=== PATIENT | female | born 1960 | race Caucasian/White ===

== ENCOUNTER 2017-07-05 21:49 | Inpatient (IN) | payer MEDICARE, MEDICAID ==
[~2017-07-05] VITALS: Ht 154.9 cm; Wt 90.0 kg
[2017-07-06] VITALS (21 sets, daily range): BP systolic 102–161; BP diastolic 41–99
--- OUTSIDE RECORDS SUMMARY | 2017-07-06 00:50 | XMS REPORT ---
Author Author Love Guadarrama Organization [employer] Address [address] [place] [address] Care Team Providers Care Field Service Engineer Name Role Phone Love Guadarrama Unavailable PROBLEMS Type Condition ICD9-CM Code UMW84-[id number] Code Onset Dates Condition Status SNOMED Code Problem COPD (chronic obstructive pulmonary disease) J44.9 Active 15976999 Problem Hypothyroidism E03.9 Active 07607159 Problem Cellulitis of Finger, Unspecified 681.00 Active 853629155 Problem Type 2 Diabetes Mellitus With Hyperglycemia E11.65 Active 073709284425201 Problem Bipolar disorder F31.9 Active 21607071 Problem Cellulitis Of Left Finger L03.012 Active [id number] Problem Noncompliance Z91.19 Active 8351437 ALLERGIES Unknown Allergies SOCIAL HISTORY No smoking Hx information available PLAN OF CARE VITAL SIGNS MEDICATIONS Unknown Medications RESULTS No Results PROCEDURES No Known procedures IMMUNIZATIONS No Known Immunizations
--- OUTSIDE RECORDS SUMMARY | 2017-07-06 00:50 | XMS REPORT ---
Author Author Fabian Roger Organization [employer] Address Unknown Phone Unavailable Care Team Providers Care Hardwood Flooring Specialist Name Role Phone Fabian Roger CP Unavailable Allergies, Adverse Reactions, Alerts Substance Reaction Event Type Seafood/Fish Info Not Available Non Drug Allergy Sulfa Info Not Available Non Drug Allergy Poultry Info Not Available Non Drug Allergy Milk Info Not Available Non Drug Allergy Problems Problem Type Condition Code Onset Dates Condition Status Problem Unspecified diastolic (congestive) heart failure I50.30 Active Problem Chronic obstructive pulmonary disease, unspecified J44.9 Active Problem Type 2 diabetes mellitus without complications E11.9 Active Problem Fall from bed, initial encounter W06.XXXA Active Problem Chronic obstructive pulmonary disease with acute lower respiratory infection J44.0 Active Problem Other slipping, tripping and stumbling without falling, initial encounter W18.49XA Active Problem Other seizures G40.89 Active Problem Type 2 diabetes mellitus with diabetic polyneuropathy E11.42 Active Problem Sprain of other specified parts of left knee, initial encounter S83.8X2A Active Problem Syncope and collapse R55 Active Problem Acute on chronic systolic (congestive) heart failure I50.23 Active Assessment Morbid (severe) obesity due to excess calories E66.01 Active Assessment Patient's noncompliance with other medical treatment and regimen Z91.19 Active Assessment Essential (primary) hypertension I10 Active Assessment Chronic obstructive pulmonary disease, unspecified J44.9 Active Assessment Hypothyroidism, unspecified E03.9 Active Assessment Other specified hearing loss, bilateral H91.8X3 Active Assessment Type 2 diabetes mellitus with hyperglycemia E11.65 Active Assessment Cardiac murmur, unspecified R01.1 Active Assessment Metabolic syndrome E88.81 Active Problem Lymphocytopenia D72.810 Active Problem Other primary thrombocytopenia D69.49 Active Problem History of falling Z91.81 Active Problem Hypercalcemia E83.52 Active Problem Abnormal weight loss R63.4 Active Problem Other fall on same level, subsequent encounter W18.39XD Active Problem Left ventricular failure I50.1 Active Problem Ototoxic hearing loss, 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 Problem Cellulitis of right axilla L03.111 Active Problem Calcific tendinitis, right hand M65.241 Active Problem Hypothyroidism, unspecified E03.9 Active Problem Acute maxillary sinusitis, unspecified J01.00 Active Problem Myoclonus G25.3 Active Problem Morbid (severe) obesity due to excess calories E66.01 Active Problem Type 2 diabetes mellitus with hyperglycemia E11.65 Active Problem Other muscle spasm M62.838 Active Problem Insomnia, unspecified G47.00 Active Problem Unspecified otitis externa, unspecified ear H60.90 Active Problem Chills (without fever) R68.83 Active Problem Metabolic syndrome E88.81 Active Problem Otitis media, unspecified, unspecified ear H66.90 Active Problem Segmental and somatic dysfunction of sacral region M99.04 Active Problem Segmental and somatic dysfunction of lumbar region M99.03 Active Problem Segmental and somatic dysfunction of thoracic region M99.02 Active Problem Segmental and somatic dysfunction of cervical region M99.01 Active Problem Patient's noncompliance with other medical treatment and regimen Z91.19 Active Problem Segmental and somatic dysfunction of pelvic region M99.05 Active Problem Other specified diabetes mellitus with diabetic neuropathy, unspecified E13.40 Active Problem Cutaneous abscess of right upper limb L02.413 Active Problem Other specified hearing loss, unspecified ear H91.8X9 Active Problem Cellulitis of left axilla L03.112 Active Problem Thrombocytopenia, unspecified D69.6 Active Problem Cardiac murmur, unspecified R01.1 Active Problem Type 1 diabetes mellitus with diabetic polyneuropathy E10.42 Active Problem 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 Problem Obsessive-compulsive disorder F42 Active Problem Constipation, unspecified K59.00 Active Problem Full incontinence of feces R15.9 Active Problem Candidiasis of vulva and vagina B37.3 Active Problem Other specified hearing loss, bilateral H91.8X3 Active Problem Pneumonia, unspecified organism J18.9 Active Problem Rheumatic mitral stenosis with insufficiency I05.2 Active Problem Low back pain M54.5 Active Problem Major depressive disorder, single episode, unspecified F32.9 Active Problem Pain in unspecified joint M25.50 Active Problem Iron deficiency anemia, unspecified D50.9 Active Problem Other asthma J45.998 Active Problem Essential (primary) hypertension I10 Active Problem Unspecified convulsions R56.9 Active Medications Medication Code System Code Instructions Start Date End Date Status Dosage Albuterol Sulfate [facility] [id number] (2.5 MG/3ML) 0.083% Orally Three times a day 3 ml Ranitidine HCl [facility] [address]-68 300 MG Orally Once a day 1 tablet Invokana [facility] [address]-82 100 MG Orally Once a day 1 tablet Amitriptyline HCl [facility] 40740963797 25 MG Orally Once a day 1 tablet at bedtime Levemir FlexTouch [facility] [address]-99 100 UNIT/ML Subcutaneous daily at bedtime 7 units in the a.m. and 115 units Potassium Chloride ER [facility] [address]-30 10 MEQ Orally Twice a day 1 tablet with food Gabapentin [facility] [address]-94 300 MG Orally Three times a day 2 capsules Doxycycline Hyclate [facility] [address]-92 100 MG Orally every 12 hrs 1 capsule BD AutoShield Duo [facility] [id number] 30G X 5 MM USE DIRECTED Levothyroxine Sodium [facility] [address]-18 125 MCG Orally Once a day 1 tablet Sucralfate [facility] [address]-77 1 GM Orally Three times a day 1 tablet on an empty stomach Procedures Procedure Coding System Code Date BP SYS <130 AND LAMA <80 CPT-4 G8476 October 17, 2015 TOBACCO NON-USER CPT-4 G8457 October 17, 2015 DOC PAIN ASSESS NO DOC F/U PLAN RNS CPT-4 G8509 October 17, 2015 TX PLAN DEVELOP & DOCUMENT CPT-4 G8437 October 17, 2015 CLIN DEPRESSION SCREEN NOT D CPT-4 G8432 October 17, 2015 PRESCRIP NOT GEN AT ENCOUNTE CPT-4 G8445 October 17, 2015 PAIN ASSESSMENT DOCUMENT CPT-4 G8440 October 17, 2015 MOST RECENT SYSTOLIC BP <140 MM HG CPT-4 G8588 October 17, 2015 MOST RECENT DIASTOLIC BP <90 MM HG CPT-4 G8590 October 17, 2015 BMI>=30OR<22 RUDY NO FOLLOWUP CPT-4 G8419 October 17, 2015 [facility] MED/CURRENT MED MERGE CPT-4 1111F October 17, 2015 MOST RECENT SYSTOLIC BP < 140MM HG CPT-4 G8752 October 17, 2015 DOC MEDS VERIFIED W/PT OR RE CPT-4 G8427 October 17, 2015 MOST RECENT DIASTOLIC BP < 90MM HG CPT-4 G8754 October 17, 2015 MOST RECENT DIASTOLIC BP >=90MM HG CPT-4 G8755 October 17, 2015 Office Visit, Est Pt., Level 3 CPT-4 21317 October 17, 2015 Vital Signs Date/Time: October 17, 2015 BMI 34.95 Index Weight 185 lbs Height 61 in Respiratory Rate 18 /min Temperature 97.4 F Cardiac Monitoring Heart Rate 92 /min Oximetry 94 % Blood Pressure Diastolic 76 mm Hg Blood Pressure Systolic 118 mm Hg Results No Known Results Summary Purpose [employer] Submission
--- OUTSIDE RECORDS SUMMARY | 2017-07-06 00:51 | XMS REPORT ---
Author Author Alena Huertas [facility] Address [address] [place], [place] [id number] Care Team Providers Care Die Caster Name Role Phone Alena Huertas PCP Unavailable Benja, Narda Unavailable Unavailable tonia hussein Unavailable Unavailable Merary Unavailable Unavailable Hogge Unavailable Unavailable Roselyn Unavailable Unavailable Fabian Roger Unavailable Unavailable Mariana Cummins PreferredProvider Unavailable Allergies and Adverse Reactions Name Reaction Notes SULFA (SULFONAMIDE ANTIBIOTICS) Plan of Treatment Planned Activity Comments Planned Date Planned Time Plan/Goal CBC With Auto Differential 07/30/2016 12:00 AM CMP (comprehensive metabolic panel) 07/30/2016 12:00 AM .Lipid Panel 07/30/2016 12:[address] ABD AND PELVIS W/WO CONTRAST 07/30/2016 12:00 AM CBC W/ AUTO DIFF (RFLX MAN DIFF IF IND). 10/03/2016 12:00 AM BASIC METABOLIC PANEL 10/03/2016 12:00 AM URINALYSIS W/MICRO C&S IF IND 10/06/2016 12:00 AM insulin resistant diabetic 09/02/2016 1:00 PM chronic right leg pain, neuropathy versus radiculopathy 09/26/2016 3:45 PM Medications Active Name Start Date Estimated Completion Date SIG Comments sucralfate 1 gram oral tablet take 1 tablet by oral route 3 times a day levothyroxine 125 mcg oral tablet take 1 tablet (125 mcg) by oral route once daily duloxetine 60 mg oral capsule,delayed release(DR/EC) take 1 capsule (60 mg) by oral route once daily Invokana 100 mg oral tablet take 1 tablet (100 mg) by oral route once daily before the first meal of the day buspirone 15 mg oral tablet take 1 tablet by oral route 4 times a day amitriptyline 25 mg oral tablet take 1 tablet (25 mg) by oral route once daily at bedtime Prevacid 30 mg oral capsule,delayed release(DR/EC) 07/30/2016 01/26/2017 take 1 capsule by oral route once a day (at bedtime) for 30 days Spiriva Respimat 2.5 mcg/actuation inhalation mist 07/30/2016 11/27/2016 inhale 2 puffs (5 mcg) by inhalation route once daily at the same time each day for 30 days fluticasone 50 mcg/actuation nasal spray,suspension 08/19/2016 02/15/2017 spray 1 spray (50 mcg) in each nostril by intranasal route once daily for 30 days Zyrtec 10 mg oral tablet 08/19/2016 02/15/2017 take 1 tablet by oral route once a day (at bedtime) for 30 days Tessalon Perles 100 mg oral capsule 08/22/2016 take 1 capsule (100 mg) by oral route 3 times per day as needed for cough prednisone oral Patient states she is taking 80mg daily Lyrica 75 mg oral capsule 09/19/2016 12/18/2016 take 1 capsule by oral route in am and 2 at hs for 30 days simethicone 125 mg oral capsule 09/19/2016 12/18/2016 take 1 capsule by oral route 2 times a day as needed for 30 days Levemir FlexTouch 100 unit/mL (3 mL) subcutaneous insulin pen 10/03/20162016 85 units bid Novolog Flexpen 100 unit/mL subcutaneous insulin pen 10/03/2016 05/01/2017 35 units with meals azithromycin 250 mg oral tablet 10/03/2016 10/08/2016 take 2 tablets (500 mg) by oral route once daily for 1 day then 1 tablet (250 mg) by oral route once daily for 4 days Anusol-HC 25 mg rectal suppository 10/08/2016 10/13/2016 25 mg CO q hs for 5 nights Name Start Date Expiration Date SIG Comments fluconazole 200 mg oral tablet 01/03/2016 01/13/2016 take 1 tablet (200 mg) by oral route once daily for 10 weeks azithromycin 500 mg oral tablet 01/03/2016 01/08/2016 take 1 tablet by oral route daily for 5 days for 5 days potassium chloride 10 mEq oral capsule, extended release 07/30/2016 08/29/2016 take 1 capsule by oral route daily for 30 days aripiprazole 2 mg oral tablet 07/30/2016 08/29/2016 take 1 tablet by oral route daily for 30 days Tamiflu 75 mg oral capsule 08/22/2016 08/29/2016 take 1 capsule (75 mg) by oral route 2 times per day for 7 days Gaston 7.5-325 mg oral tablet 09/12/2016 09/27/2016 take 1 tablet by oral route every 8 hours as needed for 15 days Discontinued Name Start Date Discontinued Date SIG Comments gabapentin 300 mg oral capsule 08/19/2016 take 2 capsules (600 mg) by oral route 3 times per day ranitidine HCl 300 mg oral tablet 07/30/2016 take 1 tablet (300 mg) by oral route once daily at bedtime switch to prevacid Advair Diskus 250-50 mcg/dose inhalation blister with device 09/19/2016 inhale 1 puff by inhalation route 2 times per day in the morning and evening approximately 12 hours apart albuterol sulfate 2.5 mg /3 mL (0.083 %) inhalation solution for nebulization 09/19/2016 inhale 3 milliliters (2.5 mg) by nebulization route 4 times per day Combivent Respimat 20-100 mcg/actuation inhalation mist 09/19/2016 inhale 1 puff by inhalation route 4 times per day ; may take additional puffs as needed not to exceed 6 puffs in 24hrs tramadol 50 mg oral tablet 08/01/2016 08/19/2016 take 1 tablet by oral route 2 times a day as needed for 30 days tramadol 50 mg oral tablet 08/01/2016 08/19/2016 take 1 tablet by oral route 2 times a day as needed for 30 days switch to lyrica Problem List Description Status Onset Anemia Active COPD Active Depression and anxiety Active Diabetes Active DVT (deep venous thrombosis), right Active 2006 HTN (hypertension) Active Hypokalemia Active Hyponatremia Active Hypotension, Chronic Active Hypothyroidism Active Neuropathy in diabetes Active Insulin resistance Active Vital Signs Date Time BP-Sys(mm[Hg] BP-[place](mm[Hg]) HR(bpm) RR(rpm) Temp WT HT HC BMI BSA BMI Percentile O2 Sat(%) 10/08/2016 1:13:00 PM 138 mmHg 62 mmHg 110 bpm 20 rpm 98.8 F 177.25 lbs 60 in 34.62 kg/m2 1.84 m2 97 % 10/03/2016 9:46:00 AM 122 mmHg 78 mmHg 117 bpm 20 rpm 99.8 F 181.25 lbs 61 in 34.2465 kg/m 1.8811 m 97 % 09/22/2016 10:54:00 AM 128 mmHg 68 mmHg 96 bpm 20 rpm 97.7 F 173.125 lbs 61 in 32.71 kg/m2 1.84 m2 98 % 09/19/2016 9:42:00 AM 144 mmHg 72 mmHg 92 bpm 18 rpm 98.8 F 179.5 lbs 61 in 33.9159 kg/m 1.872 m 99 % 09/12/2016 5:39:00 PM 120 mmHg 76 mmHg 100 bpm 18 rpm 98.5 F 181.25 lbs 62 in 33.15 kg/m2 1.90 m2 98 % 08/28/2016 3:39:00 PM 116 mmHg 58 mmHg 121 bpm 23 rpm 97.5 F 180 lbs 62 in 32.9221 kg/m 1.8899 m 98 % 08/22/2016 11:18:00 AM 116 mmHg 76 mmHg 100 bpm 20 rpm 98.1 F 180.125 lbs 62 in 32.94 kg/m2 1.89 m2 96 % 08/19/2016 9:59:00 AM 136 mmHg 62 mmHg 105 bpm 16 rpm 98 F 180 lbs 97 % 08/15/2016 11:04:00 AM 130 mmHg 70 mmHg 94 bpm 16 rpm 97.6 F 185.25 lbs 61 in 35.00 kg/m2 1.90 m2 98 % 08/11/2016 11:18:00 AM 140 mmHg 68 mmHg 113 bpm 20 rpm 98.1 F 178.25 lbs 94 % 07/30/2016 10:23:00 AM 131 mmHg 70 mmHg 101 bpm 20 rpm 97.9 F 176.375 lbs 95 % 07/23/2016 6:38:00 PM 130 mmHg 98 mmHg 92 bpm 22 rpm 98.6 F 185 lbs 61 in 34.9551 kg/m 1.9004 m 96 % 01/05/2016 11:26:00 AM 106 mmHg 60 mmHg 73 bpm 16 rpm 97.3 F 185.6 lbs 61.5 in 34.50 kg/m2 1.91 m2 95 % Social History Name Description Comments Tobacco Former smoker quit smoking 2011 she uses to smoke 2ppd since she was 13 yrs ago Alcohol Light One or less per year Denies illicit substance abuse History of Procedures Date Ordered Description Order Status 07/23/2016 12:00 AM THER/PROPH/DIAG INJ SC/IM Reviewed 07/23/2016 12:00 AM Toradol 30 Mg Injection, RHC Medicare Reviewed 07/30/2016 12:00 AM GLYCOSYLATED HEMOGLOBIN TEST Returned 07/30/2016 12:00 AM URINALYSIS AUTO W/SCOPE Returned 07/30/2016 12:00 AM ASSAY THYROID STIM HORMONE Returned 07/30/2016 12:00 AM ASSAY OF FREE THYROXINE Returned 07/30/2016 12:00 AM URNLS DIP STICK/TABLET RGNT AUTO W/O MICROSCOPY Returned 07/30/2016 12:00 AM ALBUMIN URINE MICROALBUMIN QUANTIATIVE Returned 07/30/2016 12:00 AM COLLECTION VENOUS BLOOD VENIPUNCTURE Reviewed 07/30/2016 12:00 AM ASSAY OF MAGNESIUM Returned 08/11/2016 12:00 AM CARDIOVASCULAR STRESS TEST Reviewed 08/19/2016 12:00 AM X-RAY EXAM L-S SPINE 2/3 VWS Reviewed 08/19/2016 12:00 AM X-RAY EXAM SI JOINTS 3/> VWS Reviewed 08/19/2016 12:00 AM X-RAY EXAM SI JOINTS Reviewed 08/19/2016 12:00 AM XR lumbar spine and both sacroiliac joints Reviewed 08/28/2016 7:01 PM URINALYSIS AUTO W/O SCOPE Reviewed 08/28/2016 12:00 AM URNLS DIP STICK/TABLET REAGENT AUTO MICROSCOPY Reviewed 08/28/2016 12:00 AM COMPLETE CBC W/AUTO DIFF WBC Reviewed 08/28/2016 12:00 AM COMPREHEN METABOLIC PANEL Reviewed 08/28/2016 12:00 AM ASSAY OF NATRIURETIC PEPTIDE Reviewed 08/28/2016 12:00 AM ROUTINE VENIPUNCTURE Reviewed 08/28/2016 12:00 AM CHEST X-RAY 2VW FRONTAL&LATL Reviewed 09/22/2016 12:00 AM CLOSTRIDIUM AG EIA Reviewed 10/03/2016 12:00 AM URINALYSIS AUTO W/SCOPE Reviewed 10/06/2016 12:00 AM COLLECTION VENOUS BLOOD VENIPUNCTURE Reviewed 10/06/2016 12:00 AM COMPLETE CBC W/AUTO DIFF WBC Reviewed 10/06/2016 12:00 AM METABOLIC PANEL TOTAL CA Reviewed Results Summary Data and Description Results 07/30/2016 12:25 PM HGB A1C 7.30 %Est Avg Glucose 162.8 mg/dLGLUCOSE 180.0 mg/ dLSODIUM 137.0 mmol/LPOTASSIUM 3.90 mmol/LCHLORIDE 101.0 mmol/LCO2 24.0 mmol/ LBUN 24.0 mg/dLCREATININE 1.0 mg/dLSGOT/AST 26.0 IU/LSGPT/ALT 33.0 IU/LALK PHOS 77.0 IU/LTOTAL PROTEIN 7.50 g/dLALBUMIN 4.80 g/dLTOTAL BILI 1.50 mg/dLCALCIUM 9.40 mg/dLAGE 56 GFR NonAA 57 GFR AA 69 eGFR 57 eGFR AA* >60 TRIGLYCERIDES 176.0 mg/dLCHOLESTEROL 179.0 mg/dLHDL 45.0 mg/dLTOT CHOL/HDL 4.0 LDL (CALC) 99.0 mg/dLWBC 14.6 RBC 4.41 HGB 12.70 g/dLHCT 41.30 %MCV 94.0 fLMCH 28.80 pgMCHC 30.80 g/dLRDW SD 60 RDW CV 18.40 %MPV 10.30 fLPLT 205 NRBC# 0.00 NRBC% 0.0 %NEUT 78.10 %%LYMP 13.90 %%MONO 6.10 %%EOS 0.50 %%BASO 0.50 %#NEUT 11.44 # LYMP 2.03 #MONO 0.89 #EOS 0.07 #BASO 0.08 MANUAL DIFF NOT IND MAGNESIUM 2.40 mg/ dLCOLOR YELLOW APPEARANCE CLEAR SPEC GRAV 1.010 pH 6.0 PROTEIN NEGATIVE GLUCOSE >=1000 mg/dLKETONE NEGATIVE BILIRUBIN NEGATIVE BLOOD NEGATIVE NITRITE NEGATIVE LEUK SCREEN NEGATIVE MICRO INDICATED? SEE BELOW WBC/HPF 5-10 RBC/HPF RARE CASTS/ LPF NEGATIVE /LPFCRYSTALS NEGATIVE MUCOUS THRDS NEGATIVE BACTERIA NEGATIVE EPITH CELLS FEW SQUAMOUS /HPFTRICHOMONAS NEGATIVE YEAST NEGATIVE CULT SET UP? YES MICROALBUMIN UR 17.0 ug/mLFREE T4 1.10 TSH 4.320 uIU/mL 08/22/2016 11:30 AM Influenza A neg Influenza B neg 08/28/2016 5:33 PM COLOR YELLOW APPEARANCE CLEAR SPEC GRAV 1.010 pH 6.0 PROTEIN TRACE GLUCOSE >=1000 mg/dLKETONE NEGATIVE BILIRUBIN NEGATIVE BLOOD SMALL NITRITE NEGATIVE LEUK SCREEN NEGATIVE MICRO IND? SEE BELOW WBC/HPF 0-5 RBC/HPF RARE CASTS/LPF NEGATIVE /LPFCRYSTALS NEGATIVE MUCOUS THRDS NEGATIVE BACTERIA FEW EPITH CELLS FEW SQUAMOUS /HPFTRICHOMONAS NEGATIVE YEAST 1+ BNP 17.0 pg/ mLWBC 10.3 RBC 4.82 HGB 13.20 g/dLHCT 43.10 %MCV 89.0 fLMCH 27.40 pgMCHC 30.60 g /dLRDW SD 55 RDW CV 17.70 %PLT 2 NRBC# 0.03 NRBC% 0.3 %NEUT 77.10 %%LYMP 14.40 % %MONO 6.70 %%EOS 0.50 %%BASO 0.70 %#NEUT 7.92 #LYMP 1.48 #MONO 0.69 #EOS 0.05 # BASO 0.07 MANUAL DIFF SEE BELOW SEGS 57 BANDS 16 LYMPHS 20 MONOS 6 EOS 1.0 % GLUCOSE 309.0 mg/dLSODIUM 136.0 mmol/LPOTASSIUM 4.80 mmol/LCHLORIDE 99.0 mmol/ LCO2 25.0 mmol/LBUN 24.0 mg/dLCREATININE 1.20 mg/dLSGOT/AST 23.0 IU/LSGPT/ALT 17.0 IU/LALK PHOS 93.0 IU/LTOTAL PROTEIN 6.90 g/dLALBUMIN 4.40 g/dLTOTAL BILI 2.70 mg/dLCALCIUM 9.70 mg/dLAGE 56 GFR NonAA 46 GFR AA 56 eGFR 46 eGFR AA* 56 08/28/2016 7:01 PM Clarity Ur clear Color Ur yellow Glucose Ur-sCnc >=1000mg/dL Bilirub Ur Ql Strip small Ketones Ur Ql Strip neg Sp Gr Ur Qn <=1.005 Hgb Ur Ql Strip trace-intact pH Ur-LsCnc 6.0 Prot Ur Ql Strip 30mg/dL Urobilinogen Ur- mCnc 0.2 E.U./dL Nitrite Ur Ql Strip neg WBC Est Ur Ql Strip neg 09/29/2016 9:16 AM C DIFFICILE NAAT NEGATIVE 10/06/2016 9:15 AM WBC 9.9 RBC 4.39 HGB 10.40 g/dLHCT 37.60 %MCV 86.0 fLMCH 23.70 pgMCHC 27.70 g/dLRDW SD 55 RDW CV 17.70 %MPV 11.50 fLPLT 196 NRBC# 0.04 NRBC% 0.4 %NEUT 77.0 %%LYMP 16.60 %%MONO 5.10 %%EOS 0.20 %%BASO 0.30 %#NEUT 7.62 #LYMP 1.65 #MONO 0.51 #EOS 0.02 #BASO 0.03 MANUAL DIFF NOT IND GLUCOSE 227.0 mg/dLSODIUM 139.0 mmol/LPOTASSIUM 3.60 mmol/LCHLORIDE 99.0 mmol/LCO2 24.0 mmol/LBUN 12.0 mg/dLCREATININE 1.0 mg/dLCALCIUM 8.90 mg/dLAGE 56 GFR NonAA 57 GFR AA 69 eGFR 57 eGFR AA* >60 History Of Immunizations Not available. History of Past Illness Name Date of Onset Comments Diabetes Depression and anxiety Hypokalemia Hypothyroidism COPD Does not use a CPAP or oxygen but has it if needed Hyponatremia 07/30/2016 - reports drinks too much water Anemia HTN (hypertension) 07/30/2016 - cannot take bp meds as she passes out and get hypotensive Hypotension, Chronic DVT (deep venous thrombosis), right 200607/30/2016 - right legcould not take blood thinners as she almost bled to Neuropathy in diabetes right lower leg Insulin resistance Screening Mammogram 2014 normal SCREENING PAP SMEAR 2014 normal Screening for colon cancer 2014 negative but told to get next in 2019 due to family history Colon polyps Left ventricular failure Mitral stenosis with insufficiency, rheumatic CHF (congestive heart failure) Asthma Nosebleed Jan 05 2016 11:29AM Body aches Jul 23 2016 6:41PM Acute upper respiratory infection, unspecified Jul 23 2016 6:41PM Other viral agents as the cause of diseases classified elsewhere Jul 23 2016 6:41PM Acid Reflux Jul 30 2016 10:34AM Anemia Jul 30 2016 10:34AM Hypertension Jul 30 2016 10:34AM Hypothyroidism, Acquired Jul 30 2016 10:34AM Chronic Obstructive Pulmonary Disease Jul 30 2016 10:34AM DVT Jul 30 2016 10:34AM Peripheral Neuropathy Jul 30 2016 10:34AM Diabetes mellitus type II, uncontrolled Jul 30 2016 10:34AM Abdominal mass, LUQ (left upper quadrant) Jul 30 2016 10:34AM Short of breath on exertion Aug 11 2016 11:22AM Right acute serous otitis media, recurrence not specified Aug 11 2016 11:22AM Dizzy spells Aug 11 2016 11:22AM Chronic Right Lower Anterior Neuropathy Aug 19 2016 10:06AM Hypertension Aug 19 2016 10:06AM Diabetes Mellitus, Type II Aug 19 2016 10:06AM Lumbar radiculopathy, right Aug 19 2016 10:06AM Rhinitis, allergic Aug 19 2016 10:06AM Pain Aug 15 2016 11:06AM Influenza Aug 22 2016 11:21AM Weakness Aug 28 2016 3:41PM Shortness of breath Aug 28 2016 3:41PM Hemoptysis Aug 28 2016 3:41PM Chronic Right Lower Neuropathy Sep 19 2016 9:54AM Flatulence Sep 19 2016 9:54AM Leg pain, anterior, right Sep 12 2016 5:41PM Diabetes Mellitus, Type II, Uncontrolled Sep 22 2016 11:05AM Thrombocytopenia Sep 22 2016 11:05AM Diarrhea Sep 22 2016 11:05AM Acute bronchitis, unspecified organism Oct 03 2016 9:55AM Diabetes Mellitus, Type II, Uncontrolled Oct 03 2016 9:55AM Thrombocytopenia Oct 03 2016 9:55AM Acute bronchitis, unspecified organism Oct 06 2016 11:07AM Diabetes mellitus type 2, uncontrolled Oct 06 2016 11:07AM Thrombocythemia Oct 06 2016 11:07AM Type 2 diabetes mellitus with hyperglycemia Oct 08 2016 1:21PM manager intermediate (current) use of insulin Oct 08 2016 1:21PM Rectal bleeding Oct 08 2016 1:21PM Iron deficiency anemia due to chronic blood loss Oct 08 2016 1:21PM Payers Insurance Name Company Name Plan Name Plan Number Policy Number Policy Group Number Start Date Medicare Part B Medicare Of [place] [id number] Monday, 2008 [facility] [place] State [place] [facility] State Plan [id number] N/A Medicare Part A Medicare - Lab/Xray [id number] N/A [employer] [place] Plan [employer] [id number] Friday, June 29, 2012 Medicare RHC Medicare [facility] [id number] N/A History of Encounters Visit Date Visit Type Provider 10/08/2016 Office visit Alena Huertas MD 10/06/2016 Laboratory Suad Roger [employer] 10/03/2016 Office visit Alena Huertas MD 09/22/2016 Office visit Alena Huertas MD 09/19/2016 Office visit Mariana Cummins INS[employer] 09/12/2016 Office visit Suad Roger INS[employer]ING 08/28/2016 Office visit Bridger Sarkar INS[employer] 08/22/2016 Office visit Suad Roger APRN 08/19/2016 Office visit Mariana Cummins APRN 08/15/2016 Office visit Bridger Sarkar [employer] 08/11/2016 Office visit Mariana Cummins APRN 07/30/2016 Office visit Mariana Cummins APRN 07/23/2016 Office visit Suad Roger APRN 01/05/2016 Office visit Mariana Cummins APRN
--- OUTSIDE RECORDS SUMMARY | 2017-07-06 00:52 | XMS REPORT ---
Author Author Fabian Roger Organization [employer] Address Unknown Phone Unavailable Care Team Providers Care Tax Associate Attorney Name Role Phone Fabian Roger CP Unavailable Allergies, Adverse Reactions, Alerts Substance Reaction Event Type Seafood/Fish Info Not Available Non Drug Allergy Sulfa Info Not Available Non Drug Allergy Poultry Info Not Available Non Drug Allergy Milk Info Not Available Non Drug Allergy Problems Problem Type Condition Code Onset Dates Condition Status Assessment Patient's noncompliance with other medical treatment and regimen Z91.19 Active Problem Chronic obstructive pulmonary disease, unspecified J44.9 Active Problem Pain in unspecified joint M25.50 Active Problem Fall from bed, initial encounter W06.XXXA Active Problem Unspecified diastolic (congestive) heart failure I50.30 Active Problem Type 2 diabetes mellitus without complications E11.9 Active Problem Chronic obstructive pulmonary disease with acute lower respiratory infection J44.0 Active Problem Other slipping, tripping and stumbling without falling, initial encounter W18.49XA Active Problem Other seizures G40.89 Active Problem Type 2 diabetes mellitus with diabetic polyneuropathy E11.42 Active Problem Sprain of other specified parts of left knee, initial encounter S83.8X2A Active Problem Syncope and collapse R55 Active Assessment Morbid (severe) obesity due to excess calories E66.01 Active Assessment Hypothyroidism, unspecified E03.9 Active Assessment Thrombocytopenia, unspecified D69.6 Active Assessment Iron deficiency anemia, unspecified D50.9 Active Assessment Type 2 diabetes mellitus without complications E11.9 Active Assessment Type 1 diabetes mellitus with diabetic polyneuropathy E10.42 Active Assessment Metabolic syndrome E88.81 Active Assessment Chronic obstructive pulmonary disease, unspecified J44.9 Active Assessment Other specified hearing loss, bilateral H91.8X3 Active Assessment Essential (primary) hypertension I10 Active Problem Other primary thrombocytopenia D69.49 Active Problem History of falling Z91.81 Active Problem Acute on chronic systolic (congestive) heart failure I50.23 Active Problem Left ventricular failure I50.1 Active Problem Hypercalcemia E83.52 Active Problem Lymphocytopenia D72.810 Active Problem Other fall on same level, subsequent encounter W18.39XD Active Problem Hypothyroidism, unspecified E03.9 Active Problem Ototoxic hearing loss, 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 Problem Abnormal weight loss R63.4 Active Problem Calcific tendinitis, right hand M65.241 Active Problem Myoclonus G25.3 Active Problem Morbid (severe) obesity due to excess calories E66.01 Active Problem Type 2 diabetes mellitus with hyperglycemia E11.65 Active Assessment Cellulitis of right axilla L03.111 Active Problem Insomnia, unspecified G47.00 Active Problem Metabolic syndrome E88.81 Active Problem Chills (without fever) R68.83 Active Problem Acute maxillary sinusitis, unspecified J01.00 Active Problem Otitis media, unspecified, unspecified ear H66.90 Active Problem Unspecified otitis externa, unspecified ear H60.90 Active Problem Segmental and somatic dysfunction of pelvic region M99.05 Active Problem Segmental and somatic dysfunction of sacral region M99.04 Active Problem Segmental and somatic dysfunction of lumbar region M99.03 Active Problem Segmental and somatic dysfunction of thoracic region M99.02 Active Problem Cellulitis of right axilla L03.111 Active Problem Other muscle spasm M62.838 Active Problem Patient's noncompliance with other medical treatment and regimen Z91.19 Active Problem Other specified diabetes mellitus with diabetic neuropathy, unspecified E13.40 Active Problem Cellulitis of left axilla L03.112 Active Problem Cutaneous abscess of right upper limb L02.413 Active Problem Thrombocytopenia, unspecified D69.6 Active Problem Other specified hearing loss, bilateral H91.8X3 Active Problem Type 1 diabetes mellitus with diabetic polyneuropathy E10.42 Active Problem Constipation, unspecified K59.00 Active Problem Full incontinence of feces R15.9 Active Problem Candidiasis of vulva and vagina B37.3 Active Problem Other specified hearing loss, unspecified ear H91.8X9 Active Problem Pneumonia, unspecified organism J18.9 Active Problem Rheumatic mitral stenosis with insufficiency I05.2 Active Problem Low back pain M54.5 Active Problem Obsessive-compulsive disorder F42 Active Problem Segmental and somatic dysfunction of cervical region M99.01 Active Problem Other asthma J45.998 Active Problem Major depressive disorder, single episode, unspecified F32.9 Active Problem Unspecified convulsions R56.9 Active Problem Iron deficiency anemia, unspecified D50.9 Active Problem 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 Problem Essential (primary) hypertension I10 Active Medications Medication Code System Code Instructions Start Date End Date Status Dosage BD AutoShield Duo [facility] [id number] 30G X 5 MM USE DIRECTED Ranitidine HCl [facility] [address]-64 300 MG Orally Once a day 1 tablet Invokana [facility] [address]-70 100 MG Orally Once a day 1 tablet Amitriptyline HCl [facility] 54081318292 25 MG Orally Once a day 1 tablet at bedtime Gabapentin [facility] [address]-25 300 MG Orally Three times a day 2 capsules Potassium Chloride ER [facility] [address]-49 10 MEQ Orally Twice a day 1 tablet with food Levemir FlexTouch [facility] [address]-16 100 UNIT/ML Subcutaneous daily at bedtime 7 units in the a.m. and 115 units Albuterol Sulfate [facility] 41505091514 (2.5 MG/3ML) 0.083% Orally Three times a day 3 ml Sucralfate [facility] [address]-28 1 GM Orally Three times a day 1 tablet on an empty stomach Levothyroxine Sodium [facility] [address]-38 125 MCG Orally Once a day 1 tablet Doxycycline Hyclate [facility] [address]-27 100 MG Orally every 12 hrs 1 capsule Procedures Procedure Coding System Code Date BP SYS <130 AND LAMA <80 CPT-4 G8476 October 08, 2015 TOBACCO NON-USER CPT-4 G8457 October 08, 2015 AT LEAST 1 RX TRANSMIT ERX SYS CPT-4 G8553 October 08, 2015 TX PLAN DEVELOP & DOCUMENT CPT-4 G8437 October 08, 2015 CLIN DEPRESSION SCREEN NOT D CPT-4 G8432 October 08, 2015 PRESCRIPTION BY E-PRESCRIB S CPT-4 G8443 October 08, 2015 PAIN ASSESSMENT DOCUMENT CPT-4 G8440 October 08, 2015 MOST RECENT SYSTOLIC BP <140 MM HG CPT-4 G8588 October 08, 2015 MOST RECENT DIASTOLIC BP <90 MM HG CPT-4 G8590 October 08, 2015 BMI>=30OR<22 RUDY NO FOLLOWUP CPT-4 G8419 October 08, 2015 DSCHRG MED/CURRENT MED MERGE CPT-4 1111F October 08, 2015 MOST RECENT SYSTOLIC BP < 140MM HG CPT-4 G8752 October 08, 2015 DOC MEDS VERIFIED W/PT OR RE CPT-4 G8427 October 08, 2015 MOST RECENT DIASTOLIC BP < 90MM HG CPT-4 G8754 October 08, 2015 Office Visit, Est Pt., Level 4 CPT-4 64050 October 08, 2015 Vital Signs Date/Time: October 08, 2015 Pain Scale 5/10 1-10 BMI 34.88 Index Peak Flow room air I/min Weight 184.6 lbs Height 61 in Respiratory Rate 18 /min Temperature 97.8 F Cardiac Monitoring Heart Rate 83 /min Oximetry 95 % Blood Pressure Diastolic 79 mm Hg Blood Pressure Systolic 122 mm Hg Results No Known Results Summary Purpose [employer] Submission
--- OUTSIDE RECORDS SUMMARY | 2017-07-06 00:52 | XMS REPORT ---
Author Author Alena Huertas [facility] Address [address] [place], [place] [id number] Care Team Providers Care Case Aide Name Role Phone Alena Huertas PCP Unavailable [...] W/MICRO C&S IF IND 10/06/2016 12:00 AM URINALYSIS ONLY 10/20/2016 12:00 AM Fingerstick Glucose 10/20/2016 12:00 AM insulin resistant diabetic 09/02/2016 1:00 [...] by oral route 4 times a day Prevacid 30 mg oral capsule,delayed release(DR/EC) 07/30/2016 [...] pen 10/03/2016 05/01/2017 35 units with meals amitriptyline 25 mg oral tablet 10/21/2016 05/19/2017 take 1 tablet (25 mg) by oral route once daily at bedtime for 30 days Name Start Date Expiration Date SIG Comments [...] 2 times per day for 7 days Skillman 7.5-325 mg oral tablet 09/12/2016 09/27/2016 take 1 tablet by oral route every 8 hours as needed for 15 days azithromycin 250 mg oral tablet 10/03/2016 10/08/2016 take 2 tablets (500 mg) by oral route once daily for 1 day then 1 tablet (250 mg) by oral route once daily for 4 days Anusol-HC 25 mg rectal suppository 10/08/2016 10/13/2016 25 mg [place] q hs for 5 nights Discontinued Name Start Date Discontinued Date SIG [...] HC BMI BSA BMI Percentile O2 Sat(%) 10/31/2016 10:04:00 AM 128 mmHg 68 mmHg 133 bpm 20 rpm 98.1 F 165 lbs 61 in 31.18 kg/m2 1.79 m2 95 % 10/24/2016 1:30:00 PM 118 mmHg 68 mmHg 116 bpm 22 rpm 99.2 F 187.125 lbs 61 in 35.3566 kg/m 1.9113 m 96 % 10/20/2016 2:48:00 PM 142 mmHg 72 mmHg 129 bpm 22 rpm 99.5 F 170 lbs 61 in 32.12 kg/m2 1.82 m2 97 % 10/08/2016 1:13:00 PM 138 mmHg 62 mmHg 110 bpm 20 rpm 98.8 F 177.25 lbs 60 in 34.6164 kg/m 1.8449 m 97 % 10/03/2016 9:46:00 AM 122 mmHg 78 mmHg 117 bpm 20 rpm 99.8 F 181.25 lbs 61 in 34.25 kg/m2 1.88 m2 97 % 09/22/2016 10:54:00 AM 128 mmHg 68 mmHg 96 bpm 20 rpm 97.7 F 173.125 lbs 61 in 32.7113 kg/m 1.8384 m 98 % 09/19/2016 9:42:00 AM 144 mmHg 72 mmHg 92 bpm 18 rpm 98.8 F 179.5 lbs 61 in 33.92 kg/m2 1.87 m2 99 % 09/12/2016 5:39:00 PM 120 mmHg 76 mmHg 100 bpm 18 rpm 98.5 F 181.25 lbs 62 in 33.1507 kg/m 1.8964 m 98 % 08/28/2016 3:39:00 PM 116 mmHg 58 mmHg 121 bpm 23 rpm 97.5 F 180 lbs 62 in 32.92 kg/m2 1.89 m2 98 % 08/22/2016 11:18:00 AM 116 mmHg 76 mmHg 100 bpm 20 rpm 98.1 F 180.125 lbs 62 in 32.945 kg/m 1.8905 m 96 % 08/19/2016 9:59:00 AM 136 mmHg 62 mmHg 105 bpm 16 rpm 98 F 180 lbs 97 % 08/15/2016 11:04:00 AM 130 mmHg 70 mmHg 94 bpm 16 rpm 97.6 F 185.25 lbs 61 in 35.0023 kg/m 1.9017 m 98 % 08/11/2016 11:18:00 AM 140 mmHg 68 mmHg 113 bpm 20 rpm 98.1 F 178.25 lbs 94 % 07/30/2016 10:23:00 AM 131 mmHg 70 mmHg 101 bpm 20 rpm 97.9 F 176.375 lbs 95 % 07/23/2016 6:38:00 PM 130 mmHg 98 mmHg 92 bpm 22 rpm 98.6 F 185 lbs 61 in 34.96 kg/m2 1.90 m2 96 % 01/05/2016 11:26:00 AM 106 mmHg 60 mmHg 73 bpm 16 rpm 97.3 F 185.6 lbs 61.5 in 34.5006 kg/m 1.9113 m 95 % Social History Name Description Comments [...] 57 eGFR AA* >60 History Of Immunizations Name Date Admin Mfg Name Mfg Code Trade Name Lot# Route Inj Vis Given Vis Pub CVX Td 08/22/2013 Not Entered NE Not Entered Not Entered Not Entered 201606/29/2016 113 Pneumococcal 2006 Not Entered NE Not Entered Not Entered Not Entered 10/28/2016 06/29/2016 33 History of Past Illness Name Date of [...] right lower leg Insulin resistance Screening Mammogram 2015 normal SCREENING PAP SMEAR 2015 normal Screening for colon cancer 2014 negative [...] mellitus with hyperglycemia Oct 08 2016 1:21PM marine oil terminal superintendent (current) use of insulin Oct 08 2016 1:21PM Rectal bleeding Oct 08 2016 1:21PM Iron deficiency anemia due to chronic blood loss Oct 08 2016 1:21PM Fatigue, unspecified type Oct 20 2016 2:56PM Type 2 diabetes mellitus with hyperglycemia Oct 20 2016 2:56PM marine oil terminal superintendent (current) use of insulin Oct 20 2016 2:56PM Other ascites Oct 24 2016 1:35PM Diabetes Mellitus, Type II, Uncontrolled Oct 31 2016 10:10AM Cirrhosis of liver without ascites, unspecified hepatic cirrhosis type Oct 31 2016 10:10AM Panlobular emphysema Oct 31 2016 10:10AM Idiopathic thrombocythemia Oct 31 2016 10:10AM Payers Insurance Name Company Name Plan Name Plan Number Policy Number Policy Group Number Start Date Medicare Part B Medicare [place] [id number] Monday, 2008 [facility] [id number] Friday, 2012 Medicare [facility] Medicare RHC [id number] N/A [employer] - RHC [place] State Plan [employer] - [place] State Plan [id number] N/A Medicare Part A Medicare - Lab/Xray [id number] N/A History of Encounters Visit Date Visit Type Provider 10/31/2016 Office visit Alena Huertas MD 10/24/2016 Office visit Alena Huertas MD 10/20/2016 Office visit Alena Huertas MD 10/08/2016 Office visit Alena Huertas MD 10/06/2016 Laboratory Suad Roger [employer]INT PRODUCTION ASSOCIATE 10/03/2016 Office visit Alena Huertas MD 09/22/2016 Office visit Alena Huertas MD 09/19/2016 Office visit Mariana Cummins PRINT PRODUCTION ASSOCIATE 09/12/2016 Office visit Suad Roger PRINT PRODUCTION ASSOCIATE 08/28/2016 Office visit Bridger Sarkar PRINT PRODUCTION ASSOCIATE 08/22/2016 Office visit Suad Roger PRINT PRODUCTION ASSOCIATE 08/19/2016 Office visit Mariana Cummins APRN 08/15/2016 Office visit Bridger Sarkar PRINT PRODUCTION ASSOCIATE 08/11/2016 Office visit Mariana Cummins PRINT PRODUCTION ASSOCIATE 07/30/2016 Office visit Mariana Cummins PRINT PRODUCTION ASSOCIATE 07/23/2016 Office visit Suad Roger PRINT PRODUCTION ASSOCIATE 01/05/2016 Office visit Mariana Cummins PRINT PRODUCTION ASSOCIATE
--- OUTSIDE RECORDS SUMMARY | 2017-07-06 00:53 | XMS REPORT ---
Author Author Fabian Roger Organization [employer] Address Unknown Phone Unavailable Care Team Providers Care Laser Cutter Name Role Phone Fabian Roger CP Unavailable Allergies, Adverse Reactions, Alerts Substance Reaction Event Type Seafood/Fish Info Not Available Non Drug Allergy Sulfa Info Not Available Non Drug Allergy Poultry Info Not Available Non Drug Allergy Milk Info Not Available Non Drug Allergy Problems Problem Type Condition ICD-9 Code Onset Dates Condition Status Problem Unspecified iron deficiency anemia 280.9 Active Problem Other convulsions 780.39 Active Problem Depressive disorder, not elsewhere classified 311 Active Problem Asthma, unspecified, unspecified status 493.90 Active Problem Esophageal reflux 530.81 Active Problem Anxiety state, unspecified 300.00 Active Problem Diabetes mellitus without mention of complication, type II or unspecified type, not stated as uncontrolled 250.00 Active Problem Pain in joint, other specified sites 719.48 Active Problem Chronic airway obstruction, not elsewhere classified 496 Active Problem Congestive heart failure, unspecified 428.0 Active Problem Unspecified esophagitis 530.10 Active Problem Unspecified hypotension 458.9 Active Problem Polyneuropathy in diabetes 357.2 Active Problem Other specified forms of hearing loss 389.8 Active Problem Mitral stenosis with insufficiency 394.2 Active Problem Morbid obesity 278.01 Active Problem Closed fracture of metatarsal bone(s) 825.25 Active Problem Slow transit constipation 564.01 Active Problem Pneumonia, organism unspecified 486 Active Problem Insomnia, unspecified 780.52 Active Problem Candidiasis of vulva and vagina 112.1 Active Problem Cellulitis and abscess of unspecified site 682.9 Active Assessment Personal history of noncompliance with medical treatment, presenting hazards to health V15.81 Active Assessment Dysmetabolic Syndrome X 277.7 Active Assessment Chronic airway obstruction, not elsewhere classified 496 Active Assessment Polyneuropathy in diabetes 357.2 Active Assessment Other specified forms of hearing loss 389.8 Active Problem Spasm of muscle 728.85 Active Assessment Morbid obesity 278.01 Active Problem Nonallopathic lesion of pelvic region, not elsewhere classified 739.5 Active Problem Nonallopathic lesion of sacral region, not elsewhere classified 739.4 Active Problem Nonallopathic lesion of thoracic region, not elsewhere classified 739.2 Active Problem Nonallopathic lesion of lumbar region, not elsewhere classified 739.3 Active Problem Personal history of noncompliance with medical treatment, presenting hazards to health V15.81 Active Problem Diabetes mellitus without mention of complication, type II or unspecified type, uncontrolled 250.02 Active Problem Other chronic otitis externa 380.23 Active Problem Essential and other specified forms of tremor 333.1 Active Problem Lumbago 724.2 Active Assessment Congestive heart failure, unspecified 428.0 Active Problem Nonallopathic lesion of cervical region, not elsewhere classified 739.1 Active Assessment Other chronic otitis externa 380.23 Active Problem Dysmetabolic Syndrome X 277.7 Active Assessment Diabetes mellitus without mention of complication, type II or unspecified type, not stated as uncontrolled 250.00 Active Problem Unspecified otitis media 382.9 Active Assessment Unspecified essential hypertension 401.9 Active Problem 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 Problem Unspecified essential hypertension 401.9 Active Problem Unspecified hypothyroidism 244.9 Active Problem Unspecified constipation 564.00 Active Problem Special screening for malignant neoplasms, colon V76.51 Active Problem Screening for lipoid disorders V77.91 Active Medications Medication Code System Code Instructions Start Date End Date Status Dosage Zantac [facility] [address]-21 300 MG Orally Once a day at HS 1 tablet BusPIRone HCl [facility] [address]-02 15 MG Orally Four times a day 1 tablet Aspercreme [facility] [address]68-[address]458 10 % Externally not defined Cipro [facility] [address]-14 500 MG Orally Twice a day 1 tablet Spiriva HandiHaler [facility] [address]-06 18 MCG Inhalation Once a day 1 capsule Flonase [facility] [address]-24 50 MCG/ACT Nasally Once a day 1 spray in each nostril Xanax [facility] [address]-88 0.25 MG Orally once a day at HS 1 tablet as needed Levemir FlexTouch [facility] [address]-26 100 UNIT/ML INJECT 75 UNITS SUBQ AT BEDTIME Albuterol Sulfate HFA [facility] [address]-17 108 (90 Base) MCG/ACT Inhalation every 4 hrs 2 puffs as needed Gabapentin [facility] 63750508253 300 MG TAKE 1 CAPSULE BY MOUTH THREE TIMES A DAY AT 7AM, 2PM AND 10PM Cymbalta [facility] [address]-00 60 MG Orally Twice a day 1 capsule Magnesium Oxide [facility] [address]-15 400 MG Orally Twice a day 1 tablet Hydrocortisone-Acetic Acid [facility] [address]-22 1-2 % Otic Three times a day 5 drops into affected ear Mylanta [facility] 31375-76472 200-200-20 MG/5ML Orally Four times a day 10 ml as needed [place] [facility] [address]-21 5-325 MG Orally every 4 hrs 1 tablet as needed Albuterol Sulfate [facility] 48004986568 (2.5 MG/3ML) 0.083% 3ML THREE TIMES A DAY Levothyroxine Sodium [facility] 36808850462 112 MCG TAKE 1 TABLET BY MOUTH ONCE A DAY HydrOXYzine HCl [facility] [address]-52 25 MG Orally not defined Simethicone [facility] [address]-28 80 MG Orally not defined Tylenol Extra Strength [facility] [address]-70 500 MG Orally every 6 hrs 1 tablet as needed Synthroid [facility] [address]-62 112 MCG Orally Once a day 1 tablet Potassium Chloride ER [facility] 42542778903 10 MEQ TAKE 1 TABLET BY MOUTH TWO TIMES A DAY Amitriptyline HCl [facility] [address]-52 25 MG Orally Once a day 1 tablet at bedtime Robitussin DM [facility] [address]-70 100-10 MG/5ML Orally every 4 hrs 10 ml as needed Invokana [facility] [address]-04 100 MG Orally Once a day 1 tablet Ferrous Sulfate [facility] [address]-58 325 (65 Fe) MG Orally Three times a day 1 tablet Lotrisone [facility] [address]-48 1-0.05 % Externally Twice a day 1 application to affected area Ambien [facility] [address]-20 10 MG Orally Once a day 1 tablet at bedtime as needed Carafate [facility] [address]-66 1 GM Orally Three times a day 1 tablet on an empty stomach NovoLog Flexpen [facility] 41954278353 100 UNIT/ML PER SLIDING SCALE BEFORE MEALS AND AT BEDTIME Advair Diskus [facility] [address]-61 250-50 MCG/DOSE Inhalation Twice a day 1 puff Combivent Respimat [facility] 14728001250 20-100 MCG/ACT ONE PUFF EVERY FOUR HOURS Lasix [facility] [address]-85 20 MG Orally As directed 1 tablet once a day until loses 3 lbs. then once a day DuoNeb NDC 0 not defined Fanapt [facility] [address]-21 6 MG Orally Twice a day 1 tablet MiraLax [facility] [address]-83 Orally Once a day 1 packet mixed with 8 ounces of fluid Procedures Procedure Coding System Code Date TOBACCO NON-USER CPT-4 G8457 January 15, 2015 PRESCRIPTION BY E-PRESCRIB S CPT-4 G8443 January 15, 2015 BP SYS <130 AND LAMA <80 CPT-4 G8476 January 15, 2015 CLIN DEPRESSION SCREEN NOT D CPT-4 G8432 January 15, 2015 DOC MEDS VERIFIED W/PT OR RE CPT-4 G8427 January 15, 2015 PAIN ASSESSMENT DOCUMENT CPT-4 G8440 January 15, 2015 TX PLAN DEVELOP & DOCUMENT CPT-4 G8437 January 15, 2015 DOC PAIN ASSESS NO DOC F/U PLAN RNS CPT-4 G8509 January 15, 2015 AT LEAST 1 RX TRANSMIT ERX SYS CPT-4 G8553 January 15, 2015 BMI >=30 CALCUATE W/FOLLOWUP CPT-4 G8417 January 15, 2015 MOST RECENT SYSTOLIC BP <140 MM HG CPT-4 G8588 January 15, 2015 MOST RECENT DIASTOLIC BP <90 MM HG CPT-4 G8590 January 15, 2015 FLU VACCINE NOT SCREEN CPT-4 G8424 January 15, 2015 HEMOGLOBIN A1C LEVEL > 9.0% CPT-4 3046F January 15, 2015 [facility] MED/CURRENT MED MERGE CPT-4 1111F January 15, 2015 Office Visit, Est Pt., Level 4 CPT-4 38038 January 15, 2015 Vital Signs Date/Time: January 15, 2015 Pain Scale 0/10 1-10 BMI 34.99 Index Peak Flow room air I/min Weight 185.2 lbs Height 61 in Respiratory Rate 18 /min Temperature 97.9 F Cardiac Monitoring Heart Rate 91 /min Oximetry 86 % Blood Pressure Diastolic 76 mm Hg Blood Pressure Systolic 124 mm Hg Results No Known Results Summary Purpose [employer] Submission
--- OUTSIDE RECORDS SUMMARY | 2017-07-06 00:53 | XMS REPORT ---
Author Author Alena Huertas [facility] Address [address] [place], [place] [id number] Care Team Providers Care Director Of Outreach Name Role Phone Alena Huertas PCP Unavailable [...] 12:00 AM Fingerstick Glucose 10/20/2016 12:00 AM Polysomnography 11/11/2016 12:00 AM insulin resistant diabetic 09/02/2016 1:00 PM chronic right leg pain, neuropathy versus radiculopathy 09/26/2016 3:45 PM Medications Active Name Start Date Estimated Completion Date SIG Comments levothyroxine 125 mcg oral tablet take 1 tablet (125 mcg) by oral route once daily duloxetine 60 mg oral capsule,delayed release(DR/EC) take 1 capsule (60 mg) by oral route once daily buspirone 15 mg oral tablet take 1 tablet by oral route 4 times a day Prevacid 30 mg oral capsule,delayed release(DR/EC) 07/30/2016 01/26/2017 take 1 capsule by oral route once a day (at bedtime) for 30 days fluticasone 50 mcg/actuation nasal spray,suspension 08/19/2016 02/15/2017 spray 1 spray (50 mcg) in each nostril by intranasal route once daily for 30 days Novolog Flexpen 100 unit/mL subcutaneous insulin pen 10/03/2016 05/01/2017 35 units with meals amitriptyline 25 mg oral tablet 10/21/2016 05/19/2017 take 1 tablet (25 mg) by oral route once daily at bedtime for 30 days sucralfate 1 gram oral tablet 11/21/2016 01/20/2017 take 1 tablet by oral route 3 for 30 days furosemide 20 mg oral tablet 12/03/2016 02/01/2017 take 2 tablets (40 mg) by oral route once daily for 7d and then 1 qd Tresiba FlexTouch U-100 100 unit/mL (3 mL) subcutaneous insulin pen inject by subcutaneous route per prescriber's instructions. Insulin dosing requires individualization. Lyrica 100 mg oral capsule 12/09/2016 02/07/2017 take 1 capsule (100 mg) by oral route 2 times per day for 30 days doxycycline hyclate 100 mg oral capsule 12/16/2016 12/26/2016 take 1 capsule ( 100 mg) by oral route 2 times per day for 10 days mupirocin 2 % topical ointment 12/16/2016 01/05/2017 apply a small amount to the affected area by topical route 3 times per day for 10 days Name Start Date Expiration Date SIG [...] by oral route daily for 30 days Spiriva Respimat 2.5 mcg/actuation inhalation mist 07/30/2016 11/27/2016 inhale 2 puffs (5 mcg) by inhalation route once daily at the same time each day for 30 days aripiprazole 2 mg oral tablet 07/30/2016 08/29/2016 take 1 tablet by oral route daily for 30 days Zyrtec 10 mg oral tablet 08/19/2016 02/15/2017 take 1 tablet by oral route once a day (at bedtime) for 30 days Tamiflu 75 mg oral capsule 08/22/2016 08/29/2016 take 1 capsule (75 mg) by oral route 2 times per day for 7 days [place] 7.5-325 mg oral tablet 09/12/2016 09/27/2016 take 1 tablet by oral route every 8 hours as needed for 15 days azithromycin 250 mg oral tablet 10/03/2016 10/08/2016 take 2 tablets (500 mg) by oral route once daily for 1 day then 1 tablet (250 mg) by oral route once daily for 4 days Anusol-HC 25 mg rectal suppository 10/08/2016 10/13/2016 25 mg DE q hs for 5 nights amoxicillin 875 mg oral tablet 12/01/2016 12/11/2016 take 1 tablet (875 mg) by oral route every 12 hours for 10 days Discontinued Name Start Date Discontinued Date SIG Comments gabapentin 300 mg oral capsule 08/19/2016 take 2 capsules (600 mg) by oral route 3 times per day ranitidine HCl 300 mg oral tablet 07/30/2016 take 1 tablet (300 mg) by oral route once daily at bedtime switch to prevacid Invokana 100 mg oral tablet 12/16/2016 take 1 tablet (100 mg) by oral route once daily before the first meal of the day Advair Diskus 250-50 mcg/dose inhalation blister with [...] needed for 30 days switch to lyrica Tessalon Perles 100 mg oral capsule 08/22/2016 12/09/2016 take 1 capsule (100 mg) by oral route 3 times per day as needed for cough prednisone oral 12/09/2016 Patient states she is taking 80mg daily simethicone 125 mg oral capsule 09/19/2016 12/09/2016 take 1 capsule by oral route 2 times a day as needed for 30 days Levemir FlexTouch 100 unit/mL (3 mL) subcutaneous insulin pen 10/03/20162016 85 units bid Bactroban 2 % topical cream 12/16/2016 12/16/2016 apply a small amount to the affected area by topical route 3 times per day for 10 days Problem List Description Status Onset Anemia Active COPD Active Depression and anxiety Active Diabetes Active DVT (deep venous thrombosis), right Active 2006 HTN (hypertension) Active Hypokalemia Active Hyponatremia Active Hypotension, Chronic Active Hypothyroidism Active Neuropathy in diabetes Active Insulin resistance Active Cirrhosis of liver without ascites, unspecified hepatic cirrhosis type Active 11/11/2016 Idiopathic thrombocythemia Active 11/11/2016 Vital Signs Date Time BP-Sys(mm[Hg] BP-[place](mm[Hg]) HR(bpm) RR(rpm) Temp WT HT HC BMI BSA BMI Percentile O2 Sat(%) 12/16/2016 10:14:00 AM 112 mmHg 68 mmHg 101 bpm 20 rpm 99.3 F 173.375 lbs 61 in 32.76 kg/m2 1.84 m2 99 % 12/12/2016 1:59:00 PM 116 mmHg 62 mmHg 111 bpm 22 rpm 100.2 F 182 lbs 61 in 34.3882 kg/m 1.885 m 95 % 12/09/2016 9:42:00 AM 122 mmHg 68 mmHg 114 bpm 20 rpm 98.8 F 172.25 lbs 61 in 32.55 kg/m2 1.83 m2 98 % 12/03/2016 2:19:00 PM 118 mmHg 68 mmHg 107 bpm 18 rpm 99.6 F 180.125 lbs 61 in 34.034 kg/m 1.8752 m 94 % 12/02/2016 3:18:00 PM 116 mmHg 50 mmHg 106 bpm 20 rpm 97.6 F 181 lbs 61 in 34.20 kg/m2 1.88 m2 92 % 12/01/2016 2:33:00 PM 136 mmHg 82 mmHg 114 bpm 16 rpm 99.4 F 173.25 lbs 61 in 32.735 kg/m 1.8391 m 97 % 11/25/2016 10:25:00 AM 128 mmHg 66 mmHg 111 bpm 20 rpm 98.5 F 172.5 lbs 61 in 32.59 kg/m2 1.84 m2 95 % 11/21/2016 3:21:00 PM 128 mmHg 66 mmHg 115 bpm 30 rpm 100.5 F 182.125 lbs 61 in 34.4119 kg/m 1.8856 m 95 % 11/11/2016 10:09:00 AM 124 mmHg 68 mmHg 107 bpm 20 rpm 99 F 172.25 lbs 61 in 32.55 kg/m2 1.83 m2 99 % 10/31/2016 10:04:00 AM 128 mmHg 68 mmHg 133 bpm 20 rpm 98.1 F 165 lbs 61 in 31.1762 kg/m 1.7948 m 95 % 10/24/2016 1:30:00 PM 118 mmHg 68 mmHg 116 bpm 22 rpm 99.2 F 187.125 lbs 61 in 35.36 kg/m2 1.91 m2 96 % 10/20/2016 2:48:00 PM 142 mmHg 72 mmHg 129 bpm 22 rpm 99.5 F 170 lbs 61 in 32.1209 kg/m 1.8218 m 97 % 10/08/2016 1:13:00 PM 138 mmHg [...] 12:00 AM METABOLIC PANEL TOTAL CA Reviewed 11/12/2016 12:00 AM COLLECTION VENOUS BLOOD VENIPUNCTURE Reviewed 11/11/2016 12:00 AM COMPREHEN METABOLIC PANEL Reviewed 11/11/2016 12:00 AM ACUTE HEPATITIS PANEL Reviewed 11/11/2016 12:00 AM ASSAY OF AMMONIA Reviewed Results Summary Date and Description Results 07/30/2016 12:25 PM HGB [...] AA 69 eGFR 57 eGFR AA* >60 11/12/2016 11:00 AM GLUCOSE 156.0 mg/dLSODIUM 138.0 mmol/LPOTASSIUM 3.40 mmol/ LCHLORIDE 103.0 mmol/LCO2 22.0 mmol/LBUN 13.0 mg/dLCREATININE 0.90 mg/dLSGOT/ AST 20.0 IU/LSGPT/ALT 21.0 IU/LALK PHOS 65.0 IU/LTOTAL PROTEIN 5.80 g/dLALBUMIN 4.0 g/dLTOTAL BILI 1.0 mg/dLCALCIUM 9.0 mg/dLAGE 56 GFR NonAA 64 GFR AA 78 eGFR >60 mL/min/1.73meGFR AA* >60 Hep A Ab, IgM Negative HBsAg Screen Negative Hep B Core Ab, 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 12/12/2016 8:44 AM GLUCOSE POCT 122.0 mg/dL History Of Immunizations Name Date Admin Mfg [...] Screening Mammogram 2014 normal SCREENING PAP SMEAR 2015 normal Screening for colon cancer 2013 negative but told to get next in 2019 due to family history Colon polyps Left ventricular failure Mitral stenosis with insufficiency, rheumatic CHF (congestive heart failure) Asthma Cirrhosis of liver without ascites, unspecified hepatic cirrhosis type 2016 unfortunately previous labs including hepatitis panel , ammonia and lactic acid did not get performed. pt sent to lab to get these. may need liver biopsy or GI referral.continue spironlactone Idiopathic thrombocythemia 11/11/[address] lambert. weaning prednisone to 10 mg po qday and follow. Nosebleed Jan 05 2016 11:29AM Body aches [...] mellitus with hyperglycemia Oct 08 2016 1:21PM alf (current) use of insulin Oct 08 2016 1:21PM Rectal bleeding Oct 08 2016 1:21PM Iron deficiency anemia due to chronic blood loss Oct 08 2016 1:21PM Fatigue, unspecified type Oct 20 2016 2:56PM Type 2 diabetes mellitus with hyperglycemia Oct 20 2016 2:56PM alf (current) use of insulin Oct 20 2016 2:56PM Other ascites Oct 24 2016 1:35PM Diabetes Mellitus, Type II, Uncontrolled Oct 31 2016 10:10AM Cirrhosis of liver without ascites, unspecified hepatic cirrhosis type Oct 31 2016 10:10AM Panlobular emphysema Oct 31 2016 10:10AM Idiopathic thrombocythemia Oct 31 2016 10:10AM Diabetes Mellitus, Type II, Uncontrolled Nov 11 2016 10:11AM Fatigue, unspecified type Nov 11 2016 10:11AM Cirrhosis of liver without ascites, unspecified hepatic cirrhosis type Nov 11 2016 10:11AM Idiopathic thrombocythemia Nov 11 2016 10:11AM Type 2 diabetes mellitus with diabetic neuropathy, unspecified Nov 11 2016 10: 11AM Cirrhosis of liver without ascites, unspecified hepatic cirrhosis type Nov 11 2016 11:04AM Idiopathic thrombocythemia Nov 11 2016 11:04AM Diabetes Nov 11 2016 11:04AM Petechial eruption Nov 21 2016 3:27PM Short of breath on exertion Nov 21 2016 3:27PM Weakness generalized Nov 21 2016 3:27PM Diabetes Mellitus, Type II, Uncontrolled Nov 25 2016 10:33AM Cirrhosis of liver without ascites, unspecified hepatic cirrhosis type Nov 25 2016 10:33AM Idiopathic thrombocytopenia purpura Nov 25 2016 10:33AM Otalgia, left Dec 01 2016 2:35PM Left non-suppurative otitis media Dec 01 2016 2:35PM Weight gain Dec 03 2016 2:33PM Periorbital swelling Dec 03 2016 2:33PM Colon Cancer Screening Dec 02 2016 3:18PM Family History of Colon Cancer Dec 02 2016 3:18PM Personal history of colonic polyps Dec 02 2016 3:18PM Rectal bleeding Dec 02 2016 3:18PM Diabetes Mellitus, Type II, Uncontrolled Dec 09 2016 9:51AM Chronic obstructive pulmonary disease, unspecified COPD type Dec 09 2016 9: 51AM Cirrhosis Dec 09 2016 9:51AM Type 2 diabetes mellitus with diabetic polyneuropathy Dec 09 2016 9:51AM Preauricular cyst Dec 12 2016 2:01PM Follicular cyst of the skin and subcutaneous tissue, unspecified Dec 16 2016 10:23AM Local infection of the skin and subcutaneous tissue, unspecified Dec 16 2016 10:23AM Payers Insurance Name Company Name Plan Name Plan Number Policy Number Policy Group Number Start Date Medicare Part B Medicare Of [place] [id number] Monday, 2008 [employer] - [place] State Plan [employer] - [place] State Plan [id number] N/A Medicare Part A Medicare - Lab/Xray [id number] N/A [employer] [place] State Plan [employer] [place] State Plan [id number] Friday, June 29, 2012 Medicare RHC Medicare RHC [id number] N/A History of Encounters Visit Date Visit Type Provider 12/16/2016 Office visit Alena Huertas MD 12/12/2016 Surgery Cody Chao MD 12/12/2016 Office visit Alena Huertas MD 12/09/2016 Office visit Alena Huertas MD 12/03/2016 Office visit Mariana Cummins STRATEGIC PLANNING MANAGER 12/02/2016 Office visit Cody Chao MD 12/01/2016 Office visit Bridger Sarkar STRATEGIC PLANNING MANAGER 11/25/2016 Office visit Alena Huertas MD 11/21/2016 Office visit Mariana Cummins STRATEGIC PLANNING MANAGER 11/12/2016 Laboratory Mariana Cummins STRATEGIC PLANNING MANAGER 11/11/2016 Office visit Alena Huertas MD 10/31/2016 Office visit Alena Huertas MD 10/24/2016 Office visit Alena Huertas MD 10/20/2016 Office visit Alena Huertas MD 10/08/2016 Office visit Alena Huertas MD 10/06/2016 Laboratory Suad Roger STRATEGIC PLANNING MANAGER 10/03/2016 Office visit Alena Huertas MD 09/22/2016 Office visit Alena Huertas MD 09/19/2016 Office visit Mariana Cummins STRATEGIC PLANNING MANAGER 09/12/2016 Office visit Suad Roger STRATEGIC PLANNING MANAGER 08/28/2016 Office visit Bridger Sarkar STRATEGIC PLANNING MANAGER 08/22/2016 Office visit Suad Roger STRATEGIC PLANNING MANAGER 08/19/2016 Office visit Mariana Cummins STRATEGIC PLANNING MANAGER 08/15/2016 Office visit Bridger Sarkar STRATEGIC PLANNING MANAGER 08/11/2016 Office visit Mariana Cummins STRATEGIC PLANNING MANAGER 07/30/2016 Office visit Mariana Cummins STRATEGIC PLANNING MANAGER 07/23/2016 Office visit Suad Roger STRATEGIC PLANNING MANAGER 01/05/2016 Office visit Mariana Cummins APRN
--- OUTSIDE RECORDS SUMMARY | 2017-07-06 00:54 | XMS REPORT ---
Author Author Love Guadarrama Organization [employer] Address Unknown Phone Unavailable Care Team Providers Care Newcomer Hostess Name Role Phone Love Guadarrama CP Unavailable Allergies No Known Allergies Problems Problem Type Condition Code Onset Dates Condition Status Problem Type 2 Diabetes Mellitus With Hyperglycemia E11.65 Active Problem Bipolar disorder F31.9 Active Problem Noncompliance Z91.19 Active Problem COPD (chronic obstructive pulmonary disease) J44.9 Active Medications Medication Code System Code Instructions Start Date End [place] [address] 10MEQ PO Daily 1 tab Results No Known Results Summary Purpose [employer] Submission
--- OUTSIDE RECORDS SUMMARY | 2017-07-06 00:54 | XMS REPORT ---
Author Author Alena Huertas [facility] Address [address] [place], [place] [id number] Care Team Providers Care Gi Physician Name Role Phone Alena Huertas PCP Unavailable [...] 10/20/2016 12:00 AM Polysomnography 11/11/2016 12:00 AM MARTHA (Ankle Brachial Index). 12/22/2016 12:00 AM MRI LOWER EXT OTH THAN JOINT W/WO CONTRA 01/19/2017 12:00 AM insulin resistant diabetic 09/02/2016 1:00 [...] once daily at bedtime for 30 days Tresiba FlexTouch U-100 100 unit/mL (3 mL) subcutaneous insulin pen inject by subcutaneous route per prescriber's instructions. Insulin dosing requires individualization. sucralfate 1 gram oral tablet 01/12/2017 03/13/2017 take 1 tablet by oral route 3 for 30 days furosemide 20 mg oral tablet 01/12/2017 03/08/2018 take 2 tablets (40 mg) by oral route once daily for 7d and then 1 qd Lyrica 75 mg oral capsule 01/12/2017 02/11/2017 take one capsule in the morning and 2 capsules at night. Lidoderm 5 % topical adhesive patch,medicated 01/13/2017 01/20/2017 apply 1 patch by transdermal route once daily (May wear up to 12hours.) for 7 days cyclobenzaprine 10 mg oral tablet 01/15/2017 01/22/2017 take 1 tablet (10 mg) by oral route 3 times per day for 7 days Name Start Date Expiration Date SIG [...] 2 times per day for 7 days [place] 7.5-325 mg oral tablet 09/12/2016 09/27/2016 take 1 tablet by oral route every 8 hours as needed for 15 days azithromycin 250 mg oral tablet 10/03/2016 10/08/2016 take 2 tablets (500 mg) by oral route once daily for 1 day then 1 tablet (250 mg) by oral route once daily for 4 days Anusol-HC 25 mg rectal suppository 10/08/2016 10/13/2016 25 mg MO q hs for 5 nights amoxicillin 875 mg oral tablet 12/01/2016 12/11/2016 take 1 tablet (875 mg) by oral route every 12 hours for 10 days doxycycline hyclate 100 mg oral capsule 12/16/2016 12/26/2016 take 1 capsule ( 100 mg) by oral route 2 times per day for 10 days mupirocin 2 % topical ointment 12/16/2016 01/05/2017 apply a small amount to the affected area by topical route 3 times per day for 10 days Voltaren 1 % topical gel 12/24/2016 01/13/2017 apply to affected area(s) by topical route 3 times a day as needed for 10 days severe leg pain Discontinued Name Start Date Discontinued Date SIG [...] type Active 11/11/2016 Idiopathic thrombocythemia Active 11/11/2016 Diabetes Mellitus, Type II, Uncontrolled Active 12/24/2016 Vital Signs Date Time BP-Sys(mm[Hg] BP-[place](mm[Hg]) HR(bpm) RR(rpm) Temp WT HT HC BMI BSA BMI Percentile O2 Sat(%) 01/19/2017 9:26:00 AM 118 mmHg 62 mmHg 112 bpm 22 rpm 98.5 F 185.5 lbs 61 in 35.05 kg/m2 1.90 m2 97 % 01/13/2017 1:19:00 PM 116 mmHg 68 mmHg 110 bpm 20 rpm 98.9 F 189 lbs 61 in 35.7109 kg/m 1.9209 m 97 % 01/09/2017 2:20:00 PM 140 mmHg 70 mmHg 108 bpm 24 rpm 99.4 F 190.5 lbs 61 in 35.99 kg/m2 1.93 m2 94 % 01/02/2017 10:35:00 AM 116 mmHg 72 mmHg 103 bpm 24 rpm 97.5 F 182.25 lbs 61 in 34.4355 kg/m 1.8862 m 98 % 01/01/2017 2:23:00 PM 128 mmHg 74 mmHg 104 bpm 17 rpm 98.2 F 189.562 lbs 61 in 35.82 kg/m2 1.92 m2 98 % 12/24/2016 9:09:00 AM 128 mmHg 64 mmHg 109 bpm 20 rpm 98.3 F 181.5 lbs 61 in 34.2938 kg/m 1.8824 m 95 % 12/22/2016 3:17:00 PM 130 mmHg 62 mmHg 118 bpm 22 rpm 99.6 F 177 lbs 61 in 33.44 kg/m2 1.86 m2 94 % 12/19/2016 3:22:00 PM 118 mmHg 62 mmHg 115 bpm 20 rpm 99.5 F 182.25 lbs 61 in 34.4355 kg/m 1.8862 m 96 % 12/17/2016 10:27:00 AM 118 mmHg 62 mmHg 110 bpm 20 rpm 98.9 F 177.25 lbs 61 in 33.49 kg/m2 1.86 m2 98 % 12/16/2016 10:14:00 AM 112 mmHg 68 mmHg 101 bpm 20 rpm 99.3 F 173.375 lbs 61 in 32.7586 kg/m 1.8397 m 99 % 12/12/2016 1:59:00 PM 116 mmHg 62 mmHg 111 bpm 22 rpm 100.2 F 182 lbs 61 in 34.39 kg/m2 1.88 m2 95 % 12/09/2016 9:42:00 AM 122 mmHg 68 mmHg 114 bpm 20 rpm 98.8 F 172.25 lbs 61 in 32.546 kg/m 1.8338 m 98 % 12/03/2016 2:19:00 PM 118 mmHg 68 mmHg 107 bpm 18 rpm 99.6 F 180.125 lbs 61 in 34.03 kg/m2 1.88 m2 94 % 12/02/2016 3:18:00 PM 116 mmHg 50 mmHg 106 bpm 20 rpm 97.6 F 181 lbs 61 in 34.1993 kg/m 1.8798 m 92 % 12/01/2016 2:33:00 PM 136 mmHg 82 mmHg 114 bpm 16 rpm 99.4 F 173.25 lbs 61 in 32.73 kg/m2 1.84 m2 97 % 11/25/2016 10:25:00 AM 128 mmHg 66 mmHg 111 bpm 20 rpm 98.5 F 172.5 lbs 61 in 32.5933 kg/m 1.8351 m 95 % 11/21/2016 3:21:00 PM 128 mmHg 66 mmHg 115 bpm 30 rpm 100.5 F 182.125 lbs 61 in 34.41 kg/m2 1.89 m2 95 % 11/11/2016 10:09:00 AM 124 mmHg 68 mmHg 107 bpm 20 rpm 99 F 172.25 lbs 61 in 32.546 kg/m 1.8338 m 99 % 10/31/2016 10:04:00 AM 128 mmHg [...] 11/11/2016 12:00 AM ASSAY OF AMMONIA Reviewed 12/16/2016 12:00 AM DRAINAGE OF SKIN ABSCESS Reviewed 12/23/2016 12:00 AM VASCULAR STUDY Reviewed 12/23/2016 12:00 AM PENILE VASCULAR STUDY Reviewed 12/23/2016 12:00 AM LOWER EXTREMITY STUDY Reviewed 12/23/2016 12:00 AM UPPER EXTREMITY STUDY Reviewed 12/23/2016 12:00 AM VASCULAR STUDY Reviewed 01/13/2017 12:00 AM Dietary Consult Reviewed 01/13/2017 12:00 AM Physical Therapy Consult Reviewed Results Summary Date and Description Results [...] NE Not Entered Not Entered Not Entered 201606/29/2017 113 Pneumococcal 2006 Not Entered NE Not Entered Not Entered Not Entered 10/28/2016 06/29/2017 33 History of Past Illness Name Date [...] to 10 mg po qday and follow. Diabetes Mellitus, Type II, Uncontrolled 12/24/2016 Nosebleed Jan 05 2016 11:29AM Body aches [...] mellitus with hyperglycemia Oct 08 2016 1:21PM senior care (current) use of insulin Oct 08 2016 1:21PM Rectal bleeding Oct 08 2016 1:21PM Iron deficiency anemia due to chronic blood loss Oct 08 2016 1:21PM Fatigue, unspecified type Oct 20 2016 2:56PM Type 2 diabetes mellitus with hyperglycemia Oct 20 2016 2:56PM senior care (current) use of insulin Oct 20 2016 [...] subcutaneous tissue, unspecified Dec 16 2016 10:23AM Follicular cyst of the skin and subcutaneous tissue, unspecified Dec 17 2016 10:33AM Local infection of the skin and subcutaneous tissue, unspecified Dec 17 2016 10:33AM Follicular cyst of the skin and subcutaneous tissue, unspecified Dec 19 2016 3:27PM Local infection of the skin and subcutaneous tissue, unspecified Dec 19 2016 3:27PM Right leg pain Dec 22 2016 3:18PM Follicular cyst of the skin and subcutaneous tissue, unspecified Dec 22 2016 3:18PM Local infection of the skin and subcutaneous tissue, unspecified Dec 22 2016 3:18PM Diabetes Mellitus, Type II, Uncontrolled Dec 24 2016 9:12AM Pain of right lower extremity Dec 24 2016 9:12AM Pain of right lower extremity Jan 01 2017 2:26PM Leg pain, anterior, right Jan 02 2017 10:41AM Right leg pain Jan 09 2017 2:26PM Muscle spasm Jan 09 2017 2:26PM Diabetes Mellitus, Type II, Uncontrolled Jan 13 2017 1:25PM Pain of right lower extremity Jan 13 2017 1:25PM Right leg pain Jan 19 2017 9:32AM Payers Insurance Name Company Name Plan Name Plan Number Policy Number Policy Group Number Start Date Medicare Part B Medicare Of [place] [id number] Monday, [facility] [id number] Friday, 2012 Medicare RHC Medicare RHC [id number] N/A [facility] [place] [facility] [id number] N/A Medicare Part A Medicare - Lab/Xray [id number] N/A History of Encounters Visit Date Visit Type Provider 01/19/2017 Office visit Alena Huertas MD 01/13/2017 Office visit Alena Huertas MD 01/09/2017 Office visit Radha Lomas MD 01/02/2017 Office visit Alena Huertas MD 01/01/2017 Office visit Bridger Sarkar SUPERVISOR PATCHING 12/24/2016 Office visit Alena Huertas MD 12/22/2016 Office visit 12/22/2016 Office visit 12/22/2016 Office visit Alena Huertas MD 12/19/2016 Office visit Alena Huertas MD 12/17/2016 Office visit Alena Huertas MD 12/16/2016 Office visit Alena Huertas MD 12/12/2016 Surgery Cody Chao MD 12/12/2016 Office visit Alena Huertas MD 12/09/2016 Office visit Alena Huertas MD 12/03/2016 Office visit Mariana Cummins SUPERVISOR PATCHING 12/02/2016 Office visit Cody Chao MD 12/01/2016 Office visit Bridger Sakrar SUPERVISOR PATCHING 11/25/2016 Office visit Alena Huertas MD 11/21/2016 Office visit Mariana Cummins SUPERVISOR PATCHING 11/12/2016 Laboratory Mariana Cummins SUPERVISOR PATCHING 11/11/2016 Office visit Alean Huertas MD 10/31/2016 Office visit Alena Huertas MD 10/24/2016 Office visit Alena Huertas MD 10/20/2016 Office visit Alena Huertas MD 10/08/2016 Office visit Alena Huertas MD 10/06/2016 Laboratory Suad Roger SUPERVISOR PATCHING 10/03/2016 Office visit Alena Huertas MD 09/22/2016 Office visit Alena Huertas MD 09/19/2016 Office visit Mariana Cummins SUPERVISOR PATCHING 09/12/2016 Office visit Suad Roger SUPERVISOR PATCHING 08/28/2016 Office visit Bridger Sarkar SUPERVISOR PATCHING 08/22/2016 Office visit Suad Roger SUPERVISOR PATCHING 08/19/2016 Office visit Mariana Cummins SUPERVISOR PATCHING 08/15/2016 Office visit Bridger Sarkar SUPERVISOR PATCHING 08/11/2016 Office visit Mariana Cummins SUPERVISOR PATCHING 07/30/2016 Office visit Mariana Cummins APRN 07/23/2016 Office visit Suad Roger SUPERVISOR PATCHING 01/05/2016 Office visit Mariana Cummins APRN
--- OUTSIDE RECORDS SUMMARY | 2017-07-06 00:55 | XMS REPORT | Continuity of Care Document ---
Author Author [facility] Organization [facility] Address [address] [place] [address] Phone Unavailable Care Team Providers Care Technical Lead Name Role Phone TIMUR SWENSON PCP Insurance Providers Payer Name Policy Number Subscriber Name Relationship Medicare [id number] Chanell Sosa 18 Self / Same As Patient [employer] [id number] Chanell Sosa 18 Self / Same As Patient Advance Directives Directive Response Recorded Date/Time Living Will No 02/28/16 10:35am Advance Directives No 05/25/15 7:54am Advance Directive on File No 05/13/16 8:26pm Durable POA for HC No 05/13/16 8:26pm Power of Machine Operator Helper No 05/13/16 8:26pm Organ Donor No 05/13/16 8:26pm Living Will No 05/13/16 8:26pm What is your agent's or open claims representative's phone number? No 05/25/15 7:54am Chief Complaint and Reason for Visit Chief Complaint Respiratory Complaint Reason for Visit Uncontrolled type 2 diabetes mellitus with insulin therapy Acute exacerbation of chronic bronchitis Problems Active Problems Medical Problem Onset Date Status Acute exacerbation of chronic bronchitis Unknown Acute Chronic kidney disease, stage III (moderate) Unknown Acute Elevated liver enzymes Unknown Acute Gastroenteritis Unknown Acute Nausea and vomiting in adult Unknown Acute Sprain of wrist Unknown Acute Tremor of unknown origin Unknown Acute Uncontrolled type 2 diabetes mellitus with insulin therapy Unknown Acute Medications Current Home Medications Medication Dose Units Route Directions Days/Qty Instructions Start Date Ranitidine Hcl 150 Mg 300 Mg Oral Everyday At 9 Pm for Indigestion 05/25/15 Levothyroxine Sodium 112 Mcg 125 Mcg Oral Once A Day for Thyroid Dysfunction 05/25/15 Gabapentin 300 Mg 600 Mg Oral Three Times A Day for Neuropathy 05/25 Sucralfate 1 Gm 1 Gm Oral Three Times A Day for Gastro-Intestional Issues 05/25/15 Potassium Chloride 10 Meq 10 Meq Oral Twice A Day With Meals for Supplement 05/25/15 Buspirone Hcl 15 Mg 15 Mg Oral Four Times A Day for Anxiety 05/25/15 Canagliflozin 100 Mg 100 Mg Oral Once A Day for Hyperglycemia Tiotropium [place] 18 Mcg 1 Mcg Inhalation Everyday At 9 Pm for Copd 05/25/15 [Advair] Unknown Dose Hand Held Nebulizer Twice A Day for Copd Duloxetine Hcl 30 Mg 90 Mg Oral Once A Day for Depression 06/19/15 Insulin Detemir 100 Unit/1 Ml 163 Units Sub-Q Everyday At 9 Pm for Diabetes 04/12/16 Insulin Detemir 100 Unit/1 Ml 37 Units Sub-Q Qam for Diabetes Insulin Aspart 100 Unit/1 Ml 0 Sub-Q Before Meals for Diabetes Ipratropium/Albuterol Sulfate 4 Gm 1 Puff Inhalation Four Times A Day for Copd 05/13/16 Benzonatate 100 Mg 100 Mg Oral Every Eight Hours for Cough 20 05/13/16 Past Home Medications Medication Directions Ordered Status Duloxetine Hcl 40 Mg Capsule.dr, 80 Mg Oral Once A Day for Depression Discontinued Amitriptyline Hcl 25 Mg Tablet, 25 Mg Oral Everyday At 9 Pm for Sleep Discontinued Iloperidone 6 Mg Tablet, 6 Mg Oral Twice A Day for Bipolar Disease 05/25/15 Discontinued Ferrous Sulfate 325 Mg Tablet, 325 Mg Oral Three Times A Day for Anemia 05/25 Discontinued Phenytoin Sodium Extended 100 Mg Capsule, 100 Mg Oral Three Times A Day for Seizure 06/01/15 Discontinued Promethazine Hcl 50 Mg Tablet, 50 Mg Oral Every 6 To 8 Hours As Needed as needed for Nausea / Vomiting 06/19/15 Discontinued Social History Social History Problem Response Recorded Date/Time Alcohol Use none 05/13/2016 7:28pm Drug Use none 05/13/2016 7:28pm Smoking Status Former smoker 05/13/2016 7:21pm Smoked in the last 12 months? No 05/13/2016 7:21pm Do you dip or chew tobacco? No 05/13/2016 7:21pm Approx how many cigs per day? 0 05/13/2016 7:21pm Level of Dependence Low 05/13/2016 7:28pm Former smoker, last day smoked? 201105/13/2016 7:21pm Query Response Start Date Stop Date Smoking Status Former smoker Hospital Discharge Instructions No hospital discharge instructions. Plan of Care Discharge Date 05/13/16 9:00pm Disposition 01 D/C HOME Condition at Discharge Stable and Improved Instructions/Education Provided Diabetes Mellitus Type 2 in Adults (ED) COPD Exacerbation, Curriculum Designer (GEN) Forms Provided ER Discharge Phone Call Check Prescriptions See Medication Section Referrals TIMUR SWENSON - Additional Instructions/Education If you are going to go downstairs to walk the dog-walk slowly and take frequent breaks. Remember that you can use your breathing medication to help with your shortness of breath as soon as you get home. Continue with your current treatment plan and all medications Since you are still having trouble with cough-you may use the tessalon perles as directed to see if this provides you with relief Call to make an appointment with Riley Swenson to discuss proper diet and possible healthy snack alternatives as we were discussing Functional Status Query Response Date Recorded Activities of Daily Living Performs with Assistance May 13, 2016 7:21pm Cognitive Function Intact May 13, 2016 7:21pm Allergies, Adverse Reactions, Alerts Allergen Type Severity Reaction Status Last Updated Sulfa (Sulfonamide Antibiotics) ([id number]) Allergy Unknown VOMITTING DIARRHEA Active 01/25/16 Poultry Allergy Unknown NAUSEA AND VOMITING Active 01/25/16 Iloperidone Allergy Intermediate seizures Active 04/12/16 Immunizations No immunization records. Vital Signs Acute Vital Signs Vital Response Date/Time Temperature (Fahrenheit) 98.7 degrees F (97.6 - 99.5) 05/13/2016 7:15pm Temperature (Calculated Celsius) 37.76570 degrees C (36.4 - 37.5) 05/13/2016 7:15pm Temperature Source Temporal Artery Scan 05/13/2016 7:15pm Pulse Pulse Ox Pulse Rate (adult) 94 beats per minute (60 - 90) 05/13/2016 7:15pm Pulse Location Modifier Left 05/13/2016 7:15pm Oxygen Saturation Respiratory Rate 20 breaths per minute (12 - 24) 05/13/2016 7:15pm O2 Sat by Pulse Oximetry 96 % (90 - 100) 05/13/2016 7:15pm Blood Pressure 143/74 mm Hg 05/13/2016 7:15pm Blood Pressure Mean 97 mm Hg 05/13/2016 7:15pm Height 5 ft 1 in Weight 183 lb Body Mass Index 34.6 kg/m^2 Results Pending Laboratory Results Test Name Collection Date/Time Procedures Procedure Status Date Provider(s) ROUTINE VENIPUNCTURE Completed 01/25/16 COMPREHEN METABOLIC PANEL Completed 01/25/16 URINALYSIS NONAUTO W/SCOPE Completed 01/25/16 ASSAY OF TROPONIN QUAL Completed 01/25/16 COMPLETE CBC W/AUTO DIFF WBC Completed 01/25/16 ELECTROCARDIOGRAM TRACING Completed 01/25/16 EMERGENCY DEPT VISIT Completed 01/25/16 EMERGENCY DEPT VISIT Completed 01/25/16 ROUTINE VENIPUNCTURE Completed 04/12/16 CHEST X-RAY 2VW FRONTAL&LATL Completed 04/12/16 COMPREHEN METABOLIC PANEL Completed 04/12/16 COMPLETE CBC W/AUTO DIFF WBC Completed 04/12/16 MYCOPLASMA ANTIBODY Completed 04/12/16 AIRWAY INHALATION TREATMENT Completed 04/12/16 EVALUATE PT USE OF INHALER Completed 04/12/16 THER/PROPH/DIAG INJ IA Completed 04/12/16 EMERGENCY DEPT VISIT Completed 04/12/16 INJECTION, CEFTRIAXONE SODIUM, PER 250 MG Completed INJECTION, DEXAMETHASONE SODIUM PHOSPHATE, 1MG Completed INJECTION, INSULIN, PER 5 UNITS Completed INFUSION, NORMAL SALINE SOLUTION , 1000 CC Completed INFUSION, NORMAL SALINE SOLUTION , 250 CC Completed EMERGENCY DEPT VISIT Completed 04/12/16 THER/PROPH/DIAG IV INF INIT Completed 04/12/16 TX/PRO/DX INJ NEW DRUG ADDON Completed 04/12/16 HYDRATE IV INFUSION ADD-ON Completed 04/12/16 HYDRATE IV INFUSION ADD-ON Completed 04/12/16 Encounters Encounter Location Arrival/Admit Date Discharge/Depart Date Attending Provider Departed Emergency Room [facility] 05/13/16 6:42pm 05/13/16 9: 00pm SMITA MICHELE APRN Registered Clinic [facility] 04/21/16 2:37pm TIMUR SWENSON Departed Emergency Room [facility] 04/12/16 11:51am 04/12/16 2: 30pm TATUM ARCHIBALD APRN Discharged Recurring [facility] 02/28/16 10:37am 03/14/16 10: 57am BRITTNI BRAVO M.D. Departed Emergency Room [facility] 01/25/16 9:20am 01/25/16 11: 25am ADALBERTO GONZALES MD Recent Diagnosis
--- OUTSIDE RECORDS SUMMARY | 2017-07-06 00:56 | XMS REPORT ---
Author Author Mariana Cummins Organization [facility] Address [address] [place], [place] [id number] Care Team Providers Care Wood Buffer Name Role Phone Mariana Cummins PCP Unavailable Bone, Narda Unavailable Unavailable tonia hussein Unavailable Unavailable Reagan Unavailable Unavailable Hogge Unavailable Unavailable Dempsey Unavailable Unavailable Fabian Roger Unavailable Unavailable Mariana [...] intranasal route once daily for 30 days Tessalon Perles 100 mg oral capsule 08/22/2016 take 1 capsule (100 mg) by oral route 3 times per day as needed for cough prednisone oral Patient states she is taking 80mg daily simethicone 125 mg oral capsule 09/19/2016 12/18/2016 [...] once daily at bedtime for 30 days Lyrica 75 mg oral capsule 11/11/2016 02/09/2017 take 2 capsules by oral route 2 times a day for 30 days sucralfate 1 gram oral tablet 11/21/2016 01/20/2017 take 1 tablet by oral route 3 for 30 days Name Start Date Expiration [...] 2 times per day for 7 days [place] 7.5-325 mg oral tablet 09/12/2016 09/27/2016 take 1 tablet by oral route every 8 hours as needed for 15 days azithromycin 250 mg oral tablet 10/03/2016 10/08/2016 take 2 tablets (500 mg) by oral route once daily for 1 day then 1 tablet (250 mg) by oral route once daily for 4 days Anusol-HC 25 mg rectal suppository 10/08/2016 10/13/2016 25 mg VA q hs for 5 nights Discontinued Name [...] HC BMI BSA BMI Percentile O2 Sat(%) 11/21/2016 3:21:00 PM 128 mmHg 66 mmHg [...] 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 History Of Immunizations Name Date Admin Mfg [...] mellitus with hyperglycemia Oct 08 2016 1:21PM jail (current) use of insulin Oct 08 2016 1:21PM Rectal bleeding Oct 08 2016 1:21PM Iron deficiency anemia due to chronic blood loss Oct 08 2016 1:21PM Fatigue, unspecified type Oct 20 2016 2:56PM Type 2 diabetes mellitus with hyperglycemia Oct 20 2016 2:56PM jail (current) use of insulin Oct 20 2016 [...] 3:27PM Weakness generalized Nov 21 2016 3:27PM Payers Insurance Name Company Name Plan Name Plan Number Policy Number Policy Group Number Start Date Medicare RHC Medicare RHC [id number] N/A [facility] [place] [facility] [place] State Plan [id number] N/A Medicare Part A Medicare - Lab/Xray [id number] N/A Medicare Part B Medicare Of [place] [id number] Monday, October 27, 2008 [employer] [place] State Plan [facility] [id number] Friday, June 29, 2012 History of Encounters Visit Date Visit Type Provider 11/21/2016 Office visit Mariana Cummins COMPUTER TECHNICAL SUPPORT SPECIALIST 11/12/2016 Laboratory Mariana Cummins COMPUTER TECHNICAL SUPPORT SPECIALIST 11/11/2016 Office visit Alena Huertas MD 10/31/2016 Office visit Alena Huertas MD 10/24/2016 Office visit Alena Huertas MD 10/20/2016 Office visit Alena Huertas MD 10/08/2016 Office visit Alena Huertas MD 10/06/2016 Laboratory Suad Roger COMPUTER TECHNICAL SUPPORT SPECIALIST 10/03/2016 Office visit Alena Huertas MD 09/22/2016 Office visit Alena Huertas MD 09/19/2016 Office visit Mariana Cummins COMPUTER TECHNICAL SUPPORT SPECIALIST 09/12/2016 Office visit Suad Roger COMPUTER TECHNICAL SUPPORT SPECIALIST 08/28/2016 Office visit Bridger Sarkar COMPUTER TECHNICAL SUPPORT SPECIALIST 08/22/2016 Office visit Suad Roger COMPUTER TECHNICAL SUPPORT SPECIALIST 08/19/2016 Office visit Mariana Cummins APRN 08/15/2016 Office visit Bridger Sarkar COMPUTER TECHNICAL SUPPORT SPECIALIST 08/11/2016 Office visit Mariana Cummins APRN 07/30/2016 Office visit Mariana Cummins APRN 07/23/2016 Office visit Suad Roger APRN 01/05/2016 Office visit Mariana Cummins APRN
--- OUTSIDE RECORDS SUMMARY | 2017-07-06 00:56 | XMS REPORT ---
Author Author Love Guadarrama Organization [employer] Address Unknown Phone Unavailable Care Team Providers Care Art Appraiser Name Role Phone Love Guadarrama CP Unavailable Allergies No Known Allergies Problems No Known Problems Medications Medication Code System Code Instructions Start Date End Date Status Dosage Rexulti NDC 118302 0.5 mg orally once a day 1 tab(s) buspirone NDC 93104 15 mg orally QID 1 tab(s) NovoLog FlexPen NDC 37487 100 units/mL subcutaneously sliding scale Tessalon Perles NDC 2377 100 mg orally 3 times a day 1 cap(s) Levemir FlexPen NDC 04392 100 units/mL subcutaneously bid 37 units am and 163 units pm duloxetine NDC 25507 60 mg orally once a day 1 cap(s) Advair Diskus NDC 78830 250 mcg-50 mcg inhaled 2 times a day May 05, 2016 1 puff(s) Invokana NDC 436155 100 mg orally once a day 1 tab(s) amitriptyline NDC 87939 25 mg orally once a day (at bedtime) 1 tab (s) gabapentin NDC 24745 300 mg orally TID 2 caps albuterol NDC 60003 2.5 mg/3 mL (0.083%) inhaled every 6 hours 3 ml Spiriva NDC 77522 18 mcg inhaled once a day 0 sucralfate NDC 12144 1 g orally TID 1 tab(s) levothyroxine NDC 70263 125 mcg (0.125 mg) orally once a day 1 tab (s) Combivent Respimat NDC 239787 CFC free 100 mcg-20 mcg/inh inhaled 4 times a day 1 puff(s) potassium chloride NDC 77587 10MEQ PO Daily 1 tab Results No Known Results Summary Purpose [employer] Submission
--- OUTSIDE RECORDS SUMMARY | 2017-07-06 00:56 | XMS REPORT ---
Author Author Chiara Love Organization [employer] Address [address] [place] [address] Care Team Providers Care Marine Chronometer Assembler Name Role Phone Love Guadarrama Unavailable PROBLEMS Type Condition ICD9-CM Code PLJ83-RM Code Onset Dates Condition Status SNOMED Code Problem Cellulitis of Finger, Unspecified 681.00 Active 408991195 Problem Cellulitis Of Left Finger L03.012 Active 65423677422525892 Problem Bipolar disorder F31.9 Active 54931865 Problem COPD (chronic obstructive pulmonary disease) J44.9 Active 49395259 Problem Noncompliance Z91.19 Active 7640558 Problem Type 2 Diabetes Mellitus With Hyperglycemia E11.65 Active 252907239483884 ALLERGIES Unknown Allergies SOCIAL HISTORY No smoking Hx information available PLAN OF CARE VITAL SIGNS MEDICATIONS Medication Instructions Dosage Frequency Start Date End Date Duration Status Advair Diskus 250 mcg-50 mcg inhaled 2 times a day 1 puff(s) 12h Apr, Active duloxetine 60 mg orally once a day 1 cap(s) 24h Active NovoLog FlexPen 100 units/mL sliding scale Active Spiriva 18 mcg inhaled once a day 0 24h Active albuterol 2.5 mg/3 mL (0.083%) inhaled every 6 hours 3 ml 6h Active amitriptyline 25 mg orally once a day (at bedtime) 1 tab(s) Active sucralfate 1 g orally TID 1 tab(s) 8h 30 days Active Combivent Respimat CFC free 100 mcg-20 mcg/inh inhaled 4 times a day 1 puff(s ) 6h Active gabapentin 300 mg orally TID 2 caps 8h Active buspirone 15 mg orally QID 1 tab(s) 6h Active cephalexin 500 mg orally q 8 hrs 1 cap(s) May, 10 day(s) Active Abilify 2 mg orally once a day 1 tab(s) 24h Active Invokana 100 mg orally once a day 1 tab(s) 24h Active Levemir FlexPen 100 units/mL subcutaneously bid 37 units am and 163 units pm 12h Active levothyroxine 125 mcg (0.125 mg) orally once a day 1 tab(s) 24h Active potassium chloride 10MEQ PO Daily 1 tab 24h 30 days Active Tessalon Perles 100 mg orally 3 times a day 1 cap(s) 8h Active RESULTS No Results PROCEDURES No Known procedures IMMUNIZATIONS No Known Immunizations
--- OUTSIDE RECORDS SUMMARY | 2017-07-06 00:56 | XMS REPORT ---
Author Author Fabian Roger Organization [employer] Address Unknown Phone Unavailable Care Team Providers Care Telegraphic Typewriter Repairer Name Role Phone Fabian Roger CP Unavailable Allergies, Adverse Reactions, Alerts Substance Reaction Event Type Seafood/Fish Info Not Available Non Drug Allergy Sulfa Info Not Available Non Drug Allergy Poultry Info Not Available Non Drug Allergy Milk Info Not Available Non Drug Allergy Problems Problem Type Condition Code Onset Dates Condition Status Problem Unspecified hypothyroidism 244.9 Active Problem Screening for lipoid disorders V77.91 Active Problem 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 Problem Unspecified constipation 564.00 Active Problem Unspecified essential hypertension 401.9 Active Problem Other convulsions 780.39 Active Problem Unspecified iron deficiency anemia 280.9 Active Problem Asthma, unspecified, unspecified status 493.90 Active Problem Depressive disorder, not elsewhere classified 311 Active Problem Esophageal reflux 530.81 Active Problem Anxiety state, unspecified 300.00 Active Problem Chronic airway obstruction, not elsewhere classified 496 Active Problem Pain in joint, other specified sites 719.48 Active Problem Diabetes mellitus without mention of complication, type II or unspecified type, not stated as uncontrolled 250.00 Active Problem Other specified forms of hearing loss 389.8 Active Problem Polyneuropathy in diabetes 357.2 Active Problem Congestive heart failure, unspecified 428.0 Active Problem Unspecified esophagitis 530.10 Active Problem Slow transit constipation 564.01 Active Problem Mitral stenosis with insufficiency 394.2 Active Problem Unspecified hypotension 458.9 Active Problem Closed fracture of metatarsal bone(s) 825.25 Active Assessment Screening for lipoid disorders V77.91 Active Assessment Diabetes mellitus without mention of complication, type II or unspecified type, not stated as uncontrolled 250.00 Active Assessment Morbid obesity 278.01 Active Assessment Polyneuropathy in diabetes 357.2 Active Assessment Unspecified essential hypertension 401.9 Active Problem Morbid obesity 278.01 Active Assessment Unspecified hypothyroidism 244.9 Active Problem Candidiasis of vulva and vagina 112.1 Active Problem Cellulitis and abscess of unspecified site 682.9 Active Problem Insomnia, unspecified 780.52 Active Problem Pneumonia, organism unspecified 486 Active Problem Nonallopathic lesion of cervical region, not elsewhere classified 739.1 Active Problem Nonallopathic lesion of thoracic region, not elsewhere classified 739.2 Active Problem Lumbago 724.2 Active Assessment Nonallopathic lesion of sacral region, not elsewhere classified 739.4 Active Problem Nonallopathic lesion of pelvic region, not elsewhere classified 739.5 Active Assessment Nonallopathic lesion of pelvic region, not elsewhere classified 739.5 Active Problem Spasm of muscle 728.85 Active Assessment Spasm of muscle 728.85 Active Problem Nonallopathic lesion of lumbar region, not elsewhere classified 739.3 Active Assessment Asthma, unspecified, unspecified status 493.90 Active Problem Nonallopathic lesion of sacral region, not elsewhere classified 739.4 Active Assessment Congestive heart failure, unspecified 428.0 Active Problem Essential and other specified forms of tremor 333.1 Active Problem Special screening for malignant neoplasms, colon V76.51 Active Assessment Nonallopathic lesion of cervical region, not elsewhere classified 739.1 Active Assessment Lumbago 724.2 Active Assessment Nonallopathic lesion of lumbar region, not elsewhere classified 739.3 Active Assessment Nonallopathic lesion of thoracic region, not elsewhere classified 739.2 Active Medications Medication Code System Code Instructions Start Date End Date Status Dosage Erie [facility] [address]-37 5-325 MG Orally every 4 hrs 1 tablet as needed MiraLax [facility] [address]-82 Orally Once a day 1 packet mixed with 8 ounces of fluid Ferrous Sulfate [facility] [address]-01 325 (65 Fe) MG Orally Three times a day 1 tablet Fanapt [facility] [address]-76 6 MG Orally Twice a day 1 tablet HydrOXYzine HCl [facility] [address]-18 25 MG Orally not defined Invokana [facility] [address]-59 100 MG Orally Once a day 1 tablet Levemir Flexpen [facility] 0 100 UNIT/ML Subcutaneous daily at HS 45 units Potassium Chloride ER [facility] [address]-09 10 MEQ Orally Twice a day 1 tablet Flonase [facility] [address]-99 50 MCG/ACT Nasally Once a day 1 spray in each nostril Advair Diskus [facility] [address]-88 250-50 MCG/DOSE Inhalation Twice a day 1 puff Tylenol Extra Strength [facility] [address]-83 500 MG Orally every 6 hrs 1 tablet as needed Combivent Respimat [facility] 22329293996 20-100 MCG/ACT ONE PUFF EVERY FOUR HOURS Albuterol Sulfate [facility] 32729789288 (2.5 MG/3ML) 0.083% 3ML THREE TIMES A DAY Spiriva HandiHaler [facility] [address]-90 18 MCG Inhalation Once a day 1 capsule Albuterol Sulfate HFA [facility] [address]-61 108 (90 Base) MCG/ACT Inhalation every 4 hrs 2 puffs as needed Synthroid [facility] [address]-76 112 MCG Orally Once a day 1 tablet Mylanta [facility] 13700-[address]01 200-200-20 MG/5ML Orally Four times a day 10 ml as needed Cymbalta [facility] [address]-33 60 MG Orally Twice a day 1 capsule Simethicone [facility] [address]-38 80 MG Orally not defined DuoNeb [facility] 0 not defined Magnesium Oxide [facility] [address]-23 400 MG Orally Twice a day 1 tablet Aspercreme [facility] [address] 10 % Externally not defined Xanax [facility] [address]-41 0.25 MG Orally once a day at HS 1 tablet as needed BusPIRone HCl [facility] [address]-52 15 MG Orally Four times a day 1 tablet Gabapentin [facility] [address]-18 300 MG Orally Three times a day 1 capsule Carafate [facility] [address]-68 1 GM Orally Three times a day 1 tablet on an empty stomach Robitussin DM [facility] [address]-41 100-10 MG/5ML Orally every 4 hrs 10 ml as needed Zantac [facility] [address]-64 300 MG Orally Once a day at HS 1 tablet NovoLog Flexpen [facility] 75124703930 100 UNIT/ML PER SLIDING SCALE BEFORE MEALS AND AT BEDTIME Lotrisone [facility] [address]-71 1-0.05 % Externally Twice a day 1 application to affected area Procedures Procedure Coding System Code Date PRESCRIP NOT GEN AT ENCOUNTE CPT-4 G8445 November 09, 2014 PAIN ASSESSMENT DOCUMENT CPT-4 G8440 November 09, 2014 TOBACCO NON-USER CPT-4 G8457 November 09, 2014 DOC MEDS VERIFIED W/PT OR RE CPT-4 G8427 November 09, 2014 FLU VACCINE NOT SCREEN CPT-4 G8424 November 09, 2014 TX PLAN DEVELOP & DOCUMENT CPT-4 G8437 November 09, 2014 CLIN DEPRESSION SCREEN NOT D CPT-4 G8432 November 09, 2014 BP SYS <130 AND LAMA <80 CPT-4 G8476 November 09, 2014 DOC PAIN ASSESS NO DOC F/U PLAN RNS CPT-4 G8509 November 09, 2014 OMT 5-6 BODY REGIONS CPT-4 22609 November 09, 2014 MOST RECENT SYSTOLIC BP <140 MM HG CPT-4 G8588 November 09, 2014 MOST RECENT DIASTOLIC BP <90 MM HG CPT-4 G8590 November 09, 2014 BMI>=30OR<22 RUDY NO FOLLOWUP CPT-4 G8419 November 09, 2014 HEMOGLOBIN A1C LEVEL > 9.0% CPT-4 3046F November 09, 2014 HG A1C LEVEL 7.0-9.0% CPT-4 3045F November 09, 2014 Office Visit, Est Pt., Level 4 CPT-4 82306 November 09, 2014 DSCHRG MED/CURRENT MED MERGE CPT-4 1111F November 09, 2014 MOST RECENT SYSTOLIC BP < 140MM HG CPT-4 G8752 November 09, 2014 MOST RECENT DIASTOLIC BP < 90MM HG CPT-4 G8754 November 09, 2014 Vital Signs Date/Time: November 09, 2014 Pain Scale 9/10 1-10 BMI 34.80 Index Peak Flow room air I/min Weight 184.2 lbs Height 61 in Respiratory Rate 20 /min Temperature 97.4 F Cardiac Monitoring Heart Rate 99 /min Oximetry 91 % Blood Pressure Diastolic 72 mm Hg Blood Pressure Systolic 122 mm Hg Results No Known Results Summary Purpose [employer] Submission
--- OUTSIDE RECORDS SUMMARY | 2017-07-06 00:57 | XMS REPORT ---
Author Author Alena Huertas [facility] Address [address] [place], [place] [id number] Care Team Providers Care Rail Car Painter/Sandblaster Name Role Phone Alena Huertas PCP Unavailable [...] 10/20/2016 12:00 AM Polysomnography 11/11/2016 12:00 AM Doppler ultrasound of artery of lower extremity with exercise 12/22/2016 12 :00 AM MARTHA (Ankle Brachial Index). 12/22/2016 12:00 AM insulin resistant diabetic 09/02/2016 1:00 [...] 2 times per day for 7 days Barlow 7.5-325 mg oral tablet 09/12/2016 09/27/2016 take 1 tablet by oral route every 8 hours as needed for 15 days azithromycin 250 mg oral tablet 10/03/2016 10/08/2016 take 2 tablets (500 mg) by oral route once daily for 1 day then 1 tablet (250 mg) by oral route once daily for 4 days Anusol-HC 25 mg rectal suppository 10/08/2016 10/13/2016 25 mg [place] q hs for 5 nights amoxicillin 875 [...] needed for 30 days switch to lyrica Sav Perles 100 mg oral capsule 08/22/2016 12/09/2016 [...] HC BMI BSA BMI Percentile O2 Sat(%) 12/22/2016 3:17:00 PM 130 mmHg 62 mmHg [...] 12:00 AM DRAINAGE OF SKIN ABSCESS Reviewed Results Summary Date and Description Results [...] Hypotension, Chronic DVT (deep venous thrombosis), right 2007 07/30/2016 - right legcould not take blood thinners [...] mellitus with hyperglycemia Oct 08 2016 1:21PM exterminator (current) use of insulin Oct 08 2016 1:21PM Rectal bleeding Oct 08 2016 1:21PM Iron deficiency anemia due to chronic blood loss Oct 08 2016 1:21PM Fatigue, unspecified type Oct 20 2016 2:56PM Type 2 diabetes mellitus with hyperglycemia Oct 20 2016 2:56PM longterm (current) use of insulin Oct 20 2016 [...] subcutaneous tissue, unspecified Dec 22 2016 3:18PM Payers Insurance Name Company Name Plan Name Plan Number Policy Number Policy Group Number Start Date Medicare Part B Medicare Of [place] [id number] Monday, 2008 [facility] [id number] Friday, 2012 Medicare RHC Medicare RHC [id number] N/A [facility] [place] State Plan [facility] State Plan [id number] N/A Medicare Part A Medicare - Lab/Xray [id number] N/A History of Encounters Visit Date Visit Type Provider 12/22/2016 Office visit Alena Huertas MD 12/19/2016 Office visit Alena Huertas MD 12/17/2016 Office visit Alena Huertas MD 12/16/2016 Office visit Alena Huertas MD 12/12/2016 Surgery Cody Chao MD 12/12/2016 Office visit Alena Huertas MD 12/09/2016 Office visit Alena Huertas MD 12/03/2016 Office visit Mariana Cummins FIBRE OPTIC CABLE SPLICER 12/02/2016 Office visit Cody Chao MD 12/01/2016 Office visit Bridger Sarkar FIBRE OPTIC CABLE SPLICER 11/25/2016 Office visit Alena Huertas MD 11/21/2016 Office visit Mariana Cummins FIBRE OPTIC CABLE SPLICER 11/12/2016 Laboratory Mariana Cummins FIBRE OPTIC CABLE SPLICER 11/11/2016 Office visit Alena Huertas MD 10/31/2016 Office visit Alena Huertas MD 10/24/2016 Office visit Alena Huertas MD 10/20/2016 Office visit Alean Huertas MD 10/08/2016 Office visit Alena Huertas MD 10/06/2016 Laboratory Suad Roger FIBRE OPTIC CABLE SPLICER 10/03/2016 Office visit Alena Huertas MD 09/22/2016 Office visit Alena Huertas MD 09/19/2016 Office visit Mariana Cummins FIBRE OPTIC CABLE SPLICER 09/12/2016 Office visit Suad Roger FIBRE OPTIC CABLE SPLICER 08/28/2016 Office visit Bridger Sarkar FIBRE OPTIC CABLE SPLICER 08/22/2016 Office visit Suad Roger FIBRE OPTIC CABLE SPLICER 08/19/2016 Office visit Mariana Cummins FIBRE OPTIC CABLE SPLICER 08/15/2016 Office visit Bridger Sarkar FIBRE OPTIC CABLE SPLICER 08/11/2016 Office visit Mariana Cummins FIBRE OPTIC CABLE SPLICER 07/30/2016 Office visit Mariana Cummins FIBRE OPTIC CABLE SPLICER 07/23/2016 Office visit Suad Roger FIBRE OPTIC CABLE SPLICER 01/05/2016 Office visit Mariana Cummins FIBRE OPTIC CABLE SPLICER
--- OUTSIDE RECORDS SUMMARY | 2017-07-06 00:58 | XMS REPORT ---
Author Author Alena Huertas [facility] Address [address] [place], [place] [id number] Care Team Providers Care Fisher Pot Name Role Phone Alena Huertas PCP Unavailable [...] 2 times per day for 7 days Marne 7.5-325 mg oral tablet 09/12/2016 09/27/2016 take 1 tablet by oral route every 8 hours as needed for 15 days azithromycin 250 mg oral tablet 10/03/2016 10/08/2016 take 2 tablets (500 mg) by oral route once daily for 1 day then 1 tablet (250 mg) by oral route once daily for 4 days Anusol-HC 25 mg rectal suppository 10/08/2016 10/13/2016 25 mg [place] q hs for 5 nights amoxicillin 875 [...] HC BMI BSA BMI Percentile O2 Sat(%) 12/19/2016 3:22:00 PM 118 mmHg 62 mmHg 115 bpm 20 rpm 99.5 F 182.25 lbs 61 in 34.44 kg/m2 1.89 m2 96 % 12/17/2016 10:27:00 AM 118 mmHg 62 mmHg 110 bpm 20 rpm 98.9 F 177.25 lbs 61 in 33.4908 kg/m 1.8602 m 98 % 12/16/2016 10:14:00 AM 112 mmHg [...] mellitus with hyperglycemia Oct 08 2016 1:21PM equipment operator intermodal yard (current) use of insulin Oct 08 2016 1:21PM Rectal bleeding Oct 08 2016 1:21PM Iron deficiency anemia due to chronic blood loss Oct 08 2016 1:21PM Fatigue, unspecified type Oct 20 2016 2:56PM Type 2 diabetes mellitus with hyperglycemia Oct 20 2016 2:56PM equipment operator intermodal yard (current) use of insulin Oct 20 2016 [...] subcutaneous tissue, unspecified Dec 19 2016 3:27PM Payers Insurance Name Company Name Plan Name Plan Number Policy Number Policy Group Number Start Date Medicare Part B Medicare Of [place] [id number] Monday, 2008 [employer] - [place] [facility] [place] State Plan [id number] N/A Medicare Part A Medicare - Lab/Xray [id number] N/A [facility] [id number] Friday, June 29, 2012 Medicare RHC Medicare RHC [id number] N/A History of Encounters Visit Date Visit Type Provider 12/19/2016 Office visit Alena Huertas MD 12/17/2016 Office visit Alena Huertas MD 12/16/2016 Office visit Alena Huertas MD 12/12/2016 Surgery Cody Chao MD 12/12/2016 Office visit Alena Huertas MD 12/09/2016 Office visit Alena Huertas MD 12/03/2016 Office visit Mariana Cummins APRN 12/02/2016 Office visit Cody Chao MD 12/01/2016 Office visit Bridger Sarkar APRN 11/25/2016 Office visit Alena Huertas MD 11/21/2016 Office visit Mariana Cummins APRN 11/12/2016 Laboratory Mariana Cummins APRN 11/11/2016 Office visit Alena Huertas MD 10/31/2016 Office visit Alena Huertas MD 10/24/2016 Office visit Alean Huertas MD 10/20/2016 Office visit Alena Huertas MD 10/08/2016 Office visit Alena Huertas MD 10/06/2016 Laboratory Suad Roger APRN 10/03/2016 Office visit Alena Huertas MD 09/22/2016 Office visit Alena Huertas MD 09/19/2016 Office visit Mariana Cummins APRN 09/12/2016 Office visit Suad Roger CORPORATE LEARNING CONSULTANT 08/28/2016 Office visit Bridger Sarkar CORPORATE LEARNING CONSULTANT 08/22/2016 Office visit Suad Roger CORPORATE LEARNING CONSULTANT 08/19/2016 Office visit Mariana Cummins APRN 08/15/2016 Office visit Bridger Sarkar CORPORATE LEARNING CONSULTANT 08/11/2016 Office visit Mariana Cummins APRN 07/30/2016 Office visit Mariana Cummins APRN 07/23/2016 Office visit Suad Roger APRN 01/05/2016 Office visit Mariana Cummins APRN
--- OUTSIDE RECORDS SUMMARY | 2017-07-06 00:59 | XMS REPORT ---
Author Author Love Guadarrama Organization [employer] Address Unknown Phone Unavailable Care Team Providers Care Higher Level Teaching Assistant Name Role Phone Love Guadarrama CP Unavailable Allergies No Known Allergies Problems No Known Problems Medications No Known Medications Results No Known Results Summary Purpose [employer] Submission
--- OUTSIDE RECORDS SUMMARY | 2017-07-06 00:59 | XMS REPORT ---
Author Author Alena Huertas [facility] Address [address] [place], [place] [id number] Care Team Providers Care Purifying Plant Operator Name Role Phone Alena Huertas PCP Unavailable [...] 12:00 AM Fingerstick Glucose 10/20/2016 12:00 AM MARTHA (Ankle Brachial Index). 12/22/2016 [...] by oral route 4 times a day Novolog Flexpen 100 unit/mL subcutaneous insulin pen 10/03/2016 05/01/2017 35 units with meals Tresiba FlexTouch U-100 100 unit/mL (3 mL) subcutaneous insulin pen inject by subcutaneous route per prescriber's instructions. Insulin dosing requires individualization. furosemide 20 mg oral tablet 01/12/2017 03/08/2018 take 2 tablets (40 mg) by oral route once daily for 7d and then 1 qd Zyrtec 10 mg oral tablet 02/04/2017 06/04/2017 take 1 tablet (10 mg) by oral route once daily for 30 days omeprazole 20 mg oral capsule,delayed release(DR/EC) 02/04/2017 06/04/2017 take 1 capsule (20 mg) by oral route once daily before a meal for 30 days amitriptyline 50 mg oral tablet 02/23/2017 09/21/2017 take 1 tablet (50 mg) by oral route once daily at bedtime for 30 days sucralfate 1 gram oral tablet 03/06/2017 take 1 tablet by oral route 3 for 30 days Lyrica 75 mg oral capsule 03/06/2017 06/04/2017 take one capsule in the morning and 2 capsules at night. Victoza 2-Froylan 0.6 mg/0.1 mL (18 mg/3 mL) subcutaneous pen injector inject 0.2 milliliter (1.2 mg) by subcutaneous route once daily potassium chloride 10 mEq oral tablet extended release 04/01/2017 03/03/2018 TAKE 1 TABLET BY MOUTH ONCE A DAY azithromycin 250 mg oral tablet 04/01/2017 take 2 tablets (500 mg) by oral route once daily for 1 day then 1 tablet (250 mg) by oral route once daily for 4 days Proventil HFA 90 mcg/actuation inhalation HFA aerosol inhaler 04/07/2017 inhale 1 - 2 puffs (90 - 180 mcg) by inhalation route every 6 hours as needed for 1 day Name Start Date Expiration Date SIG Comments fluconazole 200 mg oral tablet 01/03/2016 01/13/2016 take 1 tablet (200 mg) by oral route once daily for 10 weeks azithromycin 500 mg oral tablet 01/03/2016 01/08/2016 take 1 tablet by oral route daily for 5 days for 5 days Prevacid 30 mg oral capsule,delayed release(DR/EC) 07/30/2016 01/26/2017 take 1 capsule by oral route once a day (at bedtime) for 30 days potassium chloride 10 mEq oral capsule, [...] by oral route daily for 30 days fluticasone 50 mcg/actuation nasal [...] 2 times per day for 7 days Una 7.5-325 mg oral tablet 09/12/2016 09/27/2016 take 1 tablet by oral route every 8 hours as needed for 15 days azithromycin 250 mg oral tablet 10/03/2016 10/08/2016 take 2 tablets (500 mg) by oral route once daily for 1 day then 1 tablet (250 mg) by oral route once daily for 4 days Anusol-HC 25 mg rectal suppository 10/08/2016 10/13/2016 25 mg [place] q hs for 5 nights amoxicillin 875 [...] needed for 10 days severe leg pain Lidoderm 5 % topical adhesive patch,medicated 01/13/2017 01/20/2017 apply 1 patch by transdermal route once daily (May wear up to 12hours.) for 7 days cyclobenzaprine 10 mg oral tablet 01/15/2017 01/22/2017 take 1 tablet (10 mg) by oral route 3 times per day for 7 days Discontinued Name Start Date Discontinued Date [...] 3 times per day for 10 days methocarbamol 750 mg oral tablet 01/23/2017 02/04/2017 take 1 tablet (750 mg) by oral route every 4 hours for 14 days tramadol 50 mg oral tablet 02/16/2017 02/23/2017 take 1 tablet by oral route 3 times a day for 10 days severe left pain Problem List Description Status Onset Anemia Active [...] HC BMI BSA BMI Percentile O2 Sat(%) 04/07/2017 2:57:00 PM 142 mmHg 80 mmHg 96 bpm 20 rpm 97.4 F 197.125 lbs 61 in 37.25 kg/m2 1.96 m2 93 % 04/01/2017 4:35:00 PM 136 mmHg 62 mmHg 97 bpm 20 rpm 99.1 F 193.375 lbs 61 in 36.5375 kg/m 1.943 m 93 % 03/25/2017 7:57:00 AM 124 mmHg 72 mmHg 105 bpm 20 rpm 99.1 F 195 lbs 61 in 36.84 kg/m2 1.95 m2 95 % 03/13/2017 12:58:00 PM 126 mmHg 68 mmHg 103 bpm 20 rpm 99.5 F 191.125 lbs 61 in 36.1124 kg/m 1.9316 m 93 % 02/23/2017 10:23:00 AM 112 mmHg 60 mmHg 96 bpm 20 rpm 98.1 F 186.125 lbs 61 in 35.17 kg/m2 1.91 m2 100 % 02/16/2017 11:01:00 AM 128 mmHg 68 mmHg 109 bpm 22 rpm 98.3 F 185 lbs 61 in 34.9551 kg/m 1.9004 m 93 % 02/04/2017 11:20:00 AM 136 mmHg 68 mmHg 106 bpm 22 rpm 97.6 F 187.25 lbs 60 in 36.57 kg/m2 1.90 m2 96 % 01/23/2017 1:49:00 PM 112 mmHg 67 mmHg 110 bpm 22 rpm 98.8 F 189.25 lbs 61 in 35.7581 kg/m 1.9221 m 91 % 01/19/2017 9:26:00 AM 118 mmHg 62 mmHg [...] 11/11/2016 12:00 AM ASSAY OF AMMONIA Reviewed 11/11/2016 12:00 AM POLYSOM 6/> YRS 4/> HILLARY Reviewed 12/16/2016 12:00 AM DRAINAGE OF SKIN ABSCESS Reviewed 12/23/2016 12:00 AM VASCULAR STUDY Reviewed 12/23/2016 12:00 AM PENILE VASCULAR STUDY Reviewed 12/23/2016 12:00 AM LOWER EXTREMITY STUDY Reviewed 12/23/2016 12:00 AM UPPER EXTREMITY STUDY Reviewed 12/23/2016 12:00 AM VASCULAR STUDY Reviewed 01/13/2017 12:00 AM Dietary Consult Reviewed 01/13/2017 12:00 AM Physical Therapy Consult Reviewed 01/19/2017 12:00 AM MRI LWR EXTREMITY W/O&W/DYE Reviewed Results Summary Date and Description Results 08/22/2016 11:30 AM Influenza A neg Influenza [...] 57 eGFR AA* >60 11/12/2016 11:00 AM Hep A Ab, IgM Negative HBsAg Screen Negative Hep B Core Ab , 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 [...] mellitus with hyperglycemia Oct 08 2016 1:21PM [facility] (current) use of insulin Oct 08 2016 1:21PM Rectal bleeding Oct 08 2016 1:21PM Iron deficiency anemia due to chronic blood loss Oct 08 2016 1:21PM Fatigue, unspecified type Oct 20 2016 2:56PM Type 2 diabetes mellitus with hyperglycemia Oct 20 2016 2:56PM [facility] (current) use of insulin Oct 20 2016 [...] Right leg pain Jan 19 2017 9:32AM Right leg pain Jan 23 2017 1:54PM Pain of right lower extremity Feb 04 2017 11:25AM Type 2 diabetes mellitus with hyperglycemia Feb 04 2017 11:25AM [facility] (current) use of insulin Feb 04 2017 11:25AM Cirrhosis of liver without ascites, unspecified hepatic cirrhosis type Feb 04 2017 11:25AM Pain of right lower extremity Feb 16 2017 11:06AM Type 2 diabetes mellitus with hyperglycemia Feb 16 2017 11:06AM joint terminal attack controller (current) use of insulin Feb 16 2017 11:06AM Pain of right lower extremity Feb 23 2017 10:28AM Cirrhosis of liver without ascites, unspecified hepatic cirrhosis type Feb 23 2017 10:28AM Diabetes Mellitus, Type II, Uncontrolled Feb 23 2017 10:28AM Viral enteritis Mar 13 2017 1:04PM Acute upper respiratory infection, unspecified Mar 25 2017 8:07AM Other viral agents as the cause of diseases classified elsewhere Mar 25 2017 8:07AM Diabetes Mellitus, Type II, Uncontrolled Mar 25 2017 8:07AM Full incontinence of feces Mar 25 2017 8:07AM Fecal urgency Mar 25 2017 8:07AM Hair loss Mar 25 2017 8:07AM Acute bronchitis due to other specified organisms Apr 01 2017 4:40PM Other specified bacterial agents as the cause of diseases classified elsewhere Apr 01 2017 4:40PM COPD exacerbation Apr 07 2017 3:02PM Payers Insurance Name Company Name Plan Name Plan Number Policy Number Policy Group Number Start Date Medicare Part B Medicare Of [place] [id number] Monday, 2008 [facility] [id number] Friday, 2012 Medicare RHC Medicare RHC [id number] N/A [employer] - [place] State [place] [employer] - [place] State Plan [id number] N/A Medicare Part A Medicare - Lab/Xray [id number] N/A History of Encounters Visit Date Visit Type Provider 04/07/2017 Office visit Alena Huertas MD 04/01/2017 Office visit Alena Huertas MD 03/25/2017 Office visit Alena Huertas MD 03/13/2017 Office visit Alena Huertas MD 02/23/2017 Office visit Alena Huertas MD 02/16/2017 Office visit Alena Huertas MD 02/04/2017 Office visit Alena Huertas MD 01/23/2017 Office visit Radha Lomas MD 01/19/2017 Office visit Alena Huertas MD 01/13/2017 Office visit Alena Huertas MD 01/09/2017 Office visit Radha Lomas MD 01/02/2017 Office visit Alena Huertas MD 01/01/2017 Office visit Bridger Sarkar APRN 12/24/2016 Office visit Alena Huertas MD 12/22/2016 Office visit 12/22/2016 Office visit 12/22/2016 Office visit Alena Huertas MD 12/19/2016 Office visit Alena Huertas MD 12/17/2016 Office visit Alena Huertas MD 12/16/2016 Office visit Alena Huertas MD 12/12/2016 Surgery Cody Chao MD 12/12/2016 Office visit Alena Huertas MD 12/09/2016 Office visit Alena Huertas MD 12/03/2016 Office visit Mariana Cummins LAMPS TESTER AND INSPECTOR 12/02/2016 Office visit Cody Chao MD 12/01/2016 Office visit Bridger Sarkar LAMPS TESTER AND INSPECTOR 11/25/2016 Office visit Alena Huertas MD 11/21/2016 Office visit Mariana Cummins LAMPS TESTER AND INSPECTOR 11/21/2016 Hospital Ahsan Cobb MD 11/14/2016 Hospital Ahsan Cobb MD 11/12/2016 Laboratory Mariana Cummins LAMPS TESTER AND INSPECTOR 11/11/2016 Office visit Alena Huertas MD 10/31/2016 Office visit Alena Huertas MD 10/24/2016 Office visit Alena Huertas MD 10/20/2016 Office visit Alena Huertas MD 10/08/2016 Office visit Alena Huertas MD 10/06/2016 Laboratory Suad Roger LAMPS TESTER AND INSPECTOR 10/03/2016 Office visit Alena Huertas MD 09/22/2016 Office visit Alena Huertas MD 09/19/2016 Office visit Mariana Cummins LAMPS TESTER AND INSPECTOR 09/12/2016 Office visit Suadmeghna Roger LAMPS TESTER AND INSPECTOR 08/28/2016 Office visit Bridger Antonina LAMPS TESTER AND INSPECTOR 08/22/2016 Office visit Suad Kana LAMPS TESTER AND INSPECTOR 08/19/2016 Office visit Mariana Cummins LAMPS TESTER AND INSPECTOR 08/15/2016 Office visit Bridger Letcher LAMPS TESTER AND INSPECTOR 08/11/2016 Office visit Mariana Cummins LAMPS TESTER AND INSPECTOR 07/30/2016 Office visit Marianayana Cummins LAMPS TESTER AND INSPECTOR 07/23/2016 Office visit Suad Kana LAMPS TESTER AND INSPECTOR 01/05/2016 Office visit Mariana Cummins LAMPS TESTER AND INSPECTOR
--- OUTSIDE RECORDS SUMMARY | 2017-07-06 00:59 | XMS REPORT ---
Author Author Love Guadarrama Organization [employer] Address [address] [place] [address] Care Team Providers Care Structural Mill Supervisor Name Role Phone Love Guadarrama Unavailable PROBLEMS Type Condition ICD9-CM Code BTH10-ZO Code Onset Dates Condition Status SNOMED Code Problem Cellulitis of Finger, Unspecified 681.00 Active 675931892 Problem GERD Without Esophagitis K21.9 Active 580697265 Problem Hypothyroidism E03.9 Active 41050688 Problem Pain In Right Lower Leg M79.661 Active 96453099 Problem Leg pain, right 729.5 Active 70182774 Problem Pharyngitis J02.9 Active 701993478 Problem Bronchitis J40 Active 17013448 Problem Leg Pain UNSPECIFIED M79.606 Active 27145404 Problem Cardiomegaly I51.7 Active 0766639 Problem Bipolar disorder F31.9 Active 63607889 Problem Type 2 Diabetes Mellitus With Hyperglycemia E11.65 Active 430543194272358 Problem Noncompliance Z91.19 Active 0002794 Problem COPD (chronic obstructive pulmonary disease) J44.9 Active 70151125 Problem Cellulitis Of Left Finger L03.012 Active 95102020445104261 ALLERGIES Unknown Allergies SOCIAL HISTORY No smoking Hx information available PLAN OF CARE VITAL SIGNS MEDICATIONS Unknown Medications RESULTS No Results PROCEDURES No Known procedures IMMUNIZATIONS No Known Immunizations
--- OUTSIDE RECORDS SUMMARY | 2017-07-06 01:00 | XMS REPORT ---
Author Fabian Paul Organization [employer] Address Unknown Phone Unavailable Care Team Providers Care Labeling Strategist Name Role Phone Fabian Roger CP Unavailable Allergies, Adverse Reactions, Alerts Substance Reaction Event Type Seafood/Fish Info Not Available Non Drug Allergy Sulfa Info Not Available Non Drug Allergy Poultry Info Not Available Non Drug Allergy Milk Info Not Available Non Drug Allergy Problems Problem Type Condition Code Onset Dates Condition Status Assessment Unspecified hypothyroidism 244.9 Active Assessment Morbid obesity 278.01 Active Assessment Unspecified iron deficiency anemia 280.9 Active Assessment Polyneuropathy in diabetes 357.2 Active Assessment Chronic airway obstruction, not elsewhere classified 496 Active Assessment Diabetes mellitus without mention of complication, type II or unspecified type, not stated as uncontrolled 250.00 Active Assessment Mitral stenosis with insufficiency 394.2 Active Problem Diabetes mellitus without mention of complication, type II or unspecified type, not stated as uncontrolled 250.00 Active Problem Essential and other specified forms of tremor 333.1 Active Problem Pain in joint, other specified sites 719.48 Active Problem Special screening for malignant neoplasms, colon V76.51 Active Problem Chronic airway obstruction, not elsewhere classified 496 Active Problem Unspecified esophagitis 530.10 Active Problem Congestive heart failure, unspecified 428.0 Active Problem Mitral stenosis with insufficiency 394.2 Active Problem Slow transit constipation 564.01 Active Problem Unspecified constipation 564.00 Active Problem Unspecified hypothyroidism 244.9 Active Problem Morbid obesity 278.01 Active Problem Screening for lipoid disorders V77.91 Active Problem Polyneuropathy in diabetes 357.2 Active Problem Other specified forms of hearing loss 389.8 Active Problem Closed fracture of metatarsal bone(s) 825.25 Active Problem Unspecified hypotension 458.9 Active Problem Other convulsions 780.39 Active Problem Unspecified iron deficiency anemia 280.9 Active Problem 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 [address]-59 300 MG Orally Three times a day 1 capsule HydrOXYzine HCl [facility] [address]-59 25 MG Orally not defined NovoLog Flexpen [facility] 68276137191 100 UNIT/ML PER SLIDING SCALE BEFORE MEALS AND AT BEDTIME Synthroid [facility] [address]-81 112 MCG Orally Once a day 1 tablet Levemir Flexpen [facility] [address]-46 100 UNIT/ML Subcutaneous daily at HS 30 units Fanapt [facility] [address]-55 6 MG Orally Twice a day [address]ymbalta [facility] [address]-68 60 MG Orally Twice a day [address] capsule [address] [facility] [address]-30 1-0.05 % Externally Twice a day 1 application to affected area Xanax [facility] [address]-88 0.25 MG Orally once a day at HS 1 tablet as needed Albuterol Sulfate [facility] 54016863444 (2.5 MG/3ML) 0.083% 3ML THREE TIMES A DAY Albuterol Sulfate HFA [facility] [address]-31 108 (90 Base) MCG/ACT Inhalation every 4 hrs 2 puffs as needed Aspercreme [facility] [address]16 10 % Externally not defined Flonase [facility] [address]-72 50 MCG/ACT Nasally Once a day 1 spray in each nostril DuoNeb [facility] 0 not defined MiraLax [facility] [address]-01 Orally Once a day 1 packet mixed with 8 ounces of fluid Robitussin DM [facility] [address]-03 100-10 MG/5ML Orally every 4 hrs 10 ml as needed Advair Diskus [facility] [address]-22 250-50 MCG/DOSE Inhalation Twice a day 1 puff Magnesium Oxide [facility] [address]-03 400 MG Orally Twice a day 1 tablet Invokana [facility] [address]-23 100 MG Orally Once a day 1 tablet Ferrous Sulfate [facility] [address]-86 325 (65 Fe) MG Orally Three times a day 1 tablet Zantac [facility] [address]-66 300 MG Orally Once a day at HS 1 tablet Potassium Chloride ER [facility] [address]-96 20 MEQ Orally Twice a day 1 tablet Lamictal [facility] [address]-99 100 MG Orally Twice a day 1 tablet [place] [facility] [address]-48 5-325 MG Orally every 4 hrs 1 tablet as needed Duloxetine HCl [facility] [address]-33 30 MG Orally Twice a day 1 capsule [address]ylanta [facility] [address]234 200-200-20 MG/5ML Orally Four times a day 10 ml as needed Citalopram Hydrobromide [facility] 34033219144 20 MG TAKE 1 TABLET BY MOUTH ONCE A DAY Lasix [facility] [address]-34 20 MG Orally every 8 hours 1 tablet BusPIRone HCl [facility] [address]-71 15 MG Orally Four times a day 1 tablet Tylenol Extra Strength [facility] [address]-55 500 MG Orally every 6 hrs 1 tablet as needed Combivent Respimat [facility] 11641551323 20-100 MCG/ACT ONE PUFF EVERY FOUR HOURS Carafate [facility] [address]-15 1 GM Orally Three times a day 1 tablet on an empty stomach Procedures Procedure Coding System Code Date PRESCRIP NOT GEN AT ENCOUNTE CPT-4 G8445 September 04, 2014 PAIN ASSESSMENT DOCUMENT CPT-4 G8440 September 04, 2014 TOBACCO NON-USER CPT-4 G8457 September 04, 2014 DOC MEDS VERIFIED W/PT OR RE CPT-4 G8427 September 04, 2014 BMI>=30OR<22 RUDY NO FOLLOWUP CPT-4 G8419 September 04, 2014 TX PLAN DEVELOP & DOCUMENT CPT-4 G8437 September 04, 2014 CLIN DEPRESSION SCREEN NOT D CPT-4 G8432 September 04, 2014 BP SYS <130 AND LAMA <80 CPT-4 G8476 September 04, 2014 DOC PAIN ASSESS NO DOC F/U PLAN RNS CPT-4 G8509 September 04, 2014 PT RECEIV INFLUENZA VACC CPT-4 G8108 September 04, 2014 MOST RECENT SYSTOLIC BP <140 MM HG CPT-4 G8588 September 04, 2014 MOST RECENT DIASTOLIC BP <90 MM HG CPT-4 G8590 September 04, 2014 CARE NOT PROVIDED FOR MAMOGR CPT-4 G8114 September 04, 2014 HEMOGLOBIN A1C LEVEL > 9.0% CPT-4 3046F September 04, 2014 FLU IMMUNIZE ORDER/ADMIN CPT-4 G8482 September 04, 2014 Office Visit, Est Pt., Level 3 CPT-4 43559 September 04, 2014 Vital Signs Date/Time: September 04, 2014 BMI 36.31 Index Weight 192.2 lbs Height 61 in Respiratory Rate 18 /min Temperature 97.3 F Cardiac Monitoring Heart Rate 55 /min Oximetry 91 % Blood Pressure Diastolic 62 mm Hg Blood Pressure Systolic 103 mm Hg Results No Known Results Summary Purpose [employer] Submission
--- OUTSIDE RECORDS SUMMARY | 2017-07-06 01:00 | XMS REPORT ---
Author Author Alena Huertas [facility] Address [address] [place], [place] [id number] Care Team Providers Care Lift Mechanic Name Role Phone Alena Huertas PCP Unavailable [...] pen 10/03/2016 05/01/2017 35 units with meals Name Start Date Expiration Date SIG Comments [...] 2 times per day for 7 days [place] 7.5-325 mg oral tablet 09/12/2016 09/27/2016 take [...] HC BMI BSA BMI Percentile O2 Sat(%) 10/20/2016 2:48:00 PM 142 mmHg 72 mmHg [...] SMEAR 2014 normal Screening for colon cancer 2013 negative [...] mellitus with hyperglycemia Oct 08 2016 1:21PM intermediate (current) use of insulin Oct 08 2016 1:21PM Rectal bleeding Oct 08 2016 1:21PM Iron deficiency anemia due to chronic blood loss Oct 08 2016 1:21PM Fatigue, unspecified type Oct 20 2016 2:56PM Type 2 diabetes mellitus with hyperglycemia Oct 20 2016 2:56PM terminal operator (current) use of insulin Oct 20 2016 2:56PM Payers Insurance Name Company Name Plan Name Plan Number Policy Number Policy Group Number Start Date Medicare Part B Medicare Of [place] [id number] Monday, 2008 [employer] [place] State Plan [facility] [id number] Friday, 2012 Medicare RHC Medicare RHC [id number] N/A [employer] - [facility] [place] State Plan [facility] [place] State Plan [id number] N/A Medicare Part A Medicare - Lab/Xray [id number] N/A History of Encounters Visit Date Visit Type Provider 10/20/2016 Office visit Alena Huertas MD 10/08/2016 Office visit Alena Huertas MD 10/06/2016 Laboratory Suad Roger APRN 10/03/2016 Office visit Alena Huertas MD 09/22/2016 Office visit Alena Huertas MD 09/19/2016 Office visit Mariana Cummins APRN 09/12/2016 Office visit Suad Roger APRN 08/28/2016 Office visit Bridger Sarkar REAL ESTATE SUBAGENT 08/22/2016 Office visit Suad Roger APRN 08/19/2016 Office visit Mariana Cummins APRN 08/15/2016 Office visit Bridger Sarkar APRN 08/11/2016 Office visit Mariana Cummins APRN 07/30/2016 Office visit Mariana Cummins APRN 07/23/2016 Office visit Suad Roger APRN 01/05/2016 Office visit Mariana Cummins APRN
--- OUTSIDE RECORDS SUMMARY | 2017-07-06 01:01 | XMS REPORT | Continuity of Care Document ---
Author Author [facility] Organization [facility] Address [address] [place] [address] Phone Unavailable Care Team Providers Care Tightener Name Role Phone BRITTNI BRAVO M.D. PCP Insurance Providers Payer Name Policy Number Subscriber Name Relationship Medicare [id number] Chaenll Sosa 18 Self / Same As Patient [employer] [id number] Chanell Sosa 18 Self / Same As Patient Advance Directives Directive Response Recorded Date/Time Living Will No 02/28/16 10:35am Power of Debarker Operator No 02/28/16 10:35am Advance Directives No 05/25/15 7:54am Advance Directive on File No 01/25/16 9:30am Durable POA for HC No 01/25/16 9:30am Power of Debarker Operator No 01/25/16 9:30am Organ Donor No 01/25/16 9:30am Living Will No 01/25/16 9:30am What is your agent's or group sales representative's phone number? No 05/25/15 7:54am Problems Active Problems Medical Problem Onset Date Status Elevated liver enzymes Unknown Acute Gastroenteritis Unknown Acute Nausea and vomiting in adult Unknown Acute Sprain of wrist Unknown Acute Tremor of unknown origin Unknown Acute Medications Current Home Medications Medication [...] A Day With Meals for Supplement 05/25/15 Amitriptyline Hcl 25 Mg 25 Mg Oral Everyday At 9 Pm for Sleep Buspirone Hcl 15 Mg 15 Mg Oral Four Times A Day for Anxiety 05/25/15 Canagliflozin 100 Mg 100 Mg Oral Once A Day for Hyperglycemia Tiotropium [place] 18 Mcg 1 Mcg Inhalation Everyday At 9 Pm for Copd 05/25/15 Fluticasone Propionate 9.9 Ml 9.9 Ml Nasal Once A Day for Allergic Rhinitis 05/25/15 [Advair] Unknown Dose Hand Held Nebulizer Twice A Day for Copd Duloxetine Hcl 30 Mg 90 Mg Oral Once A Day for Depression 06/19/15 Promethazine Hcl 50 Mg 50 Mg Oral Every 6 To 8 Hours As Needed as needed for Nausea / Vomiting 20 06/19/15 Past Home Medications Medication Directions Ordered Status Duloxetine Hcl 40 Mg Capsule.dr, 80 Mg Oral Once A Day for Depression Discontinued Iloperidone 6 Mg Tablet, 6 Mg Oral Twice A Day for Bipolar Disease 05/25/15 Discontinued Ferrous Sulfate 325 Mg Tablet, 325 Mg Oral Three Times A Day for Anemia 05/25 Discontinued Phenytoin Sodium Extended 100 Mg Capsule, 100 Mg Oral Three Times A Day for Seizure 06/01/15 Discontinued Social History Social History Problem Response Recorded Date/Time Smoking Status Former smoker 01/25/2016 9:31am Smoked in the last 12 months? No 01/25/2016 9:31am Do you dip or chew tobacco? No 01/25/2016 9:31am Approx how many cigs per day? 0 01/25/2016 9:31am Former smoker, last day smoked? 4 YEARS AGO 01/25/2016 9:31am Query Response Start Date Stop Date Smoking Status Former smoker Hospital Discharge Instructions No hospital discharge instructions. Plan of Care Prescriptions See Medication Section Functional Status Query Response Date Recorded Activities of Daily Living Performs w/o Assistance January 25, 2016 9:31am Allergies, Adverse Reactions, Alerts Allergen Type Severity Reaction Status Last Updated Sulfa (Sulfonamide Antibiotics) ([id number]) Allergy Unknown VOMITTING DIARRHEA Active 01/25/16 Poultry Allergy Unknown NAUSEA AND VOMITING Active 01/25/16 Immunizations No immunization records. Vital Signs Acute Vital Signs Vital Response Date/Time Temperature (Fahrenheit) 97.8 degrees F (97.6 - 99.5) 01/25/2016 11:20am Temperature (Calculated Celsius) 36.88128 degrees C (36.4 - 37.5) 01/25/2016 11:20am Temperature Source Temporal Artery Scan 01/25/2016 11:20am Pulse Pulse Ox Pulse Rate (adult) 88 beats per minute (60 - 90) 01/25/2016 11:20am Pulse Location Modifier Right 01/25/2016 11:20am Oxygen Saturation Respiratory Rate 20 breaths per minute (12 - 24) 01/25/2016 11:20am O2 Sat by Pulse Oximetry 93 % (90 - 100) 01/25/2016 11:20am Blood Pressure 117/61 mm Hg 01/25/2016 11:20am Blood Pressure Mean 79 mm Hg 01/25/2016 11:20am Results Pending Laboratory Results Test Name Collection Date/Time Procedures Procedure Status Date Provider(s) EMERGENCY DEPT VISIT Completed 05/25/15 EMERGENCY DEPT VISIT Completed 06/01/15 EMERGENCY DEPT VISIT Completed 06/19/15 ROUTINE VENIPUNCTURE Completed 01/25/16 COMPREHEN METABOLIC PANEL Completed 01/25/16 URINALYSIS NONAUTO W/SCOPE Completed 01/25/16 ASSAY OF TROPONIN QUAL Completed 01/25/16 COMPLETE CBC W/AUTO DIFF WBC Completed 01/25/16 ELECTROCARDIOGRAM TRACING Completed 01/25/16 EMERGENCY DEPT VISIT Completed 01/25/16 EMERGENCY DEPT VISIT Completed 01/25/16 Encounters Encounter Location Arrival/Admit Date Discharge/Depart Date Attending Provider Registered [facility] 02/28/16 10:37am BRITTNI BRAVO M.D. Departed Emergency Room [facility] 01/25/16 9:20am 01/25/16 11: 25am ADALBERTO GONZALES MD Registered [facility] 07/16/15 1:55pm BRITTNI BRAVO M.D. Departed Emergency Room [facility] 06/19/15 11:58am 06/19/15 2: 17pm SMITA MICHELE APRN Registered [facility] 06/07/15 1:57pm BRITTNI BRAVO M.D. Departed Emergency Room [facility] 06/01/15 3:15pm 06/01/15 6: 10pm ADALBERTO GONZALES MD Registered Clinic [facility] 05/30/15 10:26am BRITTNI BRAVO M.D. Registered Clinic [facility] 05/29/15 8:54am BRITTNI BRAVO M.D. Departed Emergency Room [facility] 05/25/15 7:55am 05/25/15 1: 30pm ADALBERTO GONZALES MD
--- OUTSIDE RECORDS SUMMARY | 2017-07-06 01:01 | XMS REPORT ---
Author Author Mariana Cummins Organization [facility] Address [address] [place], [place] [address] Care Team Providers Care Insurance Legal Assistant Name Role Phone Mariana Cummins PCP Unavailable [...] 10/20/2016 12:00 AM Polysomnography 11/11/2016 12:00 AM COMPREHENSIVE METABOLIC PANEL 11/11/2016 12:00 AM HEPATITIS PANEL. 11/11/2016 12:00 AM AMMONIA. 11/11/2016 12:00 AM insulin resistant diabetic 09/02/2016 [...] 2 times a day for 30 days Name Start Date Expiration [...] 2 times per day for 7 days [place] 7.5-325 mg oral tablet 09/12/2016 09/27/2016 take 1 tablet by oral route every 8 hours as needed for 15 days azithromycin 250 mg oral tablet 10/03/2016 10/08/2016 take 2 tablets (500 mg) by oral route once daily for 1 day then 1 tablet (250 mg) by oral route once daily for 4 days Anusol-HC 25 mg rectal suppository 10/08/2016 10/13/2016 25 mg MD q hs for 5 nights Discontinued Name [...] HC BMI BSA BMI Percentile O2 Sat(%) 11/11/2016 10:09:00 AM 124 mmHg 68 mmHg [...] F 185.25 lbs 61 in 35.0023 kg/m 1.90 m2 98 % 08/11/2016 11:18:00 AM 140 mmHg 68 mmHg 113 bpm 20 rpm 98.1 F 178.25 lbs 94 % 07/30/2016 10:23:00 AM 131 mmHg 70 mmHg 101 bpm 20 rpm 97.9 F 176.375 lbs 95 % 07/23/2016 6:38:00 PM 130 mmHg 98 mmHg 92 bpm 22 rpm 98.6 F 185 lbs 61 in 34.96 kg/m2 1.9004 m 96 % 01/05/2016 11:26:00 AM 106 mmHg 60 mmHg 73 bpm 16 rpm 97.3 F 185.6 lbs 61.5 in 34.5006 kg/m 1.91 m2 95 % Social History Name [...] 12:00 AM COLLECTION VENOUS BLOOD VENIPUNCTURE Reviewed Results Summary Date and Description Results [...] NE Not Entered Not Entered Not Entered 201606/29/2018 113 Pneumococcal 2006 Not Entered NE Not Entered Not Entered Not Entered 10/28/2016 06/29/2018 33 History of Past Illness Name Date [...] negative but told to get next in 2018 due to family history Colon polyps Left [...] mellitus with hyperglycemia Oct 08 2016 1:21PM long-term (current) use of insulin Oct 08 2016 1:21PM Rectal bleeding Oct 08 2016 1:21PM Iron deficiency anemia due to chronic blood loss Oct 08 2016 1:21PM Fatigue, unspecified type Oct 20 2016 2:56PM Type 2 diabetes mellitus with hyperglycemia Oct 20 2016 2:56PM long-term (current) use of insulin Oct 20 2016 [...] 2016 11:04AM Diabetes Nov 11 2016 11:04AM Payers Insurance Name Company Name Plan Name Plan Number Policy Number Policy Group Number Start Date Medicare Part B Medicare Of [place] [id number] Monday, 2008 [employer] [place] Plan [employer] [place] State Plan [id number] Friday, 2012 Medicare RHC Medicare RHC [id number] N/A [employer] - [place] - [place] State Plan [employer] - [place] State Plan [id number] N/A Medicare Part A Medicare - Lab/Xray [id number] N/A History of Encounters Visit Date Visit Type Provider 11/12/2016 Laboratory Mariana Cummins CONSTRUCTION RECRUITER 11/11/2016 Office visit Aelna Huertas MD 10/31/2016 Office visit Alena Huertas MD 10/24/2016 Office visit Alena Huertas MD 10/20/2016 Office visit Alena Huertas MD 10/08/2016 Office visit Alena Huertas MD 10/06/2016 Laboratory Suad Roger CONSTRUCTION RECRUITER 10/03/2016 Office visit Alena Huertas MD 09/22/2016 Office visit Alena Huertas MD 09/19/2016 Office visit Mariana Cummins CONSTRUCTION RECRUITER 09/12/2016 Office visit Suad Roger CONSTRUCTION RECRUITER 08/28/2016 Office visit Bridger Sarkar CONSTRUCTION RECRUITER 08/22/2016 Office visit Suad Roger CONSTRUCTION RECRUITER 08/19/2016 Office visit Mariana Cummins CONSTRUCTION RECRUITER 08/15/2016 Office visit Bridger Sarkar CONSTRUCTION RECRUITER 08/11/2016 Office visit Mariana Cummins CONSTRUCTION RECRUITER 07/30/2016 Office visit Mariana Cummins CONSTRUCTION RECRUITER 07/23/2016 Office visit Suad Roger CONSTRUCTION RECRUITER 01/05/2016 Office visit Mariana Cummins CONSTRUCTION RECRUITER
--- OUTSIDE RECORDS SUMMARY | 2017-07-06 01:02 | XMS REPORT ---
Author Author Alena Huertas [facility] Address [address] [place], [place] [address] Care Team Providers Care Rheostat Assembler Name Role Phone Alena Huertas PCP Unavailable [...] MARTHA (Ankle Brachial Index). 12/22/2016 12:00 AM Limited arterial ultrasound for measurement of blood flow 12/23/2016 12:00 AM Limited arterial ultrasound for measurement of blood flow 12/23/2016 12:00 AM Limited arterial ultrasound for measurement of blood flow 12/23/2016 12:00 AM Limited arterial ultrasound for measurement of blood flow 12/23/2016 12:00 AM Limited arterial ultrasound for measurement of blood flow 12/23/2016 12:00 AM insulin resistant diabetic 09/02/2016 1:00 [...] 2 times per day for 7 days [place] 7.5-325 mg oral tablet 09/12/2016 09/27/2016 take 1 tablet by oral route every 8 hours as needed for 15 days azithromycin 250 mg oral tablet 10/03/2016 10/08/2016 take 2 tablets (500 mg) by oral route once daily for 1 day then 1 tablet (250 mg) by oral route once daily for 4 days Anusol-HC 25 mg rectal suppository 10/08/2016 10/13/2016 25 mg MI q hs for 5 nights amoxicillin 875 [...] mellitus with hyperglycemia Oct 08 2016 1:21PM terminal block assembler (current) use of insulin Oct 08 2016 1:21PM Rectal bleeding Oct 08 2016 1:21PM Iron deficiency anemia due to chronic blood loss Oct 08 2016 1:21PM Fatigue, unspecified type Oct 20 2016 2:56PM Type 2 diabetes mellitus with hyperglycemia Oct 20 2016 2:56PM terminal block assembler (current) use of insulin Oct 20 2016 [...] Date Medicare Part B Medicare Of [place] [id number] Monday, 2008 [employer] [place] State Plan [facility] State [facility] [id number] Friday, 2012 Medicare RHC Medicare RHC [id number] N/A [facility] [place] State Plan [facility] [place] State Plan [id number] N/A Medicare Part A Medicare - Lab/Xray [id number] N/A History of Encounters Visit Date Visit Type Provider 12/22/2016 Office visit 12/22/2016 Office visit 12/22/2016 Office visit Alena Huertas MD 12/19/2016 Office visit Alena Huertas MD 12/17/2016 Office visit Alena Huertas MD 12/16/2016 Office visit Alena Huertas MD 12/12/2016 Surgery Cody Chao MD 12/12/2016 Office visit Alena Huertas MD 12/09/2016 Office visit Alena Huertas MD 12/03/2016 Office visit Mariana Cummins SIZER MACHINE 12/02/2016 Office visit Cody Chao MD 12/01/2016 Office visit Bridger Sarkar SIZER MACHINE 11/25/2016 Office visit Alena Huertas MD 11/21/2016 Office visit Mariana Cummins SIZER MACHINE 11/12/2016 Laboratory Mariana Cummins SIZER MACHINE 11/11/2016 Office visit Alena Huertas MD 10/31/2016 Office visit Alena Huertas MD 10/24/2016 Office visit Alena Huertas MD 10/20/2016 Office visit Alena Huertas MD 10/08/2016 Office visit Alena Huertas MD 10/06/2016 Laboratory Suad Roger SIZER MACHINE 10/03/2016 Office visit Alena Huertas MD 09/22/2016 Office visit Alena Huertas MD 09/19/2016 Office visit Mariana Cummins SIZER MACHINE 09/12/2016 Office visit Suad Roger SIZER MACHINE 08/28/2016 Office visit Bridger Sarkar SIZER MACHINE 08/22/2016 Office visit Suad Roger SIZER MACHINE 08/19/2016 Office visit Mariana Cummins SIZER MACHINE 08/15/2016 Office visit Bridgercurtis Robleslin SIZER MACHINE 08/11/2016 Office visit Mariana Cummins SIZER MACHINE 07/30/2016 Office visit Mariana Cummins SIZER MACHINE 07/23/2016 Office visit Suad Roger SIZER MACHINE 01/05/2016 Office visit Mariana Cummins SIZER MACHINE
--- OUTSIDE RECORDS SUMMARY | 2017-07-06 01:03 | XMS REPORT ---
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 Problem Unspecified iron deficiency anemia 280.9 Active Problem Other convulsions 780.39 Active Problem Asthma, unspecified, unspecified status 493.90 Active Problem Depressive disorder, not elsewhere classified 311 Active Assessment Morbid obesity 278.01 Active Problem Esophageal reflux 530.81 Active Problem Anxiety state, unspecified 300.00 Active Problem Diabetes mellitus without mention of complication, type II or unspecified type, not stated as uncontrolled 250.00 Active Problem Pneumonia, organism unspecified 486 Active Problem Pain in joint, other specified sites 719.48 Active Problem Insomnia, unspecified 780.52 Active Problem Chronic airway obstruction, not elsewhere classified 496 Active Problem Spasm of muscle 728.85 Active Problem Nonallopathic lesion of sacral region, not elsewhere classified 739.4 Active Problem Nonallopathic lesion of pelvic region, not elsewhere classified 739.5 Active Problem Dysmetabolic Syndrome X 277.7 Active Problem Unspecified otitis media 382.9 Active Problem Other specified forms of hearing loss 389.8 Active Problem Unspecified esophagitis 530.10 Active Assessment Chronic airway obstruction, not elsewhere classified 496 Active Problem Diabetes mellitus without mention of complication, type II or unspecified type, uncontrolled 250.02 Active Problem Congestive heart failure, unspecified 428.0 Active Assessment Congestive heart failure, unspecified 428.0 Active Problem Nonallopathic lesion of thoracic region, not elsewhere classified 739.2 Active Assessment Unspecified essential hypertension 401.9 Active Problem Nonallopathic lesion of lumbar region, not elsewhere classified 739.3 Active Assessment Dysmetabolic Syndrome X 277.7 Active Problem Lumbago 724.2 Active Assessment Diabetes mellitus without mention of complication, type II or unspecified type, uncontrolled 250.02 Active Problem Nonallopathic lesion of cervical region, not elsewhere classified 739.1 Active Problem Unspecified hypothyroidism 244.9 Active Problem Closed fracture of metatarsal bone(s) 825.25 Active Problem Unspecified constipation 564.00 Active Problem Slow transit constipation 564.01 Active Problem Special screening for malignant neoplasms, colon V76.51 Active Problem Polyneuropathy in diabetes 357.2 Active Problem Screening for lipoid disorders V77.91 Active Problem Unspecified hypotension 458.9 Active Assessment Unspecified otitis media 382.9 Active Problem Candidiasis of vulva and vagina 112.1 Active Problem Essential and other specified forms of tremor 333.1 Active Problem Cellulitis and abscess of unspecified site 682.9 Active Problem Mitral stenosis with insufficiency 394.2 Active Problem Morbid obesity 278.01 Active Medications Medication Code System Code Instructions Start Date End Date Status Dosage Advair Diskus [facility] [address]-65 250-50 MCG/DOSE Inhalation Twice a day 1 puff HydrOXYzine HCl [facility] [address]-46 25 MG Orally not defined Magnesium Oxide [facility] [address]-80 400 MG Orally Twice a day 1 tablet Mylanta [facility] 10[address]14 200-200-20 MG/5ML Orally Four times a day 10 ml as needed Simethicone [facility] [address]-75 80 MG Orally not defined Gabapentin [facility] 11182446907 300 MG TAKE 1 CAPSULE BY MOUTH THREE TIMES A DAY AT 7AM, 2PM AND 10PM Potassium Chloride ER [facility] 17371617606 10 MEQ TAKE 1 TABLET BY MOUTH TWO TIMES A DAY NovoLog Flexpen [facility] 32417402391 100 UNIT/ML PER SLIDING SCALE BEFORE MEALS AND AT BEDTIME Synthroid [facility] [address]-34 112 MCG Orally Once a day 1 tablet Lotrisone [facility] [address]-49 1-0.05 % Externally Twice a day 1 application to affected area Invokana [facility] [address]-62 100 MG Orally Once a day 1 tablet Albuterol Sulfate [facility] [id number] (2.5 MG/3ML) 0.083% 3ML THREE TIMES A DAY Levemir FlexTouch [facility] 83038297263 100 UNIT/ML INJECT 45 UNITS SUBQ AT BEDTIME Flonase [facility] [address]-90 50 MCG/ACT Nasally Once a day 1 spray in each nostril Zantac [facility] [address]-31 300 MG Orally Once a day at HS 1 tablet Xanax [facility] [address]-82 0.25 MG Orally once a day at HS 1 tablet as needed Fanapt [facility] [address]-22 6 MG Orally Twice a day 1 tablet Albuterol Sulfate HFA [facility] [address]-39 108 (90 Base) MCG/ACT Inhalation every 4 hrs 2 puffs as needed Spiriva HandiHaler [facility] [address]-88 18 MCG Inhalation Once a day 1 capsule Billings [facility] [address]-71 5-325 MG Orally every 4 hrs 1 tablet as needed MiraLax [facility] [address]-96 Orally Once a day 1 packet mixed with 8 ounces of fluid Carafate [facility] [address]-12 1 GM Orally Three times a day 1 tablet on an empty stomach Cymbalta [facility] [address]-65 60 MG Orally Twice a day 1 capsule Levemir Flexpen [facility] ____ 100 UNIT/ML Subcutaneous daily at HS 45 units BusPIRone HCl [facility] [address]-70 15 MG Orally Four times a day 1 tablet Ferrous Sulfate [facility] [address]-33 325 (65 Fe) MG Orally Three times a day 1 tablet Robitussin DM [facility] [address]-76 100-10 MG/5ML Orally every 4 hrs 10 ml as needed Aspercreme [facility] [address]60-03010 10 % Externally not defined DuoNeb ND ____ not defined Amitriptyline HCl [facility] [address]-88 25 MG Orally Once a day 1 tablet at bedtime Tylenol Extra Strength [facility] [address]-36 500 MG Orally every 6 hrs 1 tablet as needed Combivent Respimat [facility] 84878058137 20-100 MCG/ACT ONE PUFF EVERY FOUR HOURS Ambien [facility] [address]-80 10 MG Orally Once a day 1 tablet at bedtime as needed Procedures Procedure Coding System Code Date TX PLAN DEVELOP & DOCUMENT CPT-4 G8437 December 18, 2014 CLIN DEPRESSION SCREEN NOT D CPT-4 G8432 December 18, 2014 PAIN ASSESSMENT DOCUMENT CPT-4 G8440 December 18, 2014 BMI>=30OR<22 RUDY NO FOLLOWUP CPT-4 G8419 December 18, 2014 BMI >=30 CALCUATE W/FOLLOWUP CPT-4 G8417 December 18, 2014 DOC MEDS VERIFIED W/PT OR RE CPT-4 G8427 December 18, 2014 FLU VACCINE NOT SCREEN CPT-4 G8424 December 18, 2014 PRESCRIP NOT GEN AT ENCOUNTE CPT-4 G8445 December 18, 2014 TOBACCO NON-USER CPT-4 G8457 December 18, 2014 HEMOGLOBIN A1C LEVEL > 9.0% CPT-4 3046F December 18, 2014 BP SYS <130 AND LAMA <80 CPT-4 G8476 December 18, 2014 DOC PAIN ASSESS NO DOC F/U PLAN RNS CPT-4 G8509 December 18, 2014 DSCHRG MED/CURRENT MED MERGE CPT-4 1111F December 18, 2014 MOST RECENT SYSTOLIC BP <140 MM HG CPT-4 G8588 December 18, 2014 MOST RECENT DIASTOLIC BP <90 MM HG CPT-4 G8590 December 18, 2014 Office Visit, Est Pt., Level 3 CPT-4 50323 December 18, 2014 Vital Signs Date/Time: December 18, 2014 Pain Scale 0/10 1-10 BMI 33.86 Index Peak Flow room air I/min Weight 179.2 lbs Height 61 in Respiratory Rate 18 /min Temperature 97.1 F Cardiac Monitoring Heart Rate 97 /min Oximetry 92 % Blood Pressure Diastolic 67 mm Hg Blood Pressure Systolic 110 mm Hg Results No Known Results Summary Purpose [employer] Submission
--- OUTSIDE RECORDS SUMMARY | 2017-07-06 01:03 | XMS REPORT ---
Author Author Suad Roger [facility] Address [address] [place], [place] [address] Care Team Providers Care Education Analyst Name Role Phone Suad Roger PCP Unavailable Benja, Narda Unavailable Unavailable tonia [...] MAN DIFF IF IND). 10/03/2016 12:00 AM URINALYSIS W/MICRO C&S IF IND 10/03/2016 12:00 AM BASIC METABOLIC PANEL 10/03/2016 12:00 AM insulin resistant diabetic 09/02/2016 1:00 [...] oral route once daily for 4 days Name Start Date Expiration Date SIG [...] 2 times per day for 7 days [place] 7.5-325 mg oral tablet 09/12/2016 09/27/2016 take [...] HC BMI BSA BMI Percentile O2 Sat(%) 10/03/2016 9:46:00 AM 122 mmHg 78 mmHg [...] 09/22/2016 12:00 AM CLOSTRIDIUM AG EIA Reviewed 10/06/2016 12:00 AM COLLECTION VENOUS BLOOD VENIPUNCTURE Reviewed Results Summary Data and Description Results [...] 09/29/2016 9:16 AM C DIFFICILE NAAT NEGATIVE History Of Immunizations Not available. History of [...] 2016 11:07AM Thrombocythemia Oct 06 2016 11:07AM Payers Insurance Name Company Name Plan Name Plan Number Policy Number Policy Group Number Start Date Medicare Part B Medicare Of [place] [id number] Monday, 2008 [facility] [place] State Plan [facility] State Plan [id number] N/A Medicare Part A Medicare - Lab/Xray [id number] N/A [employer] [place] State Plan [facility] [id number] Friday, June 29, 2012 Medicare RHC Medicare RHC [id number] N/A History of Encounters Visit Date Visit Type Provider 10/06/2016 Laboratory Suad Roger APRN 10/03/2016 Office visit Alena Huertas MD 09/22/2016 Office visit Alena Huertas MD 09/19/2016 Office visit Mariana Cummins APRN 09/12/2016 Office visit Suad Roger APRN 08/28/2016 Office visit Bridger Sarkar APRN 08/22/2016 Office visit Suad Roger APRN 08/19/2016 Office visit Mariana Cummins APRN 08/15/2016 Office visit Bridger Sarkar APRN 08/11/2016 Office visit Mariana Cummins APRN 07/30/2016 Office visit Mariana Cummins APRN 07/23/2016 Office visit Suad oRger APRN 01/05/2016 Office visit Mariana Cummins APRN
--- OUTSIDE RECORDS SUMMARY | 2017-07-06 01:04 | XMS REPORT ---
Author Author Alena Huertas [facility] Address [address] [place], [place] [id number] Care Team Providers Care Edgerman Name Role Phone Alena Huertas PCP Unavailable [...] daily before a meal for 30 days Lyrica 75 mg oral capsule 02/06/2017 03/08/2017 take one capsule in the morning and 2 capsules at night. tramadol 50 mg oral tablet 02/16/2017 02/26/2017 take 1 tablet by oral route 3 times a day for 10 days severe left pain Name Start Date Expiration Date SIG Comments [...] 2 times per day for 7 days [place] 7.5-325 mg oral tablet 09/12/2016 09/27/2016 take 1 tablet by oral route every 8 hours as needed for 15 days azithromycin 250 mg oral tablet 10/03/2016 10/08/2016 take 2 tablets (500 mg) by oral route once daily for 1 day then 1 tablet (250 mg) by oral route once daily for 4 days Anusol-HC 25 mg rectal suppository 10/08/2016 10/13/2016 25 mg OK q hs for 5 nights amoxicillin 875 [...] as needed for 30 days switch to lyriclou [place] 100 mg oral capsule 08/22/2016 12/09/2016 [...] route every 4 hours for 14 days Problem List Description Status Onset Anemia [...] HC BMI BSA BMI Percentile O2 Sat(%) 02/16/2017 11:01:00 AM 128 mmHg 68 mmHg 109 bpm 22 rpm 98.3 F 185 lbs 61 in 34.96 kg/m2 1.90 m2 93 % 02/04/2017 11:20:00 AM 136 mmHg 68 mmHg 106 bpm 22 rpm 97.6 F 187.25 lbs 60 in 36.5694 kg/m 1.8962 m 96 % 01/23/2017 1:49:00 PM 112 mmHg 67 mmHg 110 bpm 22 rpm 98.8 F 189.25 lbs 61 in 35.76 kg/m2 1.92 m2 91 % 01/19/2017 9:26:00 AM 118 mmHg 62 mmHg 112 bpm 22 rpm 98.5 F 185.5 lbs 61 in 35.0496 kg/m 1.903 m 97 % 01/13/2017 1:19:00 PM 116 mmHg 68 mmHg 110 bpm 20 rpm 98.9 F 189 lbs 61 in 35.71 kg/m2 1.92 m2 97 % 01/09/2017 2:20:00 PM 140 mmHg 70 mmHg 108 bpm 24 rpm 99.4 F 190.5 lbs 61 in 35.9943 kg/m 1.9285 m 94 % 01/02/2017 10:35:00 AM 116 mmHg 72 mmHg 103 bpm 24 rpm 97.5 F 182.25 lbs 61 in 34.44 kg/m2 1.89 m2 98 % 01/01/2017 2:23:00 PM 128 mmHg 74 mmHg 104 bpm 17 rpm 98.2 F 189.562 lbs 61 in 35.8172 kg/m 1.9237 m 98 % 12/24/2016 9:09:00 AM 128 mmHg 64 mmHg 109 bpm 20 rpm 98.3 F 181.5 lbs 61 in 34.29 kg/m2 1.88 m2 95 % 12/22/2016 3:17:00 PM 130 mmHg 62 mmHg 118 bpm 22 rpm 99.6 F 177 lbs 61 in 33.4435 kg/m 1.8589 m 94 % 12/19/2016 3:22:00 PM 118 mmHg [...] mellitus with hyperglycemia Oct 08 2016 1:21PM FPC (current) use of insulin Oct 08 2016 1:21PM Rectal bleeding Oct 08 2016 1:21PM Iron deficiency anemia due to chronic blood loss Oct 08 2016 1:21PM Fatigue, unspecified type Oct 20 2016 2:56PM Type 2 diabetes mellitus with hyperglycemia Oct 20 2016 2:56PM long term care social worker (current) use of insulin Oct 20 2016 [...] mellitus with hyperglycemia Feb 04 2017 11:25AM long term care social worker (current) use of insulin Feb 04 2017 11:25AM Cirrhosis of liver without ascites, unspecified hepatic cirrhosis type Feb 04 2017 11:25AM Pain of right lower extremity Feb 16 2017 11:06AM Type 2 diabetes mellitus with hyperglycemia Feb 16 2017 11:06AM long term care social worker (current) use of insulin Feb 16 2017 11:06AM Payers Insurance Name Company Name Plan Name Plan Number Policy Number Policy Group Number Start Date Medicare Part B Medicare Of [place] [id number] Monday, 2008 [facility] State Plan [id number] Friday, 2012 Medicare RHC Medicare RHC [id number] N/A [employer] [place] State Plan [employer] - [facility] State Plan [id number] N/A Medicare Part A Medicare - Lab/Xray [id number] N/A History of Encounters Visit Date Visit Type Provider 02/16/2017 Office visit Alena Huertas MD 02/04/2017 [...] Huertas MD 12/03/2016 Office visit Mariana Cummins STRIPPER SHOVEL OPERATOR 12/02/2016 Office visit Cody Chao MD 12/01/2016 Office visit Bridger Sarkar STRIPPER SHOVEL OPERATOR 11/25/2016 Office visit Alena Huertas MD 11/21/2016 Office visit Mariana Cummins STRIPPER SHOVEL OPERATOR 11/12/2016 Laboratory Mariana Cummins STRIPPER SHOVEL OPERATOR 11/11/2016 Office visit Alena Huertas MD 10/31/2016 Office visit Alena Huertas MD 10/24/2016 Office visit Alena Huertas MD 10/20/2016 Office visit Alena Huertas MD 10/08/2016 Office visit Alena Huertas MD 10/06/2016 Laboratory Suad Roger STRIPPER SHOVEL OPERATOR 10/03/2016 Office visit Alena Huertas MD 09/22/2016 Office visit Alena Huertas MD 09/19/2016 Office visit Mariana Cummins STRIPPER SHOVEL OPERATOR 09/12/2016 Office visit Suad Roger STRIPPER SHOVEL OPERATOR 08/28/2016 Office visit Bridger Fallon STRIPPER SHOVEL OPERATOR 08/22/2016 Office visit Suad Kana STRIPPER SHOVEL OPERATOR 08/19/2016 Office visit Marianayana Cummins STRIPPER SHOVEL OPERATOR 08/15/2016 Office visit Bridger Fallon STRIPPER SHOVEL OPERATOR 08/11/2016 Office visit Marianayana Cummins STRIPPER SHOVEL OPERATOR 07/30/2016 Office visit Marianayana Cummins STRIPPER SHOVEL OPERATOR 07/23/2016 Office visit Suadmeghna Roger STRIPPER SHOVEL OPERATOR 01/05/2016 Office visit Marianayana Cummins STRIPPER SHOVEL OPERATOR
--- OUTSIDE RECORDS SUMMARY | 2017-07-06 01:05 | XMS REPORT ---
Author Author Fabian Roger Organization [employer] Address Unknown Phone Unavailable Care Team Providers Care Flare Breaker Name Role Phone Fabian Roger CP Unavailable Allergies, Adverse Reactions, Alerts Substance Reaction Event Type Milk Info Not Available Non Drug Allergy Sulfa Info Not Available Non Drug Allergy Poultry Info Not Available Non Drug Allergy Seafood/Fish Info Not Available Non Drug Allergy Problems [...] disorder, not elsewhere classified 311 Active Problem Morbid obesity 278.01 Active Problem Esophageal reflux 530.81 Active Problem Candidiasis of vulva and vagina 112.1 Active Problem Anxiety state, unspecified 300.00 Active Problem Cellulitis and abscess of unspecified site 682.9 Active Problem Insomnia, unspecified 780.52 Active Problem Pneumonia, organism unspecified 486 Active Problem Nonallopathic lesion of cervical region, not elsewhere classified 739.1 Active Problem Nonallopathic lesion of thoracic region, not elsewhere classified 739.2 Active Problem Chronic airway obstruction, not elsewhere classified 496 Active Problem Pain in joint, other specified sites 719.48 Active Assessment Other specified forms of hearing loss 389.8 Active Problem Lumbago 724.2 Active Problem Diabetes mellitus without mention of complication, type II or unspecified type, not stated as uncontrolled 250.00 Active Assessment Polyneuropathy in diabetes 357.2 Active Problem Nonallopathic lesion of pelvic region, not elsewhere classified 739.5 Active Assessment Morbid obesity 278.01 Active Problem Spasm of muscle 728.85 Active Problem Nonallopathic lesion of lumbar region, not elsewhere classified 739.3 Active Problem Nonallopathic lesion of sacral region, not elsewhere classified 739.4 Active Problem Essential and other specified forms of tremor 333.1 Active Problem Other specified forms of hearing loss 389.8 Active Problem Special screening for malignant neoplasms, colon V76.51 Active Problem Polyneuropathy in diabetes 357.2 Active Assessment Diabetes mellitus without mention of complication, type II or unspecified type, not stated as uncontrolled 250.00 Active Problem Congestive heart failure, unspecified 428.0 Active Assessment Insomnia, unspecified 780.52 Active Problem Unspecified esophagitis 530.10 Active Assessment Unspecified essential hypertension 401.9 Active Problem Slow transit constipation 564.01 Active Assessment Asthma, unspecified, unspecified status 493.90 Active Problem Mitral stenosis with insufficiency 394.2 Active Problem Unspecified hypotension 458.9 Active Problem Closed fracture of metatarsal bone(s) 825.25 Active Medications Medication Code System Code Instructions Start Date End Date Status Dosage Zantac [facility] [address]-99 300 MG Orally Once a day at HS 1 tablet Xanax [facility] [address]-90 0.25 MG Orally once a day at HS 1 tablet as needed Mylanta [facility] 0[address]458 200-200-20 MG/5ML Orally Four times a day 10 ml as needed Magnesium Oxide [facility] [address]-91 400 MG Orally Twice a day 1 tablet Tylenol Extra Strength [facility] [address]-94 500 MG Orally every 6 hrs 1 tablet as needed Simethicone [facility] [address]-88 80 MG Orally not defined Albuterol Sulfate [facility] 48830240676 (2.5 MG/3ML) 0.083% 3ML THREE TIMES A DAY Potassium Chloride ER [facility] [address]-49 10 MEQ Orally Twice a day 1 tablet Ferrous Sulfate [facility] [address]-39 325 (65 Fe) MG Orally Three times a day 1 tablet HydrOXYzine HCl [facility] [address]-55 25 MG Orally not defined Levemir Flexpen [facility] 0 100 UNIT/ML Subcutaneous daily at HS 45 units Combivent Respimat [facility] 07401168421 20-100 MCG/ACT ONE PUFF EVERY FOUR HOURS Invokana [facility] [address]-76 100 MG Orally Once a day 1 tablet Ambien [facility] [address]-02 10 MG Orally Once a day 1 tablet at bedtime as needed Cymbalta [facility] [address]-16 60 MG Orally Twice a day 1 capsule Synthroid [facility] [address]-50 112 MCG Orally Once a day 1 tablet [place]row [facility] [address]-43 5-325 MG Orally every 4 hrs 1 tablet as needed BusPIRone HCl [facility] [address]-79 15 MG Orally Four times a day 1 tablet Aspercreme [facility] 65705-09336 10 % Externally not defined Amitriptyline HCl [facility] [address]-03 25 MG Orally Once a day 1 tablet at bedtime Flonase [facility] [address]-88 50 MCG/ACT Nasally Once a day 1 spray in each nostril MiraLax [facility] [address]-43 Orally Once a day 1 packet mixed with 8 ounces of fluid Albuterol Sulfate HFA [facility] [address]-50 108 (90 Base) MCG/ACT Inhalation every 4 hrs 2 puffs as needed Fanapt [facility] [address]-38 6 MG Orally Twice a day 1 tablet Advair Diskus [facility] [address]-53 250-50 MCG/DOSE Inhalation Twice a day 1 puff DuoNeb ND 0 not defined Gabapentin [facility] [address]-38 300 MG Orally Three times a day 1 capsule Carafate [facility] [address]-77 1 GM Orally Three times a day 1 tablet on an empty stomach Robitussin DM [facility] [address]-58 100-10 MG/5ML Orally every 4 hrs 10 ml as needed NovoLog Flexpen [facility] 21617248679 100 UNIT/ML PER SLIDING SCALE BEFORE MEALS AND AT BEDTIME Lotrisone [facility] [address]-13 1-0.05 % Externally Twice a day 1 application to affected area Spiriva HandiHaler [facility] [address]-30 18 MCG Inhalation Once a day 1 capsule Procedures Procedure Coding System Code Date SOME PRESCRIB HANDWRITTEN OR CPT-4 G8446 November 22, 2014 PRESCRIPTION BY E-PRESCRIB S CPT-4 G8443 November 22, 2014 TOBACCO NON-USER CPT-4 G8457 November 22, 2014 CLIN DEPRESSION SCREEN NOT D CPT-4 G8432 November 22, 2014 DOC MEDS VERIFIED W/PT OR RE CPT-4 G8427 November 22, 2014 PAIN ASSESSMENT DOCUMENT CPT-4 G8440 November 22, 2014 TX PLAN DEVELOP & DOCUMENT CPT-4 G8437 November 22, 2014 BP SYS <130 AND LAMA <80 CPT-4 G8476 November 22, 2014 DOC PAIN ASSESS NO DOC F/U PLAN RNS CPT-4 G8509 November 22, 2014 BMI >=30 CALCUATE W/FOLLOWUP CPT-4 G8417 November 22, 2014 AT LEAST 1 RX TRANSMIT ERX SYS CPT-4 G8553 November 22, 2014 MOST RECENT SYSTOLIC BP <140 MM HG CPT-4 G8588 November 22, 2014 FLU VACCINE NOT SCREEN CPT-4 G8424 November 22, 2014 MOST RECENT DIASTOLIC BP <90 MM HG CPT-4 G8590 November 22, 2014 HG A1C LEVEL LT 7.0% CPT-4 3044F November 22, 2014 Office Visit, Est Pt., Level 3 CPT-4 66138 November 22, 2014 DSCHRG MED/CURRENT MED MERGE CPT-4 1111F November 22, 2014 TOBACCO NON-USER CPT-4 1036F November 22, 2014 MOST RECENT SYSTOLIC BP < 140MM HG CPT-4 G8752 November 22, 2014 MOST RECENT DIASTOLIC BP < 90MM HG CPT-4 G8754 November 22, 2014 Vital Signs Date/Time: November 22, 2014 Pain Scale 2/10 1-10 BMI 33.36 Index Peak Flow room air I/min Weight 176.6 lbs Height 61 in Respiratory Rate 18 /min Temperature 96.4 F Cardiac Monitoring Heart Rate 108 /min Oximetry 88 % Blood Pressure Diastolic 64 mm Hg Blood Pressure Systolic 108 mm Hg Results No Known Results Summary Purpose eClinicalWorks Submission
--- OUTSIDE RECORDS SUMMARY | 2017-07-06 01:05 | XMS REPORT ---
Author Author Alena Huertas [facility] Address [address] [place], [place] [address] Care Team Providers Care Machine Adjuster Leader Case Trim Name Role Phone Alena Huertas PCP Unavailable [...] AND PELVIS W/WO CONTRAST 07/30/2016 12:00 AM Clostridium difficile A and B toxin assay 09/22/2016 12:00 AM insulin resistant diabetic 09/02/2016 1:00 [...] by oral route once daily at bedtime Levemir FlexTouch 100 unit/mL (3 mL) subcutaneous insulin pen inject 163 units by subcutaneous route qhs and 37 units in am Novolog Flexpen 100 unit/mL subcutaneous insulin pen being referred to radar operator jul 30, 2016 as she is on a sliding scale Prevacid 30 mg oral capsule,delayed release(DR/EC) 07/30/2016 [...] times per day as needed for cough [place] 7.5-325 mg oral tablet 09/12/2016 09/27/2016 take 1 tablet by oral route every 8 hours as needed for 15 days prednisone oral Patient states she is taking 80mg daily Lyrica 75 mg oral capsule 09/19/2016 12/18/2016 take 1 capsule by oral route in am and 2 at hs for 30 days simethicone 125 mg oral capsule 09/19/2016 12/18/2016 take 1 capsule by oral route 2 times a day as needed for 30 days Name Start Date Expiration [...] 2 times per day for 7 days Discontinued [...] HC BMI BSA BMI Percentile O2 Sat(%) 09/22/2016 10:54:00 AM 128 mmHg 68 mmHg [...] 12:00 AM CHEST X-RAY 2VW FRONTAL&LATL Reviewed Results Summary Data and Description Results [...] neg WBC Est Ur Ql Strip neg History Of Immunizations Not available. History of [...] 2016 11:05AM Diarrhea Sep 22 2016 11:05AM Payers Insurance Name Company Name Plan Name Plan Number Policy Number Policy Group Number Start Date Medicare [facility] Medicare RHC [id number] N/A [employer] [place] State Plan [employer] [place] State Plan [id number] N/A Medicare Part A Medicare - Lab/Xray [id number] N/A Medicare Part B Medicare Of [place] [id number] Monday, October 27, 2008 [employer] [place] State Plan [facility] [id number] Friday, June 29, 2012 History of Encounters Visit Date Visit Type Provider 09/22/2016 Office visit Alena Huertas MD 09/19/2016 [...]
--- OUTSIDE RECORDS SUMMARY | 2017-07-06 01:06 | XMS REPORT ---
Author Author Bridger Sarkar Organization [facility] Address [address] [place], [place] [id number] Care Team Providers Care Human Performance Professor Name Role Phone Bridger Sarkar PCP Unavailable Benja, Narda Unavailable Unavailable tonia [...] AND PELVIS W/WO CONTRAST 07/30/2016 12:00 AM Urinalysis 08/28/2016 12:00 AM CBC W/ AUTO DIFF (RFLX MAN DIFF IF IND). 08/28/2016 12:00 AM CMP 08/28/2016 12:00 AM BNP 08/28/2016 12:00 AM insulin resistant diabetic 09/02/2016 1:00 [...] by oral route once daily at bedtime Advair Diskus 250-50 mcg/dose inhalation blister with device inhale 1 puff by inhalation route 2 times per day in the morning and evening approximately 12 hours apart albuterol sulfate 2.5 mg /3 mL (0.083 %) inhalation solution for nebulization inhale 3 milliliters (2.5 mg) by nebulization route 4 times per day Combivent Respimat 20-100 mcg/actuation inhalation mist inhale 1 puff by inhalation route 4 times per day ; may take additional puffs as needed not to exceed 6 puffs in 24hrs Levemir FlexTouch 100 unit/mL (3 mL) subcutaneous insulin pen inject 163 units by subcutaneous route qhs and 37 units in am Novolog Flexpen 100 unit/mL subcutaneous insulin pen being referred to fried cake maker jul 30, 2016 as she is on a sliding scale Prevacid 30 mg oral capsule,delayed release(DR/EC) 07/30/2016 01/26/2017 take 1 capsule by oral route once a day (at bedtime) for 30 days Spiriva Respimat 2.5 mcg/actuation inhalation mist 07/30/2016 11/27/2016 inhale 2 puffs (5 mcg) by inhalation route once daily at the same time each day for 30 days [place] 7.5-325 mg oral tablet 08/19/2016 09/03/2016 take 1 tablet by oral route every 8 hours as needed for 15 days Lyrica 75 mg oral capsule 08/19/2016 11/17/2016 take 1 capsule (75 mg) by oral route 2 times per day for 30 days fluticasone 50 mcg/actuation [...] times per day as needed for cough Name Start Date Expiration Date SIG Comments [...] once daily at bedtime switch to prevacid tramadol 50 mg oral tablet 08/01/2016 08/19/2016 [...] Active DVT (deep venous thrombosis), right Active 2007 HTN (hypertension) Active Hypokalemia Active Hyponatremia Active Hypotension, Chronic Active Hypothyroidism Active Neuropathy in diabetes Active Insulin resistance Active Vital Signs Date Time BP-Sys(mm[Hg] BP-[place](mm[Hg]) HR(bpm) RR(rpm) Temp WT HT HC BMI BSA BMI Percentile O2 Sat(%) 08/28/2016 3:39:00 PM 116 mmHg 58 mmHg [...] Returned 08/11/2016 12:00 AM CARDIOVASCULAR STRESS TEST Returned 08/19/2016 12:00 AM X-RAY EXAM L-S SPINE 2/3 VWS Returned 08/19/2016 12:00 AM X-RAY EXAM SI JOINTS 3/> VWS Returned 08/19/2016 12:00 AM X-RAY EXAM SI JOINTS Returned 08/19/2016 12:00 AM XR lumbar spine and both sacroiliac joints Returned 08/28/2016 7:01 PM URINALYSIS AUTO W/O SCOPE Reviewed 08/28/2016 12:00 AM CHEST X-RAY 2VW FRONTAL&LATL Returned Results Summary Data and Description Results 07/30/2016 [...] Influenza A neg Influenza B neg 08/28/2016 7:01 PM Clarity Ur clear Color [...] 2016 3:41PM Hemoptysis Aug 28 2016 3:41PM Payers Insurance Name Company Name Plan Name Plan Number Policy Number Policy Group Number Start Date Medicare RHC Medicare RHC [id number] N/A [employer] - [place] - [place] State Plan [employer] [place] State Plan [id number] N/A Medicare Part A Medicare - Lab/Xray [id number] N/A Medicare Part B Medicare Of [place] [id number] Monday, October 27, 2008 [employer] [place] State Plan [facility] [id number] Friday, June 29, 2012 History of Encounters Visit Date Visit Type Provider 08/28/2016 Office visit Bridger Sarkar APRN 08/22/2016 Office visit Suad Roger APRN 08/19/2016 Office visit Mariana Cummins APRN 08/15/2016 Office visit Bridger Sarkar APRN 08/11/2016 Office visit Mariana Cummins APRN 07/30/2016 Office visit Mariana Cummins APRN 07/23/2016 Office visit Suad Roger APRN 01/05/2016 Office visit Maraina Cummins APRN
--- OUTSIDE RECORDS SUMMARY | 2017-07-06 01:07 | XMS REPORT ---
Author Author Suad Roger [facility] Address [address] [place], [place] [address] Care Team Providers Care Slip Laster Name Role Phone Suad Roger PCP Unavailable [...] AND PELVIS W/WO CONTRAST 07/30/2016 12:00 AM XR lumbar spine and both sacroiliac joints 08/19/2016 12:00 AM XR lumbar spine and both sacroiliac joints 08/19/2016 12:00 AM XR lumbar spine and both sacroiliac joints 08/19/2016 12:00 AM insulin resistant diabetic 09/02/2016 1:00 [...] unit/mL subcutaneous insulin pen being referred to watch electrician jul 30, 2016 as she is on [...] by oral route daily for 30 days [place] 7.5-325 mg oral tablet 08/19/2016 09/03/2016 take [...] 2 times per day for 7 days Tessalon Perles 100 mg oral capsule [...] daily for 5 days for 5 days Discontinued Name Start Date Discontinued Date [...] HC BMI BSA BMI Percentile O2 Sat(%) 08/22/2016 11:18:00 AM 116 mmHg 76 mmHg [...] 08/11/2016 12:00 AM CARDIOVASCULAR STRESS TEST Returned Results Summary Data and Description Results [...] AM Influenza A neg Influenza B neg History Of Immunizations Not available. History [...] 2016 10:06AM Pain Aug 15 2016 11:06AM Payers Insurance Name Company Name Plan Name Plan Number Policy Number Policy Group Number Start Date Medicare RHC Medicare RHC [id number] N/A [employer] [place] State [place] [employer] [place] State [place] [id number] N/A Medicare Part A Medicare - Lab/Xray [id number] N/A Medicare Part B Medicare Of [place] [id number] Monday, October 27, 2008 [employer] [place] State Plan [employer] State Plan [id number] Friday, June 29, 2012 History of Encounters Visit Date Visit Type Provider 08/22/2016 Office visit Suad Roger FEEDER LOADER 08/19/2016 Office visit Mariana Cummins FEEDER LOADER 08/15/2016 Office visit Bridger Sarkar FEEDER LOADER 08/11/2016 Office visit Mariana Cummins FEEDER LOADER 07/30/2016 Office visit Mariana Cummins FEEDER LOADER 07/23/2016 Office visit Suad Roger FEEDER LOADER 01/05/2016 Office visit Mariana Cummins APRN
--- OUTSIDE RECORDS SUMMARY | 2017-07-06 01:07 | XMS REPORT ---
Author Author Love Guadarrama Organization [employer] Address Unknown Phone Unavailable Care Team Providers Care Stock Feeder Name Role Phone Love Guadarrama CP Unavailable Allergies No Known Allergies Problems No Known Problems Medications No Known Medications Results No Known Results Summary Purpose [employer] Submission
--- OUTSIDE RECORDS SUMMARY | 2017-07-06 01:07 | XMS REPORT ---
Author Author Radha Lomas Organization [facility] Address [address] [place], [place] [address] Care Team Providers Care Service Or Work Dispatcher Name Role Phone Radha Lomas PCP Unavailable Benja, Narda Unavailable Unavailable tonia [...] the morning and 2 capsules at night. methocarbamol 750 mg oral tablet 01/23/2017 02/06/2017 take 1 tablet (750 mg) by oral route every 4 hours for 14 days Name Start Date Expiration Date SIG [...] 2 times per day for 7 days [place] 7.5-325 mg oral tablet 09/12/2016 09/27/2016 take 1 tablet by oral route every 8 hours as needed for 15 days azithromycin 250 mg oral tablet 10/03/2016 10/08/2016 take 2 tablets (500 mg) by oral route once daily for 1 day then 1 tablet (250 mg) by oral route once daily for 4 days Anusol-HC 25 mg rectal suppository 10/08/2016 10/13/2016 25 mg [place] q hs for 5 nights amoxicillin 875 [...] HC BMI BSA BMI Percentile O2 Sat(%) 01/23/2017 1:49:00 PM 112 mmHg 67 mmHg [...] with hyperglycemia Oct 08 2016 1:21PM intermediate card tender (current) use of insulin Oct 08 2016 1:21PM Rectal bleeding Oct 08 2016 1:21PM Iron deficiency anemia due to chronic blood loss Oct 08 2016 1:21PM Fatigue, unspecified type Oct 20 2016 2:56PM Type 2 diabetes mellitus with hyperglycemia Oct 20 2016 2:56PM intermediate card tender (current) use of insulin Oct 20 2016 [...] Right leg pain Jan 23 2017 1:54PM Payers Insurance Name Company Name Plan Name Plan Number Policy Number Policy Group Number Start Date Medicare Part B Medicare Of [place] [id number] Monday, 2008 [employer] [place] State Plan [facility] [id number] Friday, 2012 Medicare RHC Medicare RHC [id number] N/A [facility] [place] [employer] [place] Plan [id number] N/A Medicare Part A Medicare - Lab/Xray [id number] N/A History of Encounters Visit Date Visit Type Provider 01/23/2017 Office visit Radha Lomas MD 01/19/2017 Office visit Alena Huertas MD 01/13/2017 Office visit Alena Huertas MD 01/09/2017 Office visit Radha Lomas MD 01/02/2017 Office visit Alena Huertas MD 01/01/2017 Office visit Bridger Sarkar DIE HOLDER 12/24/2016 Office visit Alena Huertas MD 12/22/2016 Office visit 12/22/2016 Office visit 12/22/2016 Office visit Alena Huertas MD 12/19/2016 Office visit Alena Huertas MD 12/17/2016 Office visit Alena Huertas MD 12/16/2016 Office visit Alena Huertas MD 12/12/2016 Surgery Cody Chao MD 12/12/2016 Office visit Alena Huertas MD 12/09/2016 Office visit Alena Huertas MD 12/03/2016 Office visit Mariana Cummins DIE HOLDER 12/02/2016 Office visit Cody Chao MD 12/01/2016 Office visit Bridger Sarkar DIE HOLDER 11/25/2016 Office visit Alena Huertas MD 11/21/2016 Office visit Mariana Cummins DIE HOLDER 11/12/2016 Laboratory Mariana Cummins DIE HOLDER 11/11/2016 Office visit Alena Huertas MD 10/31/2016 Office visit Alena Huertas MD 10/24/2016 Office visit Alena Huertas MD 10/20/2016 Office visit Alena Huertas MD 10/08/2016 Office visit Alena Huertas MD 10/06/2016 Laboratory Suad Roger DIE HOLDER 10/03/2016 Office visit Alena Huertas MD 09/22/2016 [...]
--- OUTSIDE RECORDS SUMMARY | 2017-07-06 01:07 | XMS REPORT ---
Author Author Fabian Roger Organization [employer] Address Unknown Phone Unavailable Care Team Providers Care Weight Loss Counselor Name Role Phone Fabian Roger CP Unavailable Allergies, Adverse Reactions, Alerts Substance Reaction Event Type Seafood/Fish Info Not Available Non Drug Allergy Sulfa Info Not Available Non Drug Allergy Poultry Info Not Available Non Drug Allergy Milk Info Not Available Non Drug Allergy Problems Problem Type Condition Code Onset Dates Condition Status Problem Segmental and somatic dysfunction of cervical region M99.01 Active Problem Segmental and somatic dysfunction of thoracic region M99.02 Active Problem Pneumonia, unspecified organism J18.9 Active Problem Low back pain M54.5 Active Problem Candidiasis of vulva and vagina B37.3 Active Problem Constipation, unspecified K59.00 Active Problem 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 Problem Essential (primary) hypertension I10 Active Problem Unspecified convulsions R56.9 Active Problem Iron deficiency anemia, unspecified D50.9 Active Problem Other asthma J45.998 Active Problem Chronic obstructive pulmonary disease, unspecified J44.9 Active Problem Pain in unspecified joint M25.50 Active Problem Major depressive disorder, single episode, unspecified F32.9 Active Problem Type 2 diabetes mellitus without complications E11.9 Active Problem Chronic obstructive pulmonary disease with acute lower respiratory infection J44.0 Active Problem Unspecified diastolic (congestive) heart failure I50.30 Active Problem Fall from bed, initial encounter W06.XXXA Active Problem Type 2 diabetes mellitus with diabetic polyneuropathy E11.42 Active Problem Sprain of other specified parts of left knee, initial encounter S83.8X2A Active Problem Other slipping, tripping and stumbling without falling, initial encounter W18.49XA Active Problem Other seizures G40.89 Active Assessment Hypothyroidism, unspecified E03.9 Active Assessment Type 2 diabetes mellitus with diabetic polyneuropathy E11.42 Active Assessment Hypercalcemia E83.52 Active Assessment Metabolic syndrome E88.81 Active Assessment Morbid (severe) obesity due to excess calories E66.01 Active Assessment Essential (primary) hypertension I10 Active Assessment Ototoxic hearing loss, 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 Assessment Chronic obstructive pulmonary disease, unspecified J44.9 Active Assessment Calcific tendinitis, right hand M65.241 Active Problem Type 2 diabetes mellitus with hyperglycemia E11.65 Active Problem Morbid (severe) obesity due to excess calories E66.01 Active Problem Syncope and collapse R55 Active Assessment Abnormal weight loss R63.4 Active Problem Acute on chronic systolic (congestive) heart failure I50.23 Active Problem History of falling Z91.81 Active Problem Lymphocytopenia D72.810 Active Problem Other primary thrombocytopenia D69.49 Active Problem Hypothyroidism, unspecified E03.9 Active Problem Calcific tendinitis, right hand M65.241 Active Problem Ototoxic hearing loss, 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 Problem Otitis media, unspecified, unspecified ear H66.90 Active Problem Left ventricular failure I50.1 Active Problem Unspecified otitis externa, unspecified ear H60.90 Active Problem Other fall on same level, subsequent encounter W18.39XD Active Problem Chills (without fever) R68.83 Active Problem Abnormal weight loss R63.4 Active Problem Acute maxillary sinusitis, unspecified J01.00 Active Problem Hypercalcemia E83.52 Active Problem Myoclonus G25.3 Active Problem Segmental and somatic dysfunction of sacral region M99.04 Active Problem Segmental and somatic dysfunction of lumbar region M99.03 Active Problem Other muscle spasm M62.838 Active Problem Segmental and somatic dysfunction of pelvic region M99.05 Active Problem Metabolic syndrome E88.81 Active Problem Insomnia, unspecified G47.00 Active Medications Medication Code System Code Instructions Start Date End Date Status Dosage Amitriptyline HCl [facility] 06757385599 25 MG Orally Once a day 1 tablet at bedtime Invokana [facility] [address]-73 100 MG Orally Once a day 1 tablet Ranitidine HCl [facility] [address]-06 300 MG Orally Twice a day 1 tablet Sucralfate [facility] [address]-42 1 GM Orally Three times a day 1 tablet on an empty stomach Albuterol Sulfate [facility] [id number] (2.5 MG/3ML) 0.083% Orally Three times a day 3 ml Procedures Procedure Coding System Code Date TOBACCO NON-USER CPT-4 G8457 Jun 14, 2015 PRESCRIP NOT GEN AT ENCOUNTE CPT-4 G8445 Jun 14, 2015 BP SYS <130 AND LAMA <80 CPT-4 G8476 Jun 14, 2015 CLIN DEPRESSION SCREEN NOT D CPT-4 G8432 Jun 14, 2015 DOC MEDS VERIFIED W/PT OR RE CPT-4 G8427 Jun 14, 2015 PAIN ASSESSMENT DOCUMENT CPT-4 G8440 Jun 14, 2015 TX PLAN DEVELOP & DOCUMENT CPT-4 G8437 Jun 14, 2015 DOC PAIN ASSESS NO DOC F/U PLAN RNS CPT-4 G8509 Jun 14, 2015 MOST RECENT SYSTOLIC BP <140 MM HG CPT-4 G8588 Jun 14, 2015 PT RECEIV INFLUENZA VACC CPT-4 G8108 Jun 14, 2015 MOST RECENT DIASTOLIC BP <90 MM HG CPT-4 G8590 Jun 14, 2015 DSCHRG MED/CURRENT MED MERGE CPT-4 1111F Jun 14, 2015 BMI >=30 CALCUATE W/FOLLOWUP CPT-4 G8417 Jun 14, 2015 FLU IMMUNIZE ORDER/ADMIN CPT-4 G8482 Jun 14, 2015 MOST RECENT SYSTOLIC BP < 140MM HG CPT-4 G8752 Jun 14, 2015 Office Visit, Est Pt., Level 3 CPT-4 23128 Jun 14, 2015 MOST RECENT DIASTOLIC BP < 90MM HG CPT-4 G8754 Jun 14, 2015 Vital Signs Date/Time: Jun 14, 2015 BMI 33.33 Index Peak Flow room air I/min Weight 176.4 lbs Height 61 in Respiratory Rate 20 /min Temperature 97.7 F Cardiac Monitoring Heart Rate 106 /min Oximetry 94 % Blood Pressure Diastolic 67 mm Hg Blood Pressure Systolic 108 mm Hg Results No Known Results Summary Purpose [employer] Submission
--- OUTSIDE RECORDS SUMMARY | 2017-07-06 01:08 | XMS REPORT ---
Author Author Love Guadarrama Organization [employer] Address Unknown Phone Unavailable Care Team Providers Care Pastry Cook Apprentice Name Role Phone Love Guadarrama CP Unavailable Allergies No Known Allergies Problems No Known Problems Medications No Known Medications Results No Known Results Summary Purpose [employer] Submission
--- OUTSIDE RECORDS SUMMARY | 2017-07-06 01:08 | XMS REPORT ---
Author Author Mariana Cummins Organization [facility] Address [address] [place], [place] [address] Care Team Providers Care Receiver Stocker Name Role Phone Mariana Cummins PCP Unavailable [...] 2 times per day for 7 days [place] 7.5-325 mg oral tablet 09/12/2016 09/27/2016 take 1 tablet by oral route every 8 hours as needed for 15 days azithromycin 250 mg oral tablet 10/03/2016 10/08/2016 take 2 tablets (500 mg) by oral route once daily for 1 day then 1 tablet (250 mg) by oral route once daily for 4 days Anusol-HC 25 mg rectal suppository 10/08/2016 10/13/2016 25 mg IN q hs for 5 nights Discontinued Name [...] mellitus with hyperglycemia Oct 08 2016 1:21PM supervisor intermediates (current) use of insulin Oct 08 2016 1:21PM Rectal bleeding Oct 08 2016 1:21PM Iron deficiency anemia due to chronic blood loss Oct 08 2016 1:21PM Fatigue, unspecified type Oct 20 2016 2:56PM Type 2 diabetes mellitus with hyperglycemia Oct 20 2016 2:56PM supervisor intermediates (current) use of insulin Oct 20 2016 [...] Date Medicare Part B Medicare Of [place] [id number] Monday, 2008 [facility] State [facility] State Plan [id number] Friday, 2012 Medicare RHC Medicare RHC [id number] N/A [employer] [place] State [place] [employer] [place] State Plan [id number] N/A Medicare Part A Medicare - Lab/Xray [id number] N/A History of Encounters Visit Date Visit Type Provider 11/12/2016 Laboratory Mariana Cummins RECEIVER STOCKER 11/11/2016 Office visit Alena Huertas MD 10/31/2016 Office visit Alena Huertas MD 10/24/2016 Office visit Alena Huertas MD 10/20/2016 Office visit Alena Huertas MD 10/08/2016 Office visit Alena Huertas MD 10/06/2016 Laboratory Suad Roger RECEIVER STOCKER 10/03/2016 Office visit Alena Huertas MD 09/22/2016 Office visit Alena Huertas MD 09/19/2016 Office visit Mariana Cummins RECEIVER STOCKER 09/12/2016 Office visit Suad Roger RECEIVER STOCKER 08/28/2016 Office visit Brdiger Sarkar RECEIVER STOCKER 08/22/2016 Office visit Suad Roger RECEIVER STOCKER 08/19/2016 Office visit Mariana Cummins RECEIVER STOCKER 08/15/2016 Office visit Bridger Sarkar RECEIVER STOCKER 08/11/2016 Office visit Mariana Cummins APRN 07/30/2016 Office visit Mariana Cummins RECEIVER STOCKER 07/23/2016 Office visit Suad Roger RECEIVER STOCKER 01/05/2016 Office visit Mariana Cummins APRN
--- OUTSIDE RECORDS SUMMARY | 2017-07-06 01:09 | XMS REPORT ---
Author Author Alena Huertas [facility] Address [address] [place], [place] [address] Care Team Providers Care Audio Director Name Role Phone Alena Huertas PCP Unavailable [...] by oral route 4 times a day fluticasone 50 mcg/actuation nasal spray,suspension 08/19/2016 02/15/2017 [...] the morning and 2 capsules at night. Name Start Date Expiration Date SIG Comments [...] 2 times per day for 7 days [place] 7.5-325 mg oral tablet 09/12/2016 09/27/2016 take [...] HC BMI BSA BMI Percentile O2 Sat(%) 02/04/2017 11:20:00 AM 136 mmHg 68 mmHg [...] mellitus with hyperglycemia Oct 08 2016 1:21PM long term acute care registered nurse (current) use of insulin Oct 08 2016 1:21PM Rectal bleeding Oct 08 2016 1:21PM Iron deficiency anemia due to chronic blood loss Oct 08 2016 1:21PM Fatigue, unspecified type Oct 20 2016 2:56PM Type 2 diabetes mellitus with hyperglycemia Oct 20 2016 2:56PM long term acute care registered nurse (current) use of insulin Oct 20 2016 [...] mellitus with hyperglycemia Feb 04 2017 11:25AM correction (current) use of insulin Feb 04 2017 11:25AM Cirrhosis of liver without ascites, unspecified hepatic cirrhosis type Feb 04 2017 11:25AM Payers Insurance Name Company Name Plan Name Plan Number Policy Number Policy Group Number Start Date Medicare Part B Medicare Of [place] [id number] Monday, 2008 [facility] State Plan [id number] Friday, 2012 Medicare RHC Medicare RHC [id number] N/A [facility] - [place] - [place] State Plan [employer] - RHC [place] State Plan [id number] N/A Medicare Part A Medicare - Lab/Xray [id number] N/A History of Encounters Visit Date Visit Type Provider 02/04/2017 Office visit Alena Huertas MD 01/23/2017 [...] Huertas MD 12/03/2016 Office visit Mariana Cummins CHANGE MANAGER 12/02/2016 Office visit Cody Chao MD 12/01/2016 Office visit Bridger Sarkar CHANGE MANAGER 11/25/2016 Office visit Alena Huertas MD 11/21/2016 Office visit Mariana Cummins CHANGE MANAGER 11/12/2016 Laboratory Mariana Cummins CHANGE MANAGER 11/11/2016 Office visit Alena Huertas MD 10/31/2016 Office visit Alena Huertas MD 10/24/2016 Office visit Alena Huertas MD 10/20/2016 Office visit Alena Huertas MD 10/08/2016 Office visit Alena Huertas MD 10/06/2016 Laboratory Suad Roger CHANGE MANAGER 10/03/2016 Office visit Alena Huertas MD 09/22/2016 Office visit Alena Huertas MD 09/19/2016 Office visit Mariana Cummins CHANGE MANAGER 09/12/2016 Office visit Suad Roger CHANGE MANAGER 08/28/2016 Office visit Bridger Sarkar CHANGE MANAGER 08/22/2016 Office visit Suad Rgoer CHANGE MANAGER 08/19/2016 Office visit Mariana Cummins CHANGE MANAGER 08/15/2016 Office visit Bridger Sarkar CHANGE MANAGER 08/11/2016 Office visit Mariana Cummins CHANGE MANAGER 07/30/2016 Office visit Mariana Cummins CHANGE MANAGER 07/23/2016 Office visit Suad Roger CHANGE MANAGER 01/05/2016 Office visit Mariana Cummins CHANGE MANAGER
--- OUTSIDE RECORDS SUMMARY | 2017-07-06 01:11 | XMS REPORT ---
Author Author Alena Huertas [facility] Address [address] [place], [place] [id number] Care Team Providers Care Conference Services Director Name Role Phone Alena Huertas PCP Unavailable Bone, Narda Unavailable Unavailable tonia [...] MARTHA (Ankle Brachial Index). 12/22/2016 12:00 AM PNEUMOVAX 23 04/22/2017 12:00 AM insulin resistant diabetic 09/02/2016 1:00 PM chronic right leg pain, neuropathy versus radiculopathy 09/26/2016 3:45 PM Medications Active Name Start Date Estimated Completion Date SIG Comments duloxetine 60 mg oral capsule,delayed release(DR/EC) take [...] oral route once daily for 4 days Ventolin HFA 90 mcg/actuation inhalation HFA aerosol inhaler 04/07/2017 inhale 1 - 2 puffs (90 - 180 mcg) by inhalation route every 6 hours as needed for 30 days levothyroxine 137 mcg oral tablet take 1 tablet (137 mcg) by oral route once daily amoxicillin 500 mg oral capsule 04/17/2017 take 1 capsule by oral route 3 times a day for 10 days Name Start Date [...] 2 times per day for 7 days [place] 7.5-325 mg oral tablet 09/12/2016 09/27/2016 take 1 tablet by oral route every 8 hours as needed for 15 days azithromycin 250 mg oral tablet 10/03/2016 10/08/2016 take 2 tablets (500 mg) by oral route once daily for 1 day then 1 tablet (250 mg) by oral route once daily for 4 days Anusol-HC 25 mg rectal suppository 10/08/2016 10/13/2016 25 mg RI q hs for 5 nights amoxicillin 875 [...] once daily at bedtime switch to prevacid levothyroxine 125 mcg oral tablet 04/17/2017 take 1 tablet (125 mcg) by oral route once daily Invokana 100 mg oral tablet 12/16/2016 take [...] day for 10 days severe left pain Proventil HFA 90 mcg/actuation inhalation HFA aerosol inhaler 04/07/201703/2017 inhale 1 - 2 puffs (90 - 180 mcg) by inhalation route every 6 hours as needed for 1 day Problem List Description Status Onset Anemia Active [...] HC BMI BSA BMI Percentile O2 Sat(%) 04/22/2017 10:40:00 AM 120 mmHg 66 mmHg 93 bpm 22 rpm 97.8 F 198.125 lbs 61 in 37.44 kg/m2 1.97 m2 95 % 04/17/2017 10:52:00 AM 128 mmHg 78 mmHg 85 bpm 20 rpm 98.7 F 196.5 lbs 61 in 37.128 kg/m 1.9586 m 96 % 04/07/2017 2:57:00 PM 142 mmHg 80 mmHg [...] 12:00 AM MRI LWR EXTREMITY W/O&W/DYE Reviewed 04/17/2017 12:00 AM X-RAY EXAM NECK SPINE 2-3 VW Reviewed 04/17/2017 12:00 AM INFLUENZA VAC 4 VALENT PRSRV FREE 3 YRS PLUS IM Reviewed Results Summary Date and Description Results [...] 4.39 HGB 10.40 g/dLHCT 37.60 %MCV 86.0 [facility] 23.70 pgHC 27.70 g/dLRDW SD 55 RDW CV 17.70 [...] Not Entered Not Entered 10/28/2016 06/29/2017 33 Influenza 04/17/2017 GlaxoSmithKline SKB Flulaval Quadrivalent [id number] Intramuscular Left Upper Deltoid 04/17/2017 02/02/2015 158 History of Past Illness Name Date of [...] with hyperglycemia Oct 08 2016 1:21PM senior living (current) use of insulin Oct 08 2016 1:21PM Rectal bleeding Oct 08 2016 1:21PM Iron deficiency anemia due to chronic blood loss Oct 08 2016 1:21PM Fatigue, unspecified type Oct 20 2016 2:56PM Type 2 diabetes mellitus with hyperglycemia Oct 20 2016 2: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 Oct 20 [...] mellitus with hyperglycemia Feb 04 2017 11:25AM senior living (current) use of insulin Feb 04 2017 11:25AM Cirrhosis of liver without ascites, unspecified hepatic cirrhosis type Feb 04 2017 11:25AM Pain of right lower extremity Feb 16 2017 11:06AM Type 2 diabetes mellitus with hyperglycemia Feb 16 2017 11:06AM petroleum terminal plant operator (current) use of insulin Feb 16 2017 [...] 4:40PM COPD exacerbation Apr 07 2017 3:02PM Cervical radiculopathy Apr 17 2017 10:58AM Flu vaccine need Apr 17 2017 10:58AM Left acute otitis media Apr 17 2017 10:58AM Diabetes Mellitus, Type II, Uncontrolled Apr 22 2017 10:43AM Obstructive sleep apnea Apr 22 2017 10:43AM Radiculopathy affecting upper extremity Apr 22 2017 10:43AM COPD Apr 22 2017 10:43AM Payers Insurance Name Company Name Plan Name Plan Number Policy Number Policy Group Number Start Date Medicare Part B Medicare Of [place] [id number] Monday, 2008 [employer] [place] State [facility] [id number] Friday, 2012 Medicare RHC Medicare RHC [id number] N/A [employer] - R[place] State Plan [employer] - R[place] State Plan [id number] N/A Medicare Part A Medicare - Lab/Xray [id number] N/A History of Encounters Visit Date Visit Type Provider 04/22/2017 Office visit Alena Huertas MD 04/17/2017 Office visit Alena Huertas MD 04/07/2017 Office visit Alena Huertas MD 04/01/2017 [...] Huertas MD 12/03/2016 Office visit Mariana Cummins CERTIFIED NURSE OPERATING ROOM 12/02/2016 Office visit Cody Chao MD 12/01/2016 Office visit Bridger Sarkar CERTIFIED NURSE OPERATING ROOM 11/25/2016 Office visit Alena Huertas MD 11/21/2016 Office visit Mariana Cummins CERTIFIED NURSE OPERATING ROOM 11/21/2016 Hospital Ahsan Cobb MD 11/14/2016 Hospital Ahsan Cobb MD 11/12/2016 Laboratory Mariana Cummins CERTIFIED NURSE OPERATING ROOM 11/11/2016 Office visit Alena Huertas MD 10/31/2016 Office visit Alena Huertas MD 10/24/2016 Office visit Alena Huertas MD 10/20/2016 Office visit Alena Huertas MD 10/08/2016 Office visit Alena Huertas MD 10/06/2016 Laboratory Suad Roger CERTIFIED NURSE OPERATING ROOM 10/03/2016 Office visit Alena Huertas MD 09/22/2016 Office visit Alena Huertas MD 09/19/2016 Office visit Mariana Cummins CERTIFIED NURSE OPERATING ROOM 09/12/2016 Office visit Suad Roger CERTIFIED NURSE OPERATING ROOM 08/28/2016 Office visit Bridger Sarkar CERTIFIED NURSE OPERATING ROOM 08/22/2016 Office visit Suad Roger CERTIFIED NURSE OPERATING ROOM 08/19/2016 Office visit Mariana Cummins CERTIFIED NURSE OPERATING ROOM 08/15/2016 Office visit Bridger Sarkar CERTIFIED NURSE OPERATING ROOM 08/11/2016 Office visit Mariana Cummins CERTIFIED NURSE OPERATING ROOM 07/30/2016 Office visit Mariana Cummins CERTIFIED NURSE OPERATING ROOM 07/23/2016 Office visit Suad Roger CERTIFIED NURSE OPERATING ROOM 01/05/2016 Office visit Mariana Cummins CERTIFIED NURSE OPERATING ROOM
--- OUTSIDE RECORDS SUMMARY | 2017-07-06 01:12 | XMS REPORT ---
Author Author Love Guadarrama Organization [employer] Address Unknown Phone Unavailable Care Team Providers Care Vice President Of Software Engineering Name Role Phone Love Guadarrama CP Unavailable Allergies No Known Allergies Problems No Known Problems Medications No Known Medications Results No Known Results Summary Purpose [employer] Submission
--- OUTSIDE RECORDS SUMMARY | 2017-07-06 01:12 | XMS REPORT ---
Author Author Alena Huertas [facility] Address [address] [place], [place] [address] Care Team Providers Care Interior Design Instructor Name Role Phone Alena Huertas PCP Unavailable Bone, Narda Unavailable Unavailable tonia hussein Unavailable Unavailable Reagan Unavailable Unavailable Hogge Unavailable Unavailable Roselyn Unavailable [...] MARTHA (Ankle Brachial Index). 12/22/2016 12:00 AM CMP 05/04/2017 12:00 AM HbA1c 05/04/2017 12:00 AM insulin resistant diabetic 09/02/2016 1:00 PM chronic right leg pain, neuropathy versus radiculopathy 09/26/2016 3:45 PM Medications Active Name Start Date Estimated Completion Date SIG Comments duloxetine 60 mg oral capsule,delayed release(DR/EC) take 1 capsule (60 mg) by oral route once daily buspirone 15 mg oral tablet take 1 tablet by oral route 4 times a day Tresiba FlexTouch U-100 100 unit/mL (3 mL) [...] 2 times per day for 7 days [place] 7.5-325 mg oral tablet 09/12/2016 09/27/2016 take 1 tablet by oral route every 8 hours as needed for 15 days Novolog Flexpen 100 unit/mL subcutaneous insulin pen 10/03/2016 05/01/2017 35 units with meals azithromycin 250 mg oral tablet 10/03/2016 10/08/2016 take 2 tablets (500 mg) by oral route once daily for 1 day then 1 tablet (250 mg) by oral route once daily for 4 days Anusol-HC 25 mg rectal suppository 10/08/2016 10/13/2016 25 mg [place] q hs for 5 nights amoxicillin 875 [...] HC BMI BSA BMI Percentile O2 Sat(%) 05/04/2017 9:28:00 AM 146 mmHg 76 mmHg 105 bpm 22 rpm 98.2 F 198.25 lbs 61 in 37.46 kg/m2 1.97 m2 93 % 04/22/2017 10:40:00 AM 120 mmHg 66 mmHg 93 bpm 22 rpm 97.8 F 198.125 lbs 61 in 37.435 kg/m 1.9667 m 95 % 04/17/2017 10:52:00 AM 128 mmHg 78 mmHg 85 bpm 20 rpm 98.7 F 196.5 lbs 61 in 37.13 kg/m2 1.96 m2 96 % 04/07/2017 2:57:00 PM 142 mmHg 80 mmHg 96 bpm 20 rpm 97.4 F 197.125 lbs 61 in 37.2461 kg/m 1.9617 m 93 % 04/01/2017 4:35:00 PM 136 mmHg 62 mmHg 97 bpm 20 rpm 99.1 F 193.375 lbs 61 in 36.54 kg/m2 1.94 m2 93 % 03/25/2017 7:57:00 AM 124 mmHg 72 mmHg 105 bpm 20 rpm 99.1 F 195 lbs 61 in 36.8445 kg/m 1.9511 m 95 % 03/13/2017 12:58:00 PM 126 mmHg 68 mmHg 103 bpm 20 rpm 99.5 F 191.125 lbs 61 in 36.11 kg/m2 1.93 m2 93 % 02/23/2017 10:23:00 AM 112 mmHg 60 mmHg 96 bpm 20 rpm 98.1 F 186.125 lbs 61 in 35.1676 kg/m 1.9062 m 100 % 02/16/2017 11:01:00 AM 128 mmHg [...] PRSRV FREE 3 YRS PLUS IM Reviewed 04/22/2017 12:00 AM PNEUMOCOCCAL VACC 23 MANOJ IM Reviewed 04/22/2017 12:00 AM Physical Therapy Consult Reviewed Results [...] Intramuscular Left Upper Deltoid 04/17/2017 02/02/2015 158 Pneumococcal 04/22/2017 [employer]ck & [employer]., [employer] 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 Oct 20 2016 [...] mellitus with hyperglycemia Feb 04 2017 11:25AM skilled nursing (current) use of insulin Feb 04 2017 11:25AM Cirrhosis of liver without ascites, unspecified hepatic cirrhosis type Feb 04 2017 11:25AM Pain of right lower extremity Feb 16 2017 11:06AM Type 2 diabetes mellitus with hyperglycemia Feb 16 2017 11:06AM skilled nursing (current) use of insulin Feb 16 2017 [...] 2017 10:43AM COPD Apr 22 2017 10:43AM Cirrhosis of liver without ascites, unspecified hepatic cirrhosis type May 04 2017 9:34AM Diabetes Mellitus, Type II, Uncontrolled May 04 2017 9:34AM Payers Insurance Name Company Name Plan Name Plan Number Policy Number Policy Group Number Start Date Medicare Part B Medicare Of [place] [id number] Monday, 2008 [facility] [id number] Friday, 2012 Medicare RHC Medicare RHC [id number] N/A [employer] [place] [employer] [place] State Plan [id number] N/A Medicare Part A Medicare - Lab/Xray [id number] N/A History of Encounters Visit Date Visit Type Provider 05/04/2017 Office visit Alena Huertas MD 04/22/2017 Office visit Alena Huertas MD 04/17/2017 [...] Huertas MD 01/01/2017 Office visit Bridger Sarkar GLASS BLOWER HELPER 12/24/2016 Office visit Alena Huertas MD 12/22/2016 Office visit 12/22/2016 Office visit 12/22/2016 Office visit Alena Huertas MD 12/19/2016 Office visit Alena Huertas MD 12/17/2016 Office visit Alena Huertas MD 12/16/2016 Office visit Alena Huertas MD 12/12/2016 Surgery Cody Chao MD 12/12/2016 Office visit Alena Huertas MD 12/09/2016 Office visit Alena Huertas MD 12/03/2016 Office visit Mariana Cummins GLASS BLOWER HELPER 12/02/2016 Office visit Cody Chao MD 12/01/2016 Office visit Bridger Sarkar GLASS BLOWER HELPER 11/25/2016 Office visit Alena Huertas MD 11/21/2016 Office visit Mariana Cummins GLASS BLOWER HELPER 11/21/2016 Hospital Ahsan Cobb MD 11/14/2016 Hospital Ahsan Cobb MD 11/12/2016 Laboratory Mariana Cummins GLASS BLOWER HELPER 11/11/2016 Office visit Alena Huertas MD 10/31/2016 Office visit Alena Huertas MD 10/24/2016 Office visit Alena Huertas MD 10/20/2016 Office visit Alena Huertas MD 10/08/2016 Office visit Alena Huertas MD 10/06/2016 Laboratory Suad Roger GLASS BLOWER HELPER 10/03/2016 Office visit Alena Huertas MD 09/22/2016 Office visit Alena Huertas MD 09/19/2016 Office visit Mariana Cummins GLASS BLOWER HELPER 09/12/2016 Office visit Suad Roger GLASS BLOWER HELPER 08/28/2016 Office visit Bridger Sarkar GLASS BLOWER HELPER 08/22/2016 Office visit Suad Roger GLASS BLOWER HELPER 08/19/2016 Office visit Mariana Cummins GLASS BLOWER HELPER 08/15/2016 Office visit rBidger Sarkar GLASS BLOWER HELPER 08/11/2016 Office visit Mariana Cummins GLASS BLOWER HELPER 07/30/2016 Office visit Mariana Cummins GLASS BLOWER HELPER 07/23/2016 Office visit Suad Roger GLASS BLOWER HELPER 01/05/2016 Office visit Mariana Cummins APRN
--- OUTSIDE RECORDS SUMMARY | 2017-07-06 01:13 | XMS REPORT ---
Author Author Love Guadarrama Organization [employer] Address Unknown Phone Unavailable Care Team Providers Care Service Order Expediter Name Role Phone Love Guadarrama CP Unavailable Allergies No Known Allergies Problems Problem Type Condition Code Onset Dates Condition Status Problem Type 2 Diabetes Mellitus With Hyperglycemia E11.65 Active Problem Bipolar disorder F31.9 Active Problem Noncompliance Z91.19 Active Problem COPD (chronic obstructive pulmonary disease) J44.9 Active Assessment COPD (chronic obstructive pulmonary disease) J44.9 Active Medications Medication Code System Code Instructions Start Date End Date Status Dosage albuterol [facility] [address]60 2.5 mg/3 mL (0.083%) inhaled every 6 hours 3 ml Results No Known Results Summary Purpose [employer] Submission
--- OUTSIDE RECORDS SUMMARY | 2017-07-06 01:13 | XMS REPORT ---
Author Author Bridger Sarkar Organization [facility] Address [address] [place], [place] [address] Care Team Providers Care Pararescue Craftsman Name Role Phone Bridger Sarkar PCP Unavailable Benja, Narda Unavailable Unavailable tonia hussein Unavailable Unavailable Merary Unavailable Unavailable Hogge Unavailable Unavailable Dempsey Unavailable [...] oral route 3 for 30 days Lyrica 150 mg oral capsule 11/25/2016 01/24/2017 take 1 capsule (150 mg) by oral route 2 times per day for 30 days amoxicillin 875 mg oral tablet 12/01/2016 12/11/2016 take 1 tablet (875 mg) by oral route every 12 hours for 10 days Name Start Date Expiration [...] 2 times per day for 7 days [place] 7.5-325 mg oral tablet 09/12/2016 09/27/2016 take 1 tablet by oral route every 8 hours as needed for 15 days azithromycin 250 mg oral tablet 10/03/2016 10/08/2016 take 2 tablets (500 mg) by oral route once daily for 1 day then 1 tablet (250 mg) by oral route once daily for 4 days Anusol-HC 25 mg rectal suppository 10/08/2016 10/13/2016 25 mg [place] q hs for 5 nights Discontinued Name [...] HC BMI BSA BMI Percentile O2 Sat(%) 12/01/2016 2:33:00 PM 136 mmHg 82 mmHg [...] mellitus with hyperglycemia Oct 08 2016 1:21PM rat exterminator (current) use of insulin Oct 08 2016 1:21PM Rectal bleeding Oct 08 2016 1:21PM Iron deficiency anemia due to chronic blood loss Oct 08 2016 1:21PM Fatigue, unspecified type Oct 20 2016 2:56PM Type 2 diabetes mellitus with hyperglycemia Oct 20 2016 2:56PM rat exterminator (current) use of insulin Oct 20 2016 [...] non-suppurative otitis media Dec 01 2016 2:35PM Payers Insurance Name Company Name Plan Name Plan Number Policy Number Policy Group Number Start Date Medicare RHC Medicare RHC [id number] N/A [facility] [place] State Plan [facility] [id number] N/A Medicare Part A Medicare - Lab/Xray [id number] N/A Medicare Part B Medicare Of [place] [id number] Monday, October 27, 2008 [facility] [employer] [place] State Plan [id number] Friday, June 29, 2012 History of Encounters Visit Date Visit Type Provider 12/01/2016 Office visit Bridger Sarkar DIRECTOR OF RECRUITMENT AND ADMISSIONS 11/25/2016 Office visit Alena Huertas MD 11/21/2016 Office visit Mariana Cummins DIRECTOR OF RECRUITMENT AND ADMISSIONS 11/12/2016 Laboratory Mariana Cummins DIRECTOR OF RECRUITMENT AND ADMISSIONS 11/11/2016 Office visit Alena Huertas MD 10/31/2016 Office visit Alena Huertas MD 10/24/2016 Office visit Alena Huertas MD 10/20/2016 Office visit Alena Huertas MD 10/08/2016 Office visit Alena Huertas MD 10/06/2016 Laboratory Suad Roger DIRECTOR OF RECRUITMENT AND ADMISSIONS 10/03/2016 Office visit Alena Huertas MD 09/22/2016 Office visit Alena Huertas MD 09/19/2016 Office visit Mariana Cummins DIRECTOR OF RECRUITMENT AND ADMISSIONS 09/12/2016 Office visit Suad Roger DIRECTOR OF RECRUITMENT AND ADMISSIONS 08/28/2016 Office visit Bridger Sarkar DIRECTOR OF RECRUITMENT AND ADMISSIONS 08/22/2016 Office visit Suad Roger DIRECTOR OF RECRUITMENT AND ADMISSIONS 08/19/2016 Office visit Mariana Cummins DIRECTOR OF RECRUITMENT AND ADMISSIONS 08/15/2016 Office visit Bridger Sarkar DIRECTOR OF RECRUITMENT AND ADMISSIONS 08/11/2016 Office visit Mariana Cummins DIRECTOR OF RECRUITMENT AND ADMISSIONS 07/30/2016 Office visit Mariana Cummins DIRECTOR OF RECRUITMENT AND ADMISSIONS 07/23/2016 Office visit Suad Roger DIRECTOR OF RECRUITMENT AND ADMISSIONS 01/05/2016 Office visit Mariana Cummins DIRECTOR OF RECRUITMENT AND ADMISSIONS
--- OUTSIDE RECORDS SUMMARY | 2017-07-06 01:13 | XMS REPORT ---
Author Author Love Guadarrama Organization [employer] Address Unknown Phone Unavailable Care Team Providers Care Paediatric Thoracic Physician Name Role Phone Love Guadarrama CP Unavailable Allergies No Known Allergies Problems No Known Problems Medications Medication Code System Code Instructions Start Date End Date Status Dosage amitriptyline NDC 69212 25 mg orally once a day (at bedtime) 1 tab (s) Invokana NDC 563558 100 mg orally once a day 1 tab(s) ranitidine NDC 80836 300 mg orally once a day (at bedtime) 1 cap(s ) sucralfate NDC 56819 1 g orally TID 1 tab(s) gabapentin NDC 43715 300 mg orally TID 2 CAPS Results No Known Results Summary Purpose [employer] Submission
--- OUTSIDE RECORDS SUMMARY | 2017-07-06 01:13 | XMS REPORT ---
Author Fabian Paul Organization [employer] Address Unknown Phone Unavailable Care Team Providers Care Occupational Therapy Assist Name Role Phone Fabian Roger CP Unavailable Allergies, Adverse Reactions, Alerts Substance Reaction Event Type Seafood/Fish Info Not Available Non Drug Allergy Sulfa Info Not Available Non Drug Allergy Poultry Info Not Available Non Drug Allergy Milk Info Not Available Non Drug Allergy Problems Problem Type Condition Code Onset Dates Condition Status Assessment Candidiasis of vulva and vagina 112.1 Active Assessment Cellulitis and abscess of unspecified site 682.9 Active Problem Essential and other specified forms of tremor 333.1 Active Problem Special screening for malignant neoplasms, colon V76.51 Active Problem Chronic airway obstruction, not elsewhere classified 496 Active Problem Screening for lipoid disorders V77.91 Active Problem Congestive heart failure, unspecified 428.0 Active Problem Unspecified hypothyroidism 244.9 Active Problem Unspecified esophagitis 530.10 Active Problem Polyneuropathy in diabetes 357.2 Active Problem Other specified forms of hearing loss 389.8 Active Problem Candidiasis of vulva and vagina 112.1 Active Problem Morbid obesity 278.01 Active Problem Unspecified essential hypertension 401.9 Active Problem 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 Problem Cellulitis and abscess of unspecified site 682.9 Active Problem Unspecified constipation 564.00 Active Problem Closed fracture of metatarsal bone(s) 825.25 Active Problem Unspecified hypotension 458.9 Active Problem Mitral stenosis with insufficiency 394.2 Active Problem Slow transit constipation 564.01 Active Problem Asthma, unspecified, unspecified status 493.90 Active Problem Depressive disorder, not elsewhere classified 311 Active Problem Other convulsions 780.39 Active Problem Unspecified iron deficiency anemia 280.9 Active Problem Diabetes mellitus without mention of complication, type II or unspecified type, not stated as uncontrolled 250.00 Active Problem Pain in joint, other specified sites 719.48 Active Problem Esophageal reflux 530.81 Active Problem Anxiety state, unspecified 300.00 Active Medications Medication Code System Code Instructions Start Date End Date Status Dosage Synthroid [facility] [address]-86 112 MCG Orally Once a day 1 tablet Xanax [facility] [address]-65 0.25 MG Orally once a day at HS 1 tablet as needed Lasix [facility] [address]-63 20 MG Orally every 8 hours 1 tablet Mylanta [facility] 78187-76677 200-200-20 MG/5ML Orally Four times a day 10 ml as needed Combivent Respimat [facility] 27161772659 20-100 MCG/ACT ONE PUFF EVERY FOUR HOURS Diflucan [facility] [address]-23 100 MG Orally Once a day September 05, 2014 1 tablet Levofloxacin [facility] [address]-43 500 MG Orally Once a day September 05, 2014 1 tablet Potassium Chloride ER [facility] [address]-34 20 MEQ Orally Twice a day 1 tablet Magnesium Oxide [facility] [address]-92 400 MG Orally Twice a day 1 tablet Advair Diskus [facility] [address]-34 250-50 MCG/DOSE Inhalation Twice a day 1 puff Tylenol Extra Strength [facility] [address]-97 500 MG Orally every 6 hrs 1 tablet as needed Citalopram Hydrobromide [facility] 27398270011 20 MG TAKE 1 TABLET BY MOUTH ONCE A DAY Levemir Flexpen [facility] [address]-22 100 UNIT/ML Subcutaneous daily at HS 30 units Levothyroxine Sodium [facility] 16273887831 112 MCG TAKE 1 TABLET BY MOUTH ONCE A DAY Fanapt [facility] [address]-59 6 MG Orally Twice a day 1 tablet Zantac [facility] [address]-17 300 MG Orally Once a day at HS 1 tablet NovoLog Flexpen [facility] 64415960767 100 UNIT/ML PER SLIDING SCALE BEFORE MEALS AND AT BEDTIME DuoNeb NDC 0 not defined Invokana [facility] [address]-37 100 MG Orally Once a day 1 tablet Carafate [facility] [address]-96 1 GM Orally Three times a day 1 tablet on an empty stomach Furosemide [facility] 69124821788 20 MG TAKE 1 TABLET BY MOUTH TWO TIMES A DAY MiraLax [facility] [address]-27 Orally Once a day 1 packet mixed with 8 ounces of fluid [place] [facility] [address]-89 5-325 MG Orally every 4 hrs 1 tablet as needed Cymbalta [facility] [address]-00 60 MG Orally Twice a day 1 capsule Ferrous Sulfate [facility] [address]-97 325 (65 Fe) MG Orally Three times a day 1 tablet Lotrisone [facility] [address]-87 1-0.05 % Externally Twice a day 1 application to affected area BusPIRone HCl [facility] [address]-12 15 MG Orally Four times a day 1 tablet Flonase [facility] [address]-05 50 MCG/ACT Nasally Once a day 1 spray in each nostril Gabapentin [facility] [address]-72 300 MG Orally Three times a day 1 capsule Albuterol Sulfate HFA [facility] [address]-11 108 (90 Base) MCG/ACT Inhalation every 4 hrs 2 puffs as needed Aspercreme [facility] 04654-34012 10 % Externally not defined Lamictal [facility] [address]-68 100 MG Orally Twice a day 1 tablet Albuterol Sulfate [facility] 93483027155 (2.5 MG/3ML) 0.083% 3ML THREE TIMES A DAY HydrOXYzine HCl [facility] [address]-25 25 MG Orally not defined Robitussin DM [facility] [address]-73 100-10 MG/5ML Orally every 4 hrs 10 ml as needed Duloxetine HCl [facility] [address]-20 30 MG Orally Twice a day 1 capsule Procedures Procedure Coding System Code Date PRESCRIPTION BY E-PRESCRIB S CPT-4 G8443 September 05, 2014 PAIN ASSESSMENT DOCUMENT CPT-4 G8440 September 05, 2014 TOBACCO NON-USER CPT-4 G8457 September 05, 2014 DOC MEDS VERIFIED W/PT OR RE CPT-4 G8427 September 05, 2014 BMI>=30OR<22 RUDY NO FOLLOWUP CPT-4 G8419 September 05, 2014 TX PLAN DEVELOP & DOCUMENT CPT-4 G8437 September 05, 2014 CLIN DEPRESSION SCREEN NOT D CPT-4 G8432 September 05, 2014 BP SYS <130 AND LAMA <80 CPT-4 G8476 September 05, 2014 DOC PAIN ASSESS NO DOC F/U PLAN RNS CPT-4 G8509 September 05, 2014 PT RECEIV INFLUENZA VACC CPT-4 G8108 September 05, 2014 AT LEAST 1 RX TRANSMIT ERX SYS CPT-4 G8553 September 05, 2014 MOST RECENT SYSTOLIC BP <140 MM HG CPT-4 G8588 September 05, 2014 PT RECEIV PNEUMO VACC CPT-4 G8115 September 05, 2014 MOST RECENT DIASTOLIC BP <90 MM HG CPT-4 G8590 September 05, 2014 FLU IMMUNIZE ORDER/ADMIN CPT-4 G8482 September 05, 2014 Office Visit, Est Pt., Level 3 CPT-4 49760 September 05, 2014 Vital Signs Date/Time: September 05, 2014 BMI 36.46 Index Pain Scale 9/10 1-10 Weight 193.0 lbs Height 61 in Respiratory Rate 20 /min Temperature 97.7 F Cardiac Monitoring Heart Rate 81 /min Oximetry 91 % Blood Pressure Diastolic 68 mm Hg Blood Pressure Systolic 106 mm Hg Results No Known Results Summary Purpose [employer] Submission
--- OUTSIDE RECORDS SUMMARY | 2017-07-06 01:13 | XMS REPORT ---
Author Author Love Guadarrama Organization [employer] Address Unknown Phone Unavailable Care Team Providers Care Care Professionals Name Role Phone Love Guadarrama CP Unavailable Allergies No Known Allergies Problems No Known Problems Medications No Known Medications Results No Known Results Summary Purpose [employer] Submission
--- OUTSIDE RECORDS SUMMARY | 2017-07-06 01:14 | XMS REPORT ---
Author Author Alena Huertas [facility] Address [address] [place], [place] [address] Care Team Providers Care Silverer Name Role Phone Alena Huertas PCP Unavailable [...] by oral route 3 for 30 days amoxicillin 875 mg oral tablet 12/01/2016 12/11/2016 take 1 tablet (875 mg) by oral route every 12 hours for 10 days furosemide 20 mg oral tablet 12/03/2016 [...] 2 times per day for 30 days Name Start Date [...] 2 times per day for 7 days [place] 7.5-325 mg oral tablet 09/12/2016 09/27/2016 take 1 tablet by oral route every 8 hours as needed for 15 days azithromycin 250 mg oral tablet 10/03/2016 10/08/2016 take 2 tablets (500 mg) by oral route once daily for 1 day then 1 tablet (250 mg) by oral route once daily for 4 days Anusol-HC 25 mg rectal suppository 10/08/2016 10/13/2016 25 mg IA q hs for 5 nights Discontinued Name [...] subcutaneous insulin pen 10/03/20162016 85 units bid Problem List Description Status Onset Anemia Active [...] HC BMI BSA BMI Percentile O2 Sat(%) 12/09/2016 9:42:00 AM 122 mmHg 68 mmHg [...] with diabetic polyneuropathy Dec 09 2016 9:51AM Payers Insurance Name Company Name Plan Name Plan Number Policy Number Policy Group Number Start Date Medicare RHC Medicare RHC [id number] N/A [facility] [place] State Plan [facility] [place] State Plan [id number] N/A Medicare Part A Medicare - Lab/Xray [id number] N/A Medicare Part B Medicare Of [place] [id number] Monday, October 27, 2008 [facility] [id number] Friday, June 29, 2012 History of Encounters Visit Date Visit Type Provider 12/09/2016 Office visit Alena Huertas MD 12/03/2016 [...] Cummins APRN 09/12/2016 Office visit Suad Roger GARAGE CONSTRUCTION EQUIPMENT MECHANIC 08/28/2016 Office visit Bridger Sarkar APRN 08/22/2016 Office visit Suad Roger GARAGE CONSTRUCTION EQUIPMENT MECHANIC 08/19/2016 Office visit Mariana Cummins APRN 08/15/2016 Office visit Bridger Sarkar APRN 08/11/2016 Office visit Mariana Cummins APRN 07/30/2016 Office visit Mariana Cummins APRN 07/23/2016 Office visit Suad Roger APRN 01/05/2016 Office visit Mariana Cummins APRN
--- OUTSIDE RECORDS SUMMARY | 2017-07-06 01:15 | XMS REPORT ---
Author Author Alena Huertas [facility] Address [address] [place], [place] [address] Care Team Providers Care Mixed Crop And Livestock Farm Worker Name Role Phone Alena Huertas PCP Unavailable [...] MARTHA (Ankle Brachial Index). 12/22/2016 12:00 AM Cervical Spine 2-3 Views - Main 04/17/2017 12:00 AM Flu vaccine 3 yrs & older, Quadrivalent, Preservative-free (single-dose syringe ) - [facility] Medicaid 04/17/2017 12:00 AM insulin resistant diabetic 09/02/2016 1:00 [...] 2 times per day for 7 days [place] 7.5-325 mg oral tablet 09/12/2016 09/27/2016 take 1 tablet by oral route every 8 hours as needed for 15 days azithromycin 250 mg oral tablet 10/03/2016 10/08/2016 take 2 tablets (500 mg) by oral route once daily for 1 day then 1 tablet (250 mg) by oral route once daily for 4 days Anusol-HC 25 mg rectal suppository 10/08/2016 10/13/2016 25 mg ID q hs for 5 nights amoxicillin 875 [...] HC BMI BSA BMI Percentile O2 Sat(%) 04/17/2017 10:52:00 AM 128 mmHg 78 mmHg [...] mellitus with hyperglycemia Oct 08 2016 1:21PM halfway (current) use of insulin Oct 08 2016 1:21PM Rectal bleeding Oct 08 2016 1:21PM Iron deficiency anemia due to chronic blood loss Oct 08 2016 1:21PM Fatigue, unspecified type Oct 20 2016 2:56PM Type 2 diabetes mellitus with hyperglycemia Oct 20 2016 2:56PM halfway (current) use of insulin Oct 20 2016 [...] mellitus with hyperglycemia Feb 04 2017 11:25AM halfway (current) use of insulin Feb 04 2017 11:25AM Cirrhosis of liver without ascites, unspecified hepatic cirrhosis type Feb 04 2017 11:25AM Pain of right lower extremity Feb 16 2017 11:06AM Type 2 diabetes mellitus with hyperglycemia Feb 16 2017 11:06AM halfway (current) use of insulin Feb 16 2017 [...] acute otitis media Apr 17 2017 10:58AM Payers Insurance Name Company Name Plan Name Plan Number Policy Number Policy Group Number Start Date Medicare Part B Medicare Of [place] [id number] Monday, 2008 [facility] State [facility] [id number] Friday, 2012 Medicare RHC Medicare RHC [id number] N/A [facility] [place] State Plan [facility] State Plan [id number] N/A Medicare Part A Medicare - Lab/Xray [id number] N/A History of Encounters Visit Date Visit Type Provider 04/17/2017 Office visit Alena Huertas MD 04/07/2017 [...] Huertas MD 12/03/2016 Office visit Mariana Cummins PAPER GRADER 12/02/2016 Office visit Cody Chao MD 12/01/2016 Office visit Bridger Sarkar APRN 11/25/2016 Office visit Alena Huertas MD 11/21/2016 Office visit Mariana Cummins APRN 11/21/2016 Hospital Ahsan Cobb MD 11/14/2016 Hospital Ahsan Cobb MD 11/12/2016 Laboratory Mariana Cummins APRN 11/11/2016 Office visit Alena Huertas MD 10/31/2016 Office visit Alena Huertas MD 10/24/2016 Office visit Alena Huertas MD 10/20/2016 Office visit Alena Huertas MD 10/08/2016 Office visit Alena Huertas MD 10/06/2016 Laboratory Suad Roger PAPER GRADER 10/03/2016 Office visit Alena Huertas MD 09/22/2016 Office visit Alena Huertas MD 09/19/2016 Office visit Mariana Cummins PAPER GRADER 09/12/2016 Office visit Suad Roger PAPER GRADER 08/28/2016 Office visit Bridger Sarkar PAPER GRADER 08/22/2016 Office visit Suad Roger PAPER GRADER 08/19/2016 Office visit Mariana Cummins PAPER GRADER 08/15/2016 Office visit Bridger Sarkar PAPER GRADER 08/11/2016 Office visit Mariana Cummins PAPER GRADER 07/30/2016 Office visit Mariana Cummins PAPER GRADER 07/23/2016 Office visit Suad Roger PAPER GRADER 01/05/2016 Office visit Mariana Cummins APRN
--- OUTSIDE RECORDS SUMMARY | 2017-07-06 01:17 | XMS REPORT ---
Author Author Alena Huertas [facility] Address [address] [place], [place] [address] Care Team Providers Care Reverberatory Furnace Supervisor Name Role Phone Alena Huertas PCP Unavailable [...] the morning and 2 capsules at night. amitriptyline 50 mg oral tablet 02/23/2017 09/21/2017 [...] times per day for 7 days [place] 7.5-325 mg oral tablet 09/12/2016 09/27/2016 take [...] HC BMI BSA BMI Percentile O2 Sat(%) 02/23/2017 10:23:00 AM 112 mmHg 60 mmHg [...] with hyperglycemia Oct 08 2016 1:21PM terminal gauger supervisor (current) use of insulin Oct 08 2016 1:21PM Rectal bleeding Oct 08 2016 1:21PM Iron deficiency anemia due to chronic blood loss Oct 08 2016 1:21PM Fatigue, unspecified type Oct 20 2016 2:56PM Type 2 diabetes mellitus with hyperglycemia Oct 20 2016 2:56PM terminal gauger supervisor (current) use of insulin Oct 20 2016 [...] mellitus with hyperglycemia Feb 04 2017 11:25AM terminal gauger supervisor (current) use of insulin Feb 04 2017 11:25AM Cirrhosis of liver without ascites, unspecified hepatic cirrhosis type Feb 04 2017 11:25AM Pain of right lower extremity Feb 16 2017 11:06AM Type 2 diabetes mellitus with hyperglycemia Feb 16 2017 11:06AM terminal gauger supervisor (current) use of insulin Feb 16 2017 11:06AM Pain of right lower extremity Feb 23 2017 10:28AM Cirrhosis of liver without ascites, unspecified hepatic cirrhosis type Feb 23 2017 10:28AM Diabetes Mellitus, Type II, Uncontrolled Feb 23 2017 10:28AM Payers Insurance Name Company Name Plan Name Plan Number Policy Number Policy Group Number Start Date Medicare Part B Medicare Of [place] [id number] Monday, 2008 [facility] State [facility] [id number] Friday, 2012 Medicare RHC Medicare RHC [id number] N/A [facility] [place] State Plan [facility] [place] State Plan [id number] N/A Medicare Part A Medicare - Lab/Xray [id number] N/A History of Encounters Visit Date Visit Type Provider 02/23/2017 Office visit Alena Huertas MD 02/16/2017 [...] Huertas MD 12/03/2016 Office visit Mariana Cummins DEPUTY SHERIFF CUSTODY 12/02/2016 Office visit Cody Chao MD 12/01/2016 Office visit Bridger Sarkar DEPUTY SHERIFF CUSTODY 11/25/2016 Office visit Alena Huertas MD 11/21/2016 Office visit Mariana Cummins DEPUTY SHERIFF CUSTODY 11/14/2016 [facility] Riley Cobb MD 11/12/2016 Laboratory Mariana Cummins DEPUTY SHERIFF CUSTODY 11/11/2016 Office visit Alena Huertas MD 10/31/2016 Office visit Alena Huertas MD 10/24/2016 Office visit Alena Huertas MD 10/20/2016 Office visit Alena Huertas MD 10/08/2016 Office visit Alena Huertas MD 10/06/2016 Laboratory Suad Roger DEPUTY SHERIFF CUSTODY 10/03/2016 Office visit Alena Huertas MD 09/22/2016 Office visit Alena Huertas MD 09/19/2016 Office visit Mariana Cummins DEPUTY SHERIFF CUSTODY 09/12/2016 Office visit Suad Roger DEPUTY SHERIFF CUSTODY 08/28/2016 Office visit Bridger Antonina DEPUTY SHERIFF CUSTODY 08/22/2016 Office visit Suad Kana DEPUTY SHERIFF CUSTODY 08/19/2016 Office visit Marianayana Cummins DEPUTY SHERIFF CUSTODY 08/15/2016 Office visit Bridger [place] DEPUTY SHERIFF CUSTODY 08/11/2016 Office visit Mariana Cummins DEPUTY SHERIFF CUSTODY 07/30/2016 Office visit Marianayana Cummins DEPUTY SHERIFF CUSTODY 07/23/2016 Office visit Suadmeghna Roger DEPUTY SHERIFF CUSTODY 01/05/2016 Office visit Mariana Cummins DEPUTY SHERIFF CUSTODY
--- OUTSIDE RECORDS SUMMARY | 2017-07-06 01:17 | XMS REPORT | Continuity of Care Document ---
Author Author [facility] Organization [facility] Address [address] [place] [address] Phone Unavailable Care Team Providers Care Wort Extractor Name Role Phone TIMUR SWENSON PCP Insurance Providers Payer Name Policy Number Subscriber Name Relationship Medicare [id number] Chanell Sosa 18 Self / Same As Patient [employer] [id number] Chanell Sosa 18 Self / Same As Patient Advance Directives Directive Response Recorded Date/Time Living Will No 02/28/16 10:35am Advance Directives No 05/25/15 7:54am Advance Directive on File No 07/18/16 7:54pm Durable POA for HC No 07/18/16 7:54pm Power of Continuous Conveyor Screen Drier No 07/18/16 7:54pm Organ Donor No 07/18/16 7:54pm Living Will No 07/18/16 7:54pm What is your agent's or access service representative's phone number? No 05/25/15 7:54am Chief Complaint and Reason for Visit Chief Complaint General Complaint Reason for Visit [id number] Painful diabetic neuropathy Problems Active Problems Medical Problem Onset Date Status Achilles tendinitis of right lower extremity Unknown Acute Acute exacerbation of chronic bronchitis Unknown Acute Chronic kidney disease, stage III (moderate) Unknown Acute Deep vein thrombosis (DVT) of right lower extremity Unknown Acute Elevated liver enzymes Unknown Acute Gastroenteritis Unknown Acute Hyponatremia syndrome Unknown Acute Nausea and vomiting in adult Unknown Acute Pain in right lower leg Unknown Acute Painful diabetic neuropathy Unknown Acute Sprain of wrist Unknown Acute [...] Oral Once A Day for Hyperglycemia Tiotropium [place] 18 Mcg 1 Mcg Inhalation Everyday At [...] Four Times A Day for Copd 05/13/16 Amitriptyline Hcl 50 Mg 25 Mg Oral Everyday At 9 Pm for Mental Illness 07/18/16 Aripiprazole (Abilify) 5 Mg 2 Mg Oral Once A Day for Depression Albuterol Sulfate 1.25 Mg/3 Ml 1.25 Mg Inhalation Four Times A Day for Copd 07/18/16 Aspirin 81 Mg 81 Mg Oral Once A Day for Heart Health 07/18/16 Tramadol Hcl 50 Mg 50 Mg Oral Every Eight Hours as needed for Pain 1 07/18/16 Past Home Medications Medication Directions Ordered Status [...] needed for Nausea / Vomiting 06/19/15 Discontinued Benzonatate 100 Mg Capsule, 100 Mg Oral Every Eight Hours for Cough 05/13/16 Discontinued Social History Social History Problem Response Recorded Date/Time Smoking Status Former smoker 07/18/2016 7:56pm Smoked in the last 12 months? No 07/18/2016 7:56pm Do you dip or chew tobacco? No 07/18/2016 7:56pm Approx how many cigs per day? 0 07/18/2016 7:56pm Level of Dependence Low 07/19/2016 3:03am Former smoker, last day smoked? 201107/18/2016 7:56pm Query Response Start Date Stop Date Smoking Status Former smoker Hospital Discharge Instructions No hospital discharge instructions. Plan of Care Discharge Date 07/18/16 9:56pm Disposition D/C HOME Condition at Discharge Improved Instructions/Education Provided Diabetic Peripheral Neuropathy (ED) Forms Provided ER Discharge Phone Call Check Prescriptions See Medication Section Referrals TIMUR SWENSON - Additional Instructions/Education Take medications as prescribed. Aim for blood sugar goal range of < 120 mg/dl. Higher levels tend to worsen neuropathic pain. Your sodium levels were low. Do not restrict salt in your diet. Repeat laboratory studies are recommended. Reference Links Glaucoma prevention Functional Status Query Response Date Recorded Activities of Daily Living Performs with Assistance July 18, 2016 7:56pm Cognitive Function Moderately Impaired July 18, 2016 7:56pm Allergies, Adverse Reactions, Alerts Allergen Type Severity Reaction Status Last Updated Sulfa (Sulfonamide Antibiotics) ([id number]) Allergy Unknown VOMITTING DIARRHEA Active 01/25/16 Poultry Allergy Unknown NAUSEA AND VOMITING Active 01/25/16 Milk Adverse Reaction Intermediate NAUSEA AND VOMITING Active 07/18/16 Iloperidone Allergy Intermediate seizures Active 04/12/16 SEA FOOD Adverse Reaction Intermediate NAUSEA AND VOMITING Active 07/18/16 Immunizations No immunization records. Vital Signs Acute Vital Signs Vital Response Date/Time Temperature (Fahrenheit) 97.8 degrees F (97.6 - 99.5) 07/18/2016 9:50pm Temperature (Calculated Celsius) 36.31471 degrees C (36.4 - 37.5) 07/18/2016 9:50pm Temperature Source Temporal Artery Scan 07/18/2016 9:50pm Pulse Pulse Ox Pulse Rate (adult) 84 beats per minute (60 - 90) 07/18/2016 9:50pm Pulse Location Modifier Left 07/18/2016 9:50pm Oxygen Saturation Respiratory Rate 16 breaths per minute (12 - 24) 07/18/2016 9:50pm O2 Sat by Pulse Oximetry 94 % (90 - 100) 07/18/2016 9:50pm Blood Pressure 102/59 mm Hg 07/18/2016 9:50pm Blood Pressure Mean 73 mm Hg 07/18/2016 9:50pm Height 5 ft 1 in Weight 183 [...] 04/12/16 HYDRATE IV INFUSION ADD-ON Completed 04/12/16 ROUTINE VENIPUNCTURE Completed 05/13/16 CHEST X-RAY 1 VIEW FRONTAL Completed 05/13/16 COMPREHEN METABOLIC PANEL Completed 05/13/16 URINALYSIS NONAUTO W/SCOPE Completed 05/13/16 COMPLETE CBC W/AUTO DIFF WBC Completed 05/13/16 EMERGENCY DEPT VISIT Completed 05/13/16 INJECTION, INSULIN, PER 5 UNITS Completed EMERGENCY DEPT VISIT Completed 05/13/16 THER/PROPH/DIAG INJ IV PUSH Completed 05/13/16 HYDRATE IV INFUSION ADD-ON Completed 05/13/16 ROUTINE VENIPUNCTURE Completed 06/28/16 FIBRIN DEGRADATION QUANT Completed 06/28/16 EMERGENCY DEPT VISIT Completed 06/28/16 EMERGENCY DEPT VISIT Completed 06/28/16 EMERGENCY DEPT VISIT Completed 07/02/16 EMERGENCY DEPT VISIT Completed 07/02/16 Encounters Encounter Location Arrival/Admit Date Discharge/Depart Date Attending Provider Departed Emergency Room [facility] 07/18/16 6:59pm 07/18/16 9: 56pm TATUM ARCHIBALD APRN Registered [facility] 07/04/16 1:42pm TIMUR SWENSON Departed Emergency Room [facility] 07/02/16 2:32am 07/02/16 4: 30am ELMIRA SANTACRUZ MD Departed Emergency Room [facility] 06/28/16 11:28pm 06/29/16 3: 05am KIRA CRUZ MD Registered [facility] 06/26/16 1:42pm TIMUR SWENSON Departed Emergency Room [facility] 05/13/16 6:42pm 05/13/16 9: 00pm SMITA MICHELE APRN Registered [facility] 04/21/16 2:37pm TIMUR SWENSON Departed Emergency Room [facility] 04/12/16 11:51am 04/12/16 2: 30pm TATUM ARCHIBALD APRN Discharged [facility] 02/28/16 10:37am 03/14/16 10: 57am BRITTNI BRAVO M.D. Departed Emergency Room [facility] 01/25/16 9:20am 01/25/16 11: 25am ADALBERTO GONZALES MD Recent Diagnosis
--- OUTSIDE RECORDS SUMMARY | 2017-07-06 01:18 | XMS REPORT ---
Author Author Alena Huertas [facility] Address [address] [place], [place] [id number] Care Team Providers Care Day Light Relief Operator Name Role Phone Alena Huertas PCP [...] 2 times per day for 7 days [place] 7.5-325 mg oral tablet 09/12/2016 09/27/2016 take 1 tablet by oral route every 8 hours as needed for 15 days azithromycin 250 mg oral tablet 10/03/2016 10/08/2016 take 2 tablets (500 mg) by oral route once daily for 1 day then 1 tablet (250 mg) by oral route once daily for 4 days Anusol-HC 25 mg rectal suppository 10/08/2016 10/13/2016 25 mg LA q hs for 5 nights amoxicillin 875 [...] mellitus with hyperglycemia Oct 08 2016 1:21PM shelter (current) use of insulin Oct 08 2016 1:21PM Rectal bleeding Oct 08 2016 1:21PM Iron deficiency anemia due to chronic blood loss Oct 08 2016 1:21PM Fatigue, unspecified type Oct 20 2016 2:56PM Type 2 diabetes mellitus with hyperglycemia Oct 20 2016 2:56PM shelter (current) use of insulin Oct 20 2016 [...] Date Medicare Part B Medicare Of [place] [id number] Monday, 2008 [employer] - [place] [employer] [place] [id number] N/A Medicare Part A Medicare - Lab/Xray [id number] N/A [employer] [place] State [place] [employer] [place] State Plan [id number] Friday, June 29, 2012 Medicare RHC Medicare RHC [id number] N/A History of Encounters Visit Date Visit Type Provider 12/16/2016 Office visit Alena Huertas MD 12/12/2016 Surgery Cody Chao MD 12/12/2016 Office visit Alena Huertas MD 12/09/2016 Office visit Alena Huertas MD 12/03/2016 Office visit Mariana Cummins FLOOR SANDING MACHINE OPERATOR 12/02/2016 Office visit Cody Chao MD 12/01/2016 Office visit Bridger Sarkar FLOOR SANDING MACHINE OPERATOR 11/25/2016 Office visit Alena Huertas MD 11/21/2016 Office visit Mariana Cummins FLOOR SANDING MACHINE OPERATOR 11/12/2016 Laboratory Mariana Cummins FLOOR SANDING MACHINE OPERATOR 11/11/2016 Office visit Alena Huertas MD 10/31/2016 Office visit Alena Huertas MD 10/24/2016 Office visit Alena Huertas MD 10/20/2016 Office visit Alena Huertas MD 10/08/2016 Office visit Alena Huertas MD 10/06/2016 Laboratory Suad Roger FLOOR SANDING MACHINE OPERATOR 10/03/2016 Office visit Alena Huertas MD 09/22/2016 Office visit Alena Huertas MD 09/19/2016 Office visit Mariana Cummins FLOOR SANDING MACHINE OPERATOR 09/12/2016 Office visit Suad Roger FLOOR SANDING MACHINE OPERATOR 08/28/2016 Office visit Bridger Sarkar FLOOR SANDING MACHINE OPERATOR 08/22/2016 Office visit Suad Roger FLOOR SANDING MACHINE OPERATOR 08/19/2016 Office visit Mariana Cummins FLOOR SANDING MACHINE OPERATOR 08/15/2016 Office visit Bridger Sarkar FLOOR SANDING MACHINE OPERATOR 08/11/2016 Office visit Mariana Cummins FLOOR SANDING MACHINE OPERATOR 07/30/2016 Office visit Mariana Cummins FLOOR SANDING MACHINE OPERATOR 07/23/2016 Office visit Suad Roger FLOOR SANDING MACHINE OPERATOR 01/05/2016 Office visit Mariana Cummins APRN
--- OUTSIDE RECORDS SUMMARY | 2017-07-06 01:19 | XMS REPORT ---
Author Author Alena Huertas [facility] Address [address] [place], [place] [address] Care Team Providers Care Wire Spinner Name Role Phone Alena Huertas PCP Unavailable [...] 12:00 AM Fingerstick Glucose 10/20/2016 12:00 AM COMPREHENSIVE METABOLIC PANEL 11/11/2016 12:00 AM HEPATITIS PANEL. 11/11/2016 12:00 AM AMMONIA. 11/11/2016 12:00 AM Polysomnography 11/11/2016 12:00 AM insulin [...] 2 times per day for 7 days [place] 7.5-325 mg oral tablet 09/12/2016 09/27/2016 take [...] mg CO q hs for 5 nights Discontinued Name [...] METABOLIC PANEL TOTAL CA Reviewed Results Summary Date and Description Results [...] with hyperglycemia Oct 20 2016 2:56PM intermediate (current) use of insulin Oct 20 2016 [...] Date Medicare Part B Medicare Of [place] [id number] Monday, 2008 [employer] State Plan [employer] [place] State Plan [id number] Friday, 2012 Medicare [facility] Medicare [facility] [id number] N/A [employer] [place] [employer] [place] [id number] N/A Medicare Part A Medicare - Lab/Xray [id number] N/A History of Encounters Visit Date Visit Type Provider 11/11/2016 Office visit Alena Huertas MD 10/31/2016 Office visit Alena Huertas MD 10/24/2016 Office visit Alena Huertas MD 10/20/2016 Office visit Alena Huertas MD 10/08/2016 Office visit Alena Huertas MD 10/06/2016 Laboratory Suad Roger ANIMAL HUSBANDRY TEACHER 10/03/2016 Office visit Alean Huertas MD 09/22/2016 Office visit Alena Huertas MD 09/19/2016 Office visit Mariana Cummins ANIMAL HUSBANDRY TEACHER 09/12/2016 Office visit Suad Roger ANIMAL HUSBANDRY TEACHER 08/28/2016 Office visit Bridger Sarkar ANIMAL HUSBANDRY TEACHER 08/22/2016 Office visit Suad Roger ANIMAL HUSBANDRY TEACHER 08/19/2016 Office visit Mariana Cummins ANIMAL HUSBANDRY TEACHER 08/15/2016 Office visit Bridger Sarkar ANIMAL HUSBANDRY TEACHER 08/11/2016 Office visit Mariana Cummins ANIMAL HUSBANDRY TEACHER 07/30/2016 Office visit Mariana Cummins ANIMAL HUSBANDRY TEACHER 07/23/2016 Office visit Suad Roger ANIMAL HUSBANDRY TEACHER 01/05/2016 Office visit Mariana Cummins ANIMAL HUSBANDRY TEACHER
--- OUTSIDE RECORDS SUMMARY | 2017-07-06 01:19 | XMS REPORT ---
Author Author Love Guadarrama Organization [facility] Address [address] [place] [address] Care Team Providers Care Paint Mixer Name Role Phone Love Guadarrama Unavailable PROBLEMS Type Condition ICD9-CM Code [id number] Code Onset Dates Condition Status SNOMED Code Problem Cellulitis Of Left Finger L03.012 Active 70407029395608526 Problem Hypothyroidism E03.9 Active 17402983 Problem Cellulitis of Finger, Unspecified 681.00 Active 625506954 Problem COPD (chronic obstructive pulmonary disease) J44.9 Active 68248703 Problem Bipolar disorder F31.9 Active 70854421 Problem Type 2 Diabetes Mellitus With Hyperglycemia E11.65 Active 538039456466993 Problem Noncompliance Z91.19 Active 5893002 Problem Leg pain, right 729.5 Active 75851154 Problem Leg Pain UNSPECIFIED M79.606 Active 43848921 Problem Bronchitis J40 Active 10466600 Problem GERD Without Esophagitis K21.9 Active 418809163 Problem Cardiomegaly I51.7 Active 6801936 Problem Pharyngitis J02.9 Active 205742999 ALLERGIES Unknown Allergies SOCIAL HISTORY No smoking Hx information available PLAN OF CARE VITAL SIGNS MEDICATIONS Unknown Medications RESULTS No Results PROCEDURES No Known procedures IMMUNIZATIONS No Known Immunizations
--- OUTSIDE RECORDS SUMMARY | 2017-07-06 01:20 | XMS REPORT ---
Author Author Alena Huertas [facility] Address [address] [place], [place] [address] Care Team Providers Care Monument Carver Name Role Phone Alena Huertas PCP Unavailable Benja, Narda Unavailable Unavailable tonia hussein Unavailable Unavailable Merary Unavailable Unavailable Hogge Unavailable Unavailable Roselyn Unavailable Unavailable Fabain Roger Unavailable Unavailable Mariana Cummins PreferredProvider Unavailable [...] per prescriber's instructions. Insulin dosing requires individualization. mupirocin 2 % topical ointment 12/16/2016 01/05/2017 apply a small amount to the affected area by topical route 3 times per day for 10 days Voltaren 1 % topical gel 12/24/2016 01/13/2017 apply to affected area(s) by topical route 3 times a day as needed for 10 days severe leg pain Lyrica 75 mg oral capsule 01/02/2017 02/01/2017 take one capsule in the morning and [...] times per day for 7 days [place] 7.5-325 mg oral tablet 09/12/2016 09/27/2016 take 1 tablet by oral route every 8 hours as needed for 15 days azithromycin 250 mg oral tablet 10/03/2016 10/08/2016 take 2 tablets (500 mg) by oral route once daily for 1 day then 1 tablet (250 mg) by oral route once daily for 4 days Anusol-HC 25 mg rectal suppository 10/08/2016 10/13/2016 25 mg [place] q hs for 5 nights amoxicillin 875 mg oral tablet 12/01/2016 12/11/2016 take 1 tablet (875 mg) by oral route every 12 hours for 10 days doxycycline hyclate 100 mg oral capsule 12/16/2016 12/26/2016 take 1 capsule ( 100 mg) by oral route 2 times per day for 10 days Discontinued Name Start Date [...] HC BMI BSA BMI Percentile O2 Sat(%) 01/02/2017 10:35:00 AM 116 mmHg 72 mmHg [...] mellitus with hyperglycemia Oct 08 2016 1:21PM residential (current) use of insulin Oct 08 2016 1:21PM Rectal bleeding Oct 08 2016 1:21PM Iron deficiency anemia due to chronic blood loss Oct 08 2016 1:21PM Fatigue, unspecified type Oct 20 2016 2:56PM Type 2 diabetes mellitus with hyperglycemia Oct 20 2016 2:56PM residential (current) use of insulin Oct 20 2016 [...] pain, anterior, right Jan 02 2017 10:41AM Payers Insurance Name Company Name Plan Name Plan Number Policy Number Policy Group Number Start Date Medicare Part B Medicare Of [place] [id number] Monday, 2008 [employer] [place] State Plan [facility] State Plan [id number] Friday, 2012 Medicare [facility] Medicare C [id number] N/A [employer] [place] [employer] [place] [id number] N/A Medicare Part A Medicare - Lab/Xray [id number] N/A History of Encounters Visit Date Visit Type Provider 01/02/2017 Office visit Alena Huertas MD 01/01/2017 [...] Huertas MD 09/19/2016 Office visit Mariana Cummins BRONZER 09/12/2016 Office visit Suad Roger BRONZER 08/28/2016 Office visit Bridger Sarkar BRONZER 08/22/2016 Office visit Suad Roger BRONZER 08/19/2016 Office visit Mariana Cummins BRONZER 08/15/2016 Office visit Bridger Sarkar BRONZER 08/11/2016 Office visit Mariana Cummins APRN 07/30/2016 Office visit Mariana Cummins APRN 07/23/2016 Office visit Suad Roger BRONZER 01/05/2016 Office visit Mariana Cummins APRN
--- OUTSIDE RECORDS SUMMARY | 2017-07-06 01:21 | XMS REPORT ---
Author Author Love Guadarrama Organization [employer] Address Unknown Phone Unavailable Care Team Providers Care Director Of Procurement Name Role Phone Love Guadarrama CP Unavailable Allergies No Known Allergies Problems No Known Problems Medications No Known Medications Results No Known Results Summary Purpose [employer] Submission
--- OUTSIDE RECORDS SUMMARY | 2017-07-06 01:21 | XMS REPORT | Continuity of Care Document ---
Author Author [facility] Organization [facility] Address [address] [place] [address] Phone Unavailable Care Team Providers Care Electronic Device Monitor Name Role Phone TIMUR SWENSON PCP Insurance Providers Payer Name Policy Number Subscriber Name Relationship Medicare [id number] Chanell Sosa 18 Self / Same As Patient [employer] [id number] Chanell Sosa 18 Self / Same As Patient Advance Directives Directive Response Recorded Date/Time Living Will No 02/28/16 10:35am Advance Directives No 05/25/15 7:54am Advance Directive on File No 06/28/16 11:30pm Durable POA for HC No 06/28/16 11:30pm Power of Package Liner No 06/28/16 11:30pm Organ Donor No 06/28/16 11:30pm Living Will No 06/28/16 11:30pm What is your agent's or customer engagement representative's phone number? No 05/25/15 7:54am Chief Complaint and Reason for Visit Chief Complaint General Complaint Reason for Visit Achilles tendinitis of right lower extremity Problems Active Problems Medical Problem Onset Date [...] Oral Once A Day for Hyperglycemia Tiotropium Mcdonald 18 Mcg 1 Mcg Inhalation Everyday At [...] Response Recorded Date/Time Smoking Status Former smoker 06/28/2016 11:31pm Smoked in the last 12 months? No 06/28/2016 11:31pm Do you dip or chew tobacco? No 06/28/2016 11:31pm Approx how many cigs per day? 0 06/28/2016 11:31pm Level of Dependence Low 06/28/2016 11:31pm Former smoker, last day smoked? 201106/28/2016 11:31pm Query Response Start Date Stop Date Smoking Status Former smoker Hospital Discharge Instructions No hospital discharge instructions. Plan of Care Discharge Date 06/29/16 3:05am Disposition 01 D/C HOME Condition at Discharge Improved Instructions/Education Provided Achilles Tendinitis Exercises (GEN) Forms Provided ER Discharge Phone Call Check Prescriptions See Medication Section Referrals TIMUR SWENSON - Additional Instructions/Education Patient recommend achilles tendon stretching as well as application of ice massage. Patient is not a good candidate for therapy with NSAIDs and therefore I recommended that she use tylenol 1000mg Q8 hours at home for pain. Patient agrees to perform the stretches and if she does not improve with this conservative treatment she can consider taping and following up with her PCP for this treatment modality. Functional Status Query Response Date Recorded Activities of Daily Living Performs with Assistance June 28, 2016 11:31pm Allergies, Adverse Reactions, Alerts Allergen Type Severity Reaction Status Last Updated Sulfa (Sulfonamide Antibiotics) ([id number]) Allergy Unknown VOMITTING DIARRHEA Active 01/25/16 Poultry Allergy Unknown NAUSEA AND VOMITING Active 01/25/16 Iloperidone Allergy Intermediate seizures Active 04/12/16 Immunizations No immunization records. Vital Signs Acute Vital Signs Vital Response Date/Time Temperature (Fahrenheit) 98 degrees F (97.6 - 99.5) 06/29/2016 1:30am Temperature (Calculated Celsius) 36.6696 degrees C (36.4 - 37.5) 06/29/2016 1 :30am Temperature Source Temporal Artery Scan 06/29/2016 1:30am Pulse Pulse Ox Pulse Rate (adult) 78 beats per minute (60 - 90) 06/29/2016 3:00am Pulse Location Modifier Left 05/13/2016 9:00pm Oxygen Saturation Respiratory Rate 20 breaths per minute (12 - 24) 06/29/2016 3:00am O2 Sat by Pulse Oximetry 97 % (90 - 100) 06/29/2016 3:00am Blood Pressure 129/70 mm Hg 06/29/2016 3:00am Blood Pressure Mean 89 mm Hg 06/29/2016 3:00am Height 5 ft 1 in Weight 183 [...] 05/13/16 HYDRATE IV INFUSION ADD-ON Completed 05/13/16 Encounters Encounter Location Arrival/Admit Date Discharge/Depart Date Attending Provider Departed Emergency Room [facility] 06/28/16 11:28pm 06/29/16 3: 05am KIRA CRUZ MD Registered [facility] 06/26/16 1:42pm TIMUR SWENSON Departed Emergency Room [facility] 05/13/16 6:42pm 05/13/16 9: 00pm SMITA MICHELE APRN Registered [facility] 04/21/16 2:37pm TIMUR SWENSON Departed Emergency Room [facility] 04/12/16 11:51am 04/12/16 2: 30pm TATUM ARCHIBALD APRN Discharged [facility] 02/28/16 10:37am 03/14/16 10: 57am BRITTNI BRAVO M.D. Departed Emergency Room [facility] 01/25/16 9:20am 01/25/16 11: 25am ADALBERTO GONZALES MD Recent Diagnosis
--- OUTSIDE RECORDS SUMMARY | 2017-07-06 01:21 | XMS REPORT ---
Author Fabian Paul Organization [employer] Address Unknown Phone Unavailable Care Team Providers Care Flux Tube Attendant Name Role Phone Fabian Roger CP Unavailable [...] medical treatment and regimen Z91.19 Active Assessment Morbid (severe) obesity due to excess calories E66.01 Active Problem Fall from bed, initial encounter W06.XXXA Active Problem Unspecified diastolic (congestive) heart failure I50.30 Active Problem Chronic obstructive pulmonary disease with acute lower respiratory infection J44.0 Active Problem Type 2 diabetes mellitus without complications E11.9 Active Problem Other slipping, tripping and stumbling without falling, initial encounter W18.49XA Active Problem Other seizures G40.89 Active Problem Type 2 diabetes mellitus with diabetic polyneuropathy E11.42 Active Problem Sprain of other specified parts of left knee, initial encounter S83.8X2A Active Problem Syncope and collapse R55 Active Problem Acute on chronic systolic (congestive) heart failure I50.23 Active Problem History of falling Z91.81 Active Assessment Thrombocytopenia, unspecified D69.6 Active Assessment Hypothyroidism, unspecified E03.9 Active Assessment Iron deficiency anemia, unspecified D50.9 Active Assessment Rheumatic mitral stenosis with insufficiency I05.2 Active Assessment Chronic obstructive pulmonary disease, unspecified J44.9 Active Assessment Type 2 diabetes mellitus with diabetic polyneuropathy E11.42 Active Assessment Ototoxic hearing loss, 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 Problem Type 2 diabetes mellitus with hyperglycemia E11.65 Active Assessment Essential (primary) hypertension I10 Active Assessment Cellulitis of right axilla L03.111 Active Problem Other fall on same level, subsequent encounter W18.39XD Active Problem Lymphocytopenia D72.810 Active Problem Other primary thrombocytopenia D69.49 Active Problem Abnormal weight loss R63.4 Active Problem Calcific tendinitis, right hand M65.241 Active Problem Left ventricular failure I50.1 Active Problem Hypercalcemia E83.52 Active Problem Cellulitis of right axilla L03.111 Active Problem Patient's noncompliance with other medical treatment and regimen Z91.19 Active Problem Hypothyroidism, unspecified E03.9 Active Problem Ototoxic hearing loss, 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 Problem Chills (without fever) R68.83 Active Problem Acute maxillary sinusitis, unspecified J01.00 Active Problem Myoclonus G25.3 Active Problem Morbid (severe) obesity due to excess calories E66.01 Active Problem Segmental and somatic dysfunction of pelvic region M99.05 Active Problem Other muscle spasm M62.838 Active Problem Otitis media, unspecified, unspecified ear H66.90 Active Problem Unspecified otitis externa, unspecified ear H60.90 Active Problem Insomnia, unspecified G47.00 Active Problem Metabolic syndrome E88.81 Active Problem Segmental and somatic dysfunction of lumbar region M99.03 Active Problem Segmental and somatic dysfunction of thoracic region M99.02 Active Problem Segmental and somatic dysfunction of cervical region M99.01 Active Problem Low back pain M54.5 Active Problem Other specified diabetes mellitus with diabetic neuropathy, unspecified E13.40 Active Problem Segmental and somatic dysfunction of sacral region M99.04 Active Problem Cutaneous abscess of right upper limb L02.413 Active Problem Cellulitis of left axilla L03.112 Active Problem Full incontinence of feces R15.9 Active Problem Other specified hearing loss, unspecified ear H91.8X9 Active Problem Type 1 diabetes mellitus with diabetic polyneuropathy E10.42 Active Problem Thrombocytopenia, unspecified D69.6 Active Problem Contracture of muscle, multiple sites M62.49 Active Problem Essential (primary) hypertension I10 Active Problem Rheumatic mitral stenosis with insufficiency I05.2 Active Problem 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 Problem Obsessive-compulsive disorder F42 Active Problem Constipation, unspecified K59.00 Active Problem Cardiac murmur, unspecified R01.1 Active Problem Candidiasis of vulva and vagina B37.3 Active Problem Other specified hearing loss, bilateral H91.8X3 Active Problem Pneumonia, unspecified organism J18.9 Active Problem Pain in unspecified joint M25.50 Active Problem Chronic obstructive pulmonary disease, unspecified J44.9 Active Problem Other asthma J45.998 Active Problem Major depressive disorder, single episode, unspecified F32.9 Active Problem Unspecified convulsions R56.9 Active Problem Iron deficiency anemia, unspecified D50.9 Active Medications Medication Code System Code Instructions Start Date End Date Status Dosage Rifampin [facility] [address]-75 300 MG Orally Three times a day October 25, 2015 2 capsule after meals Potassium Chloride ER [facility] [address]-84 10 MEQ Orally Twice a day 1 tablet with food BD AutoShield Duo [facility] [id number] 30G X 5 MM USE DIRECTED Levemir FlexTouch [facility] [address]-77 100 UNIT/ML Subcutaneous daily at bedtime 7 units in the a.m. and 115 units Levothyroxine Sodium [facility] [address]-25 125 MCG Orally Once a day 1 tablet Mylanta [facility] 58[address]95 200-200-20 MG/5ML Orally Four times a day 10 ml as needed Aspercreme [facility] [address]64-35541 10 % Externally not defined Doxycycline Hyclate [facility] [address]-70 100 MG Orally every 12 hrs October 25, 2015 1 capsule Invokana [facility] [address]-48 100 MG Orally Once a day 1 tablet Tylenol Extra Strength [facility] [address]-79 500 MG Orally every 6 hrs 1 tablet as needed Gabapentin [facility] [address]-57 300 MG Orally Three times a day 2 capsules Lasix [facility] [address]-14 20 MG Orally As directed 1 tablet once a day until loses 3 lbs. then once a day NovoLog Flexpen [facility] 25485676114 100 UNIT/ML PER SLIDING SCALE BEFORE MEALS AND AT BEDTIME BusPIRone HCl [facility] [address]-05 15 MG Orally Four times a day 1 tablet Cymbalta [facility] [address]-86 60 MG Orally Twice a day 1 capsule Amitriptyline HCl [facility] 79160669701 25 MG Orally Once a day 1 tablet at bedtime Ranitidine HCl [facility] [address]-79 300 MG Orally Once a day 1 tablet MiraLax [facility] [address]-92 Orally Once a day 1 packet mixed with 8 ounces of fluid Sure Comfort Lancets 30G [facility] 17021311592 0 USE DIRECTED BEFORE MEALS AND AT BEDTIME Nebulizer [facility] [address]321 0 inhalation as needed Apr 24, 2015 as directed Albuterol Sulfate [facility] 94300070117 (2.5 MG/3ML) 0.083% Orally Three times a day 3 ml Sucralfate [facility] [address]-49 1 GM Orally Three times a day 1 tablet on an empty stomach Magnesium Oxide [facility] [address]-18 400 MG Orally Twice a day 1 tablet Procedures Procedure Coding System Code Date BP SYS <130 AND LAMA <80 CPT-4 G8476 October 25, 2015 TOBACCO NON-USER CPT-4 G8457 October 25, 2015 DOC PAIN ASSESS NO DOC F/U PLAN RNS CPT-4 G8509 October 25, 2015 TX PLAN DEVELOP & DOCUMENT CPT-4 G8437 October 25, 2015 CLIN DEPRESSION SCREEN NOT D CPT-4 G8432 October 25, 2015 PRESCRIPTION BY E-PRESCRIB S CPT-4 G8443 October 25, 2015 PAIN ASSESSMENT DOCUMENT CPT-4 G8440 October 25, 2015 AT LEAST 1 RX TRANSMIT ERX SYS CPT-4 G8553 October 25, 2015 MOST RECENT SYSTOLIC BP <140 MM HG CPT-4 G8588 October 25, 2015 BMI>=30OR<22 RUDY NO FOLLOWUP CPT-4 G8419 October 25, 2015 MOST RECENT DIASTOLIC BP <90 MM HG CPT-4 G8590 October 25, 2015 DSCHRG MED/CURRENT MED MERGE CPT-4 1111F October 25, 2015 DOC MEDS VERIFIED W/PT OR RE CPT-4 G8427 October 25, 2015 MOST RECENT SYSTOLIC BP < 140MM HG CPT-4 G8752 October 25, 2015 MOST RECENT DIASTOLIC BP < 90MM HG CPT-4 G8754 October 25, 2015 Office Visit, Est Pt., Level 3 CPT-4 77230 October 25, 2015 Vital Signs Date/Time: October 25, 2015 Pain Scale 0/10 1-10 BMI 34.57 Index Peak Flow room air I/min Weight 183.0 lbs Height 61 in Respiratory Rate 20 /min Temperature 97.4 F Cardiac Monitoring Heart Rate 91 /min Oximetry 94 % Blood Pressure Diastolic 74 mm Hg Blood Pressure Systolic 122 mm Hg Results No Known Results Summary Purpose [employer] Submission
--- OUTSIDE RECORDS SUMMARY | 2017-07-06 01:21 | XMS REPORT ---
Author Author Alena Huertas [facility] Address [address] [place], [place] [address] Care Team Providers Care Boxcar Weigher Name Role Phone Alena Huertas PCP Unavailable [...] 2 times per day for 7 days [place] 7.5-325 mg oral tablet 09/12/2016 09/27/2016 take 1 tablet by oral route every 8 hours as needed for 15 days azithromycin 250 mg oral tablet 10/03/2016 10/08/2016 take 2 tablets (500 mg) by oral route once daily for 1 day then 1 tablet (250 mg) by oral route once daily for 4 days Anusol-HC 25 mg rectal suppository 10/08/2016 10/13/2016 25 mg TN q hs for 5 nights amoxicillin 875 [...] hyperglycemia Feb 04 2017 11:25AM long term acute care registered nurse (current) use of insulin Feb 04 2017 11:25AM Cirrhosis of liver without ascites, unspecified hepatic cirrhosis type Feb 04 2017 11:25AM Payers Insurance Name Company Name Plan Name Plan Number Policy Number Policy Group Number Start Date Medicare Part B Medicare Of [place] [id number] Monday, 2008 [facility] State Plan [id number] Friday, 2012 Medicare RHC Medicare RHC [id number] N/A [facility] [place] State Plan [employer] - RHC [place] State Plan [id number] N/A Medicare Part A Medicare - Lab/Xray [id number] N/A History of Encounters Visit Date Visit [...] Huertas MD 12/03/2016 Office visit Mariana Cummins AIRBRUSH ARTIST PHOTOGRAPHY 12/02/2016 Office visit Cody Chao MD 12/01/2016 Office visit Bridger Sarkar AIRBRUSH ARTIST PHOTOGRAPHY 11/25/2016 Office visit Alena Huertas MD 11/21/2016 Office visit Mariana Cummins AIRBRUSH ARTIST PHOTOGRAPHY 11/12/2016 Laboratory Mariana Cummins AIRBRUSH ARTIST PHOTOGRAPHY 11/11/2016 Office visit Alena Huertas MD 10/31/2016 Office visit Alena Huertas MD 10/24/2016 Office visit Alena Huertas MD 10/20/2016 Office visit Alena Huertas MD 10/08/2016 Office visit Alena Huertas MD 10/06/2016 Laboratory Suad Roger AIRBRUSH ARTIST PHOTOGRAPHY 10/03/2016 Office visit Alena Huertas MD 09/22/2016 Office visit Alena Huertas MD 09/19/2016 Office visit Mariana Cummins AIRBRUSH ARTIST PHOTOGRAPHY 09/12/2016 Office visit Suad Roger AIRBRUSH ARTIST PHOTOGRAPHY 08/28/2016 Office visit Bridger Sarkar AIRBRUSH ARTIST PHOTOGRAPHY 08/22/2016 Office visit Suad Roger AIRBRUSH ARTIST PHOTOGRAPHY 08/19/2016 Office visit Mariana Cummins AIRBRUSH ARTIST PHOTOGRAPHY 08/15/2016 Office visit Bridger Sarkar AIRBRUSH ARTIST PHOTOGRAPHY 08/11/2016 Office visit Mariana Cummins AIRBRUSH ARTIST PHOTOGRAPHY 07/30/2016 Office visit Mariana Cummins AIRBRUSH ARTIST PHOTOGRAPHY 07/23/2016 Office visit Suad Roger AIRBRUSH ARTIST PHOTOGRAPHY 01/05/2016 Office visit Mariana Cummins AIRBRUSH ARTIST PHOTOGRAPHY
--- OUTSIDE RECORDS SUMMARY | 2017-07-06 01:22 | XMS REPORT ---
Author Author Suad Roger [facility] Address [address] [place], [place] [id number] Care Team Providers Care Stereotype Caster Name Role Phone Suad Roger PCP Unavailable Bone, Narda Unavailable Unavailable tonia [...] W/MICRO C&S IF IND 10/06/2016 12:00 AM CBC W/ AUTO DIFF (RFLX MAN DIFF IF IND). 10/06/2016 12:00 AM BMP 10/06/2016 12:00 AM insulin resistant diabetic 09/02/2016 [...] 2 times per day for 7 days [place] 7.5-325 mg oral tablet 09/12/2016 09/27/2016 take [...] Date Medicare Part B Medicare Of [place] [id number] Monday, 2008 [facility] [place] State Plan [employer] - RHC [place] State Plan [id number] N/A Medicare Part A Medicare - Lab/Xray [id number] N/A [employer] [place] State Plan [employer] [place] State Plan [id number] Friday, June 29, 2012 Medicare RHC Medicare RHC [id number] N/A History of Encounters Visit Date Visit Type Provider 10/06/2016 Laboratory Suad Roger VICE PRESIDENT OF ENGINEERING 10/03/2016 Office visit Alena Huertas MD 09/22/2016 Office visit Alena Huertas MD 09/19/2016 Office visit Mariana Cummins APRN 09/12/2016 Office visit Suad Roger VICE PRESIDENT OF ENGINEERING 08/28/2016 Office visit Bridger Sarkar APRN 08/22/2016 Office visit Suad Roger APRN 08/19/2016 Office visit Mariana Cummins APRN 08/15/2016 Office visit Bridger Sarkar VICE PRESIDENT OF ENGINEERING 08/11/2016 Office visit Mariana Cummins APRN 07/30/2016 Office visit Mariana Cummins APRN 07/23/2016 Office visit Suad Roger APRN 01/05/2016 Office visit Mariana Cummins VICE PRESIDENT OF ENGINEERING
--- OUTSIDE RECORDS SUMMARY | 2017-07-06 01:22 | XMS REPORT ---
Author Author Love Guadarrama Organization [employer] Address Unknown Phone Unavailable Care Team Providers Care Belt Tender Name Role Phone Love Guadarrama CP Unavailable Allergies No Known Allergies Problems Problem Type Condition Code Onset Dates Condition Status Problem Type 2 Diabetes Mellitus With Hyperglycemia E11.65 Active Problem Bipolar disorder F31.9 Active Problem Noncompliance Z91.19 Active Problem COPD (chronic obstructive pulmonary disease) J44.9 Active Medications No Known Medications Results No Known Results Summary [facility]
--- OUTSIDE RECORDS SUMMARY | 2017-07-06 01:23 | XMS REPORT ---
Author Author Suad Roger [facility] Address [address] [place], [place] [address] Care Team Providers Care Fish Net Stringer Name Role Phone Suad Roger PCP Unavailable [...] 2 times per day for 7 days [place] 7.5-325 mg oral tablet 09/12/2016 09/27/2016 take [...] Date Medicare Part B Medicare Of [place] [id number] Monday, 2008 [facility] [place] State Plan [employer] - [place] State Plan [id number] N/A Medicare Part A Medicare - Lab/Xray [id number] N/A [employer] [place] State Plan [employer] [place] State Plan [id number] Friday, June 29, 2012 Medicare RHC Medicare RHC [id number] N/A History of Encounters Visit Date Visit Type Provider 10/06/2016 Laboratory Suad Roger LABOR EMPLOYMENT ASSOCIATE 10/03/2016 Office visit Alena Huertas MD 09/22/2016 Office visit Alena Huertas MD 09/19/2016 Office visit Mariana Cummins APRN 09/12/2016 Office visit Suad Roger LABOR EMPLOYMENT ASSOCIATE 08/28/2016 Office visit Bridger Sarkar APRN 08/22/2016 Office visit Suad Roger APRN 08/19/2016 Office visit Mariana Cummins APRN 08/15/2016 Office visit Bridger Sarkar LABOR EMPLOYMENT ASSOCIATE 08/11/2016 Office visit Mariana Cummins APRN 07/30/2016 Office visit Mariana Cummins APRN 07/23/2016 Office visit Suad Roger APRN 01/05/2016 Office visit Mariana Cummins LABOR EMPLOYMENT ASSOCIATE
--- OUTSIDE RECORDS SUMMARY | 2017-07-06 01:23 | XMS REPORT | CCD ---
Author Author JOE DEAL Unknown Address [address] [place] [address] Care Team Providers Care Inclusion Special Educator Name Role Phone ROSANA LOGAN MD Attphys ROSANA LOGAN MD Prisurg Allergies Unknown or Not Available. Active Medications Unknown or Not Available. Problems Unknown or Not Available. Procedures Procedure Code Procedure Type Date ^CBC W/AUTO DIFF 7979110 SNOMED CT 09/13/2016 COMPREHENSIVE METABOLIC PANEL [id number] SNOMED CT 2016 CBC W/ AUTO DIFF (RFLX MAN DIFF IF IND) [id number] SNOMED CT 09/13/2016 Results COMPREHENSIVE METABOLIC PANEL - Collect Date/Time: 09/13/2016 14:55 Test Name Code Test Result Test Units Test Ref Range GLUCOSE 2345-7 425 MG/DL L=70 H=100 SODIUM 2951-2 134 MEQ/L L=135 H=148 POTASSIUM 2823-3 4.2 MEQ/L L=3.5 H=5.3 CHLORIDE 2075-0 98 MEQ/L L=96 H=110 CO2 2028-9 26 MEQ/L L=22 H=29 BUN 3094-0 20 MG/DL L=8 H=22 CREATININE 2160-0 1.0 MG/DL L=0.6 H=1.6 SGOT/AST 1920-8 11 IU/L L=10 H=40 SGPT/ALT 1742-6 21 IU/L L=8 H=54 ALK PHOS 6768-6 62 IU/L L=35 H=115 TOTAL PROTEIN 2885-2 7.3 G/DL L=5.5 H=8.5 ALBUMIN 1751-7 3.7 G/DL L=3.1 H=5.4 TOTAL BILI 1975-2 0.8 MG/DL L=0.0 H=1.5 CALCIUM 41069-5 9.0 MG/DL L=8.2 H=10.6 AGE 56 yrs GFR NonAA 57 GFR AA 69 eGFR 57 mL/min/1.7 eGFR AA* >60 N/A CBC W/ AUTO DIFF (RFLX MAN DIFF IF IND) - Collect Date/Time: 09/13/2016 14:55 Test Name Code Test Result Test Units Test Ref Range WBC 71302-6 6.5 TH/CMM L=4.5 H=10.8 RBC 789-8 3.59 ML/CMM L=4.20 H=5.40 HGB 718-7 9.3 G/DL L=12.0 H=16.0 HCT 4544-3 31.6 % L=37.0 H=47.0 MCV 88 FL L=81 H=99 MCH 25.9 PG L=27.0 H=33.0 MCHC 29.4 G/DL L=31.0 H=36.0 RDW SD 52 FL L=36 H=50 RDW CV 16.4 % L=0.0 H=14.8 MPV 10.2 FL L=9.3 H=12.5 PLT 777-3 110 TH/CMM L=130 H=440 NRBC# 0.00 TH/CMM L=0.00 H=0.00 NRBC% 0.0 /100WBC L=0.0 H=2.0 %NEUT 74.7 % %LYMP 18.3 % %MONO 5.7 % %EOS 0.8 % %BASO 0.2 % #NEUT 4.86 TH/CMM L=2.10 H=8.20 #LYMP 1.19 TH/CMM L=0.90 H=5.20 #MONO 0.37 TH/CMM L=0.16 H=1.00 #EOS 0.05 TH/CMM L=0.00 H=0.80 #BASO 0.01 TH/CMM L=0.00 H=0.20 MANUAL DIFF NOT IND N/A Function Status Unknown or Not Available. History of Immunizations Immunization Code Date influenza, split (incl. purified surface antigen) 15 2006 pneumococcal polysaccharide PPV23 33 2006 Td (adult) preservative free 113 08/22/2013 Influenza, seasonal, injectable, preservative free 140 2014 Plan of Treatment Unknown or Not Available. Social History Smoking Status Code Start Date End Date Never smoker [id number] Vital Signs Unknown or Not Available. Function Status Unknown or Not Available. Goals Unknown or Not Available. ASSESSMENTS Unknown or Not Available. Health Concerns Section Unknown or Not Available.
--- OUTSIDE RECORDS SUMMARY | 2017-07-06 01:23 | XMS REPORT ---
Author Author Fabian Roger Organization [employer] Address Unknown Phone Unavailable Care Team Providers Care Spring Fitter Name Role Phone Fabian Roger CP Unavailable Allergies, Adverse Reactions, Alerts Substance Reaction Event Type Seafood/Fish Info Not Available Non Drug Allergy Sulfa Info Not Available Non Drug Allergy Poultry Info Not Available Non Drug Allergy Milk Info Not Available Non Drug Allergy Problems Problem Type Condition ICD-9 Code Onset Dates Condition Status Assessment Screening for lipoid disorders V77.91 Active Assessment Unspecified hypothyroidism 244.9 Active Assessment Other specified forms of hearing loss 389.8 Active Assessment Congestive heart failure, unspecified 428.0 Active Assessment Chronic airway obstruction, not elsewhere classified 496 Active Assessment Polyneuropathy in diabetes 357.2 Active Problem Esophageal reflux 530.81 Active Assessment Slow transit constipation 564.01 Active Problem Anxiety state, unspecified 300.00 Active Assessment Diabetes mellitus without mention of complication, type II or unspecified type, not stated as uncontrolled 250.00 Active Problem Diabetes mellitus without mention of complication, type II or unspecified type, not stated as uncontrolled 250.00 Active Problem Chronic airway obstruction, not elsewhere classified 496 Active Problem Pain in joint, other specified sites 719.48 Active Problem Closed fracture of metatarsal bone(s) 825.25 Active Problem Unspecified hypotension 458.9 Active Problem Screening for lipoid disorders V77.91 Active Problem Special screening for malignant neoplasms, colon V76.51 Active Problem Slow transit constipation 564.01 Active Problem Essential and other specified forms of tremor 333.1 Active Problem Unspecified esophagitis 530.10 Active Problem Congestive heart failure, unspecified 428.0 Active Problem Polyneuropathy in diabetes 357.2 Active Problem Other specified forms of hearing loss 389.8 Active Problem 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 Problem Unspecified essential hypertension 401.9 Active Problem Unspecified hypothyroidism 244.9 Active Problem Unspecified constipation 564.00 Active Problem Asthma, unspecified, unspecified status 493.90 Active Problem Depressive disorder, not elsewhere classified 311 Active Problem Other convulsions 780.39 Active Problem Unspecified iron deficiency anemia 280.9 Active Medications Medication Code System Code Instructions Start Date End Date Status Dosage Lamictal [facility] [address]-39 100 MG Orally Twice a day Active 1 tablet Lasix [facility] [address]-76 20 MG Orally every 8 hours Active 1 tablet Cymbalta [facility] [address]-87 60 MG Orally Twice a day Active 1 capsule Fanapt [facility] [address]-33 6 MG Orally Twice a day Active 1 tablet Prevacid [facility] [address]-77 30 MG Orally Once a day Active 1 capsule before a meal Lisinopril [facility] 63645637438 2.5 MG Active TAKE 1 TABLET BY MOUTH ONCE A DAY Combivent Respimat [facility] [address]-54 20-100 MCG/ACT Inhalation Four times a day Active 1 puff Invokana [facility] [address]-12 100 MG Orally Once a day Active 1 tablet DuoNeb [facility] 0 Active not defined Potassium Chloride ER [facility] [address]-79 20 MEQ Orally Twice a day Active 1 tablet Lantus [facility] [address]-52 100 UNIT/ML Subcutaneous As directed Active 10 units at hs Albuterol Sulfate [facility] [address]-44 (2.5 MG/3ML) 0.083% Inhalation Three times a day Active 3 ml NovoLog Flexpen [facility] 61030661708 100 UNIT/ML Active PER SLIDING SCALE BEFORE MEALS AND AT BEDTIME Ranitidine HCl [facility] 52134463272 300 MG Active TAKE 1 TABLET BY MOUTH ONCE A DAY AT BEDTIME Aspercreme [facility] 06089-00117 10 % Externally Active not defined Ibuprofen [facility] [address]-01 600 MG Orally every 6 hrs Active 1 tablet Magnesium Oxide [facility] [address]-17 400 MG Orally Twice a day Active 1 tablet Carafate [facility] [address]-24 1 GM Orally Three times a day Active 1 tablet on an empty stomach Advair Diskus [facility] [address]-38 250-50 MCG/DOSE Inhalation Twice a day Active 1 puff Gabapentin [facility] 89099726989 300 MG Active TAKE 1 CAPSULE BY MOUTH THREE TIMES A DAY AT 7AM, 2PM AND 10PM Flonase [facility] [address]-49 50 MCG/ACT Nasally Once a day Active 1 spray in each nostril Ferrous Sulfate [facility] [address]-76 325 (65 Fe) MG Orally Three times a day Active 1 tablet BusPIRone HCl [facility] [address]-00 15 MG Orally Four times a day Active 1 tablet [place] [facility] [address]-33 5-325 MG Orally every 4 hrs Active 1 tablet as needed Citalopram Hydrobromide [facility] [address]-45 20 MG Orally Once a day Active 1 tablet Synthroid [facility] [address]-37 100 MCG Orally Once a day Active 1 tablet Albuterol Sulfate HFA [facility] [address]-40 108 (90 Base) MCG/ACT Inhalation every 4 hrs Active 2 puffs as needed Zantac [facility] [address]-95 300 MG Orally Once a day at HS Active 1 tablet Mylanta [facility] 94682-83162 200-200-20 MG/5ML Orally Four times a day Active 10 ml as needed MiraLax [facility] [address]-51 Orally Once a day Active 1 packet mixed with 8 ounces of fluid Xanax [facility] [address]-90 0.25 MG Orally once a day at HS Active 1 tablet as needed Procedures Procedure Coding System Code Date TOBACCO NON-USER CPT-4 G8457 Jul 06, 2014 PAIN ASSESSMENT DOCUMENT CPT-4 G8440 Jul 06, 2014 BP SYS <130 AND LAMA <80 CPT-4 G8476 Jul 06, 2014 DOC MEDS VERIFIED W/PT OR RE CPT-4 G8427 Jul 06, 2014 BMI>=30OR<22 RUDY NO FOLLOWUP CPT-4 G8419 Jul 06, 2014 TX PLAN DEVELOP & DOCUMENT CPT-4 G8437 Jul 06, 2014 CLIN DEPRESSION SCREEN NOT D CPT-4 G8432 Jul 06, 2014 PRESCRIP NOT GEN AT ENCOUNTE CPT-4 G8445 Jul 06, 2014 DOC PAIN ASSESS NO DOC F/U PLAN RNS CPT-4 G8509 Jul 06, 2014 PT RECEIV INFLUENZA VACC CPT-4 G8108 Jul 06, 2014 MOST RECENT SYSTOLIC BP <140 MM HG CPT-4 G8588 Jul 06, 2014 MOST RECENT DIASTOLIC BP <90 MM HG CPT-4 G8590 Jul 06, 2014 PT RECEIV PNEUMO VACC CPT-4 G8115 Jul 06, 2014 HEMOGLOBIN A1C LEVEL > 9.0% CPT-4 3046F Jul 06, 2014 FLU IMMUNIZE ORDER/ADMIN CPT-4 G8482 Jul 06, 2014 Office Visit, Est Pt., Level 4 CPT-4 10633 Jul 06, 2014 Vital Signs Date/Time: Jul 06, 2014 BMI 36.69 Index Weight 194.2 lbs Height 61 in Respiratory Rate 18 /min Temperature 97.3 F Cardiac Monitoring Heart Rate 106 /min Oximetry 85 % Blood Pressure Diastolic 68 mm Hg Blood Pressure Systolic 106 mm Hg Results Name Result Date Reference Range Unit COMPREHENSIVE METABOLIC PANEL Summary Purpose [employer] Submission
--- OUTSIDE RECORDS SUMMARY | 2017-07-06 01:24 | XMS REPORT ---
Author Author Alena Huertas [facility] Address [address] [place], [place] [address] Care Team Providers Care Bracelet Former Name Role Phone Alena Huertas PCP Unavailable [...] 2 times per day for 7 days [place] 7.5-325 mg oral tablet 09/12/2016 09/27/2016 take [...] HC BMI BSA BMI Percentile O2 Sat(%) 12/12/2016 1:59:00 PM 116 mmHg 62 mmHg [...] mellitus with hyperglycemia Oct 08 2016 1:21PM MCC (current) use of insulin Oct 08 2016 1:21PM Rectal bleeding Oct 08 2016 1:21PM Iron deficiency anemia due to chronic blood loss Oct 08 2016 1:21PM Fatigue, unspecified type Oct 20 2016 2:56PM Type 2 diabetes mellitus with hyperglycemia Oct 20 2016 2:56PM MCC (current) use of insulin Oct 20 2016 [...] 9:51AM Preauricular cyst Dec 12 2016 2:01PM Payers Insurance Name Company Name Plan Name Plan Number Policy Number Policy Group Number Start Date Medicare RHC Medicare RHC [id number] N/A [facility] [place] State Plan [facility] State Plan [id number] N/A Medicare Part A Medicare - Lab/Xray [id number] N/A Medicare Part B Medicare Of [place] [id number] Monday, October 27, 2008 [facility] [id number] Friday, June 29, 2012 History of Encounters Visit Date Visit Type Provider 12/12/2016 Office visit Alena Huertas MD 12/09/2016 Office visit Alena Huertas MD 12/03/2016 Office visit Mariana Cummins APRN 12/02/2016 Office visit Cody Chao MD 12/01/2016 Office visit Bridger Sarkar APRN 11/25/2016 Office visit Alena Huertas MD 11/21/2016 Office visit Mariana Cummins SITE OPERATIONS MANAGER 11/12/2016 Laboratory Mariana Cummins SITE OPERATIONS MANAGER 11/11/2016 Office visit Alena Huertas MD 10/31/2016 Office visit Alena Huertas MD 10/24/2016 Office visit Alena Huertas MD 10/20/2016 Office visit Alena Huertas MD 10/08/2016 Office visit Alena Huertas MD 10/06/2016 Laboratory Suad Roger SITE OPERATIONS MANAGER 10/03/2016 Office visit Alena Huertas MD 09/22/2016 Office visit Alena Huertas MD 09/19/2016 Office visit Mariana Cummins SITE OPERATIONS MANAGER 09/12/2016 Office visit Suad Roger SITE OPERATIONS MANAGER 08/28/2016 Office visit Bridger Sarkar SITE OPERATIONS MANAGER 08/22/2016 Office visit Suad Roger SITE OPERATIONS MANAGER 08/19/2016 Office visit Mariana Cummins SITE OPERATIONS MANAGER 08/15/2016 Office visit Bridger Sarkar SITE OPERATIONS MANAGER 08/11/2016 Office visit Mariana Cummins SITE OPERATIONS MANAGER 07/30/2016 Office visit Mariana Cummins SITE OPERATIONS MANAGER 07/23/2016 Office visit Suad Roger SITE OPERATIONS MANAGER 01/05/2016 Office visit Mariana Cummins SITE OPERATIONS MANAGER
--- OUTSIDE RECORDS SUMMARY | 2017-07-06 01:24 | XMS REPORT ---
Author Author Mariana Cummins Organization [facility] Address [address] [place], [place] [address] Care Team Providers Care Marketing Systems Analyst Name Role Phone Mariana Cummins PCP Unavailable Bone, Narda Unavailable Unavailable tonia hussein Unavailable Unavailable Reagan Unavailable Unavailable Hogge Unavailable Unavailable Dempsey Unavailable Unavailable Fabian Roger Unavailable Unavailable Maraina Cummins PreferredProvider Unavailable Allergies and Adverse Reactions Name Reaction Notes SULFA (SULFONAMIDE ANTIBIOTICS) Plan of Treatment Planned Activity Comments Planned Date Planned Time Plan/Goal CBC With Auto Differential 07/30/2016 12:00 AM CMP (comprehensive metabolic panel) 07/30/2016 12:00 AM .Lipid Panel 07/30/2016 12:[address] ABD AND PELVIS W/WO CONTRAST 07/30/2016 12:00 AM Treadmill, Physician Supervision 08/11/2016 12:00 AM XR lumbar spine and both sacroiliac joints 08/19/2016 12:00 AM XR lumbar spine and both sacroiliac joints 08/19/2016 12:00 AM XR lumbar spine and both sacroiliac joints 08/19/2016 12:00 AM insulin resistant diabetic chronic right leg pain, neuropathy versus radiculopathy Medications Active Name Start Date Estimated Completion [...] unit/mL subcutaneous insulin pen being referred to leather patcher jul 30, 2016 as she is on [...] by oral route daily for 30 days [place] 7.5-325 mg oral tablet 08/19/2016 09/03/2016 take [...] a day (at bedtime) for 30 days Name Start Date Expiration [...] HC BMI BSA BMI Percentile O2 Sat(%) 08/19/2016 9:59:00 AM 136 mmHg 62 mmHg [...] 07/30/2016 12:00 AM ASSAY OF MAGNESIUM Returned Results Summary Data and Description Results [...] 17.0 ug/mLFREE T4 1.10 TSH 4.320 uIU/mL History Of Immunizations Not available. History of [...] Number Start Date Medicare RHC Medicare RHC [id number] N/A [employer] - [place] [employer] [place] [id number] N/A Medicare Part A Medicare - Lab/Xray [id number] N/A Medicare Part B Medicare Of [place] [id number] Monday, October 27, 2008 [facility] [id number] Friday, June 29, 2012 History of Encounters Visit Date Visit Type Provider 08/19/2016 Office visit Mariana Cummins APRN 08/15/2016 Office visit Bridger Sarkar APRN 08/11/2016 Office visit Mariana Cummins APRN 07/30/2016 Office visit Mariana Cummins APRN 07/23/2016 Office visit Suad Roger APRN 01/05/2016 Office visit Mariana Cummins APRN
--- OUTSIDE RECORDS SUMMARY | 2017-07-06 01:26 | XMS REPORT ---
Author Fabian Paul Organization [employer] Address Unknown Phone Unavailable Care Team Providers Care Hotel Casino Floorperson Name Role Phone Fabian Roger CP Unavailable Allergies No Known Allergies Problems Problem Type Condition Code Onset Dates Condition Status Problem Esophageal reflux 530.81 Active Problem Depressive disorder, not elsewhere classified 311 Active Problem Diabetes mellitus without mention of complication, type II or unspecified type, not stated as uncontrolled 250.00 Active Problem Anxiety state, unspecified 300.00 Active Problem Pain in joint, other specified sites 719.48 Active Problem Chronic airway obstruction, not elsewhere classified 496 Active Problem Congestive heart failure, unspecified 428.0 Active Problem Unspecified esophagitis 530.10 Active Problem Other specified forms of hearing loss 389.8 Active Problem Nonallopathic lesion of lumbar region, not elsewhere classified 739.3 Active Problem Polyneuropathy in diabetes 357.2 Active Problem Nonallopathic lesion of thoracic region, not elsewhere classified 739.2 Active Problem Unspecified hypotension 458.9 Active Problem Nonallopathic lesion of cervical region, not elsewhere classified 739.1 Active Problem Unspecified otitis media 382.9 Active Problem Lumbago 724.2 Active Problem Unspecified thrombocytopenia 287.5 Active Problem Abrasion or friction burn of other, multiple, and unspecified sites, without mention of infection 919.0 Active Problem Mitral stenosis with insufficiency 394.2 Active Problem Slow transit constipation 564.01 Active Problem Unspecified hypothyroidism 244.9 Active Problem Other chronic serous otitis media 381.19 Active Problem Closed fracture of metatarsal bone(s) 825.25 Active Problem Screening for lipoid disorders V77.91 Active Problem Diabetes mellitus without mention of complication, type II or unspecified type, uncontrolled 250.02 Active Problem Special screening for malignant neoplasms, colon V76.51 Active Problem Dysmetabolic Syndrome X 277.7 Active Problem Essential and other specified forms of tremor 333.1 Active Problem Other chronic otitis externa 380.23 Active Problem Personal history of noncompliance with medical treatment, presenting hazards to health V15.81 Active Problem Unspecified iron deficiency anemia 280.9 Active Problem Cellulitis and abscess of unspecified site 682.9 Active Problem Asthma, unspecified, unspecified status 493.90 Active Problem Pneumonia, organism unspecified 486 Active Problem Unspecified essential hypertension 401.9 Active Problem Morbid obesity 278.01 Active Problem Other convulsions 780.39 Active Problem Candidiasis of vulva and vagina 112.1 Active Problem Unspecified constipation 564.00 Active Problem Nonallopathic lesion of pelvic region, not elsewhere classified 739.5 Active Problem 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
--- OUTSIDE RECORDS SUMMARY | 2017-07-06 01:26 | XMS REPORT ---
Author Author Love Guadarrama Organization [employer] Address Unknown Phone Unavailable Care Team Providers Care Ginner Name Role Phone Love Guadarrama CP Unavailable Allergies No Known Allergies Problems Problem Type Condition Code Onset Dates Condition Status Problem Cellulitis Of Left Finger L03.012 Active Problem Noncompliance Z91.19 Active Problem Cellulitis of Finger, Unspecified 681.00 Active Problem COPD (chronic obstructive pulmonary disease) J44.9 Active Problem Type 2 Diabetes Mellitus With Hyperglycemia E11.65 Active Problem Bipolar disorder F31.9 Active Medications No Known Medications Results No Known Results Summary Purpose [employer] Submission
--- OUTSIDE RECORDS SUMMARY | 2017-07-06 01:26 | XMS REPORT ---
Author Fabian Paul Organization [employer] Address Unknown Phone Unavailable Care Team Providers Care Ditch Worker Name Role Phone Fabian Roger CP Unavailable [...]
--- OUTSIDE RECORDS SUMMARY | 2017-07-06 01:26 | XMS REPORT ---
Author Author Alena Huertas [facility] Address [address] [place], [place] [address] Care Team Providers Care Income Tax Preparer Name Role Phone Alena Huertas PCP Unavailable [...] 2 times per day for 7 days [place] 7.5-325 mg oral tablet 09/12/2016 09/27/2016 take 1 tablet by oral route every 8 hours as needed for 15 days azithromycin 250 mg oral tablet 10/03/2016 10/08/2016 take 2 tablets (500 mg) by oral route once daily for 1 day then 1 tablet (250 mg) by oral route once daily for 4 days Anusol-HC 25 mg rectal suppository 10/08/2016 10/13/2016 25 mg [place] q hs for 5 nights amoxicillin 875 [...] HC BMI BSA BMI Percentile O2 Sat(%) 03/13/2017 12:58:00 PM 126 mmHg 68 mmHg [...] mellitus with hyperglycemia Oct 08 2016 1:21PM USP (current) use of insulin Oct 08 2016 1:21PM Rectal bleeding Oct 08 2016 1:21PM Iron deficiency anemia due to chronic blood loss Oct 08 2016 1:21PM Fatigue, unspecified type Oct 20 2016 2:56PM Type 2 diabetes mellitus with hyperglycemia Oct 20 2016 2:56PM terminal operations manager (current) use of insulin Oct 20 2016 [...] with hyperglycemia Feb 04 2017 11:25AM terminal operations manager (current) use of insulin Feb 04 2017 11:25AM Cirrhosis of liver without ascites, unspecified hepatic cirrhosis type Feb 04 2017 11:25AM Pain of right lower extremity Feb 16 2017 11:06AM Type 2 diabetes mellitus with hyperglycemia Feb 16 2017 11:06AM terminal operations manager (current) use of insulin Feb 16 2017 11:06AM Pain of right lower extremity Feb 23 2017 10:28AM Cirrhosis of liver without ascites, unspecified hepatic cirrhosis type Feb 23 2017 10:28AM Diabetes Mellitus, Type II, Uncontrolled Feb 23 2017 10:28AM Viral enteritis Mar 13 2017 1:04PM Payers Insurance Name Company Name Plan Name Plan Number Policy Number Policy Group Number Start Date Medicare Part B Medicare Of [place] [id number] Monday, 2008 [facility] State Plan [id number] Friday, 2012 Medicare RHC Medicare RHC [id number] N/A [facility] [place] State [facility] State Plan [id number] N/A Medicare Part A Medicare - Lab/Xray [id number] N/A History of Encounters Visit Date Visit Type Provider 03/13/2017 Office visit Alena Huertas MD 02/23/2017 Office visit Alena Huertas MD 02/16/2017 Office visit Alena Huertas MD 02/04/2017 Office visit Alena Huertas MD 01/23/2017 Office visit Radha Lomas MD 01/19/2017 Office visit Alena Huertas MD 01/13/2017 Office visit Alena Huertas MD 01/09/2017 Office visit Radha Lomas MD 01/02/2017 Office visit Alena Huertas MD 01/01/2017 Office visit Bridger Sarkar LETTUCE CUTTER 12/24/2016 Office visit Alena Huertas MD 12/22/2016 Office visit 12/22/2016 Office visit 12/22/2016 Office visit Alena Huertas MD 12/19/2016 Office visit Alena Huertas MD 12/17/2016 Office visit Alena Huertas MD 12/16/2016 Office visit Alena Huertas MD 12/12/2016 Surgery Cody Chao MD 12/12/2016 Office visit Alena Huertas MD 12/09/2016 Office visit Alena Huertas MD 12/03/2016 Office visit Mariana Cummins LETTUCE CUTTER 12/02/2016 Office visit Cody Chao MD 12/01/2016 Office visit Bridger Sarkar LETTUCE CUTTER 11/25/2016 Office visit Alena Huertas MD 11/21/2016 Office visit Mariana Cummins LETTUCE CUTTER 11/21/2016 Hospital Ahsan Cobb MD 11/14/2016 Hospital Ahsan Cobb MD 11/12/2016 Laboratory Mariana Cummins LETTUCE CUTTER 11/11/2016 Office visit Alena Huertas MD 10/31/2016 Office visit Alena Huertas MD 10/24/2016 Office visit Alena Huertas MD 10/20/2016 Office visit Alena Huertas MD 10/08/2016 Office visit Alena Huertas MD 10/06/2016 Laboratory Suad Roger LETTUCE CUTTER 10/03/2016 Office visit Alena Huertas MD 09/22/2016 Office visit Alena Huertas MD 09/19/2016 Office visit Mariana Cummins LETTUCE CUTTER 09/12/2016 Office visit Suad Roger LETTUCE CUTTER 08/28/2016 Office visit Bridger Sarkar LETTUCE CUTTER 08/22/2016 Office visit Suad Roger LETTUCE CUTTER 08/19/2016 Office visit Mariana Cummins LETTUCE CUTTER 08/15/2016 Office visit Bridger Sarkar LETTUCE CUTTER 08/11/2016 Office visit Mariana Cummins LETTUCE CUTTER 07/30/2016 Office visit Mariana Cummins APRN 07/23/2016 Office visit Suad Roger LETTUCE CUTTER 01/05/2016 Office visit Mariana Cummins APRN
--- OUTSIDE RECORDS SUMMARY | 2017-07-06 01:26 | XMS REPORT ---
Author Author Mariana Cummins Organization [facility] Address [address] [place], [place] [id number] Care Team Providers Care Crimping Machine Operator Name Role Phone Mariana Cummins PCP Unavailable [...] AND PELVIS W/WO CONTRAST 07/30/2016 12:00 AM insulin resistant diabetic 09/02/2016 1:00 [...] unit/mL subcutaneous insulin pen being referred to backend tester jul 30, 2016 as she is on [...] times per day as needed for cough [place] 7.5-325 mg oral tablet 09/12/2016 09/27/2016 take [...] HC BMI BSA BMI Percentile O2 Sat(%) 09/19/2016 9:42:00 AM 144 mmHg 72 mmHg [...] pain, anterior, right Sep 12 2016 5:41PM Payers Insurance Name Company Name Plan Name Plan Number Policy Number Policy Group Number Start Date Medicare RHC Medicare RHC [id number] N/A [employer] - [place] State Plan [employer] - [place] State Plan [id number] N/A Medicare Part A Medicare - Lab/Xray [id number] N/A Medicare Part B Medicare Of [place] [id number] Monday, October 27, 2008 [facility] [id number] Friday, June 29, 2012 History of Encounters Visit Date Visit Type Provider 09/19/2016 Office visit Mariana Cummins APRN 09/12/2016 [...]
--- OUTSIDE RECORDS SUMMARY | 2017-07-06 01:26 | XMS REPORT ---
Author Author Mariana Cummins [facility] Address [address] [place], [place] [address] Care Team Providers Care Entry Operator Name Role Phone Mariana Cummins PCP Unavailable Bone, Narda Unavailable Unavailable Acacia, Fabian Unavailable Unavailable Allergies and Adverse Reactions Name Reaction Notes SULFA (SULFONAMIDE ANTIBIOTICS) Plan of Treatment Not available. Medications Active Name Start Date Estimated Completion Date SIG Comments fluconazole 200 mg oral tablet 01/03/2016 01/13/2016 take 1 tablet (200 mg) by oral route once daily for 10 weeks azithromycin 500 mg oral tablet 01/03/2016 01/08/2016 take 1 tablet by oral route daily for 5 days for 5 days sucralfate 1 gram oral tablet take 1 tablet by oral route 3 times a day gabapentin 300 mg oral capsule take 2 capsules (600 mg) by oral route 3 times per day ranitidine HCl 300 mg oral tablet take 1 tablet (300 mg) by oral route once daily at bedtime potassium chloride 10 mEq oral capsule, extended release take 1 capsule (10 meq) by oral route 2 times per day with food levothyroxine 125 mcg oral tablet take 1 [...] by oral route once daily at bedtime Problem List Not available. Vital Signs Date Time BP-Sys(mm[Hg] BP-[place](mm[Hg]) HR(bpm) RR(rpm) Temp WT HT HC BMI BSA BMI Percentile O2 Sat(%) 01/05/2016 11:26:00 AM 106 mmHg 60 mmHg 73 bpm 16 rpm 97.3 F 185.6 lbs 61.5 in 34.50 kg/m2 1.91 m2 95 % Social History Name Description Comments Tobacco Former smoker Alcohol Light One or less per year History of Procedures Not available. Results Summary Not available. History Of Immunizations Not available. History of Past Illness Name Date of Onset Comments Diabetes Depression and anxiety Hypokalemia Hypothyroidism COPD Does not use a CPAP or oxygen but has it if needed Nosebleed Jan 05 2016 11:29AM Payers Insurance Name Company Name Plan Name Plan Number Policy Number Policy Group Number Start Date Medicare Part B Medicare Of [place] [id number] Monday, 2008 [employer] [place] [employer] [place] State Plan [id number] Friday, 2012 History of Encounters Visit Date Visit Type Provider 01/05/2016 Office visit Mariana Cummins APRN
--- OUTSIDE RECORDS SUMMARY | 2017-07-06 01:27 | XMS REPORT ---
Author Author Suad Roger [facility] Address [address] [place], [place] [id number] Care Team Providers Care Aluminum Pool Installer Name Role Phone Suad Roger PCP Unavailable [...] unit/mL subcutaneous insulin pen being referred to fire captain marine jul 30, 2016 as she is on [...] by oral route daily for 30 days [place] 7.5-325 mg oral tablet 08/19/2016 09/03/2016 take [...] 2016 11:06AM Influenza Aug 22 2016 11:21AM Payers Insurance Name Company Name Plan Name Plan Number Policy Number Policy Group Number Start Date Medicare RHC Medicare RHC [id number] N/A [employer] - R[place] - [place] State Plan [employer] - [place] State Plan [id number] N/A Medicare Part A Medicare - Lab/Xray [id number] N/A Medicare Part B Medicare [place] [id number] Monday, October 27, 2008 [employer] [place] State Plan [email or web address] State Plan [id number] Friday, June 29, 2012 History of Encounters Visit Date Visit Type Provider 08/22/2016 Office visit Suad Roger WRAPPER STRIPPER 08/19/2016 Office visit Mariana Cummins WRAPPER STRIPPER 08/15/2016 Office visit Bridger Sarkar WRAPPER STRIPPER 08/11/2016 Office visit Mariana Cummins WRAPPER STRIPPER 07/30/2016 Office visit Mariana Cummins WRAPPER STRIPPER 07/23/2016 Office visit Suad Roger WRAPPER STRIPPER 01/05/2016 Office visit Mariana Cummins APRN
--- OUTSIDE RECORDS SUMMARY | 2017-07-06 01:28 | XMS REPORT ---
Author Author Alena Huertas [facility] Address [address] [place], [place] [address] Care Team Providers Care Phototypesetting Equipment Monitor Name Role Phone Alena Huertas PCP Unavailable [...] 2 times per day for 7 days [place] 7.5-325 mg oral tablet 09/12/2016 09/27/2016 take [...] HC BMI BSA BMI Percentile O2 Sat(%) 10/24/2016 1:30:00 PM 118 mmHg 68 mmHg [...] 2:56PM Other ascites Oct 24 2016 1:35PM Payers Insurance Name Company Name Plan Name Plan Number Policy Number Policy Group Number Start Date Medicare Part B Medicare Of [place] [id number] Monday, 2008 [employer] [place] State Plan [facility] State [facility] [id number] Friday, 2012 Medicare RHC Medicare RHC [id number] N/A [employer] [place] [employer] [place] State Plan [id number] N/A Medicare Part A Medicare - Lab/Xray [id number] N/A History of Encounters Visit Date Visit Type Provider 10/24/2016 Office visit Alena Huertas MD 10/20/2016 Office visit Alena Huertas MD 10/08/2016 Office visit Alena Huertas MD 10/06/2016 Laboratory Suad Roger PRODUCTION HELPER 10/03/2016 Office visit Alena Huertas MD 09/22/2016 Office visit Alena Huertas MD 09/19/2016 Office visit Mariana Cummins PRODUCTION HELPER 09/12/2016 Office visit Suad Roger PRODUCTION HELPER 08/28/2016 Office visit Bridger Sarkar PRODUCTION HELPER 08/22/2016 Office visit Suad Roger PRODUCTION HELPER 08/19/2016 Office visit Mariana Cummins PRODUCTION HELPER 08/15/2016 Office visit Bridger Sarkar PRODUCTION HELPER 08/11/2016 Office visit Mariana Cummins PRODUCTION HELPER 07/30/2016 Office visit Mariana Cummins PRODUCTION HELPER 07/23/2016 Office visit Suad Roger PRODUCTION HELPER 01/05/2016 Office visit Mariana Cummins PRODUCTION HELPER
--- OUTSIDE RECORDS SUMMARY | 2017-07-06 01:28 | XMS REPORT ---
Author Author Love Guadarrama Organization [employer] Address [address] [place] [address] Care Team Providers Care Passenger Relations Representative Name Role Phone Love Guadarrama Unavailable PROBLEMS Type Condition ICD9-CM Code YLG35-ES Code Onset Dates Condition Status SNOMED Code Problem COPD (chronic obstructive pulmonary disease) J44.9 Active 71222869 Problem Hypothyroidism E03.9 Active 07507246 Problem Cellulitis of Finger, Unspecified 681.00 Active 119735452 Problem Type 2 Diabetes Mellitus With Hyperglycemia E11.65 Active 770221600859517 Problem Bipolar disorder F31.9 Active 95818393 Problem Cellulitis Of Left Finger L03.012 Active 29717296770557187 Problem Noncompliance Z91.19 Active 2566856 ALLERGIES Unknown Allergies SOCIAL HISTORY No smoking Hx information available PLAN OF CARE VITAL SIGNS MEDICATIONS Unknown Medications RESULTS No Results PROCEDURES No Known procedures IMMUNIZATIONS No Known Immunizations
--- OUTSIDE RECORDS SUMMARY | 2017-07-06 01:28 | XMS REPORT ---
Author Author Fabian Roger Organization [employer] Address Unknown Phone Unavailable Care Team Providers Care [place]t Name Role Phone Fabian Roger CP Unavailable [...] 280.9 Active Problem Other convulsions 780.39 Active Assessment Morbid obesity 278.01 Active Problem Asthma, unspecified, unspecified status 493.90 Active Assessment Unspecified hypothyroidism 244.9 Active Problem Depressive disorder, not elsewhere classified 311 Active Assessment Unspecified iron deficiency anemia 280.9 Active Problem Esophageal reflux 530.81 Active Problem [...] Active Problem Unspecified esophagitis 530.10 Active Assessment Diabetes mellitus without mention of complication, type II or unspecified type, not stated as uncontrolled 250.00 Active Problem Diabetes mellitus without mention of complication, type II or unspecified type, uncontrolled 250.02 Active Problem Congestive heart failure, unspecified 428.0 Active Assessment Dysmetabolic Syndrome X 277.7 Active Problem Nonallopathic lesion of thoracic region, not elsewhere classified 739.2 Active Assessment Chronic airway obstruction, not elsewhere classified 496 Active Problem Nonallopathic lesion of lumbar region, not elsewhere classified 739.3 Active Assessment Unspecified essential hypertension 401.9 Active Problem Lumbago 724.2 Active Assessment Polyneuropathy in diabetes 357.2 Active Problem Nonallopathic lesion of cervical region, [...] Instructions Start Date End Date Status Dosage Cipro [facility] [place] [address]-94 500 MG Orally Twice a day 1 tablet Albuterol Sulfate [facility] [place] 2] 33625015360 (2.5 MG/3ML) 0.083% 3ML THREE TIMES A DAY Spiriva HandiHaler [facility] [place] 2] [address]-16 18 MCG Inhalation Once a day 1 capsule Fanapt [facility] [place] 2] [address]-38 6 MG Orally Twice a day 1 tablet Zantac [facility] [place] 2] [address]-81 300 MG Orally Once a day at HS 1 tablet Xanax [facility] [place] 2] [address]-00 0.25 MG Orally once a day at HS 1 tablet as needed Levemir FlexTouch [facility] [place] 2] 67602292859 100 UNIT/ML INJECT 45 UNITS SUBQ AT BEDTIME Amitriptyline HCl [facility] [place] 2] [address]-05 25 MG Orally Once a day 1 tablet at bedtime BusPIRone HCl [facility] [place] 2] [address]-43 15 MG Orally Four times a day 1 tablet Flonase [facility] [place]NOTE 2] [address]-83 50 MCG/ACT Nasally Once a day 1 spray in each nostril Magnesium Oxide [facility] [place] 2] [address]-93 400 MG Orally Twice a day 1 tablet Rolfe [facility] [place] 2] [address]-38 5-325 MG Orally every 4 hrs 1 tablet as needed Synthroid [facility] [place] 2] [address]-61 112 MCG Orally Once a day 1 tablet Simethicone [facility] [place] 2] [address]-14 80 MG Orally not defined Gabapentin [facility] [place] 2] 13205356007 300 MG TAKE 1 CAPSULE BY MOUTH THREE TIMES A DAY AT 7AM, 2PM AND 10PM Albuterol Sulfate HFA [facility] [place]NOTE 2] [address]-02 108 (90 Base) MCG/ACT Inhalation every 4 hrs 2 puffs as needed Tylenol Extra Strength [facility] [place] 2] [address]-96 500 MG Orally every 6 hrs 1 tablet as needed Advair Diskus [facility] [place] 2] [address]-91 250-50 MCG/DOSE Inhalation Twice a day 1 puff Mylanta [facility] [place]NOTE 2] 90157-91110 200-200-20 MG/5ML Orally Four times a day 10 ml as needed Ambien [facility] [place] 2] [address]-63 10 MG Orally Once a day 1 tablet at bedtime as needed Potassium Chloride ER [facility] [place]NOTE 2] 95287446305 10 MEQ TAKE 1 TABLET BY MOUTH TWO TIMES A DAY HydrOXYzine HCl [facility] [place]NOTE 2] [address]-94 25 MG Orally not defined Combivent Respimat [facility] [place]NOTE 2] 32563333230 20-100 MCG/ACT ONE PUFF EVERY FOUR HOURS Carafate [facility] [place] 2] [address]-69 1 GM Orally Three times a day 1 tablet on an empty stomach NovoLog Flexpen [facility] [place]NOTE 2] 29459057686 100 UNIT/ML PER SLIDING SCALE BEFORE MEALS AND AT BEDTIME Invokana [facility] [place] 2] [address]-45 100 MG Orally Once a day 1 tablet Aspercreme [facility] [place]NOTE 2] 38979-48836 10 % Externally not defined Lotrisone [facility] [place]NOTE 2] [address]-69 1-0.05 % Externally Twice a day 1 application to affected area Robitussin DM [facility] [place] 2] [address]-12 100-10 MG/5ML Orally every 4 hrs 10 ml as needed Ferrous Sulfate [facility] [place] 2] [address]-76 325 (65 Fe) MG Orally Three times a day 1 tablet Cymbalta [facility] [place] 2] [address]-99 60 MG Orally Twice a day 1 capsule DuoNeb [facility] [place]NOTE 2] ____ not defined MiraLax [facility] [place]NOTE 2] [address]-06 Orally Once a day 1 packet mixed with 8 ounces of fluid Procedures Procedure Coding System Code Date TOBACCO NON-USER CPT-4 G8457 January 01, 2015 PRESCRIPTION BY E-PRESCRIB S CPT-4 G8443 January 01, 2015 BP SYS <130 AND LAMA <80 CPT-4 G8476 January 01, 2015 CLIN DEPRESSION SCREEN NOT D CPT-4 G8432 January 01, 2015 DOC MEDS VERIFIED W/PT OR RE CPT-4 G8427 January 01, 2015 PAIN ASSESSMENT DOCUMENT CPT-4 G8440 January 01, 2015 TX PLAN DEVELOP & DOCUMENT CPT-4 G8437 January 01, 2015 DOC PAIN ASSESS NO DOC F/U PLAN RNS CPT-4 G8509 January 01, 2015 AT LEAST 1 RX TRANSMIT ERX SYS CPT-4 G8553 January 01, 2015 BMI >=30 CALCUATE W/FOLLOWUP CPT-4 G8417 January 01, 2015 MOST RECENT SYSTOLIC BP <140 MM HG CPT-4 G8588 January 01, 2015 MOST RECENT DIASTOLIC BP <90 MM HG CPT-4 G8590 January 01, 2015 FLU VACCINE NOT SCREEN CPT-4 G8424 January 01, 2015 HG A1C LEVEL 7.0-9.0% CPT-4 3045F January 01, 2015 DSCH[facility] MED/CURRENT MED MERGE CPT-4 1111F January 01, 2015 Office Visit, Est Pt., Level 3 CPT-4 46704 January 01, 2015 MOST RECENT SYSTOLIC BP < 140MM HG CPT-4 G8752 January 01, 2015 MOST RECENT DIASTOLIC BP < 90MM HG CPT-4 G8754 January 01, 2015 Vital Signs Date/Time: January 01, 2015 Pain Scale 2/10 1-10 BMI 34.38 Index Peak Flow room air I/min Weight 182.0 lbs Height 61 in Respiratory Rate 21 /min Temperature 97.8 F Cardiac Monitoring Heart Rate 90 /min Oximetry 88 % Blood Pressure Diastolic 64 mm Hg Blood Pressure Systolic 112 mm Hg Results No Known Results Summary Purpose [employer] Submission
--- OUTSIDE RECORDS SUMMARY | 2017-07-06 01:28 | XMS REPORT ---
Author Author Love Guadarrama Organization [employer] Address Unknown Phone Unavailable Care Team Providers Care Security Field Supervisor Name Role Phone Love Guadarrama CP Unavailable Allergies No Known Allergies Problems Problem Type Condition Code Onset Dates Condition Status Assessment Type 2 Diabetes Mellitus With Hyperglycemia E11.65 Active Medications Medication Code System Code Instructions Start Date End Date Status Dosage Levemir FlexPen NDC 24034 100 units/mL subcutaneously bid 37 units am and 163 units pm NovoLog FlexPen NDC 81342 100 units/mL subcutaneously sliding scale Results No Known Results Summary Purpose [employer] Submission
--- OUTSIDE RECORDS SUMMARY | 2017-07-06 01:29 | XMS REPORT ---
Author Author Mariana Cummins Organization [facility] Address [address] [place], [place] [address] Care Team Providers Care Clutch Assembler Name Role Phone Mariana Cummins PCP Unavailable [...] per prescriber's instructions. Insulin dosing requires individualization. Name Start Date Expiration Date SIG Comments [...] 2 times per day for 7 days [place] 7.5-325 mg oral tablet 09/12/2016 09/27/2016 take 1 tablet by oral route every 8 hours as needed for 15 days azithromycin 250 mg oral tablet 10/03/2016 10/08/2016 take 2 tablets (500 mg) by oral route once daily for 1 day then 1 tablet (250 mg) by oral route once daily for 4 days Anusol-HC 25 mg rectal suppository 10/08/2016 10/13/2016 25 mg ND q hs for 5 nights Discontinued Name [...] HC BMI BSA BMI Percentile O2 Sat(%) 12/03/2016 2:19:00 PM 118 mmHg 68 mmHg [...] mellitus with hyperglycemia Oct 08 2016 1:21PM FDC (current) use of insulin Oct 08 2016 1:21PM Rectal bleeding Oct 08 2016 1:21PM Iron deficiency anemia due to chronic blood loss Oct 08 2016 1:21PM Fatigue, unspecified type Oct 20 2016 2:56PM Type 2 diabetes mellitus with hyperglycemia Oct 20 2016 2:56PM FDC (current) use of insulin Oct 20 2016 [...] 3:18PM Rectal bleeding Dec 02 2016 3:18PM Payers Insurance Name Company Name Plan Name Plan Number Policy Number Policy Group Number Start Date Medicare [facility] Medicare RHC [id number] N/A Amer[employer] - RHC - [place] State Plan Amerigroup - [facility] State Plan [id number] N/A Medicare Part A Medicare - Lab/Xray [id number] N/A Medicare Part B Medicare Of [place] [id number] Monday, October 27, 2008 [employer] [place] State Plan [facility] [id number] Friday, June 29, 2012 History of Encounters Visit Date Visit Type Provider 12/03/2016 Office visit Mariana Cummins FISHING ROD MECHANIC 12/02/2016 Office visit Cody Chao MD 12/01/2016 Office visit Bridger Sarkar APRN 11/25/2016 Office visit Alena Huertas MD 11/21/2016 Office visit Mariana Cummins FISHING ROD MECHANIC 11/12/2016 Laboratory Mariana Cummins FISHING ROD MECHANIC 11/11/2016 Office visit Alena Huertas MD 10/31/2016 Office visit Alena Huertas MD 10/24/2016 Office visit Alena Huertas MD 10/20/2016 Office visit Alena Huertas MD 10/08/2016 Office visit Alena Huertas MD 10/06/2016 Laboratory Suad Roger FISHING ROD MECHANIC 10/03/2016 Office visit Alena Huertas MD 09/22/2016 Office visit Alena Huertas MD 09/19/2016 Office visit Mariana Cummins FISHING ROD MECHANIC 09/12/2016 Office visit Suad Roger APRN 08/28/2016 Office visit Bridger Sarkar APRN 08/22/2016 Office visit Suad Roger APRN 08/19/2016 Office visit Mariana Cummins FISHING ROD MECHANIC 08/15/2016 Office visit Bridger Sarkar FISHING ROD MECHANIC 08/11/2016 Office visit Mariana Cummins APRN 07/30/2016 Office visit Mariana Cummins APRN 07/23/2016 Office visit Suad Roger FISHING ROD MECHANIC 01/05/2016 Office visit Mariana Cummins APRN
--- OUTSIDE RECORDS SUMMARY | 2017-07-06 01:29 | XMS REPORT | Continuity of Care Document ---
Author Author [facility] Organization [facility] Address [address] [place] [address] Phone Unavailable Care Team Providers Care Lawyer Probate Name Role Phone BRITTNI BRAVO M.D. PCP Insurance Providers Payer Name Policy Number Subscriber Name Relationship Medicare [id number] Chanell Sosa 18 Self / Same As Patient [employer] [id number] Chanell Sosa 18 Self / Same As Patient Advance Directives Directive Response Recorded Date/Time Living Will No 02/28/16 10:35am Advance Directives No 05/25/15 7:54am Advance Directive on File No 04/12/16 11:59am Durable POA for HC No 04/12/16 11:59am Power of Criminal Court Judge No 04/12/16 11:59am Organ Donor No 04/12/16 11:59am Living Will No 04/12/16 11:59am What is your agent's or registered representative's phone number? No 05/25/15 7:54am Chief Complaint and Reason for Visit Chief Complaint Dyspnea/Respdistress Reason for Visit Acute exacerbation of chronic bronchitis Uncontrolled type 2 diabetes mellitus with insulin therapy Chronic kidney disease, stage III (moderate) Problems Active Problems Medical Problem Onset Date [...] Oral Once A Day for Hyperglycemia Tiotropium Wall 18 Mcg 1 Mcg Inhalation Everyday At [...] needed for Nausea / Vomiting 20 06/19/15 Insulin Detemir 100 Unit/1 Ml 0 Sub-Q Everyday At 9 Pm for Diabetes 04/12/16 Insulin Detemir 100 Unit/1 Ml 0 Sub-Q Qam for Diabetes 04/12/16 Insulin Aspart 100 Unit/1 Ml 0 Sub-Q Before Meals for Diabetes Past Home Medications Medication Directions Ordered Status [...] Response Recorded Date/Time Smoking Status Former smoker 04/12/2016 12:00pm Smoked in the last 12 months? No 04/12/2016 12:00pm Do you dip or chew tobacco? No 04/12/2016 12:00pm Approx how many cigs per day? 0 04/12/2016 12:00pm Level of Dependence Low 04/12/2016 12:00pm Former smoker, last day smoked? 201104/12/2016 12:20pm Query Response Start Date Stop Date Smoking Status Former smoker Hospital Discharge Instructions No hospital discharge instructions. Plan of Care Discharge Date 04/12/16 2:30pm Disposition 01 D/C HOME Condition at Discharge Improved Instructions/Education Provided Acute Bronchitis (ED) Forms Provided ER Discharge Phone Call Check Prescriptions See Medication Section Referrals AAKASH MIRZA DO - Additional Instructions/Education Your laboratory studies displayed a significantly elevated blood sugar level of 427 mg/dl (normal 70 - 99). You also have signs of kidney damage, likely caused by persistently elevated blood sugar levels. If this situation is not addressed , it will continue to worsen to the point that dialysis may be necessary. Please take efforts to maintain an appropriate protein-carbohydrate balanced diet, and take insulin as directed, in order to maintain blood sugar levels of < 150 at all times. If a sputum specimen was obtained, results will be available in 3 - 5 days. An additional antibiotic may be necessary based on these results. If your nebulizer has been ordered through [facility], and has not yet been delivered, you need to contact [facility] directly and inform them of specific delivery location instructions. . Drink WATER every 20 minutes while awake for the next several days. Goal of 3 - 4 liters per day, or enough that your urine is either clear or very pale yellow. This will help thin secretions, and prevent toxin build up in your kidneys. It may prevent further episodes of lightheadedness or weakness. Reference Links Egg safety Functional Status Query Response Date Recorded Activities of Daily Living Performs w/o Assistance April 12, 2016 12:00pm Cognitive Function Intact April 12, 2016 12:00pm Allergies, Adverse Reactions, Alerts Allergen Type Severity Reaction Status Last Updated Sulfa (Sulfonamide Antibiotics) ([id number]) Allergy Unknown VOMITTING DIARRHEA Active 01/25/16 Poultry Allergy Unknown NAUSEA AND VOMITING Active 01/25/16 Iloperidone Allergy Intermediate seizures Active 04/12/16 Immunizations No immunization records. Vital Signs Acute Vital Signs Vital Response Date/Time Temperature (Fahrenheit) 98.3 degrees F (97.6 - 99.5) 04/12/2016 1:40pm Temperature (Calculated Celsius) 36.03695 degrees C (36.4 - 37.5) 04/12/2016 1:40pm Temperature Source Temporal Artery Scan 04/12/2016 1:40pm Pulse Pulse Ox Pulse Rate (adult) 91 beats per minute (60 - 90) 04/12/2016 2:34pm Pulse Location Modifier Right 04/12/2016 2:34pm Oxygen Saturation Respiratory Rate 16 breaths per minute (12 - 24) 04/12/2016 2:34pm O2 Sat by Pulse Oximetry 92 % (90 - 100) 04/12/2016 2:34pm Blood Pressure 129/59 mm Hg 04/12/2016 2:34pm Blood Pressure Mean 82 mm Hg 04/12/2016 2:34pm Height 5 ft 1 in Weight 180 lb Body Mass Index 34.0 kg/m^2 Results Pending Laboratory Results Test Name Collection Date/Time Procedures Procedure Status Date Provider(s) EMERGENCY DEPT VISIT Completed 06/19/15 ROUTINE VENIPUNCTURE Completed 01/25/16 COMPREHEN METABOLIC PANEL Completed 01/25/16 URINALYSIS NONAUTO W/SCOPE Completed 01/25/16 ASSAY OF TROPONIN QUAL Completed 01/25/16 COMPLETE CBC W/AUTO DIFF WBC Completed 01/25/16 ELECTROCARDIOGRAM TRACING Completed 01/25/16 EMERGENCY DEPT VISIT Completed 01/25/16 EMERGENCY DEPT VISIT Completed 01/25/16 Encounters Encounter Location Arrival/Admit Date Discharge/Depart Date Attending Provider Departed Emergency Room [facility] 04/12/16 11:51am 04/12/16 2: 30pm TATUM ARCHIBALD APRN Discharged Recurring [facility] 02/28/16 10:37am 03/14/16 10: 57am BRITTNI BRAVO M.D. Departed Emergency Room [facility] 01/25/16 9:20am 01/25/16 11: 25am ADALBERTO GONZALES MD Registered Clinic [facility] 07/16/15 1:55pm BRITTNI BRAVO M.D. Departed Emergency Room [facility] 06/19/15 11:58am 06/19/15 2: 17pm SMITA MICHELE APRN Recent Diagnosis
--- OUTSIDE RECORDS SUMMARY | 2017-07-06 01:30 | XMS REPORT ---
Author Author Fabian Roger Organization [employer] Address Unknown Phone Unavailable Care Team Providers Care Seed Collector Name Role Phone Fabian Roger CP Unavailable Allergies, Adverse Reactions, Alerts Substance Reaction Event Type Seafood/Fish Info Not Available Non Drug Allergy Sulfa Info Not Available Non Drug Allergy Poultry Info Not Available Non Drug Allergy Milk Info Not Available Non Drug Allergy Problems Problem Type Condition Code Onset Dates Condition Status Problem Myoclonus G25.3 Active Problem Morbid (severe) obesity due to excess calories E66.01 Active Problem Chills (without fever) R68.83 Active Problem Acute maxillary sinusitis, unspecified J01.00 Active Problem Unspecified otitis externa, unspecified ear H60.90 Active Problem Otitis media, unspecified, unspecified ear H66.90 Active Problem Metabolic syndrome E88.81 Active Problem Insomnia, unspecified G47.00 Active Problem Other muscle spasm M62.838 Active Problem Other asthma J45.998 Active Problem Segmental and somatic dysfunction of pelvic region M99.05 Active Problem Major depressive disorder, single episode, unspecified F32.9 Active Problem Segmental and somatic dysfunction of sacral region M99.04 Active Problem Pain in unspecified joint M25.50 Active Problem Unspecified diastolic (congestive) heart failure I50.30 Active Problem Chronic obstructive pulmonary disease, unspecified J44.9 Active Problem Type 2 diabetes mellitus with diabetic polyneuropathy E11.42 Active Problem Other seizures G40.89 Active Problem Segmental and somatic dysfunction of cervical region M99.01 Active Problem Segmental and somatic dysfunction of thoracic region M99.02 Active Assessment Morbid (severe) obesity due to excess calories E66.01 Active Problem Sprain of other specified parts of left knee, initial encounter S83.8X2A Active Problem Segmental and somatic dysfunction of lumbar region M99.03 Active Assessment Essential (primary) hypertension I10 Active Problem Type 2 diabetes mellitus without complications E11.9 Active Assessment Metabolic syndrome E88.81 Active Problem Fall from bed, initial encounter W06.XXXA Active Assessment Other slipping, tripping and stumbling without falling, initial encounter W18.49XA Active Problem Other slipping, tripping and stumbling without falling, initial encounter W18.49XA Active Problem Chronic obstructive pulmonary disease with acute lower respiratory infection J44.0 Active Assessment Sprain of other specified parts of left knee, initial encounter S83.8X2A Active Problem Candidiasis of vulva and vagina B37.3 Active Problem Type 2 diabetes mellitus with hyperglycemia E11.65 Active Problem Constipation, unspecified K59.00 Active Assessment Other seizures G40.89 Active Problem Low back pain M54.5 Active Assessment Chronic obstructive pulmonary disease, unspecified J44.9 Active Problem Pneumonia, unspecified organism J18.9 Active Assessment Type 2 diabetes mellitus with diabetic polyneuropathy E11.42 Active Problem Unspecified convulsions R56.9 Active Assessment Type 2 diabetes mellitus without complications E11.9 Active Problem Iron deficiency anemia, unspecified D50.9 Active Problem 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 Problem Essential (primary) hypertension I10 Active Medications Medication Code System Code Instructions Start Date End Date Status Dosage Albuterol Sulfate [facility] [id number] (2.5 MG/3ML) 0.083% Orally Three times a day 3 ml Procedures Procedure Coding System Code Date PRESCRIP NOT GEN AT ENCOUNTE CPT-4 G8445 May 14, 2015 PAIN ASSESSMENT DOCUMENT CPT-4 G8440 May 14, 2015 TOBACCO NON-USER CPT-4 G8457 May 14, 2015 DOC MEDS VERIFIED W/PT OR RE CPT-4 G8427 May 14, 2015 BMI>=30OR<22 RUDY NO FOLLOWUP CPT-4 G8419 May 14, 2015 TX PLAN DEVELOP & DOCUMENT CPT-4 G8437 May 14, 2015 CLIN DEPRESSION SCREEN DOC CPT-4 G8431 May 14, 2015 BP SYS <130 AND LAMA <80 CPT-4 G8476 May 14, 2015 DOC PAIN ASSESS NO DOC F/U PLAN RNS CPT-4 G8509 May 14, 2015 Office Visit, Est Pt., Level 3 CPT-4 28118 May 14, 2015 MOST RECENT SYSTOLIC BP <140 MM HG CPT-4 G8588 May 14, 2015 MOST RECENT DIASTOLIC BP <90 MM HG CPT-4 G8590 May 14, 2015 PT RECEIV INFLUENZA VACC CPT-4 G8108 May 14, 2015 DSCHRG MED/CURRENT MED MERGE CPT-4 1111F May 14, 2015 FLU IMMUNIZE ORDER/ADMIN CPT-4 G8482 May 14, 2015 URINE-NO MICRO CPT-4 85783 May 14, 2015 MOST RECENT SYSTOLIC BP < 140MM HG CPT-4 G8752 May 14, 2015 MOST RECENT DIASTOLIC BP < 90MM HG CPT-4 G8754 May 14, 2015 Vital Signs Date/Time: May 14, 2015 Pain Scale 10/10 1-10 BMI 36.09 Index Peak Flow room air I/min Weight 191.0 lbs Height 61 in Respiratory Rate 20 /min Temperature 97.4 F Cardiac Monitoring Heart Rate 93 /min Oximetry 87 % Blood Pressure Diastolic 68 mm Hg Blood Pressure Systolic 114 mm Hg Results No Known Results Summary Purpose [employer]Works Submission
--- OUTSIDE RECORDS SUMMARY | 2017-07-06 01:30 | XMS REPORT ---
Author Author Love Guadarrama Organization [employer] Address Unknown Phone Unavailable Care Team Providers Care Welding Lead Burner Name Role Phone Love Guadarrama CP Unavailable Allergies No Known Allergies Problems No Known Problems Medications No Known Medications Results No Known Results Summary Purpose [employer] Submission
--- OUTSIDE RECORDS SUMMARY | 2017-07-06 01:31 | XMS REPORT ---
Author Author Chiara Love Organization [facility] Address [address] [place] [address] Care Team Providers Care Postal Superintendent Name Role Phone Love Guadarrama Unavailable PROBLEMS Type Condition ICD9-CM Code FXG14-HV Code Onset Dates Condition Status SNOMED Code Problem Cellulitis Of Left Finger L03.012 Active [id number] Problem Hypothyroidism E03.9 Active 96504825 Problem Cellulitis of Finger, Unspecified 681.00 Active 980760905 Problem COPD (chronic obstructive pulmonary disease) J44.9 Active 30009455 Problem Bipolar disorder F31.9 Active 71775061 Problem Type 2 Diabetes Mellitus With Hyperglycemia E11.65 Active 216177103901371 Problem Noncompliance Z91.19 Active 7767891 Problem Leg pain, right 729.5 Active 47620422 Problem Leg Pain UNSPECIFIED M79.606 Active 58593456 Problem Bronchitis J40 Active 05470410 Problem GERD Without Esophagitis K21.9 Active 271368297 Problem Cardiomegaly I51.7 Active 7792027 Problem Pharyngitis J02.9 Active 331899366 ALLERGIES Unknown Allergies SOCIAL HISTORY No smoking Hx information available PLAN OF CARE VITAL SIGNS MEDICATIONS Medication Instructions Dosage Frequency Start Date End Date Duration Status Spiriva 18 mcg inhaled once a day 0 24h Active sucralfate 1 g orally TID 1 tab(s) 8h Active duloxetine 60 mg orally once a day 1 cap(s) 24h Active Abilify 2 mg orally once a day 1 tab(s) 24h Active albuterol 2.5 mg/3 mL (0.083%) inhaled every 6 hours 3 ml 6h May, Active NovoLog FlexPen 100 units/mL sliding scale Active buspirone 15 mg orally QID 1 tab(s) 6h Active gabapentin 300 mg orally TID 2 caps 8h Active Tessalon Perles 100 mg orally 3 times a day 1 cap(s) 8h Active TRUEplus Lancets 30g Active levothyroxine 125 mcg (0.125 mg) orally once a day 1 tab(s) 24h Active Invokana 100 mg orally once a day 1 tab(s) 24h Active Blood Glucose Test Strips Active Combivent Respimat CFC free 100 mcg-20 mcg/inh inhaled 4 times a day 1 puff(s ) 6h Active Levemir FlexPen 100 units/mL subcutaneously bid 37 units am and 163 units pm 12h Active amitriptyline 25 mg orally once a day (at bedtime) 1 tab(s) Active Advair Diskus 250 mcg-50 mcg inhaled 2 times a day 1 puff(s) 12h Apr, Active potassium chloride 10MEQ PO Daily 1 tab 24h 30 days Active RESULTS No Results PROCEDURES No Known procedures IMMUNIZATIONS No Known Immunizations
--- OUTSIDE RECORDS SUMMARY | 2017-07-06 01:31 | XMS REPORT ---
Author Author Alena Huertas [facility] Address [address] [place], [place] [address] Care Team Providers Care Baggage Clerk Name Role Phone Alena Huertas PCP Unavailable [...] 2 times per day for 7 days [place] 7.5-325 mg oral tablet 09/12/2016 09/27/2016 take [...] mellitus with hyperglycemia Feb 04 2017 11:25AM residential (current) use of insulin Feb 04 2017 11:25AM Cirrhosis of liver without ascites, unspecified hepatic cirrhosis type Feb 04 2017 11:25AM Pain of right lower extremity Feb 16 2017 11:06AM Type 2 diabetes mellitus with hyperglycemia Feb 16 2017 11:06AM equipment operator intermodal yard (current) use of insulin Feb 16 2017 11:06AM Pain of right lower extremity Feb 23 2017 10:28AM Cirrhosis of liver without ascites, unspecified hepatic cirrhosis type Feb 23 2017 10:28AM Diabetes Mellitus, Type II, Uncontrolled Feb 23 2017 10:28AM Payers Insurance Name Company Name Plan Name Plan Number Policy Number Policy Group Number Start Date Medicare Part B Medicare Of [place] [id number] Monday, 2008 [employer] [place] State Plan [facility] [id number] Friday, 2012 Medicare RHC Medicare RHC [id number] N/A [facility] [place] State Plan [facility] [place] State Plan [id number] N/A Medicare Part A Medicare - Lab/Xray [id number] N/A History of Encounters Visit Date Visit [...] Huertas MD 12/03/2016 Office visit Mariana Cummins POST ACUTE CARE REGISTERED NURSE 12/02/2016 Office visit Cody Chao MD 12/01/2016 Office visit Bridger Sarkar POST ACUTE CARE REGISTERED NURSE 11/25/2016 Office visit Alena Huertas MD 11/21/2016 Office visit Mariana Cummins POST ACUTE CARE REGISTERED NURSE 11/14/2016 [facility] Riley Cobb MD 11/12/2016 Laboratory Mariana Cummins POST ACUTE CARE REGISTERED NURSE 11/11/2016 Office visit Alena Huertas MD 10/31/2016 Office visit Alena Huertas MD 10/24/2016 Office visit Alena Huertas MD 10/20/2016 Office visit Alena Huertas MD 10/08/2016 Office visit Alena Huertas MD 10/06/2016 Laboratory Suad Roger POST ACUTE CARE REGISTERED NURSE 10/03/2016 Office visit Alena Huertas MD 09/22/2016 Office visit Alena Huertas MD 09/19/2016 Office visit Mariana Cummins POST ACUTE CARE REGISTERED NURSE 09/12/2016 Office visit Suad Roger POST ACUTE CARE REGISTERED NURSE 08/28/2016 Office visit Bridger [place] POST ACUTE CARE REGISTERED NURSE 08/22/2016 Office visit Suad Kana POST ACUTE CARE REGISTERED NURSE 08/19/2016 Office visit Marianayana Cummins POST ACUTE CARE REGISTERED NURSE 08/15/2016 Office visit Bridger [place] POST ACUTE CARE REGISTERED NURSE 08/11/2016 Office visit Marianayana Cummins POST ACUTE CARE REGISTERED NURSE 07/30/2016 Office visit Marianayana Cummins POST ACUTE CARE REGISTERED NURSE 07/23/2016 Office visit Suad Kana POST ACUTE CARE REGISTERED NURSE 01/05/2016 Office visit Marianayana Cummins POST ACUTE CARE REGISTERED NURSE
--- OUTSIDE RECORDS SUMMARY | 2017-07-06 01:33 | XMS REPORT ---
Author Author Alena Huertas [facility] Address [address] [place], [place] [address] Care Team Providers Care Grill Prep Cook Name Role Phone Alena Huertas PCP Unavailable [...] per prescriber's instructions. Insulin dosing requires individualization. Voltaren 1 % topical gel 12/24/2016 01/13/2017 apply to affected area(s) by topical route 3 times a day as needed for 10 days severe leg pain cyclobenzaprine 10 mg oral tablet 01/09/2017 01/16/2017 take 1 tablet (10 mg) by oral route 3 times per day for 7 days sucralfate 1 gram oral tablet 01/12/2017 03/13/2017 [...] 2 times per day for 7 days [place] 7.5-325 mg oral tablet 09/12/2016 09/27/2016 take [...] 3 times per day for 10 days Discontinued [...] needed for 30 days switch to lyrica Merasalclarisse Perles 100 mg oral capsule 08/22/2016 12/09/2016 [...] HC BMI BSA BMI Percentile O2 Sat(%) 01/13/2017 1:19:00 PM 116 mmHg 68 mmHg [...] Reviewed 12/23/2016 12:00 AM VASCULAR STUDY Reviewed Results Summary Date and Description Results [...] mellitus with hyperglycemia Oct 08 2016 1:21PM [facility] (current) use of insulin Oct 08 2016 1:21PM Rectal bleeding Oct 08 2016 1:21PM Iron deficiency anemia due to chronic blood loss Oct 08 2016 1:21PM Fatigue, unspecified type Oct 20 2016 2:56PM Type 2 diabetes mellitus with hyperglycemia Oct 20 2016 2:56PM long term care administrator (current) use of insulin Oct 20 2016 [...] right lower extremity Jan 13 2017 1:25PM Payers Insurance Name Company Name Plan Name Plan Number Policy Number Policy Group Number Start Date Medicare Part B Medicare Of [place] [id number] Monday, 2008 [facility] State Plan [id number] Friday, 2012 Medicare RHC Medicare RHC [id number] N/A [facility] [place] State Plan [facility] State Plan [id number] N/A Medicare Part A Medicare - Lab/Xray [id number] N/A History of Encounters Visit Date Visit Type Provider 01/13/2017 Office visit Alena Huertas MD 01/09/2017 [...] Huertas MD 12/03/2016 Office visit Mariana Cummins ECONOMICS PROFESSOR 12/02/2016 Office visit Cody Chao MD 12/01/2016 Office visit Bridger Sarkar ECONOMICS PROFESSOR 11/25/2016 Office visit Alena Huertas MD 11/21/2016 Office visit Mariana Cummins ECONOMICS PROFESSOR 11/12/2016 Laboratory Mariana Cummins ECONOMICS PROFESSOR 11/11/2016 Office visit Alena Huertas MD 10/31/2016 Office visit Alena Huertas MD 10/24/2016 Office visit Alena Huertas MD 10/20/2016 Office visit Alena Huertas MD 10/08/2016 Office visit Alena Huertas MD 10/06/2016 Laboratory Suad Roger ECONOMICS PROFESSOR 10/03/2016 Office visit Alena Huertas MD 09/22/2016 Office visit Alena Huertas MD 09/19/2016 Office visit Mariana Cummins ECONOMICS PROFESSOR 09/12/2016 Office visit Suad Roger ECONOMICS PROFESSOR 08/28/2016 Office visit Bridger Sarkar ECONOMICS PROFESSOR 08/22/2016 Office visit Suad Roger ECONOMICS PROFESSOR 08/19/2016 Office visit Mariana Cummins ECONOMICS PROFESSOR 08/15/2016 Office visit Bridger Sarkar ECONOMICS PROFESSOR 08/11/2016 Office visit Mariana Cummins ECONOMICS PROFESSOR 07/30/2016 Office visit Mariana Cummins ECONOMICS PROFESSOR 07/23/2016 Office visit Suad Roger ECONOMICS PROFESSOR 01/05/2016 Office visit Mariana Cummins ECONOMICS PROFESSOR
--- OUTSIDE RECORDS SUMMARY | 2017-07-06 01:34 | XMS REPORT ---
Author Author Mariana Cummins Organization [facility] Address [address] [place], [place] [address] Care Team Providers Care Wheel Braider Name Role Phone Mariana Cummins PCP Unavailable [...] unit/mL subcutaneous insulin pen being referred to acls nurse jul 30, 2016 as she is on [...] times per day as needed for cough [place] 7.5-325 mg oral tablet 09/12/2016 09/27/2016 take [...] 2016 9:54AM Flatulence Sep 19 2016 9:54AM Payers Insurance Name Company Name Plan Name Plan Number Policy Number Policy Group Number Start Date Medicare RHC Medicare RHC [id number] N/A [employer] - R[place] - [place] State Plan [employer] - RHC [place] State Plan [id number] N/A Medicare Part A Medicare - Lab/Xray [id number] N/A Medicare Part B Medicare Of [place] [id number] Monday, October 27, 2008 [facility] State [facility] State Plan [id number] Friday, June 29, 2012 History of Encounters Visit Date Visit Type Provider 09/19/2016 Office visit Mariana Cummins APRN 09/12/2016 Office visit Suad Roger APRN 08/28/2016 Office visit Bridger Sarkar LOG RIDER 08/22/2016 Office visit Suad Roger APRN 08/19/2016 Office visit Mariana Cummins APRN 08/15/2016 Office visit Bridger Sarkar LOG RIDER 08/11/2016 Office visit Mariana Cummins APRN 07/30/2016 Office visit Mariana Cummins APRN 07/23/2016 Office visit Suad Roger LOG RIDER 01/05/2016 Office visit Mariana Cummins LOG RIDER
--- OUTSIDE RECORDS SUMMARY | 2017-07-06 01:34 | XMS REPORT | Continuity of Care Document ---
Author Author [facility] Organization [facility] Address [address] [place] [address] Phone Unavailable Care Team Providers Care Liquid Chlorine Operator Name Role Phone ALFREDA AKINS PCP Insurance Providers Payer Name Policy Number Subscriber Name Relationship Medicare [id number] Chanell Sosa 18 Self / Same As Patient [employer] [id number] Chanell Sosa 18 Self / Same As Patient Advance Directives Directive Response Recorded Date/Time Living Will No 02/28/16 10:35am Advance Directives No 05/25/15 7:54am Advance Directive on File No 07/26/16 2:50pm Durable POA for HC No 07/26/16 2:50pm Power of Actuary Manager No 07/26/16 2:50pm Organ Donor No 07/26/16 2:50pm Living Will No 07/26/16 2:50pm What is your agent's or sales representative metals's phone number? No 05/25/15 7:54am Chief Complaint and Reason for Visit Chief Complaint Respiratory Complaint Reason for Visit Chronic obstructive pulmonary disease with acute exacerbation Problems Active Problems Medical Problem Onset Date Status Achilles tendinitis of right lower extremity Unknown Acute Acute exacerbation of chronic bronchitis Unknown Acute Chronic kidney disease, stage III (moderate) Unknown Acute Chronic obstructive pulmonary disease with acute exacerbation Unknown Acute Deep vein thrombosis (DVT) of [...] Oral Once A Day for Hyperglycemia Tiotropium [place] 18 Mcg 1 Mcg Inhalation Everyday At [...] Four Times A Day for Copd 07/18/16 Tramadol Hcl 50 Mg 50 Mg Oral Every Eight Hours as needed for Pain 1 07/18/16 Prednisone 10 Mg 10 Mg Oral Once A Day 15 take 5 pills on Thursday, then 4 , then 3, then 2, then 1 07/26/16 Amoxicillin 500 Mg 500 Mg Oral Three Times A Day 07/26/16 Tramadol Hcl 50 Mg 50 Mg Oral Every Six Hours 07/26/16 Past Home Medications Medication Directions Ordered Status [...] Every Eight Hours for Cough 05/13/16 Discontinued Aspirin 81 Mg Tablet.dr, 81 Mg Oral Once A Day for Heart Health 07/18/16 Discontinued Social History Social History Problem Response Recorded Date/Time Smoking Status Former smoker 07/26/2016 2:51pm Smoked in the last 12 months? No 07/26/2016 2:51pm Do you dip or chew tobacco? No 07/26/2016 2:51pm Approx how many cigs per day? 0 07/26/2016 2:51pm Level of Dependence Low 07/26/2016 2:51pm Former smoker, last day smoked? quit 5 yrs ago 07/26/2016 2:51pm Query Response Start Date Stop Date Smoking Status Former smoker Hospital Discharge Instructions No hospital discharge instructions. Plan of Care Discharge Date 07/26/16 4:00pm Disposition D/C HOME Condition at Discharge Stable Instructions/Education Provided COPD (Chronic Obstructive Pulmonary Disease) ( ED) Prescriptions See Medication Section Referrals ALFREDA AKINS - Additional Instructions/Education Tell your doctor about your enlarged liver, as it needs to be checked further. Also, you are a little anemic, so that needs to be checked as well. Reference Links Reference Text What is COPD? COPD is a lung disease that makes it hard to breathe. In people with COPD, the airways (the branching tubes that carry air within the lungs) become narrow and damaged (figure 1). This makes people feel out of breath and tired. COPD can be a serious illness. It cannot be cured and it usually gets worse over time. But there are treatments that can help. You might have heard COPD referred to as "chronic bronchitis" or "emphysema." These are types of COPD. Why did I get COPD? The most common cause of COPD is smoking. Smoke can damage the lungs forever and cause COPD. People can also get COPD from breathing in toxic fumes or gases. In rare cases, COPD is caused by a genetic problem. A blood test can check for this. What are the symptoms of COPD? At first, COPD often causes no symptoms. As it gets worse it can make you: ?Feel short of breath, especially when you are moving around ?Wheeze (make a whistling or squeaking noise as you breathe) ?Cough and spit up phlegm (mucus) People who have had COPD for a while are also at increased risk for: ?Infections, such as pneumonia ?Lung cancer ?Heart problems Is there a test for COPD? Yes. Your doctor or nurse can give you a test called "spirometry" to check for COPD. During spirometry, you take a deep breath and then blow out as fast and hard as you can into a tube. A machine connected to the tube measures how much air you can blow out of your lungs and how fast you can blow. If the results of your spirometry are NOT normal, you will get a medicine in an inhaler to see if your breathing gets better. Then after a few minutes, you will repeat the spirometry. This will help the doctor or nurse find out if your problem is caused by COPD or another lung problem, such as asthma. People with asthma usually get normal results after they use an inhaler. People with COPD do not. Is there anything I can do to feel better? Yes. Here are 2 important things you should do: ?STOP SMOKING! If you smoke, the most important thing you can do for your COPD is to stop smoking. It does not matter how long you have smoked or how much you smoke. Quitting will slow your disease and help you feel better. ?Get the flu shot every fall, and the pneumonia vaccine at least once. Infections like the flu and pneumonia can be very hard on your lungs. It's important to try to prevent them. How is COPD treated? There are 4 main types of treatment for COPD: ?Medicines There are a lot of medicines to treat COPD. Most people use inhalers that help open up their airways or decrease swelling in the airways. Often people need more than one inhaler at a time. You might need to take a steroid medicine in a pill for a flare of COPD. This steroid medicine is not the kind that athletes take to build up muscle. ?Oxygen If the disease gets worse, you might need to use oxygen. Your doctor or nurse can test your blood oxygen to see if you need this. ?Pulmonary rehab In pulmonary rehab, you learn to improve their symptoms in new ways. You learn exercises and ways to breathe that can help ease symptoms. Even if you don't do a pulmonary rehab program, staying active can help your breathing. ?Surgery RARELY, people with severe COPD will have surgery to remove the most damaged parts of their lung. This surgery can reduce symptoms, but it does not always work. Functional Status Query Response Date Recorded Activities of Daily Living Performs w/o Assistance July 26, 2016 2:50pm Cognitive Function Intact July 26, 2016 2:50pm Allergies, Adverse Reactions, Alerts Allergen Type Severity Reaction Status Last Updated Sulfa (Sulfonamide Antibiotics) ([id number]) Allergy Unknown VOMITTING DIARRHEA Active 01/25/16 Poultry Allergy Unknown NAUSEA AND VOMITING Active 01/25/16 Milk Adverse Reaction Intermediate NAUSEA AND VOMITING Active 07/18/16 Iloperidone Allergy Intermediate seizures Active 04/12/16 SEA FOOD Adverse Reaction Intermediate NAUSEA AND VOMITING Active 07/18/16 Immunizations No immunization records. Vital Signs Acute Vital Signs Vital Response Date/Time Temperature (Fahrenheit) 98.1 degrees F (97.6 - 99.5) 07/26/2016 3:30pm Temperature (Calculated Celsius) 36.63216 degrees C (36.4 - 37.5) 07/26/2016 3:30pm Temperature Source Temporal Artery Scan 07/26/2016 3:30pm Pulse Pulse Ox Pulse Rate (adult) 87 beats per minute (60 - 90) 07/26/2016 3:30pm Pulse Location Modifier Left 07/26/2016 3:30pm Oxygen Saturation Respiratory Rate 18 breaths per minute (12 - 24) 07/26/2016 3:30pm O2 Sat by Pulse Oximetry 95 % (90 - 100) 07/26/2016 3:30pm Blood Pressure 126/47 mm Hg 07/26/2016 3:30pm Blood Pressure Mean 73 mm Hg 07/26/2016 3:30pm Height 5 ft 1 in Weight 182 lb Body Mass Index 34.4 kg/m^2 Results Pending Laboratory Results Test Name [...] Completed 06/28/16 EMERGENCY DEPT VISIT Completed 06/28/16 TTE W/DOPPLER COMPLETE Completed 07/22/16 EXTREMITY STUDY Completed 07/22/16 EMERGENCY DEPT VISIT Completed 07/02/16 EMERGENCY DEPT VISIT Completed 07/02/16 Encounters Encounter Location Arrival/Admit Date Discharge/Depart Date Attending Provider Departed Emergency Room [facility] 07/26/16 2:33pm 07/26/16 4: 00pm ADALBERTO GONZALES MD [facility] 07/22/16 8:47am TIMUR SWENSON Departed Emergency Room [facility] 07/18/16 6:59pm 07/18/16 9: 56pm TATUM ARCHIBALD APRN [facility] 07/04/16 1:42pm TIMUR SWENSON Departed Emergency Room [facility] 07/02/16 2:32am 07/02/16 4: 30am ELMIRA SANTACRUZ MD Departed Emergency Room [facility] 06/28/16 11:28pm 06/29/16 3: 05am KIRA CRUZ MD [facility] 06/26/16 1:42pm TIMUR SWENSON Departed Emergency Room [facility] 05/13/16 6:42pm 05/13/16 9: 00pm SMITA MICHELE APRN [facility] 04/21/16 2:37pm TIMUR SWENSON Departed Emergency Room [facility] 04/12/16 11:51am 04/12/16 2: 30pm TATUM ARCHIBALD APRN Discharged [facility] 02/28/16 10:37am 03/14/16 10: 57am BRITTNI BRAVO M.D. Departed Emergency Room [facility] 01/25/16 9:20am 01/25/16 11: 25am ADALBERTO GONZALES MD Recent Diagnosis
--- OUTSIDE RECORDS SUMMARY | 2017-07-06 01:34 | XMS REPORT ---
Author Author Love Guadarrama Organization [employer] Address Unknown Phone Unavailable Care Team Providers Care Plastics Spreading Machine Operator Name Role Phone Love Guadarrama CP Unavailable Allergies No Known Allergies Problems No Known Problems Medications No Known Medications Results No Known Results Summary Purpose [employer] Submission
--- OUTSIDE RECORDS SUMMARY | 2017-07-06 01:35 | XMS REPORT ---
Author Author Alena Huertas [facility] Address [address] [place], [place] [address] Care Team Providers Care Regroover Name Role Phone Alena Huertas PCP Unavailable [...] 2 times per day for 7 days [place] 7.5-325 mg oral tablet 09/12/2016 09/27/2016 take 1 tablet by oral route every 8 hours as needed for 15 days azithromycin 250 mg oral tablet 10/03/2016 10/08/2016 take 2 tablets (500 mg) by oral route once daily for 1 day then 1 tablet (250 mg) by oral route once daily for 4 days Anusol-HC 25 mg rectal suppository 10/08/2016 10/13/2016 25 mg PA q hs for 5 nights Discontinued Name [...] mellitus with hyperglycemia Oct 08 2016 1:21PM group home (current) use of insulin Oct 08 2016 1:21PM Rectal bleeding Oct 08 2016 1:21PM Iron deficiency anemia due to chronic blood loss Oct 08 2016 1:21PM Fatigue, unspecified type Oct 20 2016 2:56PM Type 2 diabetes mellitus with hyperglycemia Oct 20 2016 2:56PM group home (current) use of insulin Oct 20 2016 2:56PM Other ascites Oct 24 2016 1:35PM Payers Insurance Name Company Name Plan Name Plan Number Policy Number Policy Group Number Start Date Medicare Part B Medicare Of [place] [id number] Monday, 2008 [employer] [place] State Plan [facility] [id number] Friday, 2012 Medicare RHC Medicare RHC [id number] N/A [employer] - R[place] State Plan [employer] - R[place] State Plan [id number] N/A Medicare Part A Medicare - Lab/Xray [id number] N/A History of Encounters Visit Date Visit Type Provider 10/24/2016 Office visit Alena Huertas MD 10/20/2016 Office visit Alena Huertas MD 10/08/2016 Office visit Alena Huertas MD 10/06/2016 Laboratory Suad Roger DIRECTOR SOFTWARE DEVELOPMENT 10/03/2016 Office visit Alena Huertas MD 09/22/2016 Office visit Alena Huertas MD 09/19/2016 Office visit Mariana Cummins DIRECTOR SOFTWARE DEVELOPMENT 09/12/2016 Office visit Suad Roger DIRECTOR SOFTWARE DEVELOPMENT 08/28/2016 Office visit Bridger Sarkar DIRECTOR SOFTWARE DEVELOPMENT 08/22/2016 Office visit Suad Roger DIRECTOR SOFTWARE DEVELOPMENT 08/19/2016 Office visit Mariana Cummins DIRECTOR SOFTWARE DEVELOPMENT 08/15/2016 Office visit Bridger Sarkar DIRECTOR SOFTWARE DEVELOPMENT 08/11/2016 Office visit Mariana Cummins DIRECTOR SOFTWARE DEVELOPMENT 07/30/2016 Office visit Mariana Cummins DIRECTOR SOFTWARE DEVELOPMENT 07/23/2016 Office visit Suad Roger DIRECTOR SOFTWARE DEVELOPMENT 01/05/2016 Office visit Mariana Cummins DIRECTOR SOFTWARE DEVELOPMENT
--- OUTSIDE RECORDS SUMMARY | 2017-07-06 01:36 | XMS REPORT ---
Author Author Suad Roger [facility] Address [address] [place], [place] [address] Care Team Providers Care Check Cashier Name Role Phone Suad Roger PCP Unavailable [...] 2 times per day for 7 days [place] 7.5-325 mg oral tablet 09/12/2016 09/27/2016 take [...] Date Medicare Part B Medicare Of [place] [id number] Monday, 2008 [facility] [place] State Plan [facility] State Plan [id number] N/A Medicare Part A Medicare - Lab/Xray [id number] N/A [employer] [place] State Plan [facility] [id number] Friday, June 29, 2012 Medicare RHC Medicare RHC [id number] N/A History of Encounters Visit Date Visit [...]
--- OUTSIDE RECORDS SUMMARY | 2017-07-06 01:37 | XMS REPORT ---
Author Fabian Paul [facility] [employer] Address Unknown Phone Unavailable Care Team Providers Care Gem Cutter Name Role Phone Fabian Roger CP Unavailable Allergies No Known Allergies Problems Problem Type Condition Code Onset Dates Condition Status Assessment Morbid (severe) obesity due to excess calories E66.01 Active Assessment Hypothyroidism, unspecified E03.9 Active Problem Fall from bed, initial encounter [...] Problem History of falling Z91.81 Active Assessment Iron deficiency anemia, unspecified D50.9 Active Assessment Other specified hearing loss, bilateral H91.8X3 Active Assessment Thrombocytopenia, unspecified D69.6 Active Assessment Chronic obstructive pulmonary disease, unspecified J44.9 Active Assessment Metabolic syndrome E88.81 Active Assessment Rheumatic mitral stenosis with insufficiency I05.2 Active Assessment Essential (primary) hypertension I10 Active Problem Type 2 diabetes mellitus with hyperglycemia E11.65 Active Assessment Type 2 diabetes mellitus with diabetic polyneuropathy E11.42 Active Assessment Type 2 diabetes mellitus with hyperglycemia E11.65 Active Problem Other fall on same level, [...] Date End Date Status Dosage Amitriptyline HCl [facility] 71072254629 25 MG Orally Once a day 1 tablet at bedtime Gabapentin [facility] [address]-14 300 MG Orally Three times a day 2 capsules Levothyroxine Sodium [facility] [address]-98 125 MCG Orally Once a day 1 tablet Levemir FlexTouch [facility] [address]-44 100 UNIT/ML Subcutaneous daily at bedtime 7 units in the a.m. and 115 units Aspercreme [facility] 08583-49915 10 % Externally not defined Doxycycline Hyclate [facility] [address]-71 100 MG Orally every 12 hrs October 25, 2015 1 capsule MiraLax [facility] [address]-39 Orally Once a day 1 packet mixed with 8 ounces of fluid BD AutoShield Duo [facility] 38413130860 30G X 5 MM USE DIRECTED Ranitidine HCl [facility] [address]-34 300 MG Orally Once a day 1 tablet Rifampin [facility] [address]-61 300 MG Orally Three times a day October 25, 2015 2 capsule after meals Nebulizer [facility] 60903-96096 0 inhalation as needed Apr 24, 2015 as directed Sure Comfort Lancets 30G [facility] 32588348695 0 USE DIRECTED BEFORE MEALS AND AT BEDTIME Potassium Chloride ER [facility] 98780304542 10 MEQ TAKE 1 TABLET BY MOUTH TWO TIMES A DAY Mylanta [facility] 47037-43079 200-200-20 MG/5ML Orally Four times a day 10 ml as needed Tylenol Extra Strength [facility] [address]-14 500 MG Orally every 6 hrs 1 tablet as needed Sucralfate [facility] [address]-88 1 GM Orally Three times a day 1 tablet on an empty stomach Invokana [facility] [address]-09 100 MG Orally Once a day 1 tablet Magnesium Oxide [facility] [address]-55 400 MG Orally Twice a day 1 tablet NovoLog Flexpen [facility] 74564448512 100 UNIT/ML PER SLIDING SCALE BEFORE MEALS AND AT BEDTIME Cymbalta [facility] [address]-35 60 MG Orally Twice a day 1 capsule Albuterol Sulfate [facility] 58000549070 (2.5 MG/3ML) 0.083% Orally Three times a day 3 ml BusPIRone HCl [facility] [address]-31 15 MG Orally Four times a day 1 tablet Lasix [facility] [address]-28 20 MG Orally As directed 1 tablet once a day until loses 3 lbs. then once a day Procedures Procedure Coding System Code Date BP SYS <130 AND LAMA <80 CPT-4 G8476 October 31, 2015 TOBACCO NON-USER CPT-4 G8457 October 31, 2015 DOC PAIN ASSESS NO DOC F/U PLAN RNS CPT-4 G8509 October 31, 2015 TX PLAN DEVELOP & DOCUMENT CPT-4 G8437 October 31, 2015 CLIN DEPRESSION SCREEN NOT D CPT-4 G8432 October 31, 2015 PRESCRIP NOT GEN AT ENCOUNTE CPT-4 G8445 October 31, 2015 PAIN ASSESSMENT DOCUMENT CPT-4 G8440 October 31, 2015 MOST RECENT SYSTOLIC BP <140 MM HG CPT-4 G8588 October 31, 2015 MOST RECENT DIASTOLIC BP <90 MM HG CPT-4 G8590 October 31, 2015 BMI >=30 CALCUATE W/FOLLOWUP CPT-4 G8417 October 31, 2015 HEMOGLOBIN A1C LEVEL > 9.0% CPT-4 3046F October 31, 2015 MOST RECENT SYSTOLIC BP < 140MM HG CPT-4 G8752 October 31, 2015 DOC MEDS VERIFIED W/PT OR RE CPT-4 G8427 October 31, 2015 MOST RECENT DIASTOLIC BP < 90MM HG CPT-4 G8754 October 31, 2015 Office Visit, Est Pt., Level 3 CPT-4 63782 October 31, 2015 Vital Signs Date/Time: October 31, 2015 Pain Scale 0/10 1-10 BMI 34.54 Index Peak Flow room air I/min Weight 182.8 lbs Height 61 in Respiratory Rate 22 /min Temperature 97.8 F Cardiac Monitoring Heart Rate 101 /min Oximetry 93 % Blood Pressure Diastolic 74 mm Hg Blood Pressure Systolic 112 mm Hg Results No Known Results Summary Purpose [employer] Submission
--- OUTSIDE RECORDS SUMMARY | 2017-07-06 01:37 | XMS REPORT ---
Author Author Mariana Cummins Organization [facility] Address [address] [place], [place] [address] Care Team Providers Care Claims Adjustor Name Role Phone Mariana Cummins PCP Unavailable [...] unit/mL subcutaneous insulin pen being referred to tax technician jul 30, 2016 as she is on [...] by oral route daily for 30 days [place] 7.5-325 mg oral tablet 08/19/2016 09/03/2016 take [...] 10:06AM Rhinitis, allergic Aug 19 2016 10:06AM Payers Insurance Name Company Name Plan Name Plan Number Policy Number Policy Group Number Start Date Medicare RHC Medicare RHC [id number] N/A [employer] - [place] - [place] State Plan [employer] - [place] State Plan [id number] N/A Medicare Part A Medicare - Lab/Xray [id number] N/A Medicare Part B Medicare Of [place] [id number] Monday, October 27, 2008 [facility] State Plan [facility] State Plan [id number] Friday, June 29, 2012 History of Encounters Visit Date Visit Type Provider 08/19/2016 Office visit Mariana Cummins APRN 08/15/2016 Office visit Bridger Sarkar VP OF PRODUCT 08/11/2016 Office visit Mariana Cummins APRN 07/30/2016 Office visit Mariana Cummins APRN 07/23/2016 Office visit Suad Roger VP OF PRODUCT 01/05/2016 Office visit Mariana Cummins APRN
--- OUTSIDE RECORDS SUMMARY | 2017-07-06 01:39 | XMS REPORT ---
Author Author Radha Lomas [facility] Address [address] [place], [place] [address] Care Team Providers Care End Finder Twisting Department Name Role Phone Radha Lomas PCP Unavailable [...] 2 times per day for 7 days [place] 7.5-325 mg oral tablet 09/12/2016 09/27/2016 take [...] mg IA q hs for 5 nights amoxicillin 875 [...] HC BMI BSA BMI Percentile O2 Sat(%) 01/09/2017 2:20:00 PM 140 mmHg 70 mmHg [...] 07/23/2016 12:00 AM Toradol 30 Mg Injection, C Medicare Reviewed 07/30/2016 12:00 AM GLYCOSYLATED HEMOGLOBIN [...] mellitus with hyperglycemia Oct 08 2016 1:21PM half-way (current) use of insulin Oct 08 2016 1:21PM Rectal bleeding Oct 08 2016 1:21PM Iron deficiency anemia due to chronic blood loss Oct 08 2016 1:21PM Fatigue, unspecified type Oct 20 2016 2:56PM Type 2 diabetes mellitus with hyperglycemia Oct 20 2016 2:56PM roasterman (current) use of insulin Oct 20 2016 [...] 2:26PM Muscle spasm Jan 09 2017 2:26PM Payers Insurance Name Company Name Plan Name Plan Number Policy Number Policy Group Number Start Date Medicare Part B Medicare Of [place] [id number] Monday, 2008 [facility] [id number] Friday, 2012 Medicare C Medicare RHC [id number] N/A [employer] - [place] State [place] [employer] [place] State Plan [id number] N/A Medicare Part A Medicare - Lab/Xray [id number] N/A History of Encounters Visit Date Visit Type Provider 01/09/2017 Office visit Radha Lomas MD 01/02/2017 [...] Chao MD 12/01/2016 Office visit Bridger Sarkar FACE HARDENER 11/25/2016 Office visit Alena Huertas MD 11/21/2016 Office visit Mariana Cummins FACE HARDENER 11/12/2016 Laboratory Mariana Cummins FACE HARDENER 11/11/2016 Office visit Alena Huertas MD 10/31/2016 Office visit Alena Huertas MD 10/24/2016 Office visit Alena Huertas MD 10/20/2016 Office visit Alena Huertas MD 10/08/2016 Office visit Alena Huertas MD 10/06/2016 Laboratory Suad Roger FACE HARDENER 10/03/2016 Office visit Alena Huertas MD 09/22/2016 Office visit Alena Huertas MD 09/19/2016 Office visit Mariana Cummins FACE HARDENER 09/12/2016 Office visit Suad Roger FACE HARDENER 08/28/2016 Office visit Bridger Sarkar FACE HARDENER 08/22/2016 Office visit Suad Roger FACE HARDENER 08/19/2016 Office visit Mariana Cummins FACE HARDENER 08/15/2016 Office visit Bridger Sarkar FACE HARDENER 08/11/2016 Office visit Mariana Cummins FACE HARDENER 07/30/2016 Office visit Mariana Cummins FACE HARDENER 07/23/2016 Office visit Suad Roger FACE HARDENER 01/05/2016 Office visit Mariana Cummins FACE HARDENER
--- OUTSIDE RECORDS SUMMARY | 2017-07-06 01:40 | XMS REPORT ---
Author Author Fabian Roger Organization [employer] Address Unknown Phone Unavailable Care Team Providers Care Grain Merchandiser Name Role Phone Fabian Roger CP Unavailable Allergies, Adverse Reactions, Alerts Substance Reaction Event Type Poultry Info Not Available Non Drug Allergy Milk Info Not Available Non Drug Allergy Seafood/Fish Info Not Available Non Drug Allergy Sulfa Info Not Available Non Drug Allergy Problems Problem Type Condition ICD-9 Code Onset Dates Condition Status Problem Esophageal [...] Problem Polyneuropathy in diabetes 357.2 Active Problem Unspecified hypotension 458.9 Active Problem Mitral stenosis with insufficiency 394.2 Active Problem Slow transit constipation 564.01 Active Problem Closed fracture of metatarsal bone(s) 825.25 Active Problem Cellulitis and abscess of unspecified site 682.9 Active Problem Pneumonia, organism unspecified 486 Active Problem Morbid obesity 278.01 Active Problem Candidiasis of vulva and vagina 112.1 Active Problem Nonallopathic lesion of pelvic region, not elsewhere classified 739.5 Active Problem Nonallopathic lesion of sacral region, not elsewhere classified 739.4 Active Problem Insomnia, unspecified 780.52 Active Problem Spasm of muscle 728.85 Active Assessment Personal history of noncompliance with medical treatment, presenting hazards to health V15.81 Active Assessment Polyneuropathy in diabetes 357.2 Active Assessment Unspecified iron deficiency anemia 280.9 Active Assessment Dysmetabolic Syndrome X 277.7 Active Assessment Unspecified hypothyroidism 244.9 Active Assessment Diabetes mellitus without mention of complication, type II or unspecified type, not stated as uncontrolled 250.00 Active Assessment Morbid obesity 278.01 Active Assessment Mitral stenosis with insufficiency 394.2 Active Assessment Unspecified essential hypertension 401.9 Active Assessment Congestive heart failure, unspecified 428.0 Active Assessment Chronic airway obstruction, not elsewhere classified 496 Active Problem Nonallopathic lesion of lumbar region, not elsewhere classified 739.3 Active Assessment Other specified forms of hearing loss 389.8 Active Problem Nonallopathic lesion of thoracic region, not elsewhere classified 739.2 Active Problem Nonallopathic lesion of cervical region, not elsewhere classified 739.1 Active Problem Unspecified otitis media 382.9 Active Problem Lumbago 724.2 Active Problem Unspecified thrombocytopenia 287.5 Active Problem Abrasion or friction burn of other, multiple, and unspecified sites, without mention of infection 919.0 Active Problem Other chronic serous otitis media 381.19 Active Problem Unspecified hypothyroidism 244.9 Active Problem Diabetes mellitus without mention of complication, type II or unspecified type, uncontrolled 250.02 Active Problem Screening for lipoid disorders V77.91 Active Problem Dysmetabolic Syndrome X 277.7 Active Problem Special screening for malignant neoplasms, colon V76.51 Active Problem Other chronic otitis externa 380.23 Active Problem Essential and other specified forms of tremor 333.1 Active Problem Personal history of noncompliance with medical treatment, presenting hazards to health V15.81 Active Assessment Other chronic serous otitis media 381.19 Active Problem Unspecified iron deficiency anemia 280.9 Active Problem Asthma, unspecified, unspecified status 493.90 Active Problem Unspecified essential hypertension 401.9 Active Problem Other convulsions 780.39 Active Problem Unspecified constipation 564.00 Active Problem 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 Medications Medication Code System Code Instructions Start Date End Date Status Dosage Aspercreme [facility] 03453-11980 10 % Externally not defined Cymbalta [facility] [address]-35 60 MG Orally Twice a day 1 capsule Magnesium Oxide [facility] [address]-17 400 MG Orally Twice a day 1 tablet Tylenol Extra Strength [facility] [address]-55 500 MG Orally every 6 hrs 1 tablet as needed Gabapentin [facility] [address]-44 300 MG Orally Three times a day 1 capsule Ranitidine HCl [facility] [address]-71 300 MG Orally Once a day at bedtime 1 tablet Lasix [facility] [address]-91 20 MG Orally As directed 1 tablet once a day until loses 3 lbs. then once a day BusPIRone HCl [facility] [address]-88 15 MG Orally Four times a day 1 tablet Fanapt [facility] [address]-48 6 MG Orally Twice a day 1 tablet Invokana [facility] [address]-30 100 MG Orally Once a day 1 tablet Levothyroxine Sodium [facility] [address]-63 112 MCG Orally Once a day 1 tablet NovoLog Flexpen [facility] 51113061227 100 UNIT/ML PER SLIDING SCALE BEFORE MEALS AND AT BEDTIME Amoxicillin [facility] [address]-41 500 MG Orally TID One capsule Amitriptyline HCl [facility] 22871716260 25 MG Orally Once a day 1 tablet at bedtime Sucralfate [facility] [address]-34 1 GM Orally Three times a day 1 tablet on an empty stomach MiraLax [facility] [address]-42 Orally Once a day 1 packet mixed with 8 ounces of fluid Mylanta [facility] 12949-61466 200-200-20 MG/5ML Orally Four times a day 10 ml as needed Sure Comfort Lancets 30G [facility] 06184438653 0 USE DIRECTED BEFORE MEALS AND AT BEDTIME BD AutoShield Duo [facility] 06840163367 30G X 5 MM USE DIRECTED Albuterol Sulfate [facility] 94107549186 (2.5 MG/3ML) 0.083% 3ML THREE TIMES A DAY Potassium Chloride ER [facility] 55304695821 10 MEQ TAKE 1 TABLET BY MOUTH TWO TIMES A DAY Levemir FlexTouch [facility] [address]-31 100 UNIT/ML Subcutaneous every HS 90 units Procedures Procedure Coding System Code Date TOBACCO NON-USER CPT-4 G8457 Mar 21, 2015 PRESCRIPTION BY E-PRESCRIB S CPT-4 G8443 Mar 21, 2015 BP SYS <130 AND LAMA <80 CPT-4 G8476 Mar 21, 2015 CLIN DEPRESSION SCREEN NOT D CPT-4 G8432 Mar 21, 2015 DOC MEDS VERIFIED W/PT OR RE CPT-4 G8427 Mar 21, 2015 PAIN ASSESSMENT DOCUMENT CPT-4 G8440 Mar 21, 2015 TX PLAN DEVELOP & DOCUMENT CPT-4 G8437 Mar 21, 2015 MOST RECENT SYSTOLIC BP <140 MM HG CPT-4 G8588 Mar 21, 2015 MOST RECENT DIASTOLIC BP >=90 MM HG CPT-4 G8591 Mar 21, 2015 BMI>=30OR<22 RUDY NO FOLLOWUP CPT-4 G8419 Mar 21, 2015 DSCH[facility] MED/CURRENT MED MERGE CPT-4 1111F Mar 21, 2015 PAIN ASSESS POS TOOL F/U PLAN DOC CPT-4 G8730 Mar 21, 2015 FLU VACCINE NOT SCREEN CPT-4 G8424 Mar 21, 2015 MOST RECENT SYSTOLIC BP < 140MM HG CPT-4 G8752 Mar 21, 2015 MOST RECENT DIASTOLIC BP < 90MM HG CPT-4 G8754 Mar 21, 2015 Office Visit, Est Pt., Level 3 CPT-4 23388 Mar 21, 2015 Vital Signs Date/Time: Mar 21, 2015 Pain Scale 3/10 1-10 BMI 34.80 Index Peak Flow room air I/min Weight 184.2 lbs Height 61 in Respiratory Rate 20 /min Temperature 96.4 F Cardiac Monitoring Heart Rate 94 /min Oximetry 92 % Blood Pressure Diastolic 79 mm Hg Blood Pressure Systolic 122 mm Hg Results No Known Results Summary Purpose [employer] Submission
--- OUTSIDE RECORDS SUMMARY | 2017-07-06 01:40 | XMS REPORT ---
Author Author Mariana Cummins Organization [facility] Address [address] [place], [place] [address] Care Team Providers Care Fire Marshal Name Role Phone Mariana Cummins PCP Unavailable [...] 2 times per day for 7 days [place] 7.5-325 mg oral tablet 09/12/2016 09/27/2016 take [...] mg SC q hs for 5 nights Discontinued Name [...] mellitus with hyperglycemia Oct 20 2016 2:56PM USP (current) use of insulin Oct 20 2016 [...] Date Medicare Part B Medicare [place] [id number] Monday, 2008 [employer] [place] [employer] [place] [id number] Friday, 2012 Medicare RHC Medicare [place] [id number] N/A [employer] - [place] State Plan [employer] - [place] State Plan [id number] N/A Medicare Part A Medicare - Lab/Xray [id number] N/A History of Encounters Visit Date Visit Type Provider 11/12/2016 Laboratory Mariana Cummins REVENUE COLLECTOR 11/11/2016 Office visit Alena Huertas MD 10/31/2016 Office visit Alena Huertas MD 10/24/2016 Office visit Alena Huertas MD 10/20/2016 Office visit Alena Huertas MD 10/08/2016 Office visit Alena Huertas MD 10/06/2016 Laboratory Suad Roger REVENUE COLLECTOR 10/03/2016 Office visit Alena Huertas MD 09/22/2016 Office visit Alena Huertas MD 09/19/2016 Office visit Mariana Cummins REVENUE COLLECTOR 09/12/2016 Office visit Suad Roger REVENUE COLLECTOR 08/28/2016 Office visit Bridger Sarkar REVENUE COLLECTOR 08/22/2016 Office visit Suad Roger REVENUE COLLECTOR 08/19/2016 Office visit Mariana Cummins REVENUE COLLECTOR 08/15/2016 Office visit Bridger Sarkar REVENUE COLLECTOR 08/11/2016 Office visit Mariana Cummins REVENUE COLLECTOR 07/30/2016 Office visit Mariana Cummins REVENUE COLLECTOR 07/23/2016 Office visit Suad Roger REVENUE COLLECTOR 01/05/2016 Office visit Mariana Cummins REVENUE COLLECTOR
--- OUTSIDE RECORDS SUMMARY | 2017-07-06 01:41 | XMS REPORT ---
Author Author Alena Huertas [facility] Address [address] [place], [place] [address] Care Team Providers Care Enterprise Account Executive Name Role Phone Alena Huertas PCP Unavailable [...] 2 times per day for 7 days [place] 7.5-325 mg oral tablet 09/12/2016 09/27/2016 take 1 tablet by oral route every 8 hours as needed for 15 days azithromycin 250 mg oral tablet 10/03/2016 10/08/2016 take 2 tablets (500 mg) by oral route once daily for 1 day then 1 tablet (250 mg) by oral route once daily for 4 days Anusol-HC 25 mg rectal suppository 10/08/2016 10/13/2016 25 mg [place] q hs for 5 nights Discontinued Name [...] mellitus with hyperglycemia Oct 08 2016 1:21PM keno terminal operator (current) use of insulin Oct 08 2016 1:21PM Rectal bleeding Oct 08 2016 1:21PM Iron deficiency anemia due to chronic blood loss Oct 08 2016 1:21PM Payers Insurance Name Company Name Plan Name Plan Number Policy Number Policy Group Number Start Date Medicare Part B Medicare [place] [id number] Monday, [address] [facility] - [place]HC - [place] State Plan [facility] State Plan [id number] N/A Medicare Part A Medicare - Lab/Xray [id number] N/A [facility] [id number] Friday, June 29, 2012 Medicare RHC Medicare RHC [id number] N/A History of Encounters Visit Date Visit Type Provider 10/08/2016 Office visit Alena Huertas MD 10/06/2016 Laboratory Suad Roger SPARE HAND 10/03/2016 Office visit Alena Huertas MD 09/22/2016 Office visit Alena Huertas MD 09/19/2016 Office visit Mariana Cummins SPARE HAND 09/12/2016 Office visit Suad Roger SPARE HAND 08/28/2016 Office visit Bridger Sarkar SPARE HAND 08/22/2016 Office visit Suad Roger APRN 08/19/2016 Office visit Mariana Cummins APRN 08/15/2016 Office visit Bridger Sarkar SPARE HAND 08/11/2016 Office visit Mariana Cummins APRN 07/30/2016 Office visit Mariana Cummins APRN 07/23/2016 Office visit Suad Roger APRN 01/05/2016 Office visit Mariana Cummins APRN
--- OUTSIDE RECORDS SUMMARY | 2017-07-06 01:43 | XMS REPORT ---
Author Author Fabian Roger Organization [employer] Address Unknown Phone Unavailable Care Team Providers Care Core Machine Tender Name Role Phone Fabian Roger CP Unavailable Allergies No Known Allergies Problems Problem Type Condition Code Onset Dates Condition Status Problem Type 2 diabetes mellitus with hyperglycemia E11.65 Active Problem Morbid (severe) obesity due to excess calories E66.01 Active Problem Myoclonus G25.3 Active Problem Acute maxillary sinusitis, unspecified J01.00 Active Problem Chills (without fever) R68.83 Active Problem Constipation, unspecified K59.00 Active Problem Unspecified otitis externa, unspecified ear H60.90 Active Problem 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 Problem Otitis media, unspecified, unspecified ear H66.90 Active Problem Essential (primary) hypertension I10 Active Problem Iron deficiency anemia, unspecified D50.9 Active Problem Unspecified convulsions R56.9 Active Problem Fall from bed, initial encounter W06.XXXA Active Problem Unspecified diastolic (congestive) heart failure I50.30 Active Problem Other muscle spasm M62.838 Active Problem Insomnia, unspecified G47.00 Active Problem Type 2 diabetes mellitus without complications E11.9 Active Problem Metabolic syndrome E88.81 Active Problem Major depressive disorder, single episode, unspecified F32.9 Active Problem Other asthma J45.998 Active Problem Chronic obstructive pulmonary disease, unspecified J44.9 Active Problem Pain in unspecified joint M25.50 Active Problem Segmental and somatic dysfunction of lumbar region M99.03 Active Problem Segmental and somatic dysfunction of thoracic region M99.02 Active Problem Segmental and somatic dysfunction of pelvic region M99.05 Active Problem Segmental and somatic dysfunction of sacral region M99.04 Active Problem Pneumonia, unspecified organism J18.9 Active Problem Candidiasis of vulva and vagina B37.3 Active Problem Segmental and somatic dysfunction of cervical region M99.01 Active Problem Low back pain M54.5 Active Medications Medication Code System Code Instructions Start Date End Date Status Dosage Levemir FlexTouch [facility] [address]-05 100 UNIT/ML Subcutaneous daily at bedtime 110 units Results No Known Results Summary Purpose [employer] Submission
--- OUTSIDE RECORDS SUMMARY | 2017-07-06 01:43 | XMS REPORT ---
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 Oct 08 2016 [...] mellitus with hyperglycemia Feb 16 2017 11:06AM local intermodal truck driver (current) use of insulin Feb 16 2017 [...] 8:07AM Hair loss Mar 25 2017 8:07AM Payers Insurance Name Company Name Plan Name Plan Number Policy Number Policy Group Number Start Date Medicare Part B Medicare [place] [id number] Monday, 2008 [employer] [place] [employer] [place] [id number] Friday, 2012 Medicare RHC Medicare [facility] [id number] N/A [employer] [place] [employer] [place] State Plan [id number] N/A Medicare Part A Medicare - Lab/Xray [id number] N/A History of Encounters Visit Date Visit Type Provider 03/25/2017 Office visit Alena Huertas MD 03/13/2017 [...] Alena Huertas MD 10/06/2016 Laboratory Suad Roger GUEST SERVICES 10/03/2016 Office visit Alena Huertas MD 09/22/2016 Office visit Alena Huertas MD 09/19/2016 Office visit Mariana Cummins GUEST SERVICES 09/12/2016 Office visit Suad Roger GUEST SERVICES 08/28/2016 Office visit Bridger Sarkar GUEST SERVICES 08/22/2016 Office visit Suad Roger GUEST SERVICES 08/19/2016 Office visit Mariana Cummins GUEST SERVICES 08/15/2016 Office visit Bridger Sarkar GUEST SERVICES 08/11/2016 Office visit Mariana Cummins G[employer]ST SERVICES 07/30/2016 Office visit Mariana Cummins GUEST SERVICES 07/23/2016 Office visit Suad Roger GUEST SERVICES 01/05/2016 Office visit Mariana Cummins GUEST SERVICES
--- OUTSIDE RECORDS SUMMARY | 2017-07-06 01:44 | XMS REPORT ---
Author Author Fabian Roger Organization [employer] Address Unknown Phone Unavailable Care Team Providers Care Business Economist Name Role Phone Fabian Roger CP Unavailable Allergies, Adverse Reactions, Alerts Substance Reaction Event Type Seafood/Fish Info Not Available Non Drug Allergy Sulfa Info Not Available Non Drug Allergy Poultry Info Not Available Non Drug Allergy Milk Info Not Available Non Drug Allergy Problems Problem Type Condition Code Onset Dates Condition Status Assessment Morbid obesity 278.01 Active Assessment Unspecified hypothyroidism 244.9 Active Assessment Unspecified iron deficiency anemia 280.9 Active Assessment Chronic airway obstruction, not elsewhere classified 496 Active Assessment Diabetes mellitus without mention of complication, type II or unspecified type, not stated as uncontrolled 250.00 Active Problem Esophageal reflux 530.81 Active Assessment Polyneuropathy in diabetes 357.2 Active Problem Anxiety state, unspecified 300.00 Active Assessment Undiagnosed cardiac murmurs 785.2 Active Problem Diabetes mellitus without mention of [...] Instructions Start Date End Date Status Dosage Lasix [facility] [address]-12 20 MG Orally every 8 hours 1 tablet Lamictal [facility] [address]-32 100 MG Orally Twice a day 1 tablet Fanapt [facility] [address]-25 6 MG Orally Twice a day 1 tablet Flonase [facility] [address]-70 50 MCG/ACT Nasally Once a day 1 spray in each nostril Combivent Respimat [facility] [address]-82 20-100 MCG/ACT Inhalation Four times a day 1 puff Tylenol Extra Strength [facility] [address]-76 500 MG Orally every 6 hrs 1 tablet as needed Lotrisone [facility] [address]-87 1-0.05 % Externally Twice a day 1 application to affected area Mylanta [facility] 09977-11207 200-200-20 MG/5ML Orally Four times a day 10 ml as needed Ferrous Sulfate [facility] [address]-92 325 (65 Fe) MG Orally Three times a day 1 tablet [place] [facility] [address]-59 5-325 MG Orally every 4 hrs 1 tablet as needed Lantus [facility] [address]-83 100 UNIT/ML Subcutaneous at bedtime 23 units Albuterol Sulfate [facility] [address]-72 (2.5 MG/3ML) 0.083% Inhalation Three times a day 3 ml Robitussin DM [facility] [address]-55 100-10 MG/5ML Orally every 4 hrs 10 ml as needed Advair Diskus [facility] [address]-44 250-50 MCG/DOSE Inhalation Twice a day 1 puff Citalopram Hydrobromide [facility] [address]-97 20 MG Orally Once a day 1 tablet Magnesium Oxide [facility] [address]-25 400 MG Orally Twice a day 1 tablet MiraLax [facility] [address]-53 Orally Once a day 1 packet mixed with 8 ounces of fluid Cymbalta [facility] [address]-89 60 MG Orally Twice a day 1 capsule Aspercreme [facility] 38671-74331 10 % Externally not defined HydrOXYzine HCl [facility] [address]-11 25 MG Orally not defined Invokana [facility] [address]-59 100 MG Orally Once a day 1 tablet Ibuprofen [facility] [address]-32 600 MG Orally every 6 hrs 1 tablet Albuterol Sulfate HFA [facility] [address]-68 108 (90 Base) MCG/ACT Inhalation every 4 hrs 2 puffs as needed DuoNeb NDC 0 not defined Potassium Chloride ER [facility] [address]-55 20 MEQ Orally Twice a day 1 tablet Carafate [facility] [address]-61 1 GM Orally Three times a day 1 tablet on an empty stomach Zantac [facility] [address]-36 300 MG Orally Once a day at HS 1 tablet BusPIRone HCl [facility] [address]-16 15 MG Orally Four times a day 1 tablet NovoLog Flexpen [facility] 52493525498 100 UNIT/ML PER SLIDING SCALE BEFORE MEALS AND AT BEDTIME Xanax [facility] [address]-92 0.25 MG Orally once a day at HS 1 tablet as needed Synthroid [facility] [address]-83 100 MCG Orally Once a day 1 tablet Gabapentin [facility] 99829232983 300 MG TAKE 1 CAPSULE BY MOUTH THREE TIMES A DAY AT 7AM, 2PM AND 10PM Procedures Procedure Coding System Code Date SOME PRESCRIB HANDWRITTEN OR CPT-4 G8446 Aug 07, 2014 PAIN ASSESSMENT DOCUMENT CPT-4 G8440 Aug 07, 2014 TOBACCO NON-USER CPT-4 G8457 Aug 07, 2014 DOC MEDS VERIFIED W/PT OR RE CPT-4 G8427 Aug 07, 2014 BMI<30 AND >=22 CALC & DOCU CPT-4 G8420 Aug 07, 2014 TX PLAN DEVELOP & DOCUMENT CPT-4 G8437 Aug 07, 2014 CLIN DEPRESSION SCREEN NOT D CPT-4 G8432 Aug 07, 2014 BP SYS <130 AND LAMA <80 CPT-4 G8476 Aug 07, 2014 DOC PAIN ASSESS NO DOC F/U PLAN RNS CPT-4 G8509 Aug 07, 2014 PT RECEIV INFLUENZA VACC CPT-4 G8108 Aug 07, 2014 MOST RECENT SYSTOLIC BP <140 MM HG CPT-4 G8588 Aug 07, 2014 MOST RECENT DIASTOLIC BP <90 MM HG CPT-4 G8590 Aug 07, 2014 PT RECEIV PNEUMO VACC CPT-4 G8115 Aug 07, 2014 HEMOGLOBIN A1C LEVEL > 9.0% CPT-4 3046F Aug 07, 2014 HG A1C LEVEL 7.0-9.0% CPT-4 3045F Aug 07, 2014 Office Visit, Est Pt., Level 4 CPT-4 46595 Aug 07, 2014 FLU IMMUNIZE ORDER/ADMIN CPT-4 G8482 Aug 07, 2014 FOOT EXAMINATION PERFORMED CPT-4 G9226 Aug 07, 2014 Vital Signs Date/Time: Aug 07, 2014 BMI 36.80 Index Weight 194.8 lbs Height 61 in Respiratory Rate 16 /min Temperature 97.9 F Cardiac Monitoring Heart Rate 76 /min Oximetry 82 % Blood Pressure Diastolic 58 mm Hg Blood Pressure Systolic 101 mm Hg Results No Known Results Summary Purpose eClinicalWorks Submission
--- OUTSIDE RECORDS SUMMARY | 2017-07-06 01:44 | XMS REPORT ---
Author Author Love Guadarrama Organization [facility] Address [address] [place] [address] Care Team Providers Care Instructor Extension Work Name Role Phone Love Guadarrama Unavailable PROBLEMS Type Condition ICD9-CM Code EOP73-[id number] Code Onset Dates Condition Status SNOMED Code Problem Cellulitis Of Left Finger L03.012 Active 57124064200104404 Problem Hypothyroidism E03.9 Active 02024487 Problem Cellulitis of Finger, Unspecified 681.00 Active 738162844 Problem COPD (chronic obstructive pulmonary disease) J44.9 Active 61572605 Problem Bipolar disorder F31.9 Active 98600775 Problem Type 2 Diabetes Mellitus With Hyperglycemia E11.65 Active 001005767029569 Problem Noncompliance Z91.19 Active 1546959 Problem Leg pain, right 729.5 Active 23213663 Problem Leg Pain UNSPECIFIED M79.606 Active 79605959 Problem Bronchitis J40 Active 73319544 Problem GERD Without Esophagitis K21.9 Active 952173987 Problem Cardiomegaly I51.7 Active 1107772 Problem Pharyngitis J02.9 Active 896270321 ALLERGIES Unknown Allergies SOCIAL HISTORY No smoking Hx information available PLAN OF CARE VITAL SIGNS MEDICATIONS Unknown Medications RESULTS No Results PROCEDURES No Known procedures IMMUNIZATIONS No Known Immunizations
--- OUTSIDE RECORDS SUMMARY | 2017-07-06 01:44 | XMS REPORT ---
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 Oct 20 2016 2:56PM Payers Insurance Name Company Name Plan Name Plan Number Policy Number Policy Group Number Start Date Medicare Part B Medicare Of [place] [id number] Monday, 2008 [employer] [place] State Plan [facility] [id number] Friday, 2012 Medicare RHC Medicare RHC [id number] N/A [employer] - [facility] [place] State Plan [employer] - [facility] [place] State Plan [id number] N/A Medicare Part A Medicare - Lab/Xray [id number] N/A History of Encounters Visit Date Visit Type Provider 10/20/2016 Office visit Alena Huertas MD 10/08/2016 Office visit Alena Huertas MD 10/06/2016 Laboratory Suad Roger APRN 10/03/2016 Office visit Alena Huertas MD 09/22/2016 Office visit Alena Huertas MD 09/19/2016 Office visit Mariana Cummins APRN 09/12/2016 Office visit Suad Roger ASSEMBLY RIVETER 08/28/2016 Office visit Bridger Sarkar APRN 08/22/2016 Office visit Suad Roger APRN 08/19/2016 Office visit Mariana Cummins APRN 08/15/2016 Office visit Bridger Sarkar ASSEMBLY RIVETER 08/11/2016 Office visit Mariana Cummins APRN 07/30/2016 Office visit Mariana Cummins APRN 07/23/2016 Office visit Suad Roger APRN 01/05/2016 Office visit Mariana Cummins APRN
--- OUTSIDE RECORDS SUMMARY | 2017-07-06 01:44 | XMS REPORT ---
Author Author Love Guadarrama Organization [facility] Address [address] [place] [address] Care Team Providers Care Sales Service Promoter Name Role Phone Love Guadarrama Unavailable PROBLEMS Type Condition ICD9-CM Code [id number] Code Onset Dates Condition Status SNOMED Code Problem Cellulitis of Finger, Unspecified 681.00 Active 121368349 Problem Cellulitis Of Left Finger L03.012 Active 15187635933802619 Problem Bipolar disorder F31.9 Active 81213216 Problem COPD (chronic obstructive pulmonary disease) J44.9 Active 21804175 Problem Noncompliance Z91.19 Active 8268452 Problem Type 2 Diabetes Mellitus With Hyperglycemia E11.65 Active [id number] ALLERGIES Unknown Allergies SOCIAL HISTORY No smoking Hx information available PLAN OF CARE VITAL SIGNS MEDICATIONS Medication Instructions Dosage Frequency Start Date End Date Duration Status TRUEplus Lancets 30g Active RESULTS No Results PROCEDURES No Known procedures IMMUNIZATIONS No Known Immunizations
--- OUTSIDE RECORDS SUMMARY | 2017-07-06 01:46 | XMS REPORT ---
Author Author Alena Huertas [facility] Address [address] [place], [place] [id number] Care Team Providers Care Full Stack Developer Name Role Phone Alena Huertas PCP Unavailable [...] 2 times per day for 7 days [place] 7.5-325 mg oral tablet 09/12/2016 09/27/2016 take 1 tablet by oral route every 8 hours as needed for 15 days azithromycin 250 mg oral tablet 10/03/2016 10/08/2016 take 2 tablets (500 mg) by oral route once daily for 1 day then 1 tablet (250 mg) by oral route once daily for 4 days Anusol-HC 25 mg rectal suppository 10/08/2016 10/13/2016 25 mg [place] q hs for 5 nights amoxicillin 875 [...] HC BMI BSA BMI Percentile O2 Sat(%) 04/01/2017 4:35:00 PM 136 mmHg 62 mmHg [...] with hyperglycemia Oct 20 2016 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 Oct 20 2016 [...] with hyperglycemia Feb 04 2017 11:25AM senior care (current) use of insulin Feb 04 2017 11:25AM Cirrhosis of liver without ascites, unspecified hepatic cirrhosis type Feb 04 2017 11:25AM Pain of right lower extremity Feb 16 2017 11:06AM Type 2 diabetes mellitus with hyperglycemia Feb 16 2017 11:06AM senior care (current) use of insulin Feb 16 2017 [...] diseases classified elsewhere Apr 01 2017 4:40PM Payers Insurance Name Company Name Plan Name Plan Number Policy Number Policy Group Number Start Date Medicare Part B Medicare Of [place] [id number] Monday, 2008 [employer] [place] State Plan [facility] [id number] Friday, 2012 Medicare RHC Medicare RHC [id number] N/A [employer] - [place] State Plan Amer[employer] - R[place] State Plan [id number] N/A Medicare Part A Medicare - Lab/Xray [id number] N/A History of Encounters Visit Date Visit Type Provider 04/01/2017 Office visit Alena Huertas MD 03/25/2017 [...] Alena Huertas MD 12/16/2016 Office visit Alena uHertas MD 12/12/2016 Surgery Cody Chao MD 12/12/2016 Office visit Alena Huertas MD 12/09/2016 Office visit Alena Huertas MD 12/03/2016 Office visit Mariana Cummins LEAD INFORMATICA DEVELOPER 12/02/2016 Office visit Cody Chao MD 12/01/2016 Office visit Bridger Sarkar LEAD INFORMATICA DEVELOPER 11/25/2016 Office visit Alena Huertas MD 11/21/2016 Office visit Mariana Cummins LEAD INFORMATICA DEVELOPER 11/21/2016 Hospital Ahsan Cobb MD 11/14/2016 Hospital Ahsan Cobb MD 11/12/2016 Laboratory Mariana Cummins LEAD INFORMATICA DEVELOPER 11/11/2016 Office visit Alena Huertas MD 10/31/2016 Office visit Alena Huertas MD 10/24/2016 Office visit Alena Huertas MD 10/20/2016 Office visit Alena Huertas MD 10/08/2016 Office visit Alena Huertas MD 10/06/2016 Laboratory Suad Roger LEAD INFORMATICA DEVELOPER 10/03/2016 Office visit Alena Huertas MD 09/22/2016 Office visit Alena Huertas MD 09/19/2016 Office visit Mariana Cummins LEAD INFORMATICA DEVELOPER 09/12/2016 Office visit Suad Roger LEAD INFORMATICA DEVELOPER 08/28/2016 Office visit Bridger Sarkar LEAD INFORMATICA DEVELOPER 08/22/2016 Office visit Suad Roger LEAD INFORMATICA DEVELOPER 08/19/2016 Office visit Mariana Cummins LEAD INFORMATICA DEVELOPER 08/15/2016 Office visit Bridger Sarkar LEAD INFORMATICA DEVELOPER 08/11/2016 Office visit Mariana Cummins LEAD INFORMATICA DEVELOPER 07/30/2016 Office visit Mariana Cummins LEAD INFORMATICA DEVELOPER 07/23/2016 Office visit Suad Roger LEAD INFORMATICA DEVELOPER 01/05/2016 Office visit Mariana Cummins LEAD INFORMATICA DEVELOPER
--- OUTSIDE RECORDS SUMMARY | 2017-07-06 01:46 | XMS REPORT ---
Author Author Love Guadarrama Organization [employer] Address Unknown Phone Unavailable Care Team Providers Care Puller Machine Name Role Phone Love Guadarrama CP Unavailable Allergies No Known Allergies Problems No Known Problems Medications No Known Medications Results No Known Results Summary Purpose [employer] Submission
--- OUTSIDE RECORDS SUMMARY | 2017-07-06 01:47 | XMS REPORT ---
Author Author Alena Huertas [facility] Address [address] [place], [place] [id number] Care Team Providers Care Water Quality Assistant Name Role Phone Alena Huertas PCP Unavailable Benja, Narda Unavailable Unavailable tonai hussein Unavailable Unavailable Merary Unavailable Unavailable Hogge [...] 2 times per day for 7 days [place] 7.5-325 mg oral tablet 09/12/2016 09/27/2016 take [...] mg [place] q hs for 5 nights Discontinued Name [...] Date Medicare Part B Medicare Of [place] [id number] Monday, 2008 [employer] [place] State Plan Amerigroup [place] State Plan [id number] Friday, 2012 Medicare [facility] [id number] N/A [employer] - R[place] State Plan Amer[employer] - R[place] State Plan [id number] N/A Medicare Part A Medicare - Lab/Xray [id number] N/A History of Encounters Visit Date Visit Type Provider 11/11/2016 Office visit Alena Huertas MD 10/31/2016 Office visit Alena Huertas MD 10/24/2016 Office visit Alena Huertas MD 10/20/2016 Office visit Alena Huertas MD 10/08/2016 Office visit Alena Huertas MD 10/06/2016 Laboratory Suad Roger SUPERVISOR COVERING AND LINING 10/03/2016 Office visit Alena Huertas MD 09/22/2016 Office visit Alena Huertas MD 09/19/2016 Office visit Mariana Cummins SUPERVISOR COVERING AND LINING 09/12/2016 Office visit Suad Roger SUPERVISOR COVERING AND LINING 08/28/2016 Office visit Bridger Sarkar SUPERVISOR COVERING AND LINING 08/22/2016 Office visit Suad Roger SUPERVISOR COVERING AND LINING 08/19/2016 Office visit Mariana Cummins SUPERVISOR COVERING AND LINING 08/15/2016 Office visit Bridger Sarkar SUPERVISOR COVERING AND LINING 08/11/2016 Office visit Mariana Cummins SUPERVISOR COVERING AND LINING 07/30/2016 Office visit Mariana Cummins SUPERVISOR COVERING AND LINING 07/23/2016 Office visit Suad Roger SUPERVISOR COVERING AND LINING 01/05/2016 Office visit Mariana Cummins SUPERVISOR COVERING AND LINING
--- OUTSIDE RECORDS SUMMARY | 2017-07-06 01:48 | XMS REPORT ---
Author Author Alena Huertas [facility] Address [address] [place], [place] [address] Care Team Providers Care Picking Machine Operator Name Role Phone Alena Huertas PCP [...] 2 times per day for 7 days [place] 7.5-325 mg oral tablet 09/12/2016 09/27/2016 take 1 tablet by oral route every 8 hours as needed for 15 days azithromycin 250 mg oral tablet 10/03/2016 10/08/2016 take 2 tablets (500 mg) by oral route once daily for 1 day then 1 tablet (250 mg) by oral route once daily for 4 days Anusol-HC 25 mg rectal suppository 10/08/2016 10/13/2016 25 mg [place] q hs for 5 nights Discontinued Name [...] mellitus with hyperglycemia Oct 08 2016 1:21PM detention (current) use of insulin Oct 08 2016 1:21PM Rectal bleeding Oct 08 2016 1:21PM Iron deficiency anemia due to chronic blood loss Oct 08 2016 1:21PM Fatigue, unspecified type Oct 20 2016 2:56PM Type 2 diabetes mellitus with hyperglycemia Oct 20 2016 2:56PM intermediate frame tender (current) use of insulin Oct 20 2016 2:56PM Payers Insurance Name Company Name Plan Name Plan Number Policy Number Policy Group Number Start Date Medicare Part B Medicare Of [place] [id number] Monday, 2008 [employer] [place] State Plan [facility] State Plan [id number] Friday, 2012 Medicare RHC Medicare RHC [id number] N/A [employer] - [facility] [place] State Plan [facility] [place] State Plan [id number] N/A Medicare Part A Medicare - Lab/Xray [id number] N/A History of Encounters Visit Date Visit Type Provider 10/20/2016 Office visit Alena Huertas MD 10/08/2016 Office visit Alena Huertas MD 10/06/2016 Laboratory Suad Roger APRN 10/03/2016 Office visit Alena Huertas MD 09/22/2016 Office visit Alena Huertas MD 09/19/2016 Office visit Mariana Cummins APRN 09/12/2016 Office visit Suad oRger APRN 08/28/2016 Office visit Bridger Sarkar RN LVN 08/22/2016 Office visit Suad Roger APRN 08/19/2016 Office visit Mariana Cummins APRN 08/15/2016 Office visit Bridger Sarkar APRN 08/11/2016 Office visit Mariana Cummins APRN 07/30/2016 Office visit Mariana Cummins APRN 07/23/2016 Office visit Suad Roger APRN 01/05/2016 Office visit Mariana Cummins APRN
--- OUTSIDE RECORDS SUMMARY | 2017-07-06 01:50 | XMS REPORT ---
Author Author Mariana Cummins Organization [facility] Address [address] [place], [place] [id number] Care Team Providers Care Digital Content Coordinator Name Role Phone Mariana Cummins PCP Unavailable Bone, Narda Unavailable Unavailable otnia hussein Unavailable Unavailable Reagan Unavailable Unavailable Hogge [...] AM Treadmill, Physician Supervision 08/11/2016 12:00 AM insulin resistant diabetic Medications Active Name Start Date Estimated Completion Date SIG Comments sucralfate 1 gram oral tablet take 1 tablet by oral route 3 times a day gabapentin 300 mg oral capsule take 2 capsules (600 mg) by oral route 3 times per day levothyroxine 125 mcg oral tablet take [...] unit/mL subcutaneous insulin pen being referred to tso jul 30, 2016 as she is on [...] by oral route daily for 30 days tramadol 50 mg oral tablet 08/01/2016 10/30/2016 take 1 tablet by oral route 2 [...] Name Start Date Discontinued Date SIG Comments ranitidine HCl 300 mg oral tablet 07/30/2016 take 1 tablet (300 mg) by oral route once daily at bedtime switch to prevacid Problem List Description Status Onset Anemia Active COPD Active Depression and anxiety Active Diabetes Active DVT (deep venous thrombosis), right Active 2006 HTN (hypertension) Active Hypokalemia Active Hyponatremia Active Hypotension, Chronic Active Hypothyroidism Active Neuropathy in diabetes Active Insulin resistance Active Vital Signs Date Time BP-Sys(mm[Hg] BP-[place](mm[Hg]) HR(bpm) RR(rpm) Temp WT HT HC BMI BSA BMI Percentile O2 Sat(%) 08/11/2016 11:18:00 AM 140 mmHg 68 mmHg [...] 11:22AM Dizzy spells Aug 11 2016 11:22AM Payers Insurance Name Company Name Plan Name Plan Number Policy Number Policy Group Number Start Date Medicare RHC Medicare RHC [id number] N/A [employer] - [place] State Plan [facility] [place] State Plan [id number] N/A Medicare Part A Medicare - Lab/Xray [id number] N/A Medicare Part B Medicare Of [place] [id number] Monday, October 27, 2008 [employer] [place] State Plan [facility] [id number] Friday, June 29, 2012 History of Encounters Visit Date Visit Type Provider 08/11/2016 Office visit Mariana Cummins APRN 07/30/2016 Office visit Mariana Cummins APRN 07/23/2016 Office visit Suad Roger APRN 01/05/2016 Office visit Mariana Cummins APRN
--- OUTSIDE RECORDS SUMMARY | 2017-07-06 01:50 | XMS REPORT ---
Author Author Alena Huertas [facility] Address [address] [place], [place] [address] Care Team Providers Care Paint Prepper Name Role Phone Alena Huertas PCP Unavailable [...] wear up to 12hours.) for 7 days Name Start Date Expiration [...] 2 times per day for 7 days [place] 7.5-325 mg oral tablet 09/12/2016 09/27/2016 take [...] mg [place] q hs for 5 nights amoxicillin 875 [...] AM VASCULAR STUDY Reviewed 01/13/2017 12:00 AM Physical Therapy Consult Returned Results Summary Date and Description Results 07/30/2016 [...] mellitus with hyperglycemia Oct 08 2016 1:21PM superintendent terminal (current) use of insulin Oct 08 2016 1:21PM Rectal bleeding Oct 08 2016 1:21PM Iron deficiency anemia due to chronic blood loss Oct 08 2016 1:21PM Fatigue, unspecified type Oct 20 2016 2:56PM Type 2 diabetes mellitus with hyperglycemia Oct 20 2016 2:56PM superintendent terminal (current) use of insulin Oct 20 2016 [...] Date Medicare Part B Medicare Of [place] [id number] Monday, 2008 [facility] State [facility] State Plan [id number] Friday, 2012 Medicare RHC Medicare RHC [id number] N/A [facility] - [facility] - [place] State Plan [facility] State Plan [id number] N/A Medicare Part A Medicare - Lab/Xray [id number] N/A History of Encounters Visit Date Visit [...] Huertas MD 12/03/2016 Office visit Mariana Cummins PILOT 12/02/2016 Office visit Cody Chao MD 12/01/2016 Office visit Bridger Sarkar PILOT 11/25/2016 Office visit Alena Huertas MD 11/21/2016 Office visit Mariana Cummins PILOT 11/12/2016 Laboratory Mariana Cummins PILOT 11/11/2016 Office visit Alena Huertas MD 10/31/2016 Office visit Alena Huertas MD 10/24/2016 Office visit Alena Huertas MD 10/20/2016 Office visit Alena Huertas MD 10/08/2016 Office visit Alena Huertas MD 10/06/2016 Laboratory Suad Roger PILOT 10/03/2016 Office visit Alena Huertas MD 09/22/2016 Office visit Alena Huertas MD 09/19/2016 Office visit Mariana Cummins PILOT 09/12/2016 Office visit Suad Roger PILOT 08/28/2016 Office visit Bridger Robleslin PILOT 08/22/2016 Office visit Suad Roger PILOT 08/19/2016 Office visit Mariana Cummins PILOT 08/15/2016 Office visit Bridger Antonina PILOT 08/11/2016 Office visit Mariana Cummins PILOT 07/30/2016 Office visit Mariana Cummins PILOT 07/23/2016 Office visit Suad Roger PILOT 01/05/2016 Office visit Mariana Cummins PILOT
--- OUTSIDE RECORDS SUMMARY | 2017-07-06 01:52 | XMS REPORT ---
Author Author Fabian Roger Organization [employer] Address Unknown Phone Unavailable Care Team Providers Care Whiting Machine Operator Name Role Phone Fabian Roger CP Unavailable Allergies, Adverse Reactions, Alerts Substance Reaction Event Type Seafood/Fish Info Not Available Non Drug Allergy Sulfa Info Not Available Non Drug Allergy Poultry Info Not Available Non Drug Allergy Milk Info Not Available Non Drug Allergy Problems Problem Type Condition ICD-9 Code Onset Dates Condition Status Problem Depressive disorder, not elsewhere classified 311 Active Problem Asthma, unspecified, unspecified status 493.90 Active Problem Anxiety state, unspecified 300.00 Active Problem Esophageal reflux 530.81 Active Problem Diabetes mellitus without mention of [...] Problem Polyneuropathy in diabetes 357.2 Active Problem Slow transit constipation 564.01 Active Problem Closed fracture of metatarsal bone(s) 825.25 Active Problem Unspecified hypotension 458.9 Active Problem Candidiasis of vulva and vagina 112.1 Active Problem Cellulitis and abscess of unspecified site 682.9 Active Problem Mitral stenosis with insufficiency 394.2 Active Problem Morbid obesity 278.01 Active Problem Spasm of muscle 728.85 Active Problem Nonallopathic lesion of pelvic region, not elsewhere classified 739.5 Active Problem Pneumonia, organism unspecified 486 Active Problem Insomnia, unspecified 780.52 Active Assessment Polyneuropathy in diabetes 357.2 Active Assessment Unspecified hypothyroidism 244.9 Active Assessment Personal history of noncompliance with medical treatment, presenting hazards to health V15.81 Active Assessment Morbid obesity 278.01 Active Assessment Dysmetabolic Syndrome X 277.7 Active Assessment Unspecified essential hypertension 401.9 Active Assessment Asthma, unspecified, unspecified status 493.90 Active Assessment Chronic airway obstruction, not elsewhere classified 496 Active Assessment Diabetes mellitus without mention of complication, type II or unspecified type, not stated as uncontrolled 250.00 Active Problem Nonallopathic lesion of sacral region, not elsewhere classified 739.4 Active Assessment Other specified forms of hearing loss 389.8 Active Problem Nonallopathic lesion of lumbar region, not elsewhere classified 739.3 Active Problem Nonallopathic lesion of thoracic region, not elsewhere classified 739.2 Active Problem Lumbago 724.2 Active Problem Nonallopathic lesion of cervical region, not elsewhere classified 739.1 Active Problem Abrasion or friction burn of other, multiple, and unspecified sites, without mention of infection 919.0 Active Problem Other chronic otitis externa 380.23 Active Problem Unspecified thrombocytopenia 287.5 Active Problem Screening for lipoid disorders V77.91 Active Problem Dysmetabolic Syndrome X 277.7 Active Problem Special screening for malignant neoplasms, colon V76.51 Active Problem Unspecified otitis media 382.9 Active Problem Essential and other specified forms of tremor 333.1 Active Problem Personal history of noncompliance with medical treatment, presenting hazards to health V15.81 Active Assessment Abrasion or friction burn of other, multiple, and unspecified sites , without mention of infection 919.0 Active Problem Diabetes mellitus without mention of complication, type II or unspecified type, uncontrolled 250.02 Active Assessment Unspecified thrombocytopenia 287.5 Active Problem Other convulsions 780.39 Active Problem Unspecified iron deficiency anemia 280.9 Active Problem 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 Problem Unspecified essential hypertension 401.9 Active Problem Unspecified hypothyroidism 244.9 Active Problem Unspecified constipation 564.00 Active Medications Medication Code System Code Instructions Start Date End Date Status Dosage Levothyroxine Sodium [facility] 59402492551 112 MCG TAKE 1 TABLET BY MOUTH ONCE A DAY Mylanta [facility] 84229-82505 200-200-20 MG/5ML Orally Four times a day 10 ml as needed Perry [facility] [address]-53 5-325 MG Orally every 4 hrs 1 tablet as needed Flonase [facility] [address]-72 50 MCG/ACT Nasally Once a day 1 spray in each nostril Magnesium Oxide [facility] [address]-34 400 MG Orally Twice a day 1 tablet Simethicone [facility] [address]-66 80 MG Orally not defined Gabapentin [facility] 32157870399 300 MG TAKE 1 CAPSULE BY MOUTH THREE TIMES A DAY AT 7AM, 2PM AND 10PM Potassium Chloride ER [facility] 46642966351 10 MEQ TAKE 1 TABLET BY MOUTH TWO TIMES A DAY Xanax [facility] [address]-62 0.25 MG Orally once a day at HS 1 tablet as needed Ferrous Sulfate [facility] [address]-78 325 (65 Fe) MG Orally Three times a day 1 tablet Cipro [facility] [address]-74 500 MG Orally Twice a day 1 tablet Robitussin DM [facility] [address]-13 100-10 MG/5ML Orally every 4 hrs 10 ml as needed Tylenol Extra Strength [facility] [address]-48 500 MG Orally every 6 hrs 1 tablet as needed Albuterol Sulfate [facility] 72179088688 (2.5 MG/3ML) 0.083% 3ML THREE TIMES A DAY Amitriptyline HCl [facility] [address]-47 25 MG Orally Once a day 1 tablet at bedtime Spiriva HandiHaler [facility] [address]-00 18 MCG Inhalation Once a day 1 capsule Carafate [facility] [address]-12 1 GM Orally Three times a day 1 tablet on an empty stomach Synthroid [facility] [address]-27 112 MCG Orally Once a day 1 tablet Zantac [facility] [address]-12 300 MG Orally Once a day at HS 1 tablet Sure Comfort Lancets 30G [facility] 86445978352 0 USE DIRECTED BEFORE MEALS AND AT BEDTIME DuoNeb NDC 0 not defined Levemir FlexTouch [facility] [address]-97 100 UNIT/ML INJECT 75 UNITS SUBQ AT BEDTIME Ambien [facility] [address]-51 10 MG Orally Once a day 1 tablet at bedtime as needed MiraLax [facility] [address]-76 Orally Once a day 1 packet mixed with 8 ounces of fluid Fanapt [facility] [address]-88 6 MG Orally Twice a day 1 tablet Hydrocortisone-Acetic Acid [facility] [address]-63 1-2 % Otic Three times a day 5 drops into affected ear Aspercreme [facility] 20957-02046 10 % Externally not defined NovoLog Flexpen [facility] 17508989853 100 UNIT/ML PER SLIDING SCALE BEFORE MEALS AND AT BEDTIME BusPIRone HCl [facility] [address]-60 15 MG Orally Four times a day 1 tablet Lotrisone [facility] [address]-22 1-0.05 % Externally Twice a day 1 application to affected area Lasix [facility] [address]-14 20 MG Orally As directed 1 tablet once a day until loses 3 lbs. then once a day Albuterol Sulfate HFA [facility] [address]-87 108 (90 Base) MCG/ACT Inhalation every 4 hrs 2 puffs as needed Cymbalta [facility] [address]-38 60 MG Orally Twice a day 1 capsule Invokana [facility] [address]-76 100 MG Orally Once a day 1 tablet Advair Diskus [facility] [address]-97 250-50 MCG/DOSE Inhalation Twice a day 1 puff HydrOXYzine HCl [facility] [address]-34 25 MG Orally not defined Combivent Respimat [facility] 72259304786 20-100 MCG/ACT ONE PUFF EVERY FOUR HOURS Procedures Procedure Coding System Code Date TOBACCO NON-USER CPT-4 G8457 Jan 29, 2015 PRESCRIP NOT GEN AT ENCOUNTE CPT-4 G8445 Jan 29, 2015 BP SYS <130 AND LAMA <80 CPT-4 G8476 Jan 29, 2015 CLIN DEPRESSION SCREEN NOT D CPT-4 G8432 Jan 29, 2015 DOC MEDS VERIFIED W/PT OR RE CPT-4 G8427 Jan 29, 2015 PAIN ASSESSMENT DOCUMENT CPT-4 G8440 Jan 29, 2015 TX PLAN DEVELOP & DOCUMENT CPT-4 G8437 Jan 29, 2015 DOC PAIN ASSESS NO DOC F/U PLAN RNS CPT-4 G8509 Jan 29, 2015 MOST RECENT SYSTOLIC BP <140 MM HG CPT-4 G8588 Jan 29, 2015 BMI >=30 CALCUATE W/FOLLOWUP CPT-4 G8417 Jan 29, 2015 MOST RECENT DIASTOLIC BP <90 MM HG CPT-4 G8590 Jan 29, 2015 HEMOGLOBIN A1C LEVEL > 9.0% CPT-4 3046F Jan 29, 2015 FLU VACCINE NOT SCREEN CPT-4 G8424 Jan 29, 2015 [facility] MED/CURRENT MED MERGE CPT-4 1111F Jan 29, 2015 MOST RECENT SYSTOLIC BP < 140MM HG CPT-4 G8752 Jan 29, 2015 Office Visit, Est Pt., Level 3 CPT-4 92412 Jan 29, 2015 MOST RECENT DIASTOLIC BP < 90MM HG CPT-4 G8754 Jan 29, 2015 Vital Signs Date/Time: Jan 29, 2015 Pain Scale 0/10 1-10 BMI 34.42 Index Peak Flow room air I/min Weight 182.2 lbs Height 61 in Respiratory Rate 18 /min Temperature 97.8 F Cardiac Monitoring Heart Rate 87 /min Oximetry 88 % Blood Pressure Diastolic 64 mm Hg Blood Pressure Systolic 116 mm Hg Results No Known Results Summary Purpose [employer] Submission
--- OUTSIDE RECORDS SUMMARY | 2017-07-06 01:52 | XMS REPORT ---
Author Author Bridger Sarkar Organization [facility] Address [address] [place], [place] [address] Care Team Providers Care Slip Maker Name Role Phone Bridger Sarkar PCP Unavailable [...] 2 times per day for 30 days mupirocin 2 % topical ointment 12/16/2016 01/05/2017 apply a small amount to the affected area by topical route 3 times per day for 10 days Voltaren 1 % topical gel 12/24/2016 01/13/2017 apply to affected area(s) by topical route 3 times a day as needed for 10 days severe leg pain Name Start Date Expiration Date SIG [...] 2 times per day for 7 days [place] 7.5-325 mg oral tablet 09/12/2016 09/27/2016 take [...] HC BMI BSA BMI Percentile O2 Sat(%) 01/01/2017 2:23:00 PM 128 mmHg 74 mmHg [...] mellitus with hyperglycemia Oct 08 2016 1:21PM adjunct faculty for medical terminology (current) use of insulin Oct 08 2016 1:21PM Rectal bleeding Oct 08 2016 1:21PM Iron deficiency anemia due to chronic blood loss Oct 08 2016 1:21PM Fatigue, unspecified type Oct 20 2016 2:56PM Type 2 diabetes mellitus with hyperglycemia Oct 20 2016 2:56PM detention (current) use of insulin Oct 20 2016 [...] right lower extremity Jan 01 2017 2:26PM Payers Insurance Name Company Name Plan Name Plan Number Policy Number Policy Group Number Start Date Medicare Part B Medicare Of [place] [id number] Monday, 2008 [facility] [id number] Friday, 2012 Medicare RHC Medicare RHC [id number] N/A [employer] - [place] State Plan [employer] - [place] State Plan [id number] N/A Medicare Part A Medicare - Lab/Xray [id number] N/A History of Encounters Visit Date Visit Type Provider 01/01/2017 Office visit Bridger Sarkar MANAGED SERVICES CONSULTANT 12/24/2016 Office visit Alena Huertas MD 12/22/2016 Office visit 12/22/2016 Office visit 12/22/2016 Office visit Alena Huertas MD 12/19/2016 Office visit Alena Huertas MD 12/17/2016 Office visit Alena Huertas MD 12/16/2016 Office visit Alena Huertas MD 12/12/2016 Surgery Cody Chao MD 12/12/2016 Office visit Alena Huertas MD 12/09/2016 Office visit Alena Huertas MD 12/03/2016 Office visit Mariana Cummins MANAGED SERVICES CONSULTANT 12/02/2016 Office visit Cody Chao MD 12/01/2016 Office visit Bridger Sarkar MANAGED SERVICES CONSULTANT 11/25/2016 Office visit Alena Huertas MD 11/21/2016 Office visit Mariana Cummins MANAGED SERVICES CONSULTANT 11/12/2016 Laboratory Mariana Cummins MANAGED SERVICES CONSULTANT 11/11/2016 Office visit Alena Huertas MD 10/31/2016 Office visit Alena Huertas MD 10/24/2016 Office visit Alena Huertas MD 10/20/2016 Office visit Alena Huertas MD 10/08/2016 Office visit Alena Huertas MD 10/06/2016 Laboratory Suad Roger MANAGED SERVICES CONSULTANT 10/03/2016 Office visit Alena Huertas MD 09/22/2016 [...]
--- OUTSIDE RECORDS SUMMARY | 2017-07-06 01:53 | XMS REPORT ---
Author Author Mariana Cummins Organization [facility] Address [address] [place], [place] [address] Care Team Providers Care Orthotic Finish Grinding Technician Name Role Phone Mariana Cummins PCP Unavailable [...] 2 times per day for 7 days [place] 7.5-325 mg oral tablet 09/12/2016 09/27/2016 take 1 tablet by oral route every 8 hours as needed for 15 days azithromycin 250 mg oral tablet 10/03/2016 10/08/2016 take 2 tablets (500 mg) by oral route once daily for 1 day then 1 tablet (250 mg) by oral route once daily for 4 days Anusol-HC 25 mg rectal suppository 10/08/2016 10/13/2016 25 mg ME q hs for 5 nights Discontinued Name [...] 4.82 HGB 13.20 g/dLHCT 43.10 %MCV 89.0 [facility] 27.40 pgHC 30.60 g /dLRDW SD 55 RDW CV [...] with hyperglycemia Oct 08 2016 1:21PM terminal worker (current) use of insulin Oct 08 2016 1:21PM Rectal bleeding Oct 08 2016 1:21PM Iron deficiency anemia due to chronic blood loss Oct 08 2016 1:21PM Fatigue, unspecified type Oct 20 2016 2:56PM Type 2 diabetes mellitus with hyperglycemia Oct 20 2016 2:56PM terminal worker (current) use of insulin Oct 20 [...] Date Medicare Part B Medicare Of [place] [id number] Monday, 2008 [facility] [id number] Friday, 2012 Medicare RHC Medicare RHC [id number] N/A [employer] - RHC - [place] State Plan [employer] - RHC [place] State Plan [id number] N/A Medicare Part A Medicare - Lab/Xray [id number] N/A History of Encounters Visit Date Visit Type Provider 11/12/2016 Laboratory Mariana Cummins BUFFING LINE SET UP WORKER 11/11/2016 Office visit Alena Huertas MD 10/31/2016 Office visit Alena Huertas MD 10/24/2016 Office visit Alena Huertas MD 10/20/2016 Office visit Alena Huertas MD 10/08/2016 Office visit Alena Huertas MD 10/06/2016 Laboratory Suad Roger BUFFING LINE SET UP WORKER 10/03/2016 Office visit Alena Huertas MD 09/22/2016 Office visit Alena Huertas MD 09/19/2016 Office visit Mariana Cummins BUFFING LINE SET UP WORKER 09/12/2016 Office visit Suad Roger BUFFING LINE SET UP WORKER 08/28/2016 Office visit Bridger Sarkar BUFFING LINE SET UP WORKER 08/22/2016 Office visit Suad Roger BUFFING LINE SET UP WORKER 08/19/2016 Office visit Mariana Cummins BUFFING LINE SET UP WORKER 08/15/2016 Office visit Bridger Sarkar BUFFING LINE SET UP WORKER 08/11/2016 Office visit Mariana Cummins BUFFING LINE SET UP WORKER 07/30/2016 Office visit Mariana Cummins APRN 07/23/2016 Office visit Suad Roger BUFFING LINE SET UP WORKER 01/05/2016 Office visit Mariana Cummins APRN
--- OUTSIDE RECORDS SUMMARY | 2017-07-06 01:55 | XMS REPORT ---
Author Author Alena Huertas [facility] Address [address] [place], [place] [address] Care Team Providers Care Secured Entrance Monitor Name Role Phone Alena Huertas PCP [...] 2 times per day for 7 days [place] 7.5-325 mg oral tablet 09/12/2016 09/27/2016 take 1 tablet by oral route every 8 hours as needed for 15 days azithromycin 250 mg oral tablet 10/03/2016 10/08/2016 take 2 tablets (500 mg) by oral route once daily for 1 day then 1 tablet (250 mg) by oral route once daily for 4 days Anusol-HC 25 mg rectal suppository 10/08/2016 10/13/2016 25 mg DC q hs for 5 nights amoxicillin 875 [...] AM X-RAY EXAM NECK SPINE 2-3 VW Returned 04/17/2017 12:00 AM INFLUENZA VAC 4 VALENT [...] Not Entered 10/28/2016 06/29/2017 33 Influenza 04/17/2017 GlaxInfinity Augmented Realityine SKB Flulaval Quadrivalent [id number] Intramuscular Left Upper [...] with hyperglycemia Oct 08 2016 1:21PM terminal carman (current) use of insulin Oct 08 2016 1:21PM Rectal bleeding Oct 08 2016 1:21PM Iron deficiency anemia due to chronic blood loss Oct 08 2016 1:21PM Fatigue, unspecified type Oct 20 2016 2:56PM Type 2 diabetes mellitus with hyperglycemia Oct 20 2016 2:56PM terminal carman (current) use of insulin Oct 20 2016 [...] with hyperglycemia Feb 04 2017 11:25AM terminal carman (current) use of insulin Feb 04 2017 11:25AM Cirrhosis of liver without ascites, unspecified hepatic cirrhosis type Feb 04 2017 11:25AM Pain of right lower extremity Feb 16 2017 11:06AM Type 2 diabetes mellitus with hyperglycemia Feb 16 2017 11:06AM USP (current) use of insulin Feb 16 2017 [...] Date Medicare Part B Medicare Of [place] [id number] Monday, 2008 [email or web address] State Plan [employer] [place] State Plan [id number] Friday, 2012 Medicare RHC Medicare RHC [id number] N/A [facility] [place] [facility] [place] State Plan [id number] N/A Medicare Part A Medicare - Lab/Xray [id number] N/A History of Encounters Visit Date Visit [...] Huertas MD 01/01/2017 Office visit Bridger Sarkar TOBACCO WAREHOUSE MANAGER 12/24/2016 Office visit Alena Huertas MD 12/22/2016 Office visit 12/22/2016 Office visit 12/22/2016 Office visit Alena Huertas MD 12/19/2016 Office visit Alena Huertas MD 12/17/2016 Office visit Alena Huertas MD 12/16/2016 Office visit Alena Huertas MD 12/12/2016 Surgery Cody Chao MD 12/12/2016 Office visit Alena Huertas MD 12/09/2016 Office visit Alena Huertas MD 12/03/2016 Office visit Mariana Cummins TOBACCO WAREHOUSE MANAGER 12/02/2016 Office visit Cody Chao MD 12/01/2016 Office visit Bridger Sarkar TOBACCO WAREHOUSE MANAGER 11/25/2016 Office visit Alena Huertas MD 11/21/2016 Office visit Mariana Cummins TOBACCO WAREHOUSE MANAGER 11/21/2016 Hospital Ahsan Cobb MD 11/14/2016 Hospital Ahsan Cobb MD 11/12/2016 Laboratory Mariana Cummins APRN 11/11/2016 Office visit Alena Huertas MD 10/31/2016 Office visit Alena Huertas MD 10/24/2016 Office visit Alena Huertas MD 10/20/2016 Office visit Alena Huertas MD 10/08/2016 Office visit Alena Huertas MD 10/06/2016 Laboratory Suad Roger TOBACCO WAREHOUSE MANAGER 10/03/2016 Office visit Alena Huertas MD 09/22/2016 Office visit Alena Huertas MD 09/19/2016 Office visit Mariana Cummins TOBACCO WAREHOUSE MANAGER 09/12/2016 Office visit Suad Roger TOBACCO WAREHOUSE MANAGER 08/28/2016 Office visit Bridger Sarkar TOBACCO WAREHOUSE MANAGER 08/22/2016 Office visit Suad Roger TOBACCO WAREHOUSE MANAGER 08/19/2016 Office visit Mariana Cummins TOBACCO WAREHOUSE MANAGER 08/15/2016 Office visit Bridger Sarkar TOBACCO WAREHOUSE MANAGER 08/11/2016 Office visit Mariana Cummins TOBACCO WAREHOUSE MANAGER 07/30/2016 Office visit Mariana Cummins TOBACCO WAREHOUSE MANAGER 07/23/2016 Office visit Suad Roger TOBACCO WAREHOUSE MANAGER 01/05/2016 Office visit Mariana Cummins TOBACCO WAREHOUSE MANAGER
--- OUTSIDE RECORDS SUMMARY | 2017-07-06 01:56 | XMS REPORT ---
Author Author Radha Lomas [facility] Address [address] [place], [place] [id number] Care Team Providers Care Service Tech Name Role Phone Radha Lomas PCP Unavailable [...] the morning and 2 capsules at night. cyclobenzaprine 10 mg oral tablet 01/09/2017 01/16/2017 [...] 2 times per day for 7 days [place] 7.5-325 mg oral tablet 09/12/2016 09/27/2016 take [...] Date Medicare Part B Medicare [place] [id number] Monday, [address] [facility] State [facility] [id number] Friday, 2012 Medicare C Medicare RHC [id number] N/A [employer] [place] [employer] [place] State Plan [id number] N/A Medicare Part A Medicare - Lab/Xray [id number] N/A History of Encounters Visit Date Visit Type Provider 01/09/2017 Office visit Radha Lomas MD 01/02/2017 Office visit Alena Huertas MD 01/01/2017 Office visit Bridger Sarkar APRN 12/24/2016 Office visit Alena Huetras MD 12/22/2016 Office visit 12/22/2016 Office visit [...] Chao MD 12/01/2016 Office visit Bridger Sarkar ATTORNEY LAW CLERK 11/25/2016 Office visit Alena Huertas MD 11/21/2016 Office visit Mariana Cummins ATTORNEY LAW CLERK 11/12/2016 Laboratory Mariana Cummins ATTORNEY LAW CLERK 11/11/2016 Office visit Alena Huertas MD 10/31/2016 Office visit Alena Huertas MD 10/24/2016 Office visit Alena Huertas MD 10/20/2016 Office visit Alena Huertas MD 10/08/2016 Office visit Alena Huertas MD 10/06/2016 Laboratory Suad Roger ATTORNEY LAW CLERK 10/03/2016 Office visit Alena Huertas MD 09/22/2016 Office visit Alena Huertas MD 09/19/2016 Office visit Mariana Cummins ATTORNEY LAW CLERK 09/12/2016 Office visit Suad Roger ATTORNEY LAW CLERK 08/28/2016 Office visit Bridger Sarkar ATTORNEY LAW CLERK 08/22/2016 Office visit Suad Roger ATTORNEY LAW CLERK 08/19/2016 Office visit Mariana Cummins ATTORNEY LAW CLERK 08/15/2016 Office visit Bridger Sarkar ATTORNEY LAW CLERK 08/11/2016 Office visit Mariana Cummins ATTORNEY LAW CLERK 07/30/2016 Office visit Mariana Cummins ATTORNEY LAW CLERK 07/23/2016 Office visit Suad Roger ATTORNEY LAW CLERK 01/05/2016 Office visit Mariana Cummins ATTORNEY LAW CLERK
--- OUTSIDE RECORDS SUMMARY | 2017-07-06 01:58 | XMS REPORT ---
Author Author Mariana Cummins Organization [facility] Address [address] [place], [place] [address] Care Team Providers Care Steel Molder Name Role Phone Mariana Cummins PCP Unavailable [...] daily for 7d and then 1 qd Name Start Date Expiration Date SIG Comments [...] 2 times per day for 7 days [place] 7.5-325 mg oral tablet 09/12/2016 09/27/2016 take [...] mg [place] q hs for 5 nights Discontinued Name [...] with hyperglycemia Oct 20 2016 2:56PM terminal clerk (current) use of insulin Oct 20 2016 [...] 2:33PM Periorbital swelling Dec 03 2016 2:33PM Payers Insurance Name Company Name Plan Name Plan Number Policy Number Policy Group Number Start Date Medicare RHC Medicare RHC [id number] N/A [employer] [place] [employer] [place] State Plan [id number] N/A Medicare Part A Medicare - Lab/Xray [id number] N/A Medicare Part B Medicare Of [place] [id number] Monday, October 27, 2008 [employer] [place] State Plan [facility] [id number] Friday, June 29, 2012 History of Encounters Visit Date Visit Type Provider 12/03/2016 Office visit Mariana Cummins APPLIANCE SERVICER 12/02/2016 Office visit Cody Chao MD 12/01/2016 Office visit Bridger Sarkar APPLIANCE SERVICER 11/25/2016 Office visit Alena Huertas MD 11/21/2016 Office visit Mariana Cummins APPLIANCE SERVICER 11/12/2016 Laboratory Mariana Cummins APPLIANCE SERVICER 11/11/2016 Office visit Alena Huertas MD 10/31/2016 Office visit Alena Huertas MD 10/24/2016 Office visit Alena Huertas MD 10/20/2016 Office visit Alena Huerats MD 10/08/2016 Office visit Alena Huertas MD 10/06/2016 Laboratory Suad Roger APPLIANCE SERVICER 10/03/2016 Office visit Alena Huertas MD 09/22/2016 Office visit Alena Huertas MD 09/19/2016 Office visit Mariana Cummins APPLIANCE SERVICER 09/12/2016 Office visit Suad Roger APPLIANCE SERVICER 08/28/2016 Office visit Bridger Sarkar APPLIANCE SERVICER 08/22/2016 Office visit Suad Roger APPLIANCE SERVICER 08/19/2016 Office visit Mariana Cummins APPLIANCE SERVICER 08/15/2016 Office visit Bridger Sarkar APPLIANCE SERVICER 08/11/2016 Office visit Mariana Cummins APPLIANCE SERVICER 07/30/2016 Office visit Mariana Cummins APPLIANCE SERVICER 07/23/2016 Office visit Suad Roger APPLIANCE SERVICER 01/05/2016 Office visit Mariana Cummins APRN
[2017-07-06 01:59] LABS: BUN/CREATININE RATIO 11; CALCIUM 8.5 MG/DL (8.5-10.1); CARBON DIOXIDE 26 MMOL/L (21-32); CHLORIDE 104 MMOL/L (98-107); CREATININE SERUM 0.83 MG/DL (0.60-1.30); GFR ESTIMATED > 60; GLUCOSE 165 MG/DL (70-105); POTASSIUM 3.6 MMOL/L (3.6-5.0); SODIUM 144 MMOL/L (135-145)
--- OUTSIDE RECORDS SUMMARY | 2017-07-06 01:59 | XMS REPORT ---
Author Author Alena Huertas [facility] Address [address] [place], [place] [id number] Care Team Providers Care Shipping Team Leader Name Role Phone Alena Huertas PCP Unavailable [...] 2 times per day for 7 days [place] 7.5-325 mg oral tablet 09/12/2016 09/27/2016 take [...] HC BMI BSA BMI Percentile O2 Sat(%) 11/25/2016 10:25:00 AM 128 mmHg 66 mmHg [...] Idiopathic thrombocytopenia purpura Nov 25 2016 10:33AM Payers Insurance Name Company Name Plan Name Plan Number Policy Number Policy Group Number Start Date Medicare RHC Medicare RHC [id number] N/A [facility] [place] State Plan [facility] State Plan [id number] N/A Medicare Part A Medicare - Lab/Xray [id number] N/A Medicare Part B Medicare Of [place] [id number] Monday, October 27, 2008 [facility] State Plan [facility] State Plan [id number] Friday, June 29, 2012 History of Encounters Visit Date Visit Type Provider 11/25/2016 Office visit Alena Huertas MD 11/21/2016 Office visit Mariana Cummins APRN 11/12/2016 Laboratory Mariana Cummins APRN 11/11/2016 Office visit Alena Huertas MD 10/31/2016 Office visit Alena Huertas MD 10/24/2016 Office visit Alena Huertas MD 10/20/2016 Office visit Alena Huertas MD 10/08/2016 Office visit Alena Huertas MD 10/06/2016 Laboratory Suad Roger GREASE MACHINE WORKER 10/03/2016 Office visit Alena Huertas MD 09/22/2016 Office visit Alena Huertas MD 09/19/2016 Office visit Mariana Cummins GREASE MACHINE WORKER 09/12/2016 Office visit Suad Roger GREASE MACHINE WORKER 08/28/2016 Office visit Bridger Sarkar GREASE MACHINE WORKER 08/22/2016 Office visit Suad Roger GREASE MACHINE WORKER 08/19/2016 Office visit Mariana Cummins GREASE MACHINE WORKER 08/15/2016 Office visit Bridger Sarkar GREASE MACHINE WORKER 08/11/2016 Office visit Mariana Cummins GREASE MACHINE WORKER 07/30/2016 Office visit Mariana Cummins GREASE MACHINE WORKER 07/23/2016 Office visit Suad Roger GREASE MACHINE WORKER 01/05/2016 Office visit Mariana Cummins APRN
[2017-07-06] MEDS ORDERED: inSUlin DETERMIR 1 UNIT/0.01 ML (LEVEMIR) CHARGE PER UNIT SQ ONE (02:00)
--- OUTSIDE RECORDS SUMMARY | 2017-07-06 02:00 | XMS REPORT ---
Author Author Alena Huertas [facility] Address [address] [place], [place] [id number] Care Team Providers Care Skin Lap Bonder Name Role Phone Alena Huertas PCP Unavailable [...] the morning and 2 capsules at night. Zyrtec 10 mg oral tablet 02/04/2017 06/04/2017 take 1 tablet (10 mg) by oral route once daily for 30 days omeprazole 20 mg oral capsule,delayed release(DR/EC) 02/04/2017 06/04/2017 take 1 capsule (20 mg) by oral route once daily before a meal for 30 days Name Start Date Expiration [...] 2 times per day for 7 days [place] 7.5-325 mg oral tablet 09/12/2016 09/27/2016 take 1 tablet by oral route every 8 hours as needed for 15 days azithromycin 250 mg oral tablet 10/03/2016 10/08/2016 take 2 tablets (500 mg) by oral route once daily for 1 day then 1 tablet (250 mg) by oral route once daily for 4 days Anusol-HC 25 mg rectal suppository 10/08/2016 10/13/2016 25 mg GA q hs for 5 nights amoxicillin 875 [...] mellitus with hyperglycemia Oct 08 2016 1:21PM rodent exterminator (current) use of insulin Oct 08 2016 1:21PM Rectal bleeding Oct 08 2016 1:21PM Iron deficiency anemia due to chronic blood loss Oct 08 2016 1:21PM Fatigue, unspecified type Oct 20 2016 2:56PM Type 2 diabetes mellitus with hyperglycemia Oct 20 2016 2:56PM rodent exterminator (current) use of insulin Oct 20 [...] mellitus with hyperglycemia Feb 04 2017 11:25AM penitentiary (current) use of insulin Feb 04 2017 11:25AM Cirrhosis of liver without ascites, unspecified hepatic cirrhosis type Feb 04 2017 11:25AM Payers Insurance Name Company Name Plan Name Plan Number Policy Number Policy Group Number Start Date Medicare Part B Medicare Of [place] [id number] Monday, 2008 [facility] State Plan [id number] Friday, 2012 Medicare RHC Medicare RHC [id number] N/A [facility] [place] State Plan [employer] - RHC [place] State Plan [id number] N/A Medicare Part A Medicare - Lab/Xray [id number] N/A History of Encounters Visit Date Visit [...] Huertas MD 12/03/2016 Office visit Mariana Cummins CAPTAIN AIRLINE PILOT 12/02/2016 Office visit Cody Chao MD 12/01/2016 Office visit Bridger Sarkar CAPTAIN AIRLINE PILOT 11/25/2016 Office visit Alena Huertas MD 11/21/2016 Office visit Mariana Cummins CAPTAIN AIRLINE PILOT 11/12/2016 Laboratory Mariana Cummins CAPTAIN AIRLINE PILOT 11/11/2016 Office visit Alena Huertas MD 10/31/2016 Office visit Alena Huertas MD 10/24/2016 Office visit Alena Huertas MD 10/20/2016 Office visit Alena Huertas MD 10/08/2016 Office visit Alena Huertas MD 10/06/2016 Laboratory Suad Roger CAPTAIN AIRLINE PILOT 10/03/2016 Office visit Alena Huertas MD 09/22/2016 Office visit Alena Huertas MD 09/19/2016 Office visit Mariana Cummins CAPTAIN AIRLINE PILOT 09/12/2016 Office visit Suad Roger CAPTAIN AIRLINE PILOT 08/28/2016 Office visit Bridger Sarkar CAPTAIN AIRLINE PILOT 08/22/2016 Office visit Suad Roger CAPTAIN AIRLINE PILOT 08/19/2016 Office visit Mariana Cummins CAPTAIN AIRLINE PILOT 08/15/2016 Office visit Bridger Sarkar CAPTAIN AIRLINE PILOT 08/11/2016 Office visit Mariana Cummins CAPTAIN AIRLINE PILOT 07/30/2016 Office visit Mariana Cummins CAPTAIN AIRLINE PILOT 07/23/2016 Office visit Suad Roger CAPTAIN AIRLINE PILOT 01/05/2016 Office visit Mariana Cummins CAPTAIN AIRLINE PILOT
--- OUTSIDE RECORDS SUMMARY | 2017-07-06 02:01 | XMS REPORT ---
Author Author Mariana Cummins Organization [facility] Address [address] [place], [place] [address] Care Team Providers Care Seasonal Greenery Bundler Name Role Phone Mariana Cummins PCP Unavailable [...] CONTRAST 07/30/2016 12:00 AM insulin resistant diabetic Medications Active [...] unit/mL subcutaneous insulin pen being referred to licensed practical nurse clinic nurse jul 30, 2016 as she is [...] HC BMI BSA BMI Percentile O2 Sat(%) 07/30/2016 10:23:00 AM 131 mmHg 70 mmHg [...] (left upper quadrant) Jul 30 2016 10:34AM Payers Insurance Name Company Name Plan Name Plan Number Policy Number Policy Group Number Start Date Medicare RHC Medicare RHC [id number] N/A [employer] - RHC - [place] State Plan [employer] - RHC [place] State Plan [id number] N/A Medicare Part A Medicare - Lab/Xray [id number] N/A Medicare Part B Medicare Of [place] [id number] Monday, October 27, 2008 [facility] State Plan [facility] State Plan [id number] Friday, June 29, 2012 History of Encounters Visit Date Visit Type Provider 07/30/2016 Office visit Mariana Cummins ADJUNCT PROFESSOR OF [employer].S. HISTORY 07/23/2016 Office visit Suad Roger ADJUNCT PROFESSOR OF [employer].S. HISTORY 01/05/2016 Office visit Mariana Cummins ADJUNCT PROFESSOR OF [employer].S. HISTORY
--- OUTSIDE RECORDS SUMMARY | 2017-07-06 02:01 | XMS REPORT ---
Author Author Love Guadarrama Organization [facility] Address [address] [place] [address] Care Team Providers Care It Telecom Technician Name Role Phone Love Guadarrama Unavailable PROBLEMS Type Condition ICD9-CM Code WCB19-PO Code Onset Dates Condition Status SNOMED Code Problem Cellulitis Of Left Finger L03.012 Active 49842715939805697 Problem Hypothyroidism E03.9 Active 82093327 Problem Cellulitis of Finger, Unspecified 681.00 Active 761046277 Problem COPD (chronic obstructive pulmonary disease) J44.9 Active 49177732 Problem Bipolar disorder F31.9 Active 51086732 Problem Type 2 Diabetes Mellitus With Hyperglycemia E11.65 Active 513339108314119 Problem Noncompliance Z91.19 Active 6312360 Problem Leg pain, right 729.5 Active 78846261 Problem Leg Pain UNSPECIFIED M79.606 Active 33034828 Problem Bronchitis J40 Active 23752350 Problem GERD Without Esophagitis K21.9 Active 534114326 Problem Cardiomegaly I51.7 Active 4149038 Problem Pharyngitis J02.9 Active 691124014 ALLERGIES Unknown Allergies SOCIAL HISTORY No smoking Hx information available PLAN OF CARE VITAL SIGNS MEDICATIONS Unknown Medications RESULTS No Results PROCEDURES No Known procedures IMMUNIZATIONS No Known Immunizations
--- OUTSIDE RECORDS SUMMARY | 2017-07-06 02:01 | XMS REPORT | Continuity of Care Document ---
Author Author [facility] Organization [facility] Address [address] [place] [address] Phone Unavailable Care Team Providers Care Inbound Call Center Agent Name Role Phone BRITTNI BRAVO M.D. PCP Insurance Providers Payer Name Policy Number Subscriber Name Relationship Medicare [id number] Chanell Sosa 18 Self / Same As Patient [employer] [id number] Chanell Sosa 18 Self / Same As Patient Advance Directives Directive Response Recorded Date/Time Advance Directives No 05/25/15 7:54am Advance Directive on File No 01/25/16 9:30am Durable POA for HC No 01/25/16 9:30am Power of Testboard Operator No 01/25/16 9:30am Organ Donor No 01/25/16 9:30am Living Will No 01/25/16 9:30am What is your agent's or sales representative girls' apparel's phone number? No 05/25/15 7:54am Chief Complaint and Reason for Visit Chief Complaint General Complaint Reason for Visit Gastroenteritis Elevated liver enzymes Problems Active Problems Medical Problem Onset Date [...] Oral Once A Day for Hyperglycemia Tiotropium [place]ount[place] 18 Mcg 1 Mcg Inhalation Everyday At [...] Directions Ordered Status Duloxetine Hcl 40 Mg Capsule.dr 80 Mg Oral Once A Day for [...] many cigs per day? 0 01/25/2016 9:31am Level of Dependence Low 01/25/2016 9:31am Former smoker, last day smoked? 4 YEARS AGO 01/25/2016 9:31am Query Response Start Date Stop Date Smoking Status Former smoker Hospital Discharge Instructions No hospital discharge instructions. Plan of Care Discharge Date 01/25/16 11:25am Disposition 01 D/C HOME Condition at Discharge Stable Instructions/Education Provided How to Stop Smoking (ED) Forms Provided ER Discharge Phone Call Check Prescriptions See Medication Section Referrals LAWRENCE,BRITTNI D M.D. - Additional Instructions/Education Have Dr Bravo check your liver tests again next week. You may need other tests like and X-ray or sonogram. Reference Links Reference Text What is bipolar disorder? Bipolar disorder (sometimes called "manic depression") is a brain disorder that causes extreme changes in mood and behavior (figure 1). Bipolar disorder can run in families. What are the symptoms of bipolar disorder? People with bipolar disorder can feel much happier or much sadder than normal. If you have bipolar disorder, you might feel very happy for many days and then feel very sad. When your mood is very happy, you can also: ?Get angry quickly ?Be more active than normal ?Feel like you have special baird ?Feel like you don't need sleep ?Make poor choices without thinking ?Start lots of things and not finish them Other times, your mood might be very sad for most of the day, every day. When your mood is very sad, you can also: ?Lose or gain a lot of weight ?Have trouble falling asleep or sleep too much ?Feel very tired ?Not enjoy things ?Feel bad about yourself ?Think about or hurting yourself People with bipolar disorder might have trouble at work or school. They might not get along well with their family and friends. Is there a test for bipolar disorder? No. There is no test. But your doctor or nurse should be able to tell if you have it by talking with you and your family. He or she will ask about your mood and what you have been feeling and doing. Your doctor or nurse might also do an exam and order blood tests to look for other problems. How is bipolar disorder treated? Bipolar disorder is treated with medicine. Medicines sometimes take a while to start working. Plus, it sometimes takes a few tries to find the right medicine or combination of medicines. You and your doctor will work together to find the medicine that works best for you. All of the medicines for bipolar disorder affect the brain. They can: ?Keep your mood even and prevent big mood changes ?Calm your mind ?Make your sadness go away Medicines sometimes cause side effects. You might also need to stay in the hospital for a short time. When a bipolar disorder mood episode starts, you might be at risk of hurting yourself or others. You might hear voices that other people do not hear. You might believe things that are not true. But if you are at the hospital, the doctors can treat these symptoms and keep you safe. Some people whose bipolar disorder makes them feel very sad might need "shock treatment" to get better. Doctors call this treatment ECT. During ECT, doctors pass an electric current through a person's brain in a safe way. In addition to medicine, psychotherapy can help. There are different types of psychotherapy. In general, they all focus on helping you learn new ways of thinking and behaving, so you can better cope with your bipolar disorder. Is there anything I can do to prevent big mood changes in the future? Yes. After your symptoms have gone away, you will probably: ?Keep taking medicine every day to help keep your mood and behavior even ?Go to psychotherapy sessions to help you get along better with family and friends What if I want to get ? If you want to get , you will need to talk with your doctor. Some medicines for bipolar disorder are OK to take if you are . Others are not. You might need to slowly reduce or change your medicine. What will my life be like? Many people with bipolar disorder are able to live normal lives, but they might: ?Have times of feeling very happy or very sad again in the future ?Take drugs or drink alcohol. If this happens, talk to your doctor. ?Try to hurt themselves. If you ever feel like hurting yourself, call your doctor, go to the hospital, or call for an ambulance (in the [place] and [place], dial 9-1-1). Functional Status Query Response Date Recorded Activities of Daily Living Performs w/o Assistance January 25, 2016 9:31am Cognitive Function Intact January 25, 2016 9:31am Allergies, Adverse Reactions, Alerts Allergen Type Severity Reaction Status Last Updated Sulfa (Sulfonamide Antibiotics) ([id number]) Allergy Unknown VOMITTING DIARRHEA Active 01/25/16 Poultry Allergy Unknown NAUSEA AND VOMITING Active 01/25/16 Immunizations No immunization records. Vital Signs Acute Vital Signs Vital Response Date/Time Temperature (Fahrenheit) 97.8 degrees F (97.6 - 99.5) 01/25/2016 11:20am Temperature (Calculated Celsius) 36.03026 degrees C (36.4 - 37.5) 01/25/2016 11:20am [...] Pressure Mean 79 mm Hg 01/25/2016 11:20am Height 5 ft 1 in Weight 185 lb Body Mass Index 35.0 kg/m^2 Results Pending Laboratory Results Test Name Collection Date/Time Procedures Procedure Status Date Provider(s) EMERGENCY DEPT VISIT Completed 05/25/15 EMERGENCY DEPT VISIT Completed 06/01/15 EMERGENCY DEPT VISIT Completed 06/19/15 Encounters Encounter Location Arrival/Admit Date Discharge/Depart Date Attending Provider Departed Emergency Room [facility] 01/25/16 9:20am 01/25/16 11: 25am ADALBERTO GONZALES MD Registered [facility] 07/16/15 1:55pm BRITTNI BRAVO M.D. Departed Emergency Room [facility] 06/19/15 11:58am 06/19/15 2: 17pm SMITA MICHELE APRN Registered [facility] 06/07/15 1:57pm BRITTNI BRAVO M.D. Departed Emergency Room [facility] 06/01/15 3:15pm 06/01/15 6: 10pm ADALBERTO GONZALES MD Registered [facility] 05/30/15 10:26am BRITTNI BRAVO M.D. Registered [facility] 05/29/15 8:54am BRITTNI BRAVO M.D. Departed Emergency Room [facility] 05/25/15 7:55am 05/25/15 1: 30pm ADALBERTO GONZALES MD Registered [facility] 05/17/15 1:57pm BRITTNI BRAVO M.D. Registered [facility] 04/17/15 8:52am BRITTNI BRAVO M.D. Recent Diagnosis
--- OUTSIDE RECORDS SUMMARY | 2017-07-06 02:01 | XMS REPORT ---
Author Author Suad Roger [facility] Address [address] [place], [place] [address] Care Team Providers Care Split Leather Department Supervisor Name Role Phone Suad Roger PCP Unavailable Bone, Narda Unavailable Unavailable AtglenFabian Unavailable Unavailable Mariana Cummins PreferredProvider Unavailable Allergies [...] by oral route once daily at bedtime aripiprazole 2 mg oral tablet take 1 tablet by oral route 3 times a day tramadol 50 mg oral tablet take 1-2 tablet (50 mg) by oral route TID as needed Name Start Date Expiration Date SIG Comments fluconazole 200 mg oral tablet 01/03/2016 01/13/2016 take 1 tablet (200 mg) by oral route once daily for 10 weeks azithromycin 500 mg oral tablet 01/03/2016 01/08/2016 take 1 tablet by oral route daily for 5 days for 5 days Problem List Not available. Vital Signs Date Time BP-Sys(mm[Hg] BP-[place](mm[Hg]) HR(bpm) RR(rpm) Temp WT HT HC BMI BSA BMI Percentile O2 Sat(%) 07/23/2016 6:38:00 PM 130 mmHg 98 mmHg [...] or less per year History of Procedures Date Ordered Description Order Status 07/23/2016 12:00 AM THER/PROPH/DIAG INJ SC/IM Reviewed 07/23/2016 12:00 AM Toradol 30 Mg Injection, RHC Medicare Reviewed Results Summary Not available. History Of Immunizations Not available. History of Past Illness Name Date of Onset Comments Diabetes Depression and anxiety Hypokalemia Hypothyroidism COPD Does not use a CPAP or oxygen but has it if needed Nosebleed Jan 05 2016 11:29AM Body aches Jul 23 2016 6:41PM Acute upper respiratory infection, unspecified Jul 23 2016 6:41PM Other viral agents as the cause of diseases classified elsewhere Jul 23 2016 6:41PM Payers Insurance Name Company Name Plan Name Plan Number Policy Number Policy Group Number Start Date Medicare RHC Medicare RHC [id number] N/A [facility] - [facility] - [place] State Plan [facility] State Plan [id number] N/A Medicare Part A Medicare - Lab/Xray [id number] N/A Medicare Part B Medicare Of [place] [id number] Monday, October 27, 2008 [facility] State Plan [facility] State Plan [id number] Friday, June 29, 2012 History of Encounters Visit Date Visit Type Provider 07/23/2016 Office visit Suad Roger APRN 01/05/2016 Office visit Mariana Cummins APRN
--- OUTSIDE RECORDS SUMMARY | 2017-07-06 02:02 | XMS REPORT ---
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 Problem Constipation, unspecified K59.00 Active Problem Essential (primary) hypertension I10 Active [...] (congestive) heart failure I50.30 Active Problem Other seizures G40.89 Active Problem Type 2 diabetes mellitus with diabetic polyneuropathy E11.42 Active Problem Chronic obstructive pulmonary disease with acute lower respiratory infection J44.0 Active Problem Other slipping, tripping and stumbling without falling, initial encounter W18.49XA Active Problem Acute on chronic systolic (congestive) heart failure I50.23 Active Problem History of falling Z91.81 Active Problem Sprain of other specified parts of left knee, initial encounter S83.8X2A Active Problem Syncope and collapse R55 Active Assessment Morbid (severe) obesity due to excess calories E66.01 Active Assessment Patient's noncompliance with other medical treatment and regimen Z91.19 Active Assessment Cellulitis of right axilla L03.111 Active Assessment Type 2 diabetes mellitus with hyperglycemia E11.65 Active Assessment Hypothyroidism, unspecified E03.9 Active Assessment Iron deficiency anemia, unspecified D50.9 Active Assessment Other specified diabetes mellitus with diabetic neuropathy, unspecified E13.40 Active Assessment Chronic obstructive pulmonary disease, unspecified J44.9 Active Problem Morbid (severe) obesity due to excess calories E66.01 Active Problem Myoclonus G25.3 Active Problem Acute maxillary sinusitis, unspecified J01.00 Active Problem Chills (without fever) R68.83 Active Problem Other primary thrombocytopenia D69.49 Active Problem Type 2 diabetes mellitus with hyperglycemia E11.65 Active Problem Lymphocytopenia D72.810 Active Problem Other fall on same level, subsequent encounter W18.39XD Active Problem Hypercalcemia E83.52 Active Problem Left ventricular failure I50.1 Active Problem Patient's noncompliance with other medical treatment and regimen Z91.19 Active Problem Cellulitis of right axilla L03.111 Active Problem Other specified diabetes mellitus with diabetic neuropathy, unspecified E13.40 Active Problem Other muscle spasm M62.838 Active Problem Calcific tendinitis, right hand M65.241 Active Problem Insomnia, unspecified G47.00 Active Problem Abnormal weight loss R63.4 Active Problem Metabolic syndrome E88.81 Active Problem Ototoxic hearing loss, 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 Problem Otitis media, unspecified, unspecified ear H66.90 Active Problem Hypothyroidism, unspecified E03.9 Active Problem Unspecified otitis externa, unspecified ear H60.90 Active Problem Segmental and somatic dysfunction of cervical region M99.01 Active Problem Low back pain M54.5 Active Problem Segmental and somatic dysfunction of lumbar region M99.03 Active Problem Segmental and somatic dysfunction of thoracic region M99.02 Active Problem Segmental and somatic dysfunction of pelvic region M99.05 Active Problem Segmental and somatic dysfunction of sacral region M99.04 Active Medications Medication Code System Code Instructions Start Date End Date Status Dosage Levemir FlexTouch [facility] [address]-37 100 UNIT/ML Subcutaneous daily at bedtime 115 units Levaquin [facility] [address]-47 500 MG Orally Once a day 1 tablet Amitriptyline HCl [facility] 66276262036 25 MG Orally Once a day 1 tablet at bedtime Invokana [facility] [address]-29 100 MG Orally Once a day 1 tablet Ranitidine HCl [facility] [address]-05 300 MG Orally Twice a day 1 tablet BD AutoShield Duo [facility] 23791992935 30G X 5 MM USE DIRECTED Gabapentin [facility] [address]-90 300 MG TAKE 2 CAPSULES BY MOUTH THREE TIMES A DAY AT 7AM, 2PM AND 10PM 30 day(s) Albuterol Sulfate [facility] 60518963368 (2.5 MG/3ML) 0.083% Orally Three times a day 3 ml Sucralfate [facility] [address]-80 1 GM Orally Three times a day 1 tablet on an empty stomach Procedures Procedure Coding System Code Date TOBACCO NON-USER CPT-4 G8457 Jul 12, 2015 PRESCRIPTION BY E-PRESCRIB S CPT-4 G8443 Jul 12, 2015 BP SYS <130 AND LAMA <80 CPT-4 G8476 Jul 12, 2015 CLIN DEPRESSION SCREEN NOT D CPT-4 G8432 Jul 12, 2015 DOC MEDS VERIFIED W/PT OR RE CPT-4 G8427 Jul 12, 2015 PAIN ASSESSMENT DOCUMENT CPT-4 G8440 Jul 12, 2015 TX PLAN DEVELOP & DOCUMENT CPT-4 G8437 Jul 12, 2015 DOC PAIN ASSESS NO DOC F/U PLAN RNS CPT-4 G8509 Jul 12, 2015 AT LEAST 1 RX TRANSMIT ERX SYS CPT-4 G8553 Jul 12, 2015 PT RECEIV INFLUENZA VACC CPT-4 G8108 Jul 12, 2015 MOST RECENT SYSTOLIC BP <140 MM HG CPT-4 G8588 Jul 12, 2015 MOST RECENT DIASTOLIC BP <90 MM HG CPT-4 G8590 Jul 12, 2015 BMI >=30 CALCUATE W/FOLLOWUP CPT-4 G8417 Jul 12, 2015 HG A1C LEVEL 7.0-9.0% CPT-4 3045F Jul 12, 2015 [facility] MED/CURRENT MED MERGE CPT-4 1111F Jul 12, 2015 Office Visit, Est Pt., Level 3 CPT-4 26885 Jul 12, 2015 Vital Signs Date/Time: Jul 12, 2015 BMI 33.74 Index Peak Flow room air I/min Weight 178.6 lbs Height 61 in Respiratory Rate 18 /min Temperature 97.5 F Cardiac Monitoring Heart Rate 123 /min Oximetry 93 % Blood Pressure Diastolic 76 mm Hg Blood Pressure Systolic 127 mm Hg Results No Known Results Summary Purpose [employer] Submission
--- OUTSIDE RECORDS SUMMARY | 2017-07-06 02:03 | XMS REPORT ---
Author Author Alena Huertas [facility] Address [address] [place], [place] [address] Care Team Providers Care Horser Up Name Role Phone Alena Huertas PCP Bone, Narda Unavailable Unavailable keenan tonia Unavailable Unavailable Reagan Unavailable Unavailable Hogge Unavailable Unavailable Dempsey Unavailable Unavailable Fabian Roger Unavailable Unavailable Mariana Cummins PreferredProvider Allergies and Adverse Reactions Name Reaction Notes [...] daily for 7d and then 1 qd amitriptyline 50 mg oral tablet 02/23/2017 09/21/2017 take 1 tablet (50 mg) by oral route once daily at bedtime for 30 days sucralfate 1 gram oral tablet 03/06/2017 take 1 tablet by oral route 3 for 30 days Victoza 2-Froylan 0.6 mg/0.1 mL (18 mg/3 [...] 3 times a day for 10 days Lyrica 75 mg oral capsule 05/19/2017 07/18/2017 take one capsule in the morning and 2 capsules at night. Zyrtec 10 mg oral tablet 05/19/2017 12/15/2017 take 1 tablet (10 mg) by oral route once daily for 30 days omeprazole 20 mg oral capsule,delayed release(DR/EC) 05/19/2017 12/15/2017 take 1 capsule (20 mg) by oral [...] 2 times per day for 7 days [place] 7.5-325 mg oral tablet 09/12/2016 09/27/2016 [...] mg rectal suppository 10/08/2016 10/13/2016 25 mg [place] q hs for 5 nights amoxicillin 875 [...] HC BMI BSA BMI Percentile O2 Sat(%) 06/03/2017 10:53:00 AM 120 mmHg 60 mmHg 100 bpm 20 rpm 99.6 F 198 lbs 61 in 37.41 kg/m2 1.97 m2 97 % 05/04/2017 9:28:00 AM 146 mmHg 76 mmHg 105 bpm 22 rpm 98.2 F 198.25 lbs 61 in 37.4586 kg/m 1.9673 m 93 % 04/22/2017 10:40:00 AM 120 mmHg [...] 04/22/2017 12:00 AM Physical Therapy Consult Reviewed 05/04/2017 12:00 AM COMPREHEN METABOLIC PANEL Reviewed 05/04/2017 12:00 AM GLYCOSYLATED HEMOGLOBIN TEST Reviewed 05/04/2017 12:00 AM COLLECTION VENOUS BLOOD VENIPUNCTURE Reviewed [...] 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 05/04/2017 10:05 AM GLUCOSE 139.0 mg/dLSODIUM 143.0 mmol/LPOTASSIUM 3.90 mmol/ LCHLORIDE 108.0 mmol/LCO2 25.0 mmol/LBUN 15.0 mg/dLCREATININE 0.80 mg/dLSGOT/ AST 28.0 IU/LSGPT/ALT 34.0 IU/LALK PHOS 89.0 IU/LTOTAL PROTEIN 5.60 g/dLALBUMIN 3.90 g/dLTOTAL BILI 0.90 mg/dLCALCIUM 9.30 mg/dLAGE 56 GFR NonAA 74 GFR AA 90 eGFR >60 mL/min/1.73meGFR AA* >60 HGB A1C 7.50 %Est Avg Glucose 168.6 mg/dL History Of Immunizations Name Date Admin Mfg Name Mfg Code Trade Name Lot# Route Inj Vis Given Vis Pub CVX Td 08/22/2013 Not Entered NE Not Entered Not Entered Not Entered 201606/29/2018 113 Pneumococcal 2006 Not Entered NE Not Entered Not Entered Not Entered 10/28/2016 06/29/2018 33 Influenza 04/17/2017 GlaxFamilytic SKB Flulaval Quadrivalent [id number] Intramuscular Left Upper Deltoid 04/17/2017 02/02/2015 158 Pneumococcal 04/22/2017 [employer] MSD Pneumovax 23 [id number] Intramuscular Left Upper Deltoid 04/22/2017 10/20/2014 33 [...] mellitus with hyperglycemia Oct 08 2016 1:21PM snf (current) use of insulin Oct 08 2016 [...] mellitus with hyperglycemia Feb 04 2017 11:25AM snf (current) use of insulin Feb 04 2017 11:25AM Cirrhosis of liver without ascites, unspecified hepatic cirrhosis type Feb 04 2017 11:25AM Pain of right lower extremity Feb 16 2017 11:06AM Type 2 diabetes mellitus with hyperglycemia Feb 16 2017 11:06AM intermediate card tender (current) use of insulin Feb 16 2017 [...] Type II, Uncontrolled May 04 2017 9:34AM Abrasion forearm Jun 03 2017 11:00AM Payers Insurance Name Company Name Plan Name Plan Number Policy Number Policy Group Number Start Date Medicare RHC Medicare RHC [id number] N/A [facility] [place] [facility] [place] [id number] N/A Medicare Part A Medicare - Lab/Xray [id number] N/A Medicare Part B Medicare Of [place] [id number] Monday, October 27, 2008 [employer] [place] [employer] [place] [id number] Friday, June 29, 2012 History of Encounters Visit Date Visit Type Provider 06/03/2017 Office visit Alena Huertas MD 05/04/2017 Office visit Alena Huertas MD 04/22/2017 Office visit Alena Huertas MD 04/17/2017 Office visit Alena Huertas MD 04/07/2017 Office visit Alena Huertas MD 04/01/2017 Office visit Alena Huertas MD 03/25/2017 Office visit Alena Huertas MD 03/13/2017 Office visit Alena Huertas MD 03/11/2017 [facility] Ahsan Cobb MD 02/23/2017 Office visit Alena Huertas MD 02/16/2017 Office visit Alena Huertas MD 02/04/2017 Office visit Alena Huertas MD 01/23/2017 Office visit Radha Lomas MD 01/19/2017 Office visit Alena Huertas MD 01/13/2017 Office visit Alena Huertas MD 01/09/2017 Office visit Radha Lomas MD 01/02/2017 Office visit Alena Huertas MD 01/01/2017 Office visit Bridger Sarkar ROTARY HELPER 12/24/2016 Office visit Alena Huertas MD 12/22/2016 Office visit 12/22/2016 Office visit 12/22/2016 Office visit Alena Huertas MD 12/19/2016 Office visit Alena Huertas MD 12/17/2016 Office visit Alena Huertas MD 12/16/2016 Office visit Alena Huertas MD 12/12/2016 Surgery Cody Chao MD 12/12/2016 Office visit Alena Huertas MD 12/09/2016 Office visit Alena Huertas MD 12/03/2016 Office visit Mariana Cummins ROTARY HELPER 12/02/2016 Office visit Cody Chao MD 12/01/2016 Office visit Bridger Sarkar ROTARY HELPER 11/25/2016 Office visit Alena Huertas MD 11/21/2016 Office visit Mariana Cummins ROTARY HELPER 11/21/2016 Hospital Ahsan Cobb MD 11/14/2016 Hospital Ahsan Cobb MD 11/12/2016 Laboratory Mariana Cummins ROTARY HELPER 11/11/2016 Office visit Alena Huertas MD 10/31/2016 Office visit Alena Huertas MD 10/24/2016 Office visit Alena Huertas MD 10/20/2016 Office visit Alena Huertas MD 10/08/2016 Office visit Alena Huertas MD 10/06/2016 Laboratory Suad Roger ROTARY HELPER 10/03/2016 Office visit Alena Huertas MD 09/22/2016 Office visit Alena Huertas MD 09/19/2016 Office visit Mariana Cummins ROTARY HELPER 09/12/2016 Office visit Suad Roger ROTARY HELPER 08/28/2016 Office visit Bridger Sarkar ROTARY HELPER 08/22/2016 Office visit Suad Roger ROTARY HELPER 08/19/2016 Office visit Mariana Cummins ROTARY HELPER 08/15/2016 Office visit Bridger Sarkar ROTARY HELPER 08/11/2016 Office visit Mariana Cummins ROTARY HELPER 07/30/2016 Office visit Mariana Cummins ROTARY HELPER 07/23/2016 Office visit Suad Roger ROTARY HELPER 01/05/2016 Office visit Mariana Cummins ROTARY HELPER
--- OUTSIDE RECORDS SUMMARY | 2017-07-06 02:04 | XMS REPORT ---
Author Author Fabian Roger Organization [employer] Address Unknown Phone Unavailable Care Team Providers Care Agriculture Consultant Name Role Phone Fabian Roger CP Unavailable Allergies No Known Allergies Problems Problem Type Condition Code Onset Dates Condition Status Problem Type 2 diabetes mellitus with hyperglycemia E11.65 Active Assessment Chronic obstructive pulmonary disease with acute lower respiratory infection J44.0 Active Problem Morbid (severe) obesity due to excess calories E66.01 Active Problem Myoclonus G25.3 Active Problem Acute maxillary sinusitis, unspecified J01.00 Active Problem Chills (without fever) R68.83 Active Problem Unspecified otitis externa, unspecified ear H60.90 Active Problem 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 Problem Otitis media, unspecified, unspecified ear H66.90 Active Problem Essential (primary) hypertension I10 Active Problem Metabolic syndrome E88.81 Active Problem Unspecified convulsions R56.9 Active Problem Other asthma J45.998 Active Problem Iron deficiency anemia, unspecified D50.9 Active Problem Type 2 diabetes mellitus without complications E11.9 Active Problem Fall from bed, initial encounter W06.XXXA Active Problem Segmental and somatic dysfunction of pelvic region M99.05 Active Problem Other muscle spasm M62.838 Active Problem Chronic obstructive pulmonary disease with acute lower respiratory infection J44.0 Active Problem Insomnia, unspecified G47.00 Active Problem Pain in unspecified joint M25.50 Active Problem Major depressive disorder, single episode, unspecified F32.9 Active Problem Unspecified diastolic (congestive) heart failure I50.30 Active Problem Chronic obstructive pulmonary disease, unspecified J44.9 Active Problem Segmental and somatic dysfunction of thoracic region M99.02 Active Problem Segmental and somatic dysfunction of cervical region M99.01 Active Problem Segmental and somatic dysfunction of sacral region M99.04 Active Problem Segmental and somatic dysfunction of lumbar region M99.03 Active Problem Candidiasis of vulva and vagina B37.3 Active Problem Constipation, unspecified K59.00 Active Problem Low back pain M54.5 Active Problem Pneumonia, unspecified organism J18.9 Active Medications Medication Code System Code Instructions Start Date End Date Status Dosage Albuterol Sulfate [facility] [id number] (2.5 MG/3ML) 0.083% Orally Three times a day 3 ml Results No Known Results Summary Purpose eClinicalWorks Submission
--- OUTSIDE RECORDS SUMMARY | 2017-07-06 02:04 | XMS REPORT ---
Author Author Love Guadarrama Organization [employer] Address Unknown Phone Unavailable Care Team Providers Care Changer Fixer Name Role Phone Love Guadarrama CP Unavailable Allergies No Known Allergies Problems Problem Type Condition Code Onset Dates Condition Status Problem Type 2 Diabetes Mellitus With Hyperglycemia E11.65 Active Problem Bipolar disorder F31.9 Active Problem Noncompliance Z91.19 Active Problem COPD (chronic obstructive pulmonary disease) J44.9 Active Medications No Known Medications Results No Known Results Summary Purpose [employer] Submission
--- OUTSIDE RECORDS SUMMARY | 2017-07-06 02:05 | XMS REPORT ---
Author Author Alena Huertas [facility] Address [address] [place], [place] [address] Care Team Providers Care Stone Breaker Name Role Phone Alena Huertas PCP Unavailable [...] 2 times per day for 7 days [place] 7.5-325 mg oral tablet 09/12/2016 09/27/2016 take [...] mg [place] q hs for 5 nights amoxicillin 875 [...] HC BMI BSA BMI Percentile O2 Sat(%) 12/17/2016 10:27:00 AM 118 mmHg 62 mmHg [...] mellitus with hyperglycemia Oct 20 2016 2:56PM snf (current) use of insulin Oct 20 2016 [...] subcutaneous tissue, unspecified Dec 17 2016 10:33AM Payers Insurance Name Company Name Plan Name Plan Number Policy Number Policy Group Number Start Date Medicare Part B Medicare Of [place] [id number] Monday, 2008 [employer] [place] [employer] [place] State [place] [id number] N/A Medicare Part A Medicare - Lab/Xray [id number] N/A [employer] [place] State Plan [facility] [id number] Friday, June 29, 2012 Medicare RHC Medicare RHC [id number] N/A History of Encounters Visit Date Visit Type Provider 12/17/2016 Office visit Alena Huertas MD 12/16/2016 Office visit Alena Huertas MD 12/12/2016 Surgery Cody Chao MD 12/12/2016 Office visit Alena Huertas MD 12/09/2016 Office visit Alena Huertas MD 12/03/2016 Office visit Mariana Cummins SKOOG OPERATOR 12/02/2016 Office visit Cody Chao MD 12/01/2016 Office visit Bridger Sarkar APRN 11/25/2016 Office visit Alena Huertas MD 11/21/2016 Office visit Mariana Cummins SKOOG OPERATOR 11/12/2016 Laboratory Mariana Cummins SKOOG OPERATOR 11/11/2016 Office visit Alena Huertas MD 10/31/2016 Office visit Alena Huertas MD 10/24/2016 Office visit Alena Huertas MD 10/20/2016 Office visit Alena Huertas MD 10/08/2016 Office visit Alena Huertas MD 10/06/2016 Laboratory Suad Roger APRN 10/03/2016 Office visit Alena Huertas MD 09/22/2016 Office visit Alena Huertas MD 09/19/2016 Office visit Mariana Cummins SKOOG OPERATOR 09/12/2016 Office visit Suad Roger APRN 08/28/2016 Office visit Bridger Sarkar SKOOG OPERATOR 08/22/2016 Office visit Suad Roger SKOOG OPERATOR 08/19/2016 Office visit Mariana Cummins APRN 08/15/2016 Office visit Bridger Sarkar SKOOG OPERATOR 08/11/2016 Office visit Mariana Cummins APRN 07/30/2016 Office visit Mariana Cummins APRN 07/23/2016 Office visit Suad Roger SKOOG OPERATOR 01/05/2016 Office visit Mariana Cummins APRN
--- OUTSIDE RECORDS SUMMARY | 2017-07-06 02:06 | XMS REPORT ---
Author Author Alena Huertas [facility] Address [address] [place], [place] [address] Care Team Providers Care Respiratory Technician Name Role Phone Alena Huertas PCP Unavailable [...] AM COMPREHENSIVE METABOLIC PANEL 11/11/2016 12:00 AM Polysomnography 11/11/2016 12:00 AM COMPREHENSIVE [...] 2 times per day for 7 days [place] 7.5-325 mg oral tablet 09/12/2016 09/27/2016 take [...] Date Medicare Part B Medicare [place] [id number] Monday, 2008 [employer] [place] [employer] [place] [id number] Friday, 2012 Medicare RHC Medicare RHC [id number] N/A [employer] [place] [employer] [place] [id number] N/A Medicare Part A Medicare - Lab/Xray [id number] N/A History of Encounters Visit Date Visit Type Provider 11/11/2016 Office visit Alena Huertas MD 10/31/2016 Office visit Alena Huertas MD 10/24/2016 Office visit Alena Huertas MD 10/20/2016 Office visit Alena Huertas MD 10/08/2016 Office visit Alena Huertas MD 10/06/2016 Laboratory Suad Roger CURRENCY MACHINE OPERATOR 10/03/2016 Office visit Alena Huertas MD 09/22/2016 Office visit Alena Huertas MD 09/19/2016 Office visit Mariana Cummins CURRENCY MACHINE OPERATOR 09/12/2016 Office visit Suad Roger CURRENCY MACHINE OPERATOR 08/28/2016 Office visit Bridger Sarkar CURRENCY MACHINE OPERATOR 08/22/2016 Office visit Suad Roger CURRENCY MACHINE OPERATOR 08/19/2016 Office visit Mariana Cummins CURRENCY MACHINE OPERATOR 08/15/2016 Office visit Bridger Sarkar CURRENCY MACHINE OPERATOR 08/11/2016 Office visit Mariana Cummins CURRENCY MACHINE OPERATOR 07/30/2016 Office visit Mariana Cummins CURRENCY MACHINE OPERATOR 07/23/2016 Office visit Suad Roger CURRENCY MACHINE OPERATOR 01/05/2016 Office visit Mariana Cummins CURRENCY MACHINE OPERATOR
--- OUTSIDE RECORDS SUMMARY | 2017-07-06 02:06 | XMS REPORT ---
Author Author Love Guadarrama Organization [employer] Address [address] [place] [address] Care Team Providers Care Firebrick Layer Helper Name Role Phone Love Guadarrama Unavailable PROBLEMS Type Condition ICD9-CM Code [id number] Code Onset Dates Condition Status SNOMED Code Problem Cellulitis of Finger, Unspecified 681.00 Active 593761634 Problem Cellulitis Of Left Finger L03.012 Active 96862283147091662 Problem Bipolar disorder F31.9 Active 54713924 Problem COPD (chronic obstructive pulmonary disease) J44.9 Active 28312085 Problem Noncompliance Z91.19 Active 9109247 Problem Type 2 Diabetes Mellitus With Hyperglycemia E11.65 Active 109082167030977 ALLERGIES Unknown Allergies SOCIAL HISTORY No smoking Hx information available PLAN OF CARE VITAL SIGNS MEDICATIONS Unknown Medications RESULTS No Results PROCEDURES No Known procedures IMMUNIZATIONS No Known Immunizations
--- OUTSIDE RECORDS SUMMARY | 2017-07-06 02:06 | XMS REPORT | CCD ---
Author Author JOE DEAL Unknown Address [address] [place] [address] Care Team Providers Care Hog Ringer Name Role Phone FONTANA, SATURNINO DO Attphys FONTANA, SATURNINO DO Prisurg Allergies Unknown or Not Available. Active Medications Unknown or Not Available. Problems Unknown or Not Available. Procedures Procedure Code Procedure Type Date PATHOLOGY ORDER [id number] SNOMED CT 08/29/2016 SMEAR TO PATHOLOGIST 905966778 SNOMED CT 08/29/2016 COMPREHENSIVE METABOLIC PANEL 380000986 SNOMED CT 2016 CBC W/ AUTO DIFF (RFLX MAN DIFF IF IND) 1402310 SNOMED CT 08/29/2016 ^CBC W/ MANUAL DIFF 77495462 SNOMED CT 08/29/2016 Results COMPREHENSIVE METABOLIC PANEL - Collect Date/Time: 08/29/2016 17:15 Test Name Code Test Result Test Units Test Ref Range GLUCOSE 2345-7 264 MG/DL L=70 H=100 SODIUM 2951-2 139 MEQ/L L=135 H=148 POTASSIUM 2823-3 4.2 MEQ/L L=3.5 H=5.3 CHLORIDE 2075-0 103 MEQ/L L=96 H=110 CO2 2028-9 23 MEQ/L L=22 H=29 BUN 3094-0 25 MG/DL L=8 H=22 CREATININE 2160-0 1.1 MG/DL L=0.6 H=1.6 SGOT/AST 1920-8 23 IU/L L=10 H=40 SGPT/ALT 1742-6 16 IU/L L=8 H=54 ALK PHOS 6768-6 83 IU/L L=35 H=115 TOTAL PROTEIN 2885-2 6.7 G/DL L=5.5 H=8.5 ALBUMIN 1751-7 4.0 G/DL L=3.1 H=5.4 TOTAL BILI 1975-2 2.0 MG/DL L=0.0 H=1.5 CALCIUM 12991-3 9.3 MG/DL L=8.2 H=10.6 AGE 56 yrs GFR NonAA 51 GFR AA 62 eGFR 51 mL/min/1.7 eGFR AA* >60 N/A CBC W/ AUTO DIFF (RFLX MAN DIFF IF IND) - Collect Date/Time: 08/29/2016 17:15 Test Name Code Test Result Test Units Test Ref Range WBC 54789-8 5.7 TH/CMM L=4.5 H=10.8 RBC 789-8 3.87 ML/CMM L=4.20 H=5.40 HGB 718-7 10.5 G/DL L=12.0 H=16.0 HCT 4544-3 34.4 % L=37.0 H=47.0 MCV 89 FL L=81 H=99 MCH 27.1 PG L=27.0 H=33.0 MCHC 30.5 G/DL L=31.0 H=36.0 RDW SD 54 FL L=36 H=50 RDW CV 17.0 % L=0.0 H=14.8 PLT 777-3 1 TH/CMM L=130 H=440 NRBC# 0.00 TH/CMM L=0.00 H=0.00 NRBC% 0.0 /100WBC L=0.0 H=2.0 %NEUT 60.6 % %LYMP 30.9 % %MONO 6.5 % %EOS 1.0 % %BASO 0.5 % #NEUT 3.46 TH/CMM L=2.10 H=8.20 #LYMP 1.77 TH/CMM L=0.90 H=5.20 #MONO 0.37 TH/CMM L=0.16 H=1.00 #EOS 0.06 TH/CMM L=0.00 H=0.80 #BASO 0.03 TH/CMM L=0.00 H=0.20 SEGS 67 % BANDS 2 % LYMPHS 24 % MONOS 6 % EOS 1 % PLTS PLTS CHECKD N/A MANUAL DIFF SEE BELOW N/A ATYP LYMPHS FEW N/A ANISO 2++ N/A POLYCHROMASIA 1+ N/A PT/PTT - Collect Date/Time: 08/29/2016 17:15 Test Name Code Test Result Test Units Test Ref Range PROTIME 5964-2 12.9 SEC L=9.9 H=11.9 INR 59285-9 1.2 PTT 3173-2 24.3 SEC L=22.2 H=37.2 Function Status Unknown or Not Available. History of Immunizations Immunization Code Date influenza, split (incl. purified surface antigen) 15 2006 pneumococcal polysaccharide PPV23 33 2006 Td (adult) preservative free 113 08/22/2013 Influenza, seasonal, injectable, preservative free 140 2014 Plan of Treatment Unknown or Not Available. Social History Smoking Status Code Start Date End Date Never smoker [id number] Vital Signs Unknown or Not Available. Function Status Unknown or Not Available. Goals Unknown or Not Available. ASSESSMENTS Unknown or Not Available. Health Concerns Section Unknown or Not Available.
--- OUTSIDE RECORDS SUMMARY | 2017-07-06 02:07 | XMS REPORT ---
Author Author Alena Huertas [facility] Address [address] [place], [place] [address] Care Team Providers Care Smooth And Burr Worker Composites Name Role Phone Alena Huertas PCP Unavailable [...] 2 times per day for 7 days [place] 7.5-325 mg oral tablet 09/12/2016 09/27/2016 take [...] 09/22/2016 12:00 AM CLOSTRIDIUM AG EIA Reviewed Results Summary Data and Description Results [...] 2016 9:55AM Thrombocytopenia Oct 03 2016 9:55AM Payers Insurance Name Company Name Plan Name Plan Number Policy Number Policy Group Number Start Date Medicare Part B Medicare Of [place] [id number] Monday, 2008 [employer] - [place] [employer] - [place] State Plan [id number] N/A Medicare Part A Medicare - Lab/Xray [id number] N/A [employer] [place] State Plan [facility] [id number] Friday, June 29, 2012 Medicare RHC Medicare RHC [id number] N/A History of Encounters Visit Date Visit Type Provider 10/03/2016 Office visit Alena Huertas MD 09/22/2016 [...]
--- OUTSIDE RECORDS SUMMARY | 2017-07-06 02:07 | XMS REPORT ---
Author Author Fabian Roger Organization [employer] Address Unknown Phone Unavailable Care Team Providers Care Entry Level Project Coordinator Name Role Phone Fabian Roger CP Unavailable Allergies, Adverse Reactions, Alerts Substance Reaction Event Type Seafood/Fish Info Not Available Non Drug Allergy Sulfa Info Not Available Non Drug Allergy Poultry Info Not Available Non Drug Allergy Milk Info Not Available Non Drug Allergy Problems Problem Type Condition Code Onset Dates Condition Status Assessment Fall from bed, initial encounter W06.XXXA Active Assessment Type 2 diabetes mellitus without complications E11.9 Active Assessment Chronic obstructive pulmonary disease, unspecified [...] Instructions Start Date End Date Status Dosage Magnesium Oxide [facility] [address]-13 400 MG Orally Twice a day 1 tablet Tylenol Extra Strength [facility] [address]-69 500 MG Orally every 6 hrs 1 tablet as needed Potassium Chloride ER [facility] 79956689266 10 MEQ TAKE 1 TABLET BY MOUTH TWO TIMES A DAY Amitriptyline HCl [facility] 71541151300 25 MG Orally Once a day 1 tablet at bedtime NovoLog Flexpen [facility] 78173328342 100 UNIT/ML PER SLIDING SCALE BEFORE MEALS AND AT BEDTIME Cymbalta [facility] [address]-46 60 MG Orally Twice a day 1 capsule Levothyroxine Sodium [facility] [address]-71 112 MCG Orally Once a day 1 tablet MiraLax [facility] [address]-75 Orally Once a day 1 packet mixed with 8 ounces of fluid Sucralfate [facility] [address]-86 1 GM Orally Three times a day 1 tablet on an empty stomach Fanapt [facility] [address]-09 6 MG Orally Twice a day 1 tablet BD AutoShield Duo [facility] 03253292102 30G X 5 MM USE DIRECTED Aspercreme [facility] 42304-05577 10 % Externally not defined BusPIRone HCl [facility] [address]-22 15 MG Orally Four times a day 1 tablet Sure Comfort Lancets 30G [facility] 76198629470 0 USE DIRECTED BEFORE MEALS AND AT BEDTIME Augmentin [facility] [address]-12 875-125 MG Orally Twice a day 1 tablet Lasix [facility] [address]-02 20 MG Orally As directed 1 tablet once a day until loses 3 lbs. then once a day Albuterol Sulfate [facility] 10878259841 (2.5 MG/3ML) 0.083% 3ML THREE TIMES A DAY Gabapentin [facility] [address]-05 300 MG Orally Three times a day 2 capsule Nebulizer [facility] 63391-58033 0 inhalation as needed Apr 24, 2015 as directed Invokana [facility] [address]-04 100 MG Orally Once a day 1 tablet Mylanta [facility] 64092-[address]702 200-200-20 MG/5ML Orally Four times a day 10 ml as needed Ranitidine HCl [facility] [address]-79 300 MG Orally Once a day at bedtime 1 tablet Levemir FlexTouch [facility] [address]-11 100 UNIT/ML INJECT 75 UNITS SUBQ AT BEDTIME Procedures Procedure Coding System Code Date TOBACCO NON-USER CPT-4 G8457 Apr 24, 2015 PRESCRIP NOT GEN AT ENCOUNTE CPT-4 G8445 Apr 24, 2015 BP SYS <130 AND LAMA <80 CPT-4 G8476 Apr 24, 2015 CLIN DEPRESSION SCREEN NOT D CPT-4 G8432 Apr 24, 2015 DOC MEDS VERIFIED W/PT OR RE CPT-4 G8427 Apr 24, 2015 PAIN ASSESSMENT DOCUMENT CPT-4 G8440 Apr 24, 2015 TX PLAN DEVELOP & DOCUMENT CPT-4 G8437 Apr 24, 2015 DOC PAIN ASSESS NO DOC F/U PLAN RNS CPT-4 G8509 Apr 24, 2015 MOST RECENT SYSTOLIC BP <140 MM HG CPT-4 G8588 Apr 24, 2015 PT W/O INFLUENZA VACC CPT-4 G8109 Apr 24, 2015 MOST RECENT DIASTOLIC BP <90 MM HG CPT-4 G8590 Apr 24, 2015 ASPIRIN/OTH ANTITHROMBOTIC TX USED CPT-4 G8598 Apr 24, 2015 BMI>=30OR<22 RUDY NO FOLLOWUP CPT-4 G8419 Apr 24, 2015 [facility] MED/CURRENT MED MERGE CPT-4 1111F Apr 24, 2015 Office Visit, Est Pt., Level 3 CPT-4 08515 Apr 24, 2015 Vital Signs Date/Time: Apr 24, 2015 BMI 35.22 Index Peak Flow room air I/min Weight 186.4 lbs Height 61 in Respiratory Rate 20 /min Temperature 96.9 F Cardiac Monitoring Heart Rate 113 /min Oximetry 85 % Blood Pressure Diastolic 71 mm Hg Blood Pressure Systolic 116 mm Hg Results No Known Results Summary Purpose [employer] Submission
--- OUTSIDE RECORDS SUMMARY | 2017-07-06 02:08 | XMS REPORT ---
Author Author Fabian Roger Organization [employer] Address Unknown Phone Unavailable Care Team Providers Care System Support Developer Name Role Phone Fabian Roger CP Unavailable Allergies, Adverse Reactions, Alerts Substance Reaction Event Type Seafood/Fish Info Not Available Non Drug Allergy Sulfa Info Not Available Non Drug Allergy Poultry Info Not Available Non Drug Allergy Milk Info Not Available Non Drug Allergy Problems Problem Type Condition Code Onset Dates Condition Status Assessment Metabolic syndrome E88.81 Active Assessment Morbid (severe) obesity due to excess calories E66.01 Active Assessment Myoclonus G25.3 Active Assessment Type 2 diabetes mellitus with hyperglycemia E11.65 Active Assessment Chills (without fever) R68.83 Active Assessment Acute maxillary sinusitis, unspecified J01.00 Active Problem Type 2 diabetes mellitus with hyperglycemia E11.65 Active Problem Morbid (severe) obesity due to excess calories E66.01 Active Problem Myoclonus G25.3 Active Problem Pneumonia, unspecified organism J18.9 Active Problem Acute maxillary sinusitis, unspecified J01.00 Active Problem Candidiasis of vulva and vagina B37.3 Active Problem Chills (without fever) R68.83 Active Problem Constipation, unspecified K59.00 Active Problem Essential (primary) hypertension I10 Active Problem 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 Problem Chronic obstructive pulmonary disease, unspecified J44.9 Active Problem Pain in unspecified joint M25.50 Active Problem Metabolic syndrome E88.81 Active Problem Otitis media, unspecified, unspecified ear H66.90 Active Problem Unspecified diastolic (congestive) heart failure I50.30 Active Problem Unspecified otitis externa, unspecified ear H60.90 Active Problem Iron deficiency anemia, unspecified D50.9 Active Problem Unspecified convulsions R56.9 Active Problem Major depressive disorder, single episode, unspecified F32.9 Active Problem Other asthma J45.998 Active Problem Segmental and somatic dysfunction of pelvic region M99.05 Active Problem Segmental and somatic dysfunction of sacral region M99.04 Active Problem Insomnia, unspecified G47.00 Active Problem Other muscle spasm M62.838 Active Problem Segmental and somatic dysfunction of cervical region M99.01 Active Problem Low back pain M54.5 Active Problem Segmental and somatic dysfunction of lumbar region M99.03 Active Problem Segmental and somatic dysfunction of thoracic region M99.02 Active Medications Medication Code System Code Instructions Start Date End Date Status Dosage Aspercreme [facility] 03851-91903 10 % Externally not defined Fanapt [facility] [address]-13 6 MG Orally Twice a day 1 tablet Cymbalta [facility] [address]-97 60 MG Orally Twice a day 1 capsule Potassium Chloride ER [facility] 23732120886 10 MEQ TAKE 1 TABLET BY MOUTH TWO TIMES A DAY Mylanta [facility] 53779-60713 200-200-20 MG/5ML Orally Four times a day 10 ml as needed BD AutoShield Duo [facility] 53684532919 30G X 5 MM USE DIRECTED Gabapentin [facility] [address]-09 300 MG TAKE 2 CAPSULES BY MOUTH THREE TIMES A DAY AT 7AM, 2PM AND 10PM BusPIRone HCl [facility] [address]-90 15 MG Orally Four times a day 1 tablet MiraLax [facility] [address]-97 Orally Once a day 1 packet mixed with 8 ounces of fluid Sure Comfort Lancets 30G [facility] 55202265315 0 USE DIRECTED BEFORE MEALS AND AT BEDTIME Albuterol Sulfate [facility] 20882910008 (2.5 MG/3ML) 0.083% 3ML THREE TIMES A DAY Ranitidine HCl [facility] [address]-59 300 MG Orally Once a day at bedtime 1 tablet Levemir FlexTouch [facility] [address]-34 100 UNIT/ML INJECT 75 UNITS SUBQ AT BEDTIME Sucralfate [facility] [address]-51 1 GM Orally Three times a day 1 tablet on an empty stomach Lasix [facility] [address]-61 20 MG Orally As directed 1 tablet once a day until loses 3 lbs. then once a day Magnesium Oxide [facility] [address]-34 400 MG Orally Twice a day 1 tablet Augmentin [facility] [address]-45 875-125 MG Orally Twice a day 1 tablet Amitriptyline HCl [facility] 61213048281 25 MG Orally Once a day 1 tablet at bedtime NovoLog Flexpen [facility] 93506655755 100 UNIT/ML PER SLIDING SCALE BEFORE MEALS AND AT BEDTIME Levothyroxine Sodium [facility] [address]-70 112 MCG Orally Once a day 1 tablet Tylenol Extra Strength [facility] [address]-35 500 MG Orally every 6 hrs 1 tablet as needed Invokana [facility] [address]-93 100 MG Orally Once a day 1 tablet Procedures Procedure Coding System Code Date TOBACCO NON-USER CPT-4 G8457 Apr 19, 2015 PRESCRIPTION BY E-PRESCRIB S CPT-4 G8443 Apr 19, 2015 BP SYS <130 AND LAMA <80 CPT-4 G8476 Apr 19, 2015 CLIN DEPRESSION SCREEN NOT D CPT-4 G8432 Apr 19, 2015 DOC MEDS VERIFIED W/PT OR RE CPT-4 G8427 Apr 19, 2015 PAIN ASSESSMENT DOCUMENT CPT-4 G8440 Apr 19, 2015 TX PLAN DEVELOP & DOCUMENT CPT-4 G8437 Apr 19, 2015 DOC PAIN ASSESS NO DOC F/U PLAN RNS CPT-4 G8509 Apr 19, 2015 AT LEAST 1 RX TRANSMIT ERX SYS CPT-4 G8553 Apr 19, 2015 PT W/O INFLUENZA VACC CPT-4 G8109 Apr 19, 2015 MOST RECENT SYSTOLIC BP <140 MM HG CPT-4 G8588 Apr 19, 2015 MOST RECENT DIASTOLIC BP >=90 MM HG CPT-4 G8591 Apr 19, 2015 BMI >=30 CALCUATE W/FOLLOWUP CPT-4 G8417 Apr 19, 2015 HEMOGLOBIN A1C LEVEL > 9.0% CPT-4 3046F Apr 19, 2015 HG A1C LEVEL 7.0-9.0% CPT-4 3045F Apr 19, 2015 Office Visit, Est Pt., Level 3 CPT-4 31967 Apr 19, 2015 [facility] MED/CURRENT MED MERGE CPT-4 1111F Apr 19, 2015 FLU IMMUNIZE NO ORDER/ADMIN CPT-4 G8484 Apr 19, 2015 TOBACCO NON-USER CPT-4 1036F Apr 19, 2015 Vital Signs Date/Time: Apr 19, 2015 BMI 34.84 Index Peak Flow room air I/min Weight 184.4 lbs Height 61 in Respiratory Rate 22 /min Temperature 97.7 F Cardiac Monitoring Heart Rate 113 /min Oximetry 85 % Blood Pressure Diastolic 61 mm Hg Blood Pressure Systolic 102 mm Hg Results No Known Results Summary Purpose [employer] Submission
--- OUTSIDE RECORDS SUMMARY | 2017-07-06 02:08 | XMS REPORT ---
Author Author Mariana Cummins Organization [facility] Address [address] [place], [place] [address] Care Team Providers Care Hub Borer Name Role Phone Mariana Cummins PCP Unavailable [...] unit/mL subcutaneous insulin pen being referred to assembler billiard table jul 30, 2016 as she is on [...] resistance Active Vital Signs Date Time BP-Sys(mm[Hg] BP-Fracne(mm[Hg]) HR(bpm) RR(rpm) Temp WT HT HC BMI [...] Number Start Date Medicare RHC Medicare RHC [id number] N/A [employer] [place] [facility] [place] Plan [id number] N/A Medicare Part A Medicare - Lab/Xray [id number] N/A Medicare Part B Medicare Of [place] [id number] Monday, October 27, 2008 [employer] [place] State Plan [facility] [id number] Friday, June 29, 2012 History of Encounters Visit Date Visit Type Provider 08/11/2016 Office visit Mariana Cummins APRN 07/30/2016 Office visit Mariana Cummins APRN 07/23/2016 Office visit Suad Roger APRN 01/05/2016 Office visit Mariana Cummins APRN
--- OUTSIDE RECORDS SUMMARY | 2017-07-06 02:09 | XMS REPORT ---
Author Author Alena Huertas [facility] Address [address] [place], [place] [address] Care Team Providers Care Ball Truing Machine Operator Name Role Phone Alena Huertas PCP Unavailable Benja, Narda Unavailable Unavailable tonia hussein Unavailable Unavailable Merary Unavailable Unavailable Hogge Unavailable Unavailable Roselyn Unavailable Unavailable Fabian Roger Unavailable Unavailable Mariana Cummisn PreferredProvider Unavailable Allergies and Adverse Reactions Name [...] unit/mL subcutaneous insulin pen being referred to hall clerk jul 30, 2016 as she is on [...] 2 times per day for 7 days Kim 7.5-325 mg oral tablet 09/12/2016 09/27/2016 take [...] Date Medicare Part B Medicare Of [place] [id number] Monday, 2008 [employer] [place] [facility] State Plan [id number] N/A Medicare Part A Medicare - Lab/Xray [id number] N/A [employer] State Plan [employer] State Plan [id number] Friday, June 29, 2012 Medicare RHC Medicare RHC [id number] N/A History of Encounters Visit Date Visit Type Provider 09/22/2016 Office visit Alena Huertas MD 09/19/2016 Office visit Mariana Cummins APRN 09/12/2016 Office visit Suad Roger MANAGER INSPECTION 08/28/2016 Office visit Bridger Sarkar APRN 08/22/2016 Office visit Suad Roger APRN 08/19/2016 Office visit Mariana Cummins APRN 08/15/2016 Office visit Bridger Sarkar MANAGER INSPECTION 08/11/2016 Office visit Mariana Cummins APRN 07/30/2016 Office visit Mariana Cummins APRN 07/23/2016 Office visit Suad Roger APRN 01/05/2016 Office visit Mariana Cummins APRN
--- OUTSIDE RECORDS SUMMARY | 2017-07-06 02:09 | XMS REPORT | Continuity of Care Document ---
Author Author [facility] Organization [facility] Address [address] [place] [address] Phone Unavailable Care Team Providers Care Gasoline Truck Operator Name Role Phone TIMUR SWENSON PCP Insurance Providers Payer Name Policy Number Subscriber Name Relationship Medicare [id number] Chanell Sosa 18 Self / Same As Patient [facility] [id number] Chanell Sosa 18 Self / Same As Patient Advance Directives Directive Response Recorded Date/Time Living Will No 02/28/16 10:35am Advance Directives No 05/25/15 7:54am Advance Directive on File No 07/02/16 2:34am Durable POA for HC No 07/02/16 2:34am Power of Meat Molder No 07/02/16 2:34am Organ Donor No 07/02/16 2:34am Living Will No 07/02/16 2:34am What is your agent's or roofing sales representative's phone number? No 05/25/15 7:54am Chief Complaint and Reason for Visit Chief Complaint Lower Extremity Injury Reason for Visit Deep vein thrombosis (DVT) of right lower extremity Problems Active Problems [...] Oral Once A Day for Hyperglycemia Tiotropium [place] 18 Mcg 1 Mcg Inhalation Everyday At [...] Response Recorded Date/Time Smoking Status Former smoker 07/02/2016 2:34am Smoked in the last 12 months? No 07/02/2016 2:34am Do you dip or chew tobacco? No 07/02/2016 2:34am Approx how many cigs per day? 0 07/02/2016 2:34am Level of Dependence Low 07/02/2016 2:34am Former smoker, last day smoked? 201107/02/2016 2:34am Query Response Start Date Stop Date Smoking Status Former smoker Hospital Discharge Instructions No hospital discharge instructions. Plan of Care Discharge Date 07/02/16 4:30am Disposition 01 D/C HOME Condition at Discharge Stable Instructions/Education Provided Leg Sprain (ED) Forms Provided ER Discharge Phone Call Check Prescriptions See Medication Section Referrals TIMUR SWENSON - Additional Instructions/Education May use heating on lower right leg for pain relief Take Tramadol as directed for pain Follow-up with PCP Riley Brice for Doppler Studies arrangements Functional Status Query Response Date Recorded Activities of Daily Living Performs with Assistance July 02, 2016 2:34am Cognitive Function Moderately Impaired July 02, 2016 2:34am Allergies, Adverse Reactions, Alerts Allergen Type Severity Reaction Status Last Updated Sulfa (Sulfonamide Antibiotics) ([id number]) Allergy Unknown VOMITTING DIARRHEA Active 01/25/16 Poultry Allergy Unknown NAUSEA AND VOMITING Active 01/25/16 Iloperidone Allergy Intermediate seizures Active 04/12/16 Immunizations No immunization records. Vital Signs Acute Vital Signs Vital Response Date/Time Temperature (Fahrenheit) 97.3 degrees F (97.6 - 99.5) 07/02/2016 3:54am Temperature (Calculated Celsius) 36.53901 degrees C (36.4 - 37.5) 07/02/2016 3:54am Temperature Source Temporal Artery Scan 07/02/2016 3:54am Pulse Pulse Ox Pulse Rate (adult) 82 beats per minute (60 - 90) 07/02/2016 3:54am Pulse Location Modifier Left 05/13/2016 9:00pm Oxygen Saturation Respiratory Rate 16 breaths per minute (12 - 24) 07/02/2016 3:54am O2 Sat by Pulse Oximetry 94 % (90 - 100) 07/02/2016 3:54am Blood Pressure 117/58 mm Hg 07/02/2016 3:54am Blood Pressure Mean 77 mm Hg 07/02/2016 3:54am Height 5 ft 1 in Weight 183 [...] Discharge/Depart Date Attending Provider Departed Emergency Room [facility] 07/02/16 2:32am 07/02/16 4: 30am ELMIRA SATNACRUZ MD Departed Emergency Room [facility] 06/28/16 11:28pm 06/29/16 3: 05am KIRA CRUZ MD Registered [facility] 06/26/16 1:42pm TIMUR SWENSON Departed Emergency Room [facility] 05/13/16 6:42pm 05/13/16 9: 00pm SMITA MICHELE APRN Registered [facility] 04/21/16 2:37pm TIMUR SWENSON Departed Emergency Room [facility] 04/12/16 11:51am 04/12/16 2: 30pm TATUM ARCHIBALD APRN Discharged [facility] 02/28/16 10:37am 03/14/16 10: 57am BRITTNI BRAVO M.D. Departed Emergency Room [facility] 01/25/16 9:20am 01/25/16 11: 25am ADALBERTO GONZALES MD Recent Diagnosis
--- OUTSIDE RECORDS SUMMARY | 2017-07-06 02:10 | XMS REPORT ---
Author Fabian Paul Organization [employer] Address Unknown Phone Unavailable Care Team Providers Care Gluing Pressman Name Role Phone Fabian Roger CP Unavailable Allergies, Adverse Reactions, Alerts Substance Reaction Event Type Seafood/Fish Info Not Available Non Drug Allergy Sulfa Info Not Available Non Drug Allergy Poultry Info Not Available Non Drug Allergy Milk Info Not Available Non Drug Allergy Problems Problem Type Condition Code Onset Dates Condition Status Assessment Other specified forms of hearing loss 389.8 Active Assessment Unspecified iron deficiency anemia 280.9 Active Assessment Diabetes mellitus without mention of complication, type II or unspecified type, not stated as uncontrolled 250.00 Active Assessment Unspecified essential hypertension 401.9 Active Assessment Chronic airway obstruction, not elsewhere classified 496 Active Assessment Pneumonia, organism unspecified 486 Active Problem Essential and other specified forms of tremor 333.1 Active Problem Special screening for malignant neoplasms, colon V76.51 Active Problem Screening for lipoid disorders V77.91 Active Problem Congestive heart failure, unspecified 428.0 Active Problem Unspecified hypothyroidism 244.9 Active Problem Unspecified esophagitis 530.10 Active Problem Unspecified constipation 564.00 Active Problem Other specified forms of hearing loss 389.8 Active Problem Unspecified hypotension 458.9 Active Problem Polyneuropathy in diabetes 357.2 Active Problem Cellulitis and abscess of unspecified site 682.9 Active Problem Candidiasis of vulva and vagina 112.1 Active Problem Other convulsions 780.39 Active Problem Unspecified essential hypertension 401.9 Active Problem Pneumonia, organism unspecified 486 Active Problem 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 Problem Slow transit constipation 564.01 Active Problem Closed fracture of metatarsal bone(s) 825.25 Active Problem Morbid obesity 278.01 Active Problem Mitral stenosis with insufficiency 394.2 Active Assessment Unspecified hypothyroidism 244.9 Active Problem Depressive disorder, not elsewhere classified 311 Active Assessment Morbid obesity 278.01 Active Problem Esophageal reflux 530.81 Active Problem Unspecified iron deficiency anemia 280.9 Active Problem Asthma, unspecified, unspecified status 493.90 Active Problem Pain in joint, other specified sites 719.48 Active Problem Chronic airway obstruction, not elsewhere classified 496 Active Problem Anxiety state, unspecified 300.00 Active Problem Diabetes mellitus without mention of complication, type II or unspecified type, not stated as uncontrolled 250.00 Active Medications Medication Code System Code Instructions Start Date End Date Status Dosage Mylanta [facility] [address]6462 200-200-20 MG/5ML Orally Four times a day 10 ml as needed [place] [facility] [address]-27 5-325 MG Orally every 4 hrs 1 tablet as needed Magnesium Oxide [facility] [address]-44 400 MG Orally Twice a day 1 tablet Ferrous Sulfate [facility] [address]-82 325 (65 Fe) MG Orally Three times a day 1 tablet Robitussin DM [facility] [address]-06 100-10 MG/5ML Orally every 4 hrs 10 ml as needed Simethicone [facility] [address]-78 80 MG Orally not defined Spiriva HandiHaler [facility] [address]-05 18 MCG Inhalation Once a day 1 capsule Xanax [facility] [address]-79 0.25 MG Orally once a day at HS 1 tablet as needed MiraLax [facility] [address]-02 Orally Once a day 1 packet mixed with 8 ounces of fluid Zantac [facility] [address]-72 300 MG Orally Once a day at HS 1 tablet Lotrisone [facility] [address]-51 1-0.05 % Externally Twice a day 1 application to affected area Tylenol Extra Strength [facility] [address]-66 500 MG Orally every 6 hrs 1 tablet as needed Invokana [facility] [address]-92 100 MG Orally Once a day 1 tablet DuoNeb ND ____ not defined Synthroid [facility] [address]-54 112 MCG Orally Once a day 1 tablet Potassium Chloride ER [facility] [address]-38 10 MEQ Orally Twice a day 1 tablet BusPIRone HCl [facility] [address]-66 15 MG Orally Four times a day 1 tablet Albuterol Sulfate HFA [facility] [address]-49 108 (90 Base) MCG/ACT Inhalation every 4 hrs 2 puffs as needed Levemir Flexpen ND ____ 100 UNIT/ML Subcutaneous daily at HS 45 units Fanapt [facility] [address]-78 6 MG Orally Twice a day 1 tablet Flonase [facility] [address]-89 50 MCG/ACT Nasally Once a day 1 spray in each nostril Carafate [facility] [address]-14 1 GM Orally Three times a day 1 tablet on an empty stomach Advair Diskus [facility] [address]-41 250-50 MCG/DOSE Inhalation Twice a day 1 puff Cymbalta [facility] [address]-49 60 MG Orally Twice a day 1 capsule HydrOXYzine HCl [facility] [address]-86 25 MG Orally not defined Aspercreme [facility] [address]323 10 % Externally not defined Albuterol Sulfate [facility] 53384997196 (2.5 MG/3ML) 0.083% 3ML THREE TIMES A DAY NovoLog Flexpen [facility] 07677809387 100 UNIT/ML PER SLIDING SCALE BEFORE MEALS AND AT BEDTIME Gabapentin [facility] [address]-81 300 MG Orally Three times a day 1 capsule Combivent Respimat [facility] 77888050619 20-100 MCG/ACT ONE PUFF EVERY FOUR HOURS Procedures Procedure Coding System Code Date TOBACCO NON-USER CPT-4 G8457 October 23, 2014 PRESCRIP NOT GEN AT ENCOUNTE CPT-4 G8445 October 23, 2014 BP SYS <130 AND LAMA <80 CPT-4 G8476 October 23, 2014 CLIN DEPRESSION SCREEN NOT D CPT-4 G8432 October 23, 2014 DOC MEDS VERIFIED W/PT OR RE CPT-4 G8427 October 23, 2014 PAIN ASSESSMENT DOCUMENT CPT-4 G8440 October 23, 2014 TX PLAN DEVELOP & DOCUMENT CPT-4 G8437 October 23, 2014 DOC PAIN ASSESS NO DOC F/U PLAN RNS CPT-4 G8509 October 23, 2014 MOST RECENT SYSTOLIC BP <140 MM HG CPT-4 G8588 October 23, 2014 BMI>=30OR<22 RUDY NO FOLLOWUP CPT-4 G8419 October 23, 2014 MOST RECENT DIASTOLIC BP <90 MM HG CPT-4 G8590 October 23, 2014 [facility] MED/CURRENT MED MERGE CPT-4 1111F October 23, 2014 FLU VACCINE NOT SCREEN CPT-4 G8424 October 23, 2014 Office Visit, Est Pt., Level 2 CPT-4 85972 October 23, 2014 Vital Signs Date/Time: October 23, 2014 BMI 34.65 Index Peak Flow 1L/NC I/min Weight 183.4 lbs Height 61 in Respiratory Rate 18 /min Temperature 97.8 F Cardiac Monitoring Heart Rate 105 /min Oximetry 94 % Blood Pressure Diastolic 67 mm Hg Blood Pressure Systolic 118 mm Hg Results No Known Results Summary Purpose [employer] Submission
--- OUTSIDE RECORDS SUMMARY | 2017-07-06 02:11 | XMS REPORT ---
Author Author Alena Huertas [facility] Address [address] [place], [place] [id number] Care Team Providers Care Ring Packer Name Role Phone Alena Huertas PCP Unavailable [...] unit/mL subcutaneous insulin pen being referred to finger lift operator jul 30, 2016 as she is [...] times per day as needed for cough [place] 7.5-325 mg oral tablet 09/12/2016 09/27/2016 [...] Date Medicare Part B Medicare Of [place] [id number] Monday, 2008 [employer] - [place] - [place] State [facility] State Plan [id number] N/A Medicare Part A Medicare - Lab/Xray [id number] N/A [facility] [id number] Friday, June 29, 2012 Medicare RHC Medicare RHC [id number] N/A History of Encounters Visit Date Visit Type Provider 09/22/2016 Office visit Alena Huertas MD 09/19/2016 Office visit Mariana Cummins APRN 09/12/2016 Office visit Suad Roger PRIVATE SECURITY GUARD 08/28/2016 Office visit Bridger Sarkar APRN 08/22/2016 Office visit Suad Roger APRN 08/19/2016 Office visit Mariana Cummins APRN 08/15/2016 Office visit Bridger Sarkar PRIVATE SECURITY GUARD 08/11/2016 Office visit Mariana Cummins APRN 07/30/2016 Office visit Mariana Cummins APRN 07/23/2016 Office visit Suad Roger APRN 01/05/2016 Office visit Mariana Cummins APRN
--- OUTSIDE RECORDS SUMMARY | 2017-07-06 02:11 | XMS REPORT ---
Author Author Alena Huertas [facility] Address [address] [place], [place] [address] Care Team Providers Care Drywall Worker Name Role Phone Alena Huertas PCP [...] 2 times per day for 7 days [place] 7.5-325 mg oral tablet 09/12/2016 09/27/2016 take [...] HC BMI BSA BMI Percentile O2 Sat(%) 12/24/2016 9:09:00 AM 128 mmHg 64 mmHg [...] right lower extremity Dec 24 2016 9:12AM Payers Insurance Name Company Name Plan Name Plan Number Policy Number Policy Group Number Start Date Medicare Part B Medicare [place] [id number] Monday, 2008 [employer] [place] State Plan [facility] [id number] Friday, 2012 Medicare C Medicare [facility] [id number] N/A [employer] - [place] State [place] [employer] - [place] State Plan [id number] N/A Medicare Part A Medicare - Lab/Xray [id number] N/A History of Encounters Visit Date Visit Type Provider 12/24/2016 Office visit Alena Huertas MD 12/22/2016 Office visit 12/22/2016 Office visit 12/22/2016 Office visit Alena Huertas MD 12/19/2016 Office visit Alena Huertas MD 12/17/2016 Office visit Alena Huertas MD 12/16/2016 Office visit Alena Huertas MD 12/12/2016 Surgery Cody Chao MD 12/12/2016 Office visit Alena Huertas MD 12/09/2016 Office visit Alena Huertas MD 12/03/2016 Office visit Mariana Cummins BRAIDING MACHINE OPERATOR 12/02/2016 Office visit Cody Chao MD 12/01/2016 Office visit Bridger Sarkar BRAIDING MACHINE OPERATOR 11/25/2016 Office visit Alena Huertas MD 11/21/2016 Office visit Mariana Cummins BRAIDING MACHINE OPERATOR 11/12/2016 Laboratory Mariana Cummins BRAIDING MACHINE OPERATOR 11/11/2016 Office visit Alena Huertas MD 10/31/2016 Office visit Alena Huertas MD 10/24/2016 Office visit Alena Huertas MD 10/20/2016 Office visit Alena Huertas MD 10/08/2016 Office visit Alena Huertas MD 10/06/2016 Laboratory Suad Roger BRAIDING MACHINE OPERATOR 10/03/2016 Office visit Alena Huertas MD 09/22/2016 Office visit Alena Huertas MD 09/19/2016 Office visit Mariana Cummins BRAIDING MACHINE OPERATOR 09/12/2016 Office visit Suad Roger BRAIDING MACHINE OPERATOR 08/28/2016 Office visit Bridger Sarkar BRAIDING MACHINE OPERATOR 08/22/2016 Office visit Suad Roger BRAIDING MACHINE OPERATOR 08/19/2016 Office visit Mariana Cummins APRN 08/15/2016 Office visit Bridger Sarkar BRAIDING MACHINE OPERATOR 08/11/2016 Office visit Mariana Cummins APRN 07/30/2016 Office visit Mariana Cummins APRN 07/23/2016 Office visit Suad Roger BRAIDING MACHINE OPERATOR 01/05/2016 Office visit Mariana Cummins APRN
--- OUTSIDE RECORDS SUMMARY | 2017-07-06 02:12 | XMS REPORT ---
Author Author Love Guadarrama Organization [employer] Address Unknown Phone Unavailable Care Team Providers Care Outbound Telemarketer Name Role Phone Love Guadarrama CP Unavailable Allergies No Known Allergies Problems Problem Type Condition Code Onset Dates Condition Status Problem Type 2 Diabetes Mellitus With Hyperglycemia E11.65 Active Problem Bipolar disorder F31.9 Active Problem Noncompliance Z91.19 Active Problem COPD (chronic obstructive pulmonary disease) J44.9 Active Medications No Known Medications Results No Known Results Summary Purpose [employer] Submission
--- OUTSIDE RECORDS SUMMARY | 2017-07-06 02:12 | XMS REPORT ---
Author Author Fabian Roger Organization [employer] Address Unknown Phone Unavailable Care Team Providers Care It Senior Software Engineer Java Name Role Phone Fabian Roger CP Unavailable [...] Active Problem Insomnia, unspecified 780.52 Active Assessment Other specified forms of hearing loss 389.8 Active Assessment Polyneuropathy in diabetes 357.2 Active Assessment Unspecified essential hypertension 401.9 Active Assessment Dysmetabolic Syndrome X 277.7 Active Problem Nonallopathic lesion of sacral region, not elsewhere classified 739.4 Active Assessment Morbid obesity 278.01 Active Problem Nonallopathic lesion of lumbar region, [...] presenting hazards to health V15.81 Active Assessment Unspecified otitis media 382.9 Active Problem Diabetes mellitus without mention of complication, type II or unspecified type, uncontrolled 250.02 Active Assessment Diabetes mellitus without mention of complication, type II or unspecified type, not stated as uncontrolled 250.00 Active Problem Other convulsions 780.39 Active Problem Unspecified iron deficiency anemia 280.9 Active Problem 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 Problem Unspecified essential hypertension 401.9 Active Problem Unspecified hypothyroidism 244.9 Active Problem Unspecified constipation 564.00 Active Medications Medication Code System Code Instructions Start Date End Date Status Dosage Cymbalta [facility] [address]-22 60 MG Orally Twice a day 1 capsule Simethicone [facility] [address]-09 80 MG Orally not defined Tylenol Extra Strength [facility] [address]-18 500 MG Orally every 6 hrs 1 tablet as needed Zantac [facility] [address]-17 300 MG Orally Once a day at HS 1 tablet HydrOXYzine HCl [facility] [address]-11 25 MG Orally not defined Sure Comfort Lancets 30G [facility] 26519209494 0 USE DIRECTED BEFORE MEALS AND AT BEDTIME Amitriptyline HCl [facility] 14168190709 25 MG Orally Once a day 1 tablet at bedtime Aspercreme [facility] 332[address]-59754 10 % Externally not defined Sucralfate [facility] 59829990719 1 GM TAKE 1 TABLET BY MOUTH THREE TIMES A DAY Robitussin DM [facility] [address]-03 100-10 MG/5ML Orally every 4 hrs 10 ml as needed NovoLog Flexpen [facility] 79061176000 100 UNIT/ML PER SLIDING SCALE BEFORE MEALS AND AT BEDTIME Amoxicillin [facility] [address]-53 250 MG Orally Three times a day 1 capsule BusPIRone HCl [facility] [address]-48 15 MG Orally Four times a day 1 tablet Cipro [facility] [address]-58 500 MG Orally Twice a day 1 tablet Hydrocortisone-Acetic Acid [facility] [address]-83 1-2 % Otic Three times a day 5 drops into affected ear Levemir FlexTouch [facility] [address]-76 100 UNIT/ML INJECT 75 UNITS SUBQ AT BEDTIME Ranitidine HCl [facility] 68748818360 300 MG TAKE 1 TABLET BY MOUTH ONCE A DAY AT BEDTIME Invokana [facility] 16683141304 100 MG TAKE 1 TABLET BY MOUTH ONCE A DAY MiraLax [facility] [address]-08 Orally Once a day 1 packet mixed with 8 ounces of fluid Albuterol Sulfate [facility] 68444290371 (2.5 MG/3ML) 0.083% 3ML THREE TIMES A DAY Combivent Respimat [facility] 44407537779 20-100 MCG/ACT ONE PUFF EVERY FOUR HOURS Flonase [facility] [address]-42 50 MCG/ACT Nasally Once a day 1 spray in each nostril Luray [facility] [address]-86 5-325 MG Orally every 4 hrs 1 tablet as needed DuoNeb NDC 0 not defined Advair Diskus [facility] [address]-32 250-50 MCG/DOSE Inhalation Twice a day 1 puff Lotrisone [facility] [address]-98 1-0.05 % Externally Twice a day 1 application to affected area Fanapt [facility] [address]-46 6 MG Orally Twice a day 1 tablet Synthroid [facility] [address]-45 112 MCG Orally Once a day 1 tablet Potassium Chloride ER [facility] 26839915999 10 MEQ TAKE 1 TABLET BY MOUTH TWO TIMES A DAY Ferrous Sulfate [facility] [address]-24 325 (65 Fe) MG Orally Three times a day 1 tablet Mylanta [facility] 36124-93524 200-200-20 MG/5ML Orally Four times a day 10 ml as needed Spiriva HandiHaler [facility] [address]-67 18 MCG Inhalation Once a day 1 capsule Carafate [facility] [address]-26 1 GM Orally Three times a day 1 tablet on an empty stomach Magnesium Oxide [facility] [address]-88 400 MG Orally Twice a day 1 tablet Xanax [facility] [address]-65 0.25 MG Orally once a day at HS 1 tablet as needed Albuterol Sulfate HFA [facility] [address]-34 108 (90 Base) MCG/ACT Inhalation every 4 hrs 2 puffs as needed Lasix [facility] [address]-28 20 MG Orally As directed 1 tablet once a day until loses 3 lbs. then once a day Gabapentin [facility] 46357961122 300 MG TAKE 1 CAPSULE BY MOUTH THREE TIMES A DAY AT 7AM, 2PM AND 10PM Ambien [facility] [address]-86 10 MG Orally Once a day 1 tablet at bedtime as needed Levothyroxine Sodium [facility] 52126499060 112 MCG TAKE 1 TABLET BY MOUTH ONCE A DAY Procedures Procedure Coding System Code Date TOBACCO NON-USER CPT-4 G8457 Feb 21, 2015 PRESCRIPTION BY E-PRESCRIB S CPT-4 G8443 Feb 21, 2015 BP SYS <130 AND LAMA <80 CPT-4 G8476 Feb 21, 2015 CLIN DEPRESSION SCREEN NOT D CPT-4 G8432 Feb 21, 2015 DOC MEDS VERIFIED W/PT OR RE CPT-4 G8427 Feb 21, 2015 PAIN ASSESSMENT DOCUMENT CPT-4 G8440 Feb 21, 2015 TX PLAN DEVELOP & DOCUMENT CPT-4 G8437 Feb 21, 2015 DOC PAIN ASSESS NO DOC F/U PLAN RNS CPT-4 G8509 Feb 21, 2015 AT LEAST 1 RX TRANSMIT ERX SYS CPT-4 G8553 Feb 21, 2015 BMI>=30OR<22 RUDY NO FOLLOWUP CPT-4 G8419 Feb 21, 2015 MOST RECENT SYSTOLIC BP <140 MM HG CPT-4 G8588 Feb 21, 2015 MOST RECENT DIASTOLIC BP <90 MM HG CPT-4 G8590 Feb 21, 2015 FLU VACCINE NOT SCREEN CPT-4 G8424 Feb 21, 2015 HEMOGLOBIN A1C LEVEL > 9.0% CPT-4 3046F Feb 21, 2015 [facility] MED/CURRENT MED MERGE CPT-4 1111F Feb 21, 2015 Office Visit, Est Pt., Level 3 CPT-4 87612 Feb 21, 2015 MOST RECENT SYSTOLIC BP < 140MM HG CPT-4 G8752 Feb 21, 2015 MOST RECENT DIASTOLIC BP < 90MM HG CPT-4 G8754 Feb 21, 2015 Vital Signs Date/Time: Feb 21, 2015 Pain Scale 0/10 1-10 BMI 34.72 Index Peak Flow room air I/min Weight 183.8 lbs Height 61 in Respiratory Rate 22 /min Temperature 97.3 F Cardiac Monitoring Heart Rate 91 /min Oximetry 88 % Blood Pressure Diastolic 79 mm Hg Blood Pressure Systolic 124 mm Hg Results No Known Results Summary Purpose [employer] Submission
--- OUTSIDE RECORDS SUMMARY | 2017-07-06 02:13 | XMS REPORT ---
Author Author Alena Huertas [facility] Address [address] [place], [place] [address] Care Team Providers Care Mini Baccarat Dealer Name Role Phone Alena Huertas PCP Unavailable [...] MARTHA (Ankle Brachial Index). 12/22/2016 12:00 AM US ART DOPP W/EX LOWER EXT 12/23/2016 12:00 AM insulin resistant diabetic 09/02/2016 [...] 2 times per day for 7 days [place] 7.5-325 mg oral tablet 09/12/2016 09/27/2016 take [...] mg PA q hs for 5 nights amoxicillin 875 [...] mellitus with hyperglycemia Oct 08 2016 1:21PM longterm (current) use of insulin Oct 08 2016 [...] Date Medicare Part B Medicare [place] [id number] Monday, 2008 [facility] [id number] Friday, 2012 Medicare RHC Medicare RHC [id number] N/A [facility] [place] State [place] [facility] State Plan [id number] N/A Medicare Part A Medicare - Lab/Xray [id number] N/A History of Encounters Visit Date Visit Type Provider 12/22/2016 Office visit Alena Huertas MD 12/19/2016 Office visit Alena Huertas MD 12/17/2016 Office visit Alena Huertas MD 12/16/2016 Office visit Alena Huertas MD 12/12/2016 Surgery Cody Chao MD 12/12/2016 Office visit Alena Huertas MD 12/09/2016 Office visit Alena Huertas MD 12/03/2016 Office visit Mariana Cummins SOCIAL SECURITY BENEFITS INTERVIEWER 12/02/2016 Office visit Cody Choa MD 12/01/2016 Office visit Bridger Sarkar SOCIAL SECURITY BENEFITS INTERVIEWER 11/25/2016 Office visit Alena Huertas MD 11/21/2016 Office visit Mariana Cummins SOCIAL SECURITY BENEFITS INTERVIEWER 11/12/2016 Laboratory Mariana Cummins SOCIAL SECURITY BENEFITS INTERVIEWER 11/11/2016 Office visit Alena Huertas MD 10/31/2016 Office visit Alena Huertas MD 10/24/2016 Office visit Alena Huertas MD 10/20/2016 Office visit Alena Huertas MD 10/08/2016 Office visit Alena Huertas MD 10/06/2016 Laboratory Suad Roger SOCIAL SECURITY BENEFITS INTERVIEWER 10/03/2016 Office visit Alena Huertas MD 09/22/2016 Office visit Alena Huertas MD 09/19/2016 Office visit Mariana Cummins SOCIAL SECURITY BENEFITS INTERVIEWER 09/12/2016 Office visit Suad Roger SOCIAL SECURITY BENEFITS INTERVIEWER 08/28/2016 Office visit Bridger Sarkar SOCIAL SECURITY BENEFITS INTERVIEWER 08/22/2016 Office visit Suad Roger SOCIAL SECURITY BENEFITS INTERVIEWER 08/19/2016 Office visit Mariana Cummins SOCIAL SECURITY BENEFITS INTERVIEWER 08/15/2016 Office visit Bridger Sarkar SOCIAL SECURITY BENEFITS INTERVIEWER 08/11/2016 Office visit Mariana Cummins SOCIAL SECURITY BENEFITS INTERVIEWER 07/30/2016 Office visit Mariana Cummins SOCIAL SECURITY BENEFITS INTERVIEWER 07/23/2016 Office visit Suad Roger SOCIAL SECURITY BENEFITS INTERVIEWER 01/05/2016 Office visit Mariana Cummins SOCIAL SECURITY BENEFITS INTERVIEWER
--- OUTSIDE RECORDS SUMMARY | 2017-07-06 02:15 | XMS REPORT ---
Author Author Alena Huertas [facility] Address [address] [place], [place] [id number] Care Team Providers Care Tonal Regulator Name Role Phone Alena Huertas PCP Unavailable [...] 6 hours as needed for 30 days Name Start [...] 2 times per day for 7 days [place] 7.5-325 mg oral tablet 09/12/2016 09/27/2016 take 1 tablet by oral route every 8 hours as needed for 15 days azithromycin 250 mg oral tablet 10/03/2016 10/08/2016 take 2 tablets (500 mg) by oral route once daily for 1 day then 1 tablet (250 mg) by oral route once daily for 4 days Anusol-HC 25 mg rectal suppository 10/08/2016 10/13/2016 25 mg [place] q hs for 5 nights amoxicillin 875 [...] mellitus with hyperglycemia Feb 04 2017 11:25AM USP (current) use of insulin Feb 04 2017 [...] Date Medicare Part B Medicare [place] [id number] Monday, 2008 [facility] [id number] Friday, 2012 Medicare RHC Medicare RHC [id number] N/A [facility] [place] State [place] [facility] State Plan [id number] N/A Medicare Part A Medicare - Lab/Xray [id number] N/A History of Encounters Visit Date Visit [...] Huertas MD 01/01/2017 Office visit Bridger Sarkar RISK ADVISOR 12/24/2016 Office visit Alena Huertas MD 12/22/2016 Office visit 12/22/2016 Office visit 12/22/2016 Office visit Alena Huertas MD 12/19/2016 Office visit Alena Huertas MD 12/17/2016 Office visit Alena Huertas MD 12/16/2016 Office visit Alena Huertas MD 12/12/2016 Surgery Cody Chao MD 12/12/2016 Office visit Alena Huertas MD 12/09/2016 Office visit Alena Huertas MD 12/03/2016 Office visit Mariana Cummins RISK ADVISOR 12/02/2016 Office visit Cody Chao MD 12/01/2016 Office visit Bridger Sarkar RISK ADVISOR 11/25/2016 Office visit Alena Huertas MD 11/21/2016 Office visit Mariana Cummins RISK ADVISOR 11/21/2016 Hospital Ahsan Cobb MD 11/14/2016 Hospital Ahsan Cobb MD 11/12/2016 Laboratory Mariana Cummins RISK ADVISOR 11/11/2016 Office visit Alena Huertas MD 10/31/2016 Office visit Alena Huertas MD 10/24/2016 Office visit Alena Huertas MD 10/20/2016 Office visit Alena Huertas MD 10/08/2016 Office visit Alena Huertas MD 10/06/2016 Laboratory Suad Roger RISK ADVISOR 10/03/2016 Office visit Alena Huertas MD 09/22/2016 Office visit Alena Huertas MD 09/19/2016 Office visit Mariana Cummins RISK ADVISOR 09/12/2016 Office visit Suad Roger RISK ADVISOR 08/28/2016 Office visit Bridger Sarkar RISK ADVISOR 08/22/2016 Office visit Suad Roger RISK ADVISOR 08/19/2016 Office visit Mariana Cummins RISK ADVISOR 08/15/2016 Office visit Bridger Sarkar RISK ADVISOR 08/11/2016 Office visit Mariana Cummins RISK ADVISOR 07/30/2016 Office visit Mariana Cummins RISK ADVISOR 07/23/2016 Office visit Suad Roger RISK ADVISOR 01/05/2016 Office visit Mariana Cummins APRN
--- OUTSIDE RECORDS SUMMARY | 2017-07-06 02:16 | XMS REPORT | Continuity of Care Document ---
Author Author [facility] Organization [facility] Address Unknown Phone Unavailable Allergies Active Description Code Type Severity Reaction Onset Reported/Identified Relationship to Patient Clinical Status Yes milk milk Drug Allergy Mild VOMITING 04/19/2014 Yes Sulfa (Sulfonamide Antibiotics) Sulfa (Sulfonamide Antibiotics) Drug Allergy Mild DIARRHEA AND VOMITING 04/19/2014 Yes milk milk Drug Allergy Unknown VOMITING 04/19/2014 Yes POULTRY POULTRY Drug Allergy Unknown VOMITING 04/19/2014 Yes SEAFOOD SEAFOOD Drug Allergy Unknown VOMITING 04/19/2014 Yes Sulfa (Sulfonamide Antibiotics) Sulfa (Sulfonamide Antibiotics) Drug Allergy Unknown DIARRHEA AND VOMITING 04/19/2014 Medications There is no data. Problems Date Dx Coded Attending Type Code Diagnosis Diagnosed By 04/19/2014 Mike Malave MD 038.9 SEPTICEMIA NOS 04/19/2014 Mike Malave MD 244.9 HYPOTHYROIDISM NOS 04/19/2014 Mike Malave MD 250.00 DIAB SERA WO COMPL, TYPE II OR UNSPEC TYPE, NOT UN 04/19/2014 Mike Malave MD 272.4 HYPERLIPIDEMIA NEC/NOS 04/19/2014 Mike Malave MD 275.2 DIS MAGNESIUM METABOLISM 04/19/2014 Mike Malave MD 278.00 OBESITY, NOS 04/19/2014 Mike Malave MD 280.9 IRON DEFIC ANEMIA NOS 04/19/2014 Mike Malave MD 287.31 IMMUNE THROMBOCYTOPENIC PURPURA 04/19/2014 Mike Malave MD 296.50 BIPOL I, REC EPIS (OR CURRENT) DEPRESSED, UNSPECIF 04/19/2014 Mike Malave MD 332.0 PARALYSIS AGITANS 04/19/2014 Mike Malave MD 338.29 OTHER CHRONIC PAIN 04/19/2014 Mike Malave MD 346.90 MIGRAINE UNSPECIFIED W/O INTRACT MGRN W/O STATUS M 04/19/2014 Mike Malave MD 401.9 HYPERTENSION NOS 04/19/2014 Mike Malave MD 428.0 CONGESTIVE HEART FAILURE NOS 04/19/2014 Mike Malave MD 486 PNEUMONIA, ORGANISM NOS 04/19/2014 Mike Malave MD 496 CHR AIRWAY OBSTRUCT NEC 04/19/2014 Mike Malave MD 518.81 ACUTE RESPIRATORY FAILURE 04/19/2014 Mike Malave MD 530.81 ESOPHAGEAL REFLUX 04/19/2014 Mike Malave MD 584.9 ACUTE RENAL FAILURE, UNSPECIFIED 04/19/2014 Mike Malave MD 599.0 URIN TRACT INFECTION NOS 04/19/2014 Mike Malave MD 724.2 LUMBAGO 04/19/2014 Mike Malave MD 780.60 04/19/2014 Mike Malave MD 785.52 SEPTIC SHOCK 04/19/2014 Mike Malave MD 995.92 SEVERE SEPSIS 04/19/2014 Mike Malave MD V12.51 HX-VENOUS THROMBOSIS EMBOLISM 04/19/2014 Mike Malave MD V15.82 HISTORY OF TOBACCO USE Procedures Code Description Performed By Performed On 38.93 VENOUS CATHETERIZATION NEC Mike Malave MD 04/19/2014 88.72 DX ULTRASOUND-HEART Blayne JIM, [place] H 04/19/2014 <section xmlns="urn:hl7-org:v3" xmlns:xsi="http://www.3.org/2001/ XMLSchema-instance"> <templateId root="[id number]" /> < templateId root="[email or web address]" /> <code codeSystemName= "LOINC" codeSystem="[id number]" code="17333-2" displayName="Results" /> <title>Results</title> <text> <table> <thead> <tr> <th>Test</th> <th>Result</th> <th>Range</th> </tr> </thead> <tbody> <tr> <th colspan="10">MRSA SURVEILLANCE SCREEN - 04/19/14 03:28</th> </tr> <tr> <td>Microbiology< /td> <td> </td> <td /> </tr> <tr> <th colspan="10">LACTIC ACID - 04/19/14 04:10</th> </tr> <tr> <td>LACTIC ACID</td> <td>1.1 mmol/L</td> <td>0.5-2.2</td> </tr> <tr> <th colspan="10">B-TYPE NATRIURETIC PEPTIDE - 04/19/14 04:10</th> </tr> <tr> <td>B-TYPE NATRIURETIC PEPTIDE</td> <td>47 pg/mL</td> <td>< 100</td> </tr> <tr> <th colspan="10">CBC W/DIFF - 04/19/14 04:10</th> < /tr> <tr> <td>COMMENT</td> <td>REVIEWED </td> <td /> </tr> <tr> <td>EOSINOPHIL #</td> <td>0.1 k/cumm</td> <td>0.1-0.5</td> </tr> <tr> <td> EOSINOPHIL %</td> <td>1 %</td> <td>2-4</td> </ tr> <tr> <td>GRANULOCYTE #</td> <td>5.4 k/cumm</td> <td>2.0-9.0</td> </tr> <tr> <td>GRANULOCYTE %< /td> <td>80 %</td> <td>50-75</td> </tr> <tr > <td>LYMPHOCYTE #</td> <td>0.9 k/cumm</td> <td>1.0- 4.0</td> </tr> <tr> <td>LYMPHOCYTE %</td> < td>13 %</td> <td>20-30</td> </tr> <tr> <td> MEAN CELL HGB</td> <td>31.8 pg</td> <td>27.0-33.0</td> </tr> <tr> <td>MEAN CELL HGB CONCENTRATION</td> <td> 31.2 g/dL</td> <td>32.0-37.0</td> </tr> <tr> <td >MEAN CELL VOLUME</td> <td>101.8 fl</td> <td>80.0-100.0</td> </tr> <tr> <td>MONOCYTE #</td> <td>0.4 k/cumm</ td> <td>0.1-1.0</td> </tr> <tr> <td>MONOCYTE &# 37;</td> <td>6 %</td> <td>4-6</td> </tr> <tr > <td>POLYCHROMASIA</td> <td>NOTED </td> <td /> </tr> <tr> <td>RED BLOOD CELL</td> <td>3.40 m/cumm</ td> <td>4.00-6.00</td> </tr> <tr> <td>RED CELL DISTRIBUTION WIDTH</td> <td>16.4 %</td> <td>11.0-15.6</td > </tr> <tr> <td>WHITE BLOOD CELL</td> <td>6.7 k /cumm</td> <td>5.0-10.0</td> </tr> <tr> <td> HEMOGLOBIN</td> <td>10.8 gm/dL</td> <td>12.0-16.0</td> </tr> <tr> <td>HEMATOCRIT</td> <td>34.6 %</td> <td>37.0-47.0</td> </tr> <tr> <td>PLATELET COUNT</ td> <td>74 k/cumm</td> <td>150-400</td> </tr> < tr> <th colspan="10">SED RATE - 04/19/14 04:10</th> </tr> <tr> <td>SED RATE</td> <td>36 mm/hr</td> <td>0-15</ td> </tr> <tr> <th colspan="10">HEMOGLOBIN A1C - 04:10</th> </tr> <tr> <td>HEMOGLOBIN A1C</td> <td>7.5 %</td> <td>< 5.7</td> </tr> <tr> <th colspan="10">METABOLIC PANEL, COMPREHN - 04/19/14 04:10</th> </tr > <tr> <td>POTASSIUM</td> <td>4.0 mmol/L</td> <td>3.5-5.3</td> </tr> <tr> <td>EST GFR (MDRD)</td> <td>50 mL/min</td> <td>> 59</td> </tr> <tr> <td>ANION GAP</td> <td>9 mmol/L</td> <td>5-15</td> </tr> <tr> <td>EST CrCl (CG)</td> <td>40 mL/min</td> <td>> 59</td> </tr> <tr> <td>GLUCOSE</td> <td>204 mg/dL</td> <td>70-99</td> </tr> <tr> <td>CALCIUM</td> <td>8.1 mg/dL</td> <td>8.5-10.1</td> </tr> <tr> <td>BLOOD UREA NITROGEN</td> <td>16 mg /dL</td> <td>7-20</td> </tr> <tr> <td>CREATININE </td> <td>1.2 mg/dL</td> <td>0.6-1.0</td> </tr> <tr> <td>SODIUM</td> <td>143 mmol/L</td> <td>135-148< /td> </tr> <tr> <td>CHLORIDE</td> <td>108 mmol/L </td> <td>98-110</td> </tr> <tr> <td>AST/SGOT</ td> <td>9 Units/L</td> <td>10-37</td> </tr> <tr > <td>ALT/SGPT</td> <td>24 Units/L</td> <td>< 66</ td> </tr> <tr> <td>CARBON DIOXIDE</td> <td>26 mmol/L</td> <td>21-32</td> </tr> <tr> <td>TOTAL PROTEIN</td> <td>5.6 gm/dL</td> <td>6.4-8.2</td> </tr> <tr> <td>ALBUMIN</td> <td>3.2 gm/dL</td> <td> 3.4-5.0</td> </tr> <tr> <td>BILI TOTAL</td> <td> 1.6 mg/dL</td> <td>0.0-1.0</td> </tr> <tr> <td> ALKALINE PHOSPHATASE TOTAL</td> <td>64 IU/L</td> <td>45-117</ td> </tr> <tr> <th colspan="10">PHOSPHORUS - 04/19/14 04: 10</th> </tr> <tr> <td>PHOSPHORUS</td> <td>3.4 mg/dL</td> <td>2.5-4.9</td> </tr> <tr> <th colspan="10">MAGNESIUM - 04/19/14 04:10</th> </tr> <tr> < td>MAGNESIUM</td> <td>2.0 mg/dL</td> <td>1.8-2.4</td> < /tr> <tr> <th colspan="10">THYROID STIM HORMONE (TSH) - 04:10</th> </tr> <tr> <td>THYROID STIM HORMONE (TSH)</ td> <td>0.89 uIU/mL</td> <td>0.34-4.82</td> </tr> <tr> <th colspan="10">TROPONIN I - 04/19/14 04:10</th> </tr> <tr> <td>TROPONIN I</td> <td>0.05 ng/mL</td> <td>< 0.07</td> </tr> <tr> <th colspan="10">C REACTIVE PROTEIN - 04/19/14 04:10</th> </tr> <tr> <td>C REACTIVE PROTEIN</td> <td>68.1 mg/L</td> <td>< 8.0</td> </tr> <tr> <th colspan="10">GLUCOSE (POC) - 04/19/14 05:45< /th> </tr> <tr> <td>GLUCOSE (POC)</td> <td>196 mg/dL</td> <td>70-99</td> </tr> <tr> <th colspan ="10">TROPONIN I - 04/19/14 10:06</th> </tr> <tr> <td> TROPONIN I</td> <td>0.02 ng/mL</td> <td>< 0.07</td> </tr> <tr> <th colspan="10">AG STREPTOCOCCUS PNEUMONIAE - 10:06</th> </tr> <tr> <td>Microbiology</td> < td> </td> <td /> </tr> <tr> <th colspan="10"> GLUCOSE (POC) - 04/19/14 11:39</th> </tr> <tr> <td> GLUCOSE (POC)</td> <td>193 mg/dL</td> <td>70-99</td> </ tr> <tr> <th colspan="10">GLUCOSE (POC) - 04/19/14 17:09</th> </tr> <tr> <td>GLUCOSE (POC)</td> <td>277 mg/dL</ td> <td>70-99</td> </tr> <tr> <th colspan="10"> GLUCOSE (POC) - 04/20/14 00:28</th> </tr> <tr> <td> GLUCOSE (POC)</td> <td>202 mg/dL</td> <td>70-99</td> </ tr> <tr> <th colspan="10">CBC W/DIFF - 04/20/14 04:35</th> </tr> <tr> <td>GRANULOCYTE #</td> <td>4.3 k/cumm</td > <td>2.0-9.0</td> </tr> <tr> <td>GRANULOCYTE &# 37;</td> <td>85 %</td> <td>50-75</td> </tr> <tr> <td>LYMPHOCYTE #</td> <td>0.5 k/cumm</td> <td> 1.0-4.0</td> </tr> <tr> <td>LYMPHOCYTE %</td> <td>10 %</td> <td>20-30</td> </tr> <tr> < td>MEAN CELL HGB</td> <td>31.3 pg</td> <td>27.0-33.0</td> </tr> <tr> <td>MEAN CELL HGB CONCENTRATION</td> <td >30.4 g/dL</td> <td>32.0-37.0</td> </tr> <tr> < td>MEAN CELL VOLUME</td> <td>102.8 fl</td> <td>80.0-100.0</td > </tr> <tr> <td>MONOCYTE #</td> <td>0.2 k/cumm< /td> <td>0.1-1.0</td> </tr> <tr> <td>MONOCYTE &# 37;</td> <td>4 %</td> <td>4-6</td> </tr> <tr > <td>RED BLOOD CELL</td> <td>3.52 m/cumm</td> <td> 4.00-6.00</td> </tr> <tr> <td>RED CELL DISTRIBUTION WIDTH </td> <td>16.3 %</td> <td>11.0-15.6</td> </tr> <tr> <td>WHITE BLOOD CELL</td> <td>5.0 k/cumm</td> <td>5.0-10.0</td> </tr> <tr> <td>HEMOGLOBIN</td> <td>11.0 gm/dL</td> <td>12.0-16.0</td> </tr> <tr> <td>HEMATOCRIT</td> <td>36.2 %</td> <td>37.0-47.0< /td> </tr> <tr> <td>PLATELET COUNT</td> <td>71 k /cumm</td> <td>150-400</td> </tr> <tr> <th colspan="10">RENAL FUNCTION PANEL - 04/20/14 04:35</th> </tr> <tr > <td>POTASSIUM</td> <td>4.1 mmol/L</td> <td>3.5-5.3< /td> </tr> <tr> <td>EST GFR (MDRD)</td> <td>55 mL/min</td> <td>> 59</td> </tr> <tr> <td> ANION GAP</td> <td>5 mmol/L</td> <td>5-15</td> </tr> <tr> <td>EST CrCl (CG)</td> <td>43 mL/min</td> <td>> 59</td> </tr> <tr> <td>GLUCOSE</td> <td >252 mg/dL</td> <td>70-99</td> </tr> <tr> <td> CALCIUM</td> <td>8.8 mg/dL</td> <td>8.5-10.1</td> </tr > <tr> <td>BLOOD UREA NITROGEN</td> <td>14 mg/dL</td> <td>7-20</td> </tr> <tr> <td>CREATININE</td> <td>1.1 mg/dL</td> <td>0.6-1.0</td> </tr> <tr> <td>SODIUM</td> <td>142 mmol/L</td> <td>135-148</td> </tr> <tr> <td>CHLORIDE</td> <td>111 mmol/L</td> <td>98-110</td> </tr> <tr> <td>CARBON DIOXIDE</ td> <td>26 mmol/L</td> <td>21-32</td> </tr> <tr > <td>ALBUMIN</td> <td>3.2 gm/dL</td> <td>3.4-5.0</td > </tr> <tr> <td>PHOSPHORUS</td> <td>2.9 mg/dL</ td> <td>2.5-4.9</td> </tr> <tr> <th colspan="10 ">LIPID PANEL - 04/20/14 04:35</th> </tr> <tr> <td> CHOLESTEROL/HDL RATIO</td> <td>4.3 </td> <td> < 5.0</td> </tr> <tr> <td>LDL CHOLESTEROL</td> <td>96 mg/dL< /td> <td>< 100</td> </tr> <tr> <td>VLDL CHOLESTEROL</td> <td>34 mg/dL</td> <td>< 30</td> </ tr> <tr> <td>TRIGLYCERIDES</td> <td>171 mg/dL</td> <td>< 150</td> </tr> <tr> <td>CHOLESTEROL</td> <td>170 mg/dL</td> <td>< 200</td> </tr> <tr> <td>HDL CHOLESTEROL</td> <td>40 mg/dL</td> <td>> 39</td> </tr> <tr> <th colspan="10">MAGNESIUM - 04/20/14 04:35</th> </tr> <tr> <td>MAGNESIUM</td> <td> 1.9 mg/dL</td> <td>1.8-2.4</td> </tr> <tr> <th colspan="10">GLUCOSE (POC) - 04/20/14 12:06</th> </tr> <tr> <td>GLUCOSE (POC)</td> <td>219 mg/dL</td> <td>70-99</td> </tr> <tr> <th colspan="10">GLUCOSE (POC) - 04/20/14 17: 26</th> </tr> <tr> <td>GLUCOSE (POC)</td> <td> 241 mg/dL</td> <td>70-99</td> </tr> <tr> <th colspan="10">GLUCOSE (POC) - 04/20/14 20:07</th> </tr> <tr> <td>GLUCOSE (POC)</td> <td>274 mg/dL</td> <td>70-99</td> </tr> <tr> <th colspan="10">GLUCOSE (POC) - 04/21/14 06: 30</th> </tr> <tr> <td>GLUCOSE (POC)</td> <td> 225 mg/dL</td> <td>70-99</td> </tr> <tr> <th colspan="10">RENAL FUNCTION PANEL - 04/21/14 06:35</th> </tr> <tr > <td>POTASSIUM</td> <td>4.4 mmol/L</td> <td>3.5-5.3< /td> </tr> <tr> <td>EST GFR (MDRD)</td> <td>&gt ; 60 mL/min</td> <td>> 59</td> </tr> <tr> <td >ANION GAP</td> <td>6 mmol/L</td> <td>5-15</td> </tr> <tr> <td>EST CrCl (CG)</td> <td>48 mL/min</td> <td>> 59</td> </tr> <tr> <td>GLUCOSE</td> < td>234 mg/dL</td> <td>70-99</td> </tr> <tr> <td> CALCIUM</td> <td>9.0 mg/dL</td> <td>8.5-10.1</td> </tr > <tr> <td>BLOOD UREA NITROGEN</td> <td>15 mg/dL</td> <td>7-20</td> </tr> <tr> <td>CREATININE</td> <td>1.0 mg/dL</td> <td>0.6-1.0</td> </tr> <tr> <td>SODIUM</td> <td>141 mmol/L</td> <td>135-148</td> </tr> <tr> <td>CHLORIDE</td> <td>107 mmol/L</td> <td>98-110</td> </tr> <tr> <td>CARBON DIOXIDE</ td> <td>28 mmol/L</td> <td>21-32</td> </tr> <tr > <td>ALBUMIN</td> <td>3.3 gm/dL</td> <td>3.4-5.0</td > </tr> <tr> <td>PHOSPHORUS</td> <td>3.6 mg/dL</ td> <td>2.5-4.9</td> </tr> <tr> <th colspan="10 ">MAGNESIUM - 04/21/14 06:35</th> </tr> <tr> <td> MAGNESIUM</td> <td>1.8 mg/dL</td> <td>1.8-2.4</td> </tr > <tr> <th colspan="10">CBC W/DIFF - 04/21/14 06:35</th> </tr> <tr> <td>COMMENT</td> <td>REVIEWED </td> <td /> </tr> <tr> <td>GRANULOCYTE #</td> <td> 4.0 k/cumm</td> <td>2.0-9.0</td> </tr> <tr> <td> GRANULOCYTE %</td> <td>80 %</td> <td>50-75</td> </tr> <tr> <td>LYMPHOCYTE #</td> <td>0.7 k/cumm</td> <td>1.0-4.0</td> </tr> <tr> <td>LYMPHOCYTE &#37 ;</td> <td>14 %</td> <td>20-30</td> </tr> < tr> <td>MEAN CELL HGB</td> <td>31.2 pg</td> <td>27.0- 33.0</td> </tr> <tr> <td>MEAN CELL HGB CONCENTRATION</td > <td>31.6 g/dL</td> <td>32.0-37.0</td> </tr> < tr> <td>MEAN CELL VOLUME</td> <td>98.9 fl</td> <td> 80.0-100.0</td> </tr> <tr> <td>MONOCYTE #</td> < td>0.3 k/cumm</td> <td>0.1-1.0</td> </tr> <tr> < td>MONOCYTE %</td> <td>5 %</td> <td>4-6</td> </ tr> <tr> <td>RED BLOOD CELL</td> <td>3.49 m/cumm</td> <td>4.00-6.00</td> </tr> <tr> <td>RED CELL DISTRIBUTION WIDTH</td> <td>16.1 %</td> <td>11.0-15.6</td > </tr> <tr> <td>WHITE BLOOD CELL</td> <td>5.0 k /cumm</td> <td>5.0-10.0</td> </tr> <tr> <td> HEMOGLOBIN</td> <td>10.9 gm/dL</td> <td>12.0-16.0</td> </tr> <tr> <td>HEMATOCRIT</td> <td>34.5 %</td> <td>37.0-47.0</td> </tr> <tr> <td>PLATELET COUNT</ td> <td>70 k/cumm</td> <td>150-400</td> </tr> < tr> <th colspan="10">GLUCOSE (POC) - 04/21/14 11:20</th> </tr> <tr> <td>GLUCOSE (POC)</td> <td>221 mg/dL</td> <td>70-99</td> </tr> <tr> <th colspan="10">GLUCOSE (POC ) - 04/21/14 17:15</th> </tr> <tr> <td>GLUCOSE (POC)</td > <td>350 mg/dL</td> <td>70-99</td> </tr> <tr> <th colspan="10">GLUCOSE (POC) - 04/21/14 19:48</th> </tr> <tr> <td>GLUCOSE (POC)</td> <td>334 mg/dL</td> <td >70-99</td> </tr> <tr> <th colspan="10">CBC W/DIFF - 04:21</th> </tr> <tr> <td>GRANULOCYTE #</td> <td>3.1 k/cumm</td> <td>2.0-9.0</td> </tr> <tr> <td>GRANULOCYTE %</td> <td>75 %</td> <td>50-75</ td> </tr> <tr> <td>LYMPHOCYTE #</td> <td>0.7 k/ cumm</td> <td>1.0-4.0</td> </tr> <tr> <td> LYMPHOCYTE %</td> <td>17 %</td> <td>20-30</td> </tr> <tr> <td>MEAN CELL HGB</td> <td>31.3 pg</td> <td>27.0-33.0</td> </tr> <tr> <td>MEAN CELL HGB CONCENTRATION</td> <td>31.9 g/dL</td> <td>32.0-37.0</td> </tr> <tr> <td>MEAN CELL VOLUME</td> <td>98.1 fl</td > <td>80.0-100.0</td> </tr> <tr> <td>MONOCYTE #< /td> <td>0.3 k/cumm</td> <td>0.1-1.0</td> </tr> <tr> <td>MONOCYTE %</td> <td>7 %</td> <td>4-6 </td> </tr> <tr> <td>RED BLOOD CELL</td> <td> 3.68 m/cumm</td> <td>4.00-6.00</td> </tr> <tr> < td>RED CELL DISTRIBUTION WIDTH</td> <td>15.9 %</td> <td> 11.0-15.6</td> </tr> <tr> <td>WHITE BLOOD CELL</td> <td>4.1 k/cumm</td> <td>5.0-10.0</td> </tr> <tr> <td>HEMOGLOBIN</td> <td>11.5 gm/dL</td> <td>12.0-16.0</ td> </tr> <tr> <td>HEMATOCRIT</td> <td>36.1 &#37 ;</td> <td>37.0-47.0</td> </tr> <tr> <td> PLATELET COUNT</td> <td>78 k/cumm</td> <td>150-400</td> </tr> <tr> <th colspan="10">RENAL FUNCTION PANEL - 04/22/14 04 :21</th> </tr> <tr> <td>POTASSIUM</td> <td>4.5 mmol/L</td> <td>3.5-5.3</td> </tr> <tr> <td>EST GFR (MDRD)</td> <td>45 mL/min</td> <td>> 59</td> </ tr> <tr> <td>ANION GAP</td> <td>5 mmol/L</td> <td>5-15</td> </tr> <tr> <td>EST CrCl (CG)</td> <td>37 mL/min</td> <td>> 59</td> </tr> <tr> < td>GLUCOSE</td> <td>302 mg/dL</td> <td>70-99</td> </tr > <tr> <td>CALCIUM</td> <td>9.2 mg/dL</td> <td >8.5-10.1</td> </tr> <tr> <td>BLOOD UREA NITROGEN</td> <td>23 mg/dL</td> <td>7-20</td> </tr> <tr> <td>CREATININE</td> <td>1.3 mg/dL</td> <td>0.6-1.0</td> </tr> <tr> <td>SODIUM</td> <td>137 mmol/L</td> <td>135-148</td> </tr> <tr> <td>CHLORIDE</td> <td>101 mmol/L</td> <td>98-110</td> </tr> <tr> <td>CARBON DIOXIDE</td> <td>31 mmol/L</td> <td>21-32</ td> </tr> <tr> <td>ALBUMIN</td> <td>3.7 gm/dL</ td> <td>3.4-5.0</td> </tr> <tr> <td>PHOSPHORUS</ td> <td>4.1 mg/dL</td> <td>2.5-4.9</td> </tr> < tr> <th colspan="10">MAGNESIUM - 04/22/14 04:21</th> </tr> <tr> <td>MAGNESIUM</td> <td>1.6 mg/dL</td> <td>1.8 -2.4</td> </tr> <tr> <th colspan="10">GLUCOSE (POC) - 05:51</th> </tr> <tr> <td>GLUCOSE (POC)</td> <td>276 mg/dL</td> <td>70-99</td> </tr> <tr> <th colspan="10">GLUCOSE (POC) - 04/22/14 10:43</th> </tr> <tr> <td>GLUCOSE (POC)</td> <td>163 mg/dL</td> <td>70-99< /td> </tr> <tr> <th colspan="10">GLUCOSE (POC) - 17:19</th> </tr> <tr> <td>GLUCOSE (POC)</td> <td>223 mg/dL</td> <td>70-99</td> </tr> <tr> < th colspan="10">GLUCOSE (POC) - 04/22/14 19:48</th> </tr> <tr> <td>GLUCOSE (POC)</td> <td>261 mg/dL</td> <td>70-99</td > </tr> <tr> <th colspan="10">GLUCOSE (POC) - 04/23/14 06 :00</th> </tr> <tr> <td>GLUCOSE (POC)</td> <td> 238 mg/dL</td> <td>70-99</td> </tr> <tr> <th colspan="10">CBC W/DIFF - 04/23/14 06:00</th> </tr> <tr> <td>EOSINOPHIL #</td> <td>0.0 k/cumm</td> <td>0.1-0.5</td> </tr> <tr> <td>EOSINOPHIL %</td> <td>1 %</ td> <td>2-4</td> </tr> <tr> <td>GRANULOCYTE #</ td> <td>3.2 k/cumm</td> <td>2.0-9.0</td> </tr> < tr> <td>GRANULOCYTE %</td> <td>74 %</td> <td> 50-75</td> </tr> <tr> <td>LYMPHOCYTE #</td> <td> 0.8 k/cumm</td> <td>1.0-4.0</td> </tr> <tr> <td> LYMPHOCYTE %</td> <td>18 %</td> <td>20-30</td> </tr> <tr> <td>MEAN CELL HGB</td> <td>31.6 pg</td> <td>27.0-33.0</td> </tr> <tr> <td>MEAN CELL HGB CONCENTRATION</td> <td>32.4 g/dL</td> <td>32.0-37.0</td> </tr> <tr> <td>MEAN CELL VOLUME</td> <td>97.4 fl</td > <td>80.0-100.0</td> </tr> <tr> <td>MONOCYTE #< /td> <td>0.3 k/cumm</td> <td>0.1-1.0</td> </tr> <tr> <td>MONOCYTE %</td> <td>7 %</td> <td>4-6 </td> </tr> <tr> <td>RED BLOOD CELL</td> <td> 3.80 m/cumm</td> <td>4.00-6.00</td> </tr> <tr> < td>RED CELL DISTRIBUTION WIDTH</td> <td>15.6 %</td> <td> 11.0-15.6</td> </tr> <tr> <td>WHITE BLOOD CELL</td> <td>4.3 k/cumm</td> <td>5.0-10.0</td> </tr> <tr> <td>HEMOGLOBIN</td> <td>12.0 gm/dL</td> <td>12.0-16.0</ td> </tr> <tr> <td>HEMATOCRIT</td> <td>37.0 &#37 ;</td> <td>37.0-47.0</td> </tr> <tr> <td> PLATELET COUNT</td> <td>84 k/cumm</td> <td>150-400</td> </tr> <tr> < colspan="10">RENAL FUNCTION PANEL - 04/23/14 06 :00</th> </tr> <tr> <td>POTASSIUM</td> <td>4.5 mmol/L</td> <td>3.5-5.3</td> </tr> <tr> <td>EST GFR (MDRD)</td> <td>> 60 mL/min</td> <td>> 59</td> </tr> <tr> <td>ANION GAP</td> <td>8 mmol/L</td> <td>5-15</td> </tr> <tr> <td>EST CrCl (CG)</td> <td>48 mL/min</td> <td>> 59</td> </tr> <tr> <td>GLUCOSE</td> <td>239 mg/dL</td> <td>70-99</td> </tr> <tr> <td>CALCIUM</td> <td>9.5 mg/dL</td> <td>8.5-10.1</td> </tr> <tr> <td>BLOOD UREA NITROGEN</td> <td>25 mg/dL</td> <td>7-20</td> </tr> <tr> <td>CREATININE</td> <td>1.0 mg/dL</td> <td> 0.6-1.0</td> </tr> <tr> <td>SODIUM</td> <td>139 mmol/L</td> <td>135-148</td> </tr> <tr> <td> CHLORIDE</td> <td>103 mmol/L</td> <td>98-110</td> </tr > <tr> <td>CARBON DIOXIDE</td> <td>28 mmol/L</td> <td>21-32</td> </tr> <tr> <td>ALBUMIN</td> <td>3.6 gm/dL</td> <td>3.4-5.0</td> </tr> <tr> < td>PHOSPHORUS</td> <td>4.4 mg/dL</td> <td>2.5-4.9</td> </tr> <tr> <th colspan="10">MAGNESIUM - 04/23/14 06:00</th> </tr> <tr> <td>MAGNESIUM</td> <td>2.0 mg/dL</td> <td>1.8-2.4</td> </tr> <tr> <th colspan="10"> GLUCOSE (POC) - 04/23/14 11:19</th> </tr> <tr> <td> GLUCOSE (POC)</td> <td>178 mg/dL</td> <td>70-99</td> </ tr> <tr> <th colspan="10">GLUCOSE (POC) - 04/23/14 17:03</th> </tr> <tr> <td>GLUCOSE (POC)</td> <td>235 mg/dL</ td> <td>70-99</td> </tr> <tr> <th colspan="10"> GLUCOSE (POC) - 04/23/14 20:41</th> </tr> <tr> <td> GLUCOSE (POC)</td> <td>272 mg/dL</td> <td>70-99</td> </ tr> <tr> <th colspan="10">GLUCOSE (POC) - 04/24/14 05:59</th> </tr> <tr> <td>GLUCOSE (POC)</td> <td>227 mg/dL</ td> <td>70-99</td> </tr> <tr> <th colspan="10"> CBC W/DIFF - 04/24/14 07:53</th> </tr> <tr> <td> GRANULOCYTE #</td> <td>5.7 k/cumm</td> <td>2.0-9.0</td> </tr> <tr> <td>GRANULOCYTE %</td> <td>77 %</ td> <td>50-75</td> </tr> <tr> <td>LYMPHOCYTE #</ td> <td>1.2 k/cumm</td> <td>1.0-4.0</td> </tr> < tr> <td>LYMPHOCYTE %</td> <td>16 %</td> <td> 20-30</td> </tr> <tr> <td>MEAN CELL HGB</td> <td >31.9 pg</td> <td>27.0-33.0</td> </tr> <tr> <td> MEAN CELL HGB CONCENTRATION</td> <td>33.0 g/dL</td> <td>32.0- 37.0</td> </tr> <tr> <td>MEAN CELL VOLUME</td> < td>96.6 fl</td> <td>80.0-100.0</td> </tr> <tr> < td>MONOCYTE #</td> <td>0.4 k/cumm</td> <td>0.1-1.0</td> </tr> <tr> <td>MONOCYTE %</td> <td>5 %</td> <td>4-6</td> </tr> <tr> <td>RED BLOOD CELL</td> <td>4.36 m/cumm</td> <td>4.00-6.00</td> </tr> < tr> <td>RED CELL DISTRIBUTION WIDTH</td> <td>15.5 %</td> <td>11.0-15.6</td> </tr> <tr> <td>WHITE BLOOD CELL</td> <td>7.4 k/cumm</td> <td>5.0-10.0</td> </tr> <tr> <td>HEMOGLOBIN</td> <td>13.9 gm/dL</td> < td>12.0-16.0</td> </tr> <tr> <td>HEMATOCRIT</td> <td>42.1 %</td> <td>37.0-47.0</td> </tr> <tr> <td>PLATELET COUNT</td> <td>104 k/cumm</td> <td>150-400</ td> </tr> <tr> <th colspan="10">RENAL FUNCTION PANEL - 07:53</th> </tr> <tr> <td>POTASSIUM</td> <td>4.3 mmol/L</td> <td>3.5-5.3</td> </tr> <tr> <td>EST GFR (MDRD)</td> <td>55 mL/min</td> <td>> 59</td> </tr> <tr> <td>ANION GAP</td> <td>9 mmol/L</td> <td>5-15</td> </tr> <tr> <td>EST CrCl (CG)</td> <td>43 mL/min</td> <td>> 59</td> </tr> <tr> <td>GLUCOSE</td> <td>266 mg/dL</td> <td>70-99</td> </tr> <tr> <td>CALCIUM</td> <td>9.6 mg/dL</td> <td>8.5-10.1</td> </tr> <tr> <td>BLOOD UREA NITROGEN</td> <td>25 mg/dL</td> <td>7-20</td> </tr> <tr> <td>CREATININE</td> <td>1.1 mg/dL</td> <td> 0.6-1.0</td> </tr> <tr> <td>SODIUM</td> <td>139 mmol/L</td> <td>135-148</td> </tr> <tr> <td> CHLORIDE</td> <td>103 mmol/L</td> <td>98-110</td> </tr > <tr> <td>CARBON DIOXIDE</td> <td>27 mmol/L</td> <td>21-32</td> </tr> <tr> <td>ALBUMIN</td> <td>4.0 gm/dL</td> <td>3.4-5.0</td> </tr> <tr> < td>PHOSPHORUS</td> <td>4.0 mg/dL</td> <td>2.5-4.9</td> </tr> <tr> <th colspan="10">MAGNESIUM - 04/24/14 07:53</th> </tr> <tr> <td>MAGNESIUM</td> <td>1.9 mg/dL</td> <td>1.8-2.4</td> </tr> <tr> <th colspan="10"> GLUCOSE (POC) - 04/24/14 11:03</th> </tr> <tr> <td> GLUCOSE (POC)</td> <td>218 mg/dL</td> <td>70-99</td> </ tr> </tbody> </table> </text> <entry> <organizer moodCode="EVN" classCode="BATTERY"> <templateId root="[id number]" /> <id nullFlavor="NA" /> <code codeSystem="local" code="MRSAS" displayName="[facility] SURVEILLANCE SCREEN" /> <statusCode code="completed" /> <component> <observation moodCode="EVN" classCode="OBS"> < templateId root="[id number]" /> <id nullFlavor="NA " /> <code codeSystem="local" code="MB" displayName="Microbiology" /> <statusCode code="completed" /> <effectiveTime value= "[id number]" /> <value xsi:type="ST" value="<pre><b>MRSA SURVEILLANCE SCREEN</b> See BelowMRSA SURVEILLANCE SCREEN(F) Christi Date/Time: 04/19/2014 03:28 Simona Date/Time: 04/20/2014 07: 58SOURCE: ANTERIOR NARESSPEC DESC: [facility] [id number] [place] [address]</pre>" /> <referenceRange> <observationRange> <text /> </observationRange> </referenceRange> </observation> </component> </organizer> </entry> <entry> <organizer moodCode="EVN " classCode="BATTERY"> <templateId root="[id number]" / > <id nullFlavor="NA" /> <code codeSystem="local" code="LACT" displayName="LACTIC ACID" /> <statusCode code="completed" /> < component> <observation moodCode="EVN" classCode="OBS"> < templateId root="[id number]" /> <id nullFlavor="NA " /> <code codeSystem="local" code="LACT" displayName="LACTIC ACID" /> <statusCode code="completed" /> <effectiveTime value= "[id number]" /> <value unit="mmol/L" xsi:type="PQ" value="1.1" /> <referenceRange> <observationRange> <text>0.5-2.2 </text> </observationRange> </referenceRange> </ observation> </component> </organizer> </entry> <entry> <organizer moodCode="EVN" classCode="BATTERY"> <templateId root= "[id number]" /> <id nullFlavor="NA" /> <code codeSystem="local" code="BNP" displayName="B-TYPE NATRIURETIC PEPTIDE" /> < statusCode code="completed" /> <component> <observation moodCode= "EVN" classCode="OBS"> <templateId root="[id number] " /> <id nullFlavor="NA" /> <code codeSystem="local" code="BNP " displayName="B-TYPE NATRIURETIC PEPTIDE" /> <statusCode code= "completed" /> <effectiveTime value="[id number]" /> <value unit="pg/mL" xsi:type="PQ" value="47" /> <referenceRange> < observationRange> <text>< 100</text> </ observationRange> </referenceRange> </observation> </ component> </organizer> </entry> <entry> <organizer moodCode="EVN" classCode="BATTERY"> <templateId root="840.1.783861.04.17.22.4.1" /> <id nullFlavor="NA" /> <code codeSystem="local" code="CBCD" displayName="CBC W/DIFF" /> <statusCode code="completed" /> <component > <observation moodCode="EVN" classCode="OBS"> <templateId root= "840.1.489584.04.17.22.4.2" /> <id nullFlavor="NA" /> < code codeSystem="local" code="CBCCOM" displayName="COMMENT" /> < statusCode code="completed" /> <effectiveTime value="[id number]" /> <value unit="" xsi:type="PQ" value="REVIEWED" /> < referenceRange> <observationRange> <text /> < /observationRange> </referenceRange> </observation> </ component> <component> <observation moodCode="EVN" classCode="OBS"> <templateId root="08.14.840.1.480827.10.20.22.4.2" /> <id nullFlavor="NA" /> <code codeSystem="local" code="EO#" displayName= "EOSINOPHIL #" /> <statusCode code="completed" /> < effectiveTime value="923659310415" /> <value unit="k/cumm" xsi:type="PQ " value="0.1" /> <referenceRange> <observationRange> <text>0.1-0.5</text> </observationRange> </ referenceRange> </observation> </component> <component> <observation moodCode="EVN" classCode="OBS"> <templateId root= "840.1.662707.10.4.2" /> <id nullFlavor="NA" /> < code codeSystem="local" code="EO%" displayName="EOSINOPHIL %" /> <statusCode code="completed" /> <effectiveTime value="[id number]" /> <value unit="%" xsi:type="PQ" value="1" /> < interpretationCode codeSystem="local" code="*" /> <referenceRange> <observationRange> <text>2-4</text> </ observationRange> </referenceRange> </observation> </ component> <component> <observation moodCode="EVN" classCode="OBS"> <templateId root="08.14.840.1.453808.10.4.2" /> <id nullFlavor="NA" /> <code codeSystem="local" code="GR#" displayName= "GRANULOCYTE #" /> <statusCode code="completed" /> < effectiveTime value="628720487519" /> <value unit="k/cumm" xsi:type="PQ " value="5.4" /> <referenceRange> <observationRange> <text>2.0-9.0</text> </observationRange> </ referenceRange> </observation> </component> <component> <observation moodCode="EVN" classCode="OBS"> <templateId root= "16.840.1.752322.10..22.4.2" /> <id nullFlavor="NA" /> < code codeSystem="local" code="GR%" displayName="GRANULOCYTE %" /> <statusCode code="completed" /> <effectiveTime value="940829486714 " /> <value unit="%" xsi:type="PQ" value="80" /> < interpretationCode codeSystem="local" code="*" /> <referenceRange> <observationRange> <text>50-75</text> </ observationRange> </referenceRange> </observation> </ component> <component> <observation moodCode="EVN" classCode="OBS"> <templateId root="16.840.1.584082.1022.4.2" /> <id nullFlavor="NA" /> <code codeSystem="local" code="LY#" displayName= "LYMPHOCYTE #" /> <statusCode code="completed" /> < effectiveTime value="615719122577" /> <value unit="k/cumm" xsi:type="PQ " value="0.9" /> <interpretationCode codeSystem="local" code="*" /> <referenceRange> <observationRange> <text>1.0-4.0 </text> </observationRange> </referenceRange> </ observation> </component> <component> <observation moodCode= "EVN" classCode="OBS"> <templateId root="216.840.1.358354.10..4.2 " /> <id nullFlavor="NA" /> <code codeSystem="local" code="LY& #37;" displayName="LYMPHOCYTE %" /> <statusCode code="completed" / > <effectiveTime value="" /> <value unit="%" xsi:type="PQ" value="13" /> <interpretationCode codeSystem="local" code ="*" /> <referenceRange> <observationRange> < text>20-30</text> </observationRange> </referenceRange> </observation> </component> <component> <observation moodCode="EVN" classCode="OBS"> <templateId root= "08.14.840.1.556575.04.17.224.2" /> <id nullFlavor="NA" /> < code codeSystem="local" code="MCH" displayName="MEAN CELL HGB" /> < statusCode code="completed" /> <effectiveTime value="762767455720" /> <value unit="pg" xsi:type="PQ" value="31.8" /> <referenceRange > <observationRange> <text>27.0-33.0</text> < /observationRange> </referenceRange> </observation> </ component> <component> <observation moodCode="EVN" classCode="OBS"> <templateId root="216.840.1.209795.10..4.2" /> <id nullFlavor="NA" /> <code codeSystem="local" code="MCHC" displayName= "MEAN CELL HGB CONCENTRATION" /> <statusCode code="completed" /> <effectiveTime value="769886549455" /> <value unit="g/dL" xsi:type= "PQ" value="31.2" /> <interpretationCode codeSystem="local" code="*" / > <referenceRange> <observationRange> <text> 32.0-37.0</text> </observationRange> </referenceRange> </observation> </component> <component> <observation moodCode="EVN" classCode="OBS"> <templateId root= "08.14.840.1.311835.10..22.4.2" /> <id nullFlavor="NA" /> < code codeSystem="local" code="MCV" displayName="MEAN CELL VOLUME" /> < statusCode code="completed" /> <effectiveTime value="380998633642" /> <value unit="fl" xsi:type="PQ" value="101.8" /> < interpretationCode codeSystem="local" code="*" /> <referenceRange> <observationRange> <text>80.0-100.0</text> </ observationRange> </referenceRange> </observation> </ component> <component> <observation moodCode="EVN" classCode="OBS"> <templateId root="08.14.840.1.593620.10..22.4.2" /> <id nullFlavor="NA" /> <code codeSystem="local" code="MO#" displayName= "MONOCYTE #" /> <statusCode code="completed" /> < effectiveTime value="089299981542" /> <value unit="k/cumm" xsi:type="PQ " value="0.4" /> <referenceRange> <observationRange> <text>0.1-1.0</text> </observationRange> </ referenceRange> </observation> </component> <component> <observation moodCode="EVN" classCode="OBS"> <templateId root= "08.14.840.1.702221.10.4.2" /> <id nullFlavor="NA" /> < code codeSystem="local" code="MO%" displayName="MONOCYTE %" /> <statusCode code="completed" /> <effectiveTime value="052588557210" /> <value unit="%" xsi:type="PQ" value="6" /> < referenceRange> <observationRange> <text>4-6</text> </observationRange> </referenceRange> </observation> </component> <component> <observation moodCode="EVN" classCode= "OBS"> <templateId root="16.840.1.649026.04.17.22.4.2" /> < id nullFlavor="NA" /> <code codeSystem="local" code="POLC" displayName= "POLYCHROMASIA" /> <statusCode code="completed" /> < effectiveTime value="861503344355" /> <value unit="" xsi:type="PQ" value="NOTED" /> <referenceRange> <observationRange> <text /> </observationRange> </referenceRange> </observation> </component> <component> <observation moodCode ="EVN" classCode="OBS"> <templateId root= "16.840.1.761724.10.4.2" /> <id nullFlavor="NA" /> < code codeSystem="local" code="RBC" displayName="RED BLOOD CELL" /> < statusCode code="completed" /> <effectiveTime value="164939201012" /> <value unit="m/cumm" xsi:type="PQ" value="3.40" /> < interpretationCode codeSystem="local" code="*" /> <referenceRange> <observationRange> <text>4.00-6.00</text> </ observationRange> </referenceRange> </observation> </ component> <component> <observation moodCode="EVN" classCode="OBS"> <templateId root="16.840.1.289702.10.2022.4.2" /> <id nullFlavor="NA" /> <code codeSystem="local" code="RDW" displayName=" RED CELL DISTRIBUTION WIDTH" /> <statusCode code="completed" /> <effectiveTime value="017952479669" /> <value unit="%" xsi:type= "PQ" value="16.4" /> <interpretationCode codeSystem="local" code="*" / > <referenceRange> <observationRange> <text> 11.0-15.6</text> </observationRange> </referenceRange> </observation> </component> <component> <observation moodCode="EVN" classCode="OBS"> <templateId root= "08.14.840.1.161076.04.17.22.4.2" /> <id nullFlavor="NA" /> < code codeSystem="local" code="WBC" displayName="WHITE BLOOD CELL" /> < statusCode code="completed" /> <effectiveTime value="582609216739" /> <value unit="k/cumm" xsi:type="PQ" value="6.7" /> < referenceRange> <observationRange> <text>5.0-10.0</text > </observationRange> </referenceRange> </observation > </component> <component> <observation moodCode="EVN" classCode="OBS"> <templateId root="08.14.840.1.293764.10.22.4.2" /> <id nullFlavor="NA" /> <code codeSystem="local" code="HGBT" displayName="HEMOGLOBIN" /> <statusCode code="completed" /> < effectiveTime value="585251739600" /> <value unit="gm/dL" xsi:type="PQ " value="10.8" /> <interpretationCode codeSystem="local" code="*" /> <referenceRange> <observationRange> <text>12.0- 16.0</text> </observationRange> </referenceRange> </ observation> </component> <component> <observation moodCode= "EVN" classCode="OBS"> <templateId root="2.16.840.1.502784.10.20.22.4.2 " /> <id nullFlavor="NA" /> <code codeSystem="local" code= "HCTT" displayName="HEMATOCRIT" /> <statusCode code="completed" /> <effectiveTime value="040038137211" /> <value unit="%" xsi: type="PQ" value="34.6" /> <interpretationCode codeSystem="local" code= "*" /> <referenceRange> <observationRange> < text>37.0-47.0</text> </observationRange> </referenceRange> </observation> </component> <component> <observation moodCode="EVN" classCode="OBS"> <templateId root= "2.16.840.1.273796.10.20.22.4.2" /> <id nullFlavor="NA" /> < code codeSystem="local" code="PLT" displayName="PLATELET COUNT" /> < statusCode code="completed" /> <effectiveTime value="489040897226" /> <value unit="k/cumm" xsi:type="PQ" value="74" /> < interpretationCode codeSystem="local" code="*" /> <referenceRange> <observationRange> <text>150-400</text> </ observationRange> </referenceRange> </observation> </ component> </organizer> </entry> <entry> <organizer moodCode="EVN" classCode="BATTERY"> <templateId root="840.1.596924.04.17.22.4.1" /> <id nullFlavor="NA" /> <code codeSystem="local" code="SED" displayName ="SED RATE" /> <statusCode code="completed" /> <component> < observation moodCode="EVN" classCode="OBS"> <templateId root= "840.1.007892.04.17.22.4.2" /> <id nullFlavor="NA" /> < code codeSystem="local" code="SED" displayName="SED RATE" /> < statusCode code="completed" /> <effectiveTime value="210966759765" /> <value unit="mm/hr" xsi:type="PQ" value="36" /> < interpretationCode codeSystem="local" code="*" /> <referenceRange> <observationRange> <text>0-15</text> </ observationRange> </referenceRange> </observation> </ component> </organizer> </entry> <entry> <organizer moodCode="EVN" classCode="BATTERY"> <templateId root="840.1.180878.04.17.22.4.1" /> <id nullFlavor="NA" /> <code codeSystem="local" code="HBA1C" displayName="HEMOGLOBIN A1C" /> <statusCode code="completed" /> < component> <observation moodCode="EVN" classCode="OBS"> < templateId root="840.1.776250.04.17.22.4.2" /> <id nullFlavor="NA " /> <code codeSystem="local" code="HBA1C" displayName="HEMOGLOBIN A1C " /> <statusCode code="completed" /> <effectiveTime value= "668112317316" /> <value unit="%" xsi:type="PQ" value="7.5" /> <interpretationCode codeSystem="local" code="*" /> < referenceRange> <observationRange> <text>< 5.7</text > </observationRange> </referenceRange> </observation > </component> </organizer> </entry> <entry> <organizer moodCode= "EVN" classCode="BATTERY"> <templateId root="16.840.1.016779.10..4.1 " /> <id nullFlavor="NA" /> <code codeSystem="local" code="METABC" displayName="METABOLIC PANEL, COMPREHN" /> <statusCode code="completed" /> <component> <observation moodCode="EVN" classCode="OBS"> < templateId root="16.840.1.471779.04.17.22.4.2" /> <id nullFlavor="NA " /> <code codeSystem="local" code="K" displayName="POTASSIUM" /> <statusCode code="completed" /> <effectiveTime value="478859290981 " /> <value unit="mmol/L" xsi:type="PQ" value="4.0" /> < referenceRange> <observationRange> <text>3.5-5.3</text> </observationRange> </referenceRange> </observation > </component> <component> <observation moodCode="EVN" classCode="OBS"> <templateId root="08.14.840.1.420236.04.17.22.4.2" /> <id nullFlavor="NA" /> <code codeSystem="local" code="eGFR" displayName="EST GFR (MDRD)" /> <statusCode code="completed" /> <effectiveTime value="" /> <value unit="mL/min" xsi:type ="PQ" value="50" /> <interpretationCode codeSystem="local" code="*" /> <referenceRange> <observationRange> <text>&gt ; 59</text> </observationRange> </referenceRange> </ observation> </component> <component> <observation moodCode= "EVN" classCode="OBS"> <templateId root="216.840.1.331711.04.17.22.4.2 " /> <id nullFlavor="NA" /> <code codeSystem="local" code="GAP " displayName="ANION GAP" /> <statusCode code="completed" /> < effectiveTime value="" /> <value unit="mmol/L" xsi:type="PQ " value="9" /> <referenceRange> <observationRange> <text>5-15</text> </observationRange> </referenceRange > </observation> </component> <component> <observation moodCode="EVN" classCode="OBS"> <templateId root= "216.840.1.396236.04.17.22.4.2" /> <id nullFlavor="NA" /> < code codeSystem="local" code="eCrCl" displayName="EST CrCl (CG)" /> < statusCode code="completed" /> <effectiveTime value="" /> <value unit="mL/min" xsi:type="PQ" value="40" /> < interpretationCode codeSystem="local" code="*" /> <referenceRange> <observationRange> <text>> 59</text> </ observationRange> </referenceRange> </observation> </ component> <component> <observation moodCode="EVN" classCode="OBS"> <templateId root="216.840.1.981052.04.17.22.4.2" /> <id nullFlavor="NA" /> <code codeSystem="local" code="GLU" displayName= "GLUCOSE" /> <statusCode code="completed" /> <effectiveTime value="" /> <value unit="mg/dL" xsi:type="PQ" value="204" / > <interpretationCode codeSystem="local" code="*" /> < referenceRange> <observationRange> <text>70-99</text> </observationRange> </referenceRange> </observation> </component> <component> <observation moodCode="EVN" classCode= "OBS"> <templateId root="216.840.1.447416.04.17.22.4.2" /> < id nullFlavor="NA" /> <code codeSystem="local" code="CA" displayName= "CALCIUM" /> <statusCode code="completed" /> <effectiveTime value="" /> <value unit="mg/dL" xsi:type="PQ" value="8.1" / > <interpretationCode codeSystem="local" code="*" /> < referenceRange> <observationRange> <text>8.5-10.1</text > </observationRange> </referenceRange> </observation > </component> <component> <observation moodCode="EVN" classCode="OBS"> <templateId root="08.14.840.1.615481.04.17.22.4.2" /> <id nullFlavor="NA" /> <code codeSystem="local" code="BUN" displayName="BLOOD UREA NITROGEN" /> <statusCode code="completed" /> <effectiveTime value="" /> <value unit="mg/dL" xsi: type="PQ" value="16" /> <referenceRange> <observationRange> <text>7-20</text> </observationRange> </ referenceRange> </observation> </component> <component> <observation moodCode="EVN" classCode="OBS"> <templateId root= "2.16.840.1.358667.1022.4.2" /> <id nullFlavor="NA" /> < code codeSystem="local" code="CREAT" displayName="CREATININE" /> < statusCode code="completed" /> <effectiveTime value="" /> <value unit="mg/dL" xsi:type="PQ" value="1.2" /> < interpretationCode codeSystem="local" code="*" /> <referenceRange> <observationRange> <text>0.6-1.0</text> </ observationRange> </referenceRange> </observation> </ component> <component> <observation moodCode="EVN" classCode="OBS"> <templateId root="216.840.1.478368.04.17.22.4.2" /> <id nullFlavor="NA" /> <code codeSystem="local" code="NA" displayName= "SODIUM" /> <statusCode code="completed" /> <effectiveTime value="" /> <value unit="mmol/L" xsi:type="PQ" value="143" /> <referenceRange> <observationRange> <text> 135-148</text> </observationRange> </referenceRange> </observation> </component> <component> <observation moodCode= "EVN" classCode="OBS"> <templateId root="216.840.1.888943...4.2 " /> <id nullFlavor="NA" /> <code codeSystem="local" code="CL " displayName="CHLORIDE" /> <statusCode code="completed" /> < effectiveTime value="" /> <value unit="mmol/L" xsi:type="PQ " value="108" /> <referenceRange> <observationRange> <text>98-110</text> </observationRange> </ referenceRange> </observation> </component> <component> <observation moodCode="EVN" classCode="OBS"> <templateId root= "216.840.1.306714.10.4.2" /> <id nullFlavor="NA" /> < code codeSystem="local" code="AST" displayName="AST/SGOT" /> < statusCode code="completed" /> <effectiveTime value="" /> <value unit="Units/L" xsi:type="PQ" value="9" /> < interpretationCode codeSystem="local" code="*" /> <referenceRange> <observationRange> <text>10-37</text> </ observationRange> </referenceRange> </observation> </ component> <component> <observation moodCode="EVN" classCode="OBS"> <templateId root="08.14.840.1.826717.04.17.22.4.2" /> <id nullFlavor="NA" /> <code codeSystem="local" code="ALT" displayName="ALT /SGPT" /> <statusCode code="completed" /> <effectiveTime value ="" /> <value unit="Units/L" xsi:type="PQ" value="24" /> <referenceRange> <observationRange> <text>< 66</text> </observationRange> </referenceRange> </ observation> </component> <component> <observation moodCode= "EVN" classCode="OBS"> <templateId root="16.840.1.964790..22.4.2 " /> <id nullFlavor="NA" /> <code codeSystem="local" code="CO2 " displayName="CARBON DIOXIDE" /> <statusCode code="completed" /> <effectiveTime value="" /> <value unit="mmol/L" xsi: type="PQ" value="26" /> <referenceRange> <observationRange> <text>21-32</text> </observationRange> </ referenceRange> </observation> </component> <component> <observation moodCode="EVN" classCode="OBS"> <templateId root= "216.840.1.881030.10..22.4.2" /> <id nullFlavor="NA" /> < code codeSystem="local" code="TP" displayName="TOTAL PROTEIN" /> < statusCode code="completed" /> <effectiveTime value="" /> <value unit="gm/dL" xsi:type="PQ" value="5.6" /> < interpretationCode codeSystem="local" code="*" /> <referenceRange> <observationRange> <text>6.4-8.2</text> </ observationRange> </referenceRange> </observation> </ component> <component> <observation moodCode="EVN" classCode="OBS"> <templateId root="16.840.1.711445.10..22.4.2" /> <id nullFlavor="NA" /> <code codeSystem="local" code="ALB" displayName= "ALBUMIN" /> <statusCode code="completed" /> <effectiveTime value="" /> <value unit="gm/dL" xsi:type="PQ" value="3.2" / > <interpretationCode codeSystem="local" code="*" /> < referenceRange> <observationRange> <text>3.4-5.0</text> </observationRange> </referenceRange> </observation > </component> <component> <observation moodCode="EVN" classCode="OBS"> <templateId root="2.16.840.1.435477.10...4.2" /> <id nullFlavor="NA" /> <code codeSystem="local" code="BILTOT" displayName="BILI TOTAL" /> <statusCode code="completed" /> < effectiveTime value="" /> <value unit="mg/dL" xsi:type="PQ " value="1.6" /> <interpretationCode codeSystem="local" code="*" /> <referenceRange> <observationRange> <text>0.0-1.0 </text> </observationRange> </referenceRange> </ observation> </component> <component> <observation moodCode= "EVN" classCode="OBS"> <templateId root="216.840.1.869902...4.2 " /> <id nullFlavor="NA" /> <code codeSystem="local" code= "ALKP" displayName="ALKALINE PHOSPHATASE TOTAL" /> <statusCode code= "completed" /> <effectiveTime value="" /> <value unit="IU/L" xsi:type="PQ" value="64" /> <referenceRange> < observationRange> <text>45-117</text> </observationRange > </referenceRange> </observation> </component> </ organizer> </entry> <entry> <organizer moodCode="EVN" classCode="BATTERY"> <templateId root="2.16.840.1.452178.10..22.4.1" /> <id nullFlavor= "NA" /> <code codeSystem="local" code="PHOS" displayName="PHOSPHORUS" /> <statusCode code="completed" /> <component> <observation moodCode="EVN" classCode="OBS"> <templateId root= "08.14.840.1.303017.04.17..4.2" /> <id nullFlavor="NA" /> < code codeSystem="local" code="PHOS" displayName="PHOSPHORUS" /> < statusCode code="completed" /> <effectiveTime value="" /> <value unit="mg/dL" xsi:type="PQ" value="3.4" /> < referenceRange> <observationRange> <text>2.5-4.9</text> </observationRange> </referenceRange> </observation > </component> </organizer> </entry> <entry> <organizer moodCode= "EVN" classCode="BATTERY"> <templateId root="08.14.840.1.623702.04.17.22.4.1 " /> <id nullFlavor="NA" /> <code codeSystem="local" code="MAG" displayName="MAGNESIUM" /> <statusCode code="completed" /> <component > <observation moodCode="EVN" classCode="OBS"> <templateId root= "16.840.1.401631.04.17.22.4.2" /> <id nullFlavor="NA" /> < code codeSystem="local" code="MAG" displayName="MAGNESIUM" /> < statusCode code="completed" /> <effectiveTime value="" /> <value unit="mg/dL" xsi:type="PQ" value="2.0" /> < referenceRange> <observationRange> <text>1.8-2.4</text> </observationRange> </referenceRange> </observation > </component> </organizer> </entry> <entry> <organizer moodCode= "EVN" classCode="BATTERY"> <templateId root="08.14.840.1.294582.04.17.22.4.1 " /> <id nullFlavor="NA" /> <code codeSystem="local" code="TSH" displayName="THYROID STIM HORMONE (TSH)" /> <statusCode code="completed" / > <component> <observation moodCode="EVN" classCode="OBS"> <templateId root="216.840.1.685405.10..4.2" /> <id nullFlavor="NA " /> <code codeSystem="local" code="TSH" displayName="THYROID STIM HORMONE (TSH)" /> <statusCode code="completed" /> < effectiveTime value="" /> <value unit="uIU/mL" xsi:type="PQ " value="0.89" /> <referenceRange> <observationRange> <text>0.34-4.82</text> </observationRange> </ referenceRange> </observation> </component> </organizer> </entry > <entry> <organizer moodCode="EVN" classCode="BATTERY"> <templateId root="08.14.840.1.165043.10..4.1" /> <id nullFlavor="NA" /> <code codeSystem="local" code="TROPI" displayName="TROPONIN I" /> <statusCode code="completed" /> <component> <observation moodCode="EVN" classCode="OBS"> <templateId root="16.840.1.286081.10...4.2" /> <id nullFlavor="NA" /> <code codeSystem="local" code="TROPI" displayName="TROPONIN I" /> <statusCode code="completed" /> < effectiveTime value="" /> <value unit="ng/mL" xsi:type="PQ " value="0.05" /> <referenceRange> <observationRange> <text>< 0.07</text> </observationRange> </ referenceRange> </observation> </component> </organizer> </entry > <entry> <organizer moodCode="EVN" classCode="BATTERY"> <templateId root="08.14.840.1.962911.10.22.4.1" /> <id nullFlavor="NA" /> <code codeSystem="local" code="CRP" displayName="C REACTIVE PROTEIN" /> < statusCode code="completed" /> <component> <observation moodCode= "EVN" classCode="OBS"> <templateId root="840.1.480636.04.17.22.4.2 " /> <id nullFlavor="NA" /> <code codeSystem="local" code="CRP " displayName="C REACTIVE PROTEIN" /> <statusCode code="completed" /> <effectiveTime value="919111397605" /> <value unit="mg/L" xsi: type="PQ" value="68.1" /> <interpretationCode codeSystem="local" code= "*" /> <referenceRange> <observationRange> < text>< 8.0</text> </observationRange> </referenceRange> </observation> </component> </organizer> </entry> <entry> < organizer moodCode="EVN" classCode="BATTERY"> <templateId root= "08.14.840.1.514119.10.22.4.1" /> <id nullFlavor="NA" /> <code codeSystem="local" code="GLUMON" displayName="GLUCOSE (POC)" /> < statusCode code="completed" /> <component> <observation moodCode= "EVN" classCode="OBS"> <templateId root="08.14.840.1.091012.22.4.2 " /> <id nullFlavor="NA" /> <code codeSystem="local" code= "GLUMON" displayName="GLUCOSE (POC)" /> <statusCode code="completed" / > <effectiveTime value="170261028437" /> <value unit="mg/dL" xsi:type="PQ" value="196" /> <interpretationCode codeSystem="local" code="*" /> <referenceRange> <observationRange> <text>70-99</text> </observationRange> </referenceRange> </observation> </component> </organizer> </entry> <entry> < organizer moodCode="EVN" classCode="BATTERY"> <templateId root= "216.840.1.821794.10..22.4.1" /> <id nullFlavor="NA" /> <code codeSystem="local" code="TROPI" displayName="TROPONIN I" /> <statusCode code="completed" /> <component> <observation moodCode="EVN" classCode="OBS"> <templateId root="216.840.1.048710.10..22.4.2" /> <id nullFlavor="NA" /> <code codeSystem="local" code="TROPI" displayName="TROPONIN I" /> <statusCode code="completed" /> < effectiveTime value="049633255345" /> <value unit="ng/mL" xsi:type="PQ " value="0.02" /> <referenceRange> <observationRange> <text>< 0.07</text> </observationRange> </ referenceRange> </observation> </component> </organizer> </entry > <entry> <organizer moodCode="EVN" classCode="BATTERY"> <templateId root="216.840.1.418049.10..22.4.1" /> <id nullFlavor="NA" /> <code codeSystem="local" code="SPNAG" displayName="AG STREPTOCOCCUS PNEUMONIAE" /> <statusCode code="completed" /> <component> <observation moodCode ="EVN" classCode="OBS"> <templateId root= "216.840.1.404743.10..4.2" /> <id nullFlavor="NA" /> < code codeSystem="local" code="MB" displayName="Microbiology" /> < statusCode code="completed" /> <effectiveTime value="[id number]" /> <value xsi:type="ST" value="<pre><b>AG STREPTOCOCCUS PNEUMONIAE</b> See BelowAG STREPTOCOCCUS PNEUMONIAE(F) Christi Date/Time: 04/19/2014 10:06 Simona Date/Time: 04/19/2014 14:15SOURCE: URINESPEC DESC: STREPTOCOCCUS PNEUMONIAENEGATIVE FOR STREPTOCOCCUS PNEUMONIAEST. [facility] [phone] [place] [address]</pre>" /> < referenceRange> <observationRange> <text /> < /observationRange> </referenceRange> </observation> </ component> </organizer> </entry> <entry> <organizer moodCode="EVN" classCode="BATTERY"> <templateId root="08.14.840.1.686195.04.17.22.4.1" /> <id nullFlavor="NA" /> <code codeSystem="local" code="GLUMON" displayName="GLUCOSE (POC)" /> <statusCode code="completed" /> < component> <observation moodCode="EVN" classCode="OBS"> < templateId root="216.840.1.356610.10...4.2" /> <id nullFlavor="NA " /> <code codeSystem="local" code="GLUMON" displayName="GLUCOSE (POC) " /> <statusCode code="completed" /> <effectiveTime value= "268842650165" /> <value unit="mg/dL" xsi:type="PQ" value="193" /> <interpretationCode codeSystem="local" code="*" /> < referenceRange> <observationRange> <text>70-99</text> </observationRange> </referenceRange> </observation> </component> </organizer> </entry> <entry> <organizer moodCode="EVN " classCode="BATTERY"> <templateId root="216.840.1.485215.10..22.4.1" / > <id nullFlavor="NA" /> <code codeSystem="local" code="GLUMON" displayName="GLUCOSE (POC)" /> <statusCode code="completed" /> < component> <observation moodCode="EVN" classCode="OBS"> < templateId root="216.840.1.206990.10..22.4.2" /> <id nullFlavor="NA " /> <code codeSystem="local" code="GLUMON" displayName="GLUCOSE (POC) " /> <statusCode code="completed" /> <effectiveTime value= "996829148774" /> <value unit="mg/dL" xsi:type="PQ" value="277" /> <interpretationCode codeSystem="local" code="*" /> < referenceRange> <observationRange> <text>70-99</text> </observationRange> </referenceRange> </observation> </component> </organizer> </entry> <entry> <organizer moodCode="EVN " classCode="BATTERY"> <templateId root="216.840.1.255869.10..22.4.1" / > <id nullFlavor="NA" /> <code codeSystem="local" code="GLUMON" displayName="GLUCOSE (POC)" /> <statusCode code="completed" /> < component> <observation moodCode="EVN" classCode="OBS"> < templateId root="216.840.1.959529.10...4.2" /> <id nullFlavor="NA " /> <code codeSystem="local" code="GLUMON" displayName="GLUCOSE (POC) " /> <statusCode code="completed" /> <effectiveTime value= "612248974483" /> <value unit="mg/dL" xsi:type="PQ" value="202" /> <interpretationCode codeSystem="local" code="*" /> < referenceRange> <observationRange> <text>70-99</text> </observationRange> </referenceRange> </observation> </component> </organizer> </entry> <entry> <organizer moodCode="EVN " classCode="BATTERY"> <templateId root="216.840.1.310566.10..22.4.1" / > <id nullFlavor="NA" /> <code codeSystem="local" code="CBCD" displayName="CBC W/DIFF" /> <statusCode code="completed" /> <component > <observation moodCode="EVN" classCode="OBS"> <templateId root= "216.840.1.331290.10..22.4.2" /> <id nullFlavor="NA" /> < code codeSystem="local" code="GR#" displayName="GRANULOCYTE #" /> < statusCode code="completed" /> <effectiveTime value="813766256215" /> <value unit="k/cumm" xsi:type="PQ" value="4.3" /> < referenceRange> <observationRange> <text>2.0-9.0</text> </observationRange> </referenceRange> </observation > </component> <component> <observation moodCode="EVN" classCode="OBS"> <templateId root="216.840.1.250936.10..4.2" /> <id nullFlavor="NA" /> <code codeSystem="local" code="GR% " displayName="GRANULOCYTE %" /> <statusCode code="completed" /> <effectiveTime value="" /> <value unit="%" xsi: type="PQ" value="85" /> <interpretationCode codeSystem="local" code="* " /> <referenceRange> <observationRange> <text> 50-75</text> </observationRange> </referenceRange> </ observation> </component> <component> <observation moodCode= "EVN" classCode="OBS"> <templateId root="08.14.840.1.824491.04.17.224.2 " /> <id nullFlavor="NA" /> <code codeSystem="local" code="LY# " displayName="LYMPHOCYTE #" /> <statusCode code="completed" /> <effectiveTime value="" /> <value unit="k/cumm" xsi:type ="PQ" value="0.5" /> <interpretationCode codeSystem="local" code="*" / > <referenceRange> <observationRange> <text>1.0 -4.0</text> </observationRange> </referenceRange> </ observation> </component> <component> <observation moodCode= "EVN" classCode="OBS"> <templateId root="08.14.840.1.482180.04.17.22.4.2 " /> <id nullFlavor="NA" /> <code codeSystem="local" code="LY& #37;" displayName="LYMPHOCYTE %" /> <statusCode code="completed" / > <effectiveTime value="" /> <value unit="%" xsi:type="PQ" value="10" /> <interpretationCode codeSystem="local" code ="*" /> <referenceRange> <observationRange> < text>20-30</text> </observationRange> </referenceRange> </observation> </component> <component> <observation moodCode="EVN" classCode="OBS"> <templateId root= "216.840.1.177181.10..22.4.2" /> <id nullFlavor="NA" /> < code codeSystem="local" code="MCH" displayName="MEAN CELL HGB" /> < statusCode code="completed" /> <effectiveTime value="" /> <value unit="pg" xsi:type="PQ" value="31.3" /> <referenceRange > <observationRange> <text>27.0-33.0</text> < /observationRange> </referenceRange> </observation> </ component> <component> <observation moodCode="EVN" classCode="OBS"> <templateId root="216.840.1.608922.10..22.4.2" /> <id nullFlavor="NA" /> <code codeSystem="local" code="MCHC" displayName= "MEAN CELL HGB CONCENTRATION" /> <statusCode code="completed" /> <effectiveTime value="" /> <value unit="g/dL" xsi:type= "PQ" value="30.4" /> <interpretationCode codeSystem="local" code="*" / > <referenceRange> <observationRange> <text> 32.0-37.0</text> </observationRange> </referenceRange> </observation> </component> <component> <observation moodCode="EVN" classCode="OBS"> <templateId root= "08.14.840.1.754560.10.20.22.4.2" /> <id nullFlavor="NA" /> < code codeSystem="local" code="MCV" displayName="MEAN CELL VOLUME" /> < statusCode code="completed" /> <effectiveTime value="" /> <value unit="fl" xsi:type="PQ" value="102.8" /> < interpretationCode codeSystem="local" code="*" /> <referenceRange> <observationRange> <text>80.0-100.0</text> </ observationRange> </referenceRange> </observation> </ component> <component> <observation moodCode="EVN" classCode="OBS"> <templateId root="08.14.840.1.643996.1022.4.2" /> <id nullFlavor="NA" /> <code codeSystem="local" code="MO#" displayName= "MONOCYTE #" /> <statusCode code="completed" /> < effectiveTime value="" /> <value unit="k/cumm" xsi:type="PQ " value="0.2" /> <referenceRange> <observationRange> <text>0.1-1.0</text> </observationRange> </ referenceRange> </observation> </component> <component> <observation moodCode="EVN" classCode="OBS"> <templateId root= "08.14.840.1.290604.10.2022.4.2" /> <id nullFlavor="NA" /> < code codeSystem="local" code="MO%" displayName="MONOCYTE %" /> <statusCode code="completed" /> <effectiveTime value="" /> <value unit="%" xsi:type="PQ" value="4" /> < referenceRange> <observationRange> <text>4-6</text> </observationRange> </referenceRange> </observation> </component> <component> <observation moodCode="EVN" classCode= "OBS"> <templateId root="216.840.1.512268.10.20.22.4.2" /> < id nullFlavor="NA" /> <code codeSystem="local" code="RBC" displayName= "RED BLOOD CELL" /> <statusCode code="completed" /> < effectiveTime value="099408567534" /> <value unit="m/cumm" xsi:type="PQ " value="3.52" /> <interpretationCode codeSystem="local" code="*" /> <referenceRange> <observationRange> <text>4.00- 6.00</text> </observationRange> </referenceRange> </ observation> </component> <component> <observation moodCode= "EVN" classCode="OBS"> <templateId root="16.840.1.305306.10.22.4.2 " /> <id nullFlavor="NA" /> <code codeSystem="local" code="RDW " displayName="RED CELL DISTRIBUTION WIDTH" /> <statusCode code= "completed" /> <effectiveTime value="951450560997" /> <value unit="%" xsi:type="PQ" value="16.3" /> <interpretationCode codeSystem="local" code="*" /> <referenceRange> < observationRange> <text>11.0-15.6</text> </ observationRange> </referenceRange> </observation> </ component> <component> <observation moodCode="EVN" classCode="OBS"> <templateId root="16.840.1.670216.10.20.22.4.2" /> <id nullFlavor="NA" /> <code codeSystem="local" code="WBC" displayName= "WHITE BLOOD CELL" /> <statusCode code="completed" /> < effectiveTime value="" /> <value unit="k/cumm" xsi:type="PQ " value="5.0" /> <referenceRange> <observationRange> <text>5.0-10.0</text> </observationRange> </ referenceRange> </observation> </component> <component> <observation moodCode="EVN" classCode="OBS"> <templateId root= "2.16.840.1.919559.10.20.22.4.2" /> <id nullFlavor="NA" /> < code codeSystem="local" code="HGBT" displayName="HEMOGLOBIN" /> < statusCode code="completed" /> <effectiveTime value="" /> <value unit="gm/dL" xsi:type="PQ" value="11.0" /> < interpretationCode codeSystem="local" code="*" /> <referenceRange> <observationRange> <text>12.0-16.0</text> </ observationRange> </referenceRange> </observation> </ component> <component> <observation moodCode="EVN" classCode="OBS"> <templateId root="216.840.1.520673.10.20.22.4.2" /> <id nullFlavor="NA" /> <code codeSystem="local" code="HCTT" displayName= "HEMATOCRIT" /> <statusCode code="completed" /> < effectiveTime value="" /> <value unit="%" xsi:type="PQ " value="36.2" /> <interpretationCode codeSystem="local" code="*" /> <referenceRange> <observationRange> <text>37.0- 47.0</text> </observationRange> </referenceRange> </ observation> </component> <component> <observation moodCode= "EVN" classCode="OBS"> <templateId root="2.16.840.1.107019.22.4.2 " /> <id nullFlavor="NA" /> <code codeSystem="local" code="PLT " displayName="PLATELET COUNT" /> <statusCode code="completed" /> <effectiveTime value="411498144405" /> <value unit="k/cumm" xsi: type="PQ" value="71" /> <interpretationCode codeSystem="local" code="* " /> <referenceRange> <observationRange> <text> 150-400</text> </observationRange> </referenceRange> </observation> </component> </organizer> </entry> <entry> < organizer moodCode="EVN" classCode="BATTERY"> <templateId root= "2.16.840.1.720987.10..22.4.1" /> <id nullFlavor="NA" /> <code codeSystem="local" code="RENAL" displayName="RENAL FUNCTION PANEL" /> < statusCode code="completed" /> <component> <observation moodCode= "EVN" classCode="OBS"> <templateId root="216.840.1.909022.10.22.4.2 " /> <id nullFlavor="NA" /> <code codeSystem="local" code="K" displayName="POTASSIUM" /> <statusCode code="completed" /> < effectiveTime value="221551928199" /> <value unit="mmol/L" xsi:type="PQ " value="4.1" /> <referenceRange> <observationRange> <text>3.5-5.3</text> </observationRange> </ referenceRange> </observation> </component> <component> <observation moodCode="EVN" classCode="OBS"> <templateId root= "2.16.840.1.596700.10...4.2" /> <id nullFlavor="NA" /> < code codeSystem="local" code="eGFR" displayName="EST GFR (MDRD)" /> < statusCode code="completed" /> <effectiveTime value="" /> <value unit="mL/min" xsi:type="PQ" value="55" /> < interpretationCode codeSystem="local" code="*" /> <referenceRange> <observationRange> <text>> 59</text> </ observationRange> </referenceRange> </observation> </ component> <component> <observation moodCode="EVN" classCode="OBS"> <templateId root="216.840.1.062231.04.17.22.4.2" /> <id nullFlavor="NA" /> <code codeSystem="local" code="GAP" displayName= "ANION GAP" /> <statusCode code="completed" /> <effectiveTime value="" /> <value unit="mmol/L" xsi:type="PQ" value="5" / > <referenceRange> <observationRange> <text>5- 15</text> </observationRange> </referenceRange> </ observation> </component> <component> <observation moodCode= "EVN" classCode="OBS"> <templateId root="2.16.840.1.870290.10..4.2 " /> <id nullFlavor="NA" /> <code codeSystem="local" code= "eCrCl" displayName="EST CrCl (CG)" /> <statusCode code="completed" /> <effectiveTime value="" /> <value unit="mL/min" xsi:type="PQ" value="43" /> <interpretationCode codeSystem="local" code ="*" /> <referenceRange> <observationRange> < text>> 59</text> </observationRange> </referenceRange> </observation> </component> <component> <observation moodCode="EVN" classCode="OBS"> <templateId root= "08.14.840.1.569017.10.22.4.2" /> <id nullFlavor="NA" /> < code codeSystem="local" code="GLU" displayName="GLUCOSE" /> < statusCode code="completed" /> <effectiveTime value="489318034303" /> <value unit="mg/dL" xsi:type="PQ" value="252" /> < interpretationCode codeSystem="local" code="*" /> <referenceRange> <observationRange> <text>70-99</text> </ observationRange> </referenceRange> </observation> </ component> <component> <observation moodCode="EVN" classCode="OBS"> <templateId root="840.1.497638.04.17.22.4.2" /> <id nullFlavor="NA" /> <code codeSystem="local" code="CA" displayName= "CALCIUM" /> <statusCode code="completed" /> <effectiveTime value="225664764691" /> <value unit="mg/dL" xsi:type="PQ" value="8.8" / > <referenceRange> <observationRange> <text>8.5 -10.1</text> </observationRange> </referenceRange> </ observation> </component> <component> <observation moodCode= "EVN" classCode="OBS"> <templateId root="08.14.840.1.306589.22.4.2 " /> <id nullFlavor="NA" /> <code codeSystem="local" code="BUN " displayName="BLOOD UREA NITROGEN" /> <statusCode code="completed" /> <effectiveTime value="025405480810" /> <value unit="mg/dL" xsi:type="PQ" value="14" /> <referenceRange> < observationRange> <text>7-20</text> </observationRange> </referenceRange> </observation> </component> < component> <observation moodCode="EVN" classCode="OBS"> < templateId root="2.16.840.1.173791.10..22.4.2" /> <id nullFlavor="NA " /> <code codeSystem="local" code="CREAT" displayName="CREATININE" /> <statusCode code="completed" /> <effectiveTime value= "957765177718" /> <value unit="mg/dL" xsi:type="PQ" value="1.1" /> <interpretationCode codeSystem="local" code="*" /> < referenceRange> <observationRange> <text>0.6-1.0</text> </observationRange> </referenceRange> </observation > </component> <component> <observation moodCode="EVN" classCode="OBS"> <templateId root="2.16.840.1.881085.10..22.4.2" /> <id nullFlavor="NA" /> <code codeSystem="local" code="NA" displayName="SODIUM" /> <statusCode code="completed" /> < effectiveTime value="414549135110" /> <value unit="mmol/L" xsi:type="PQ " value="142" /> <referenceRange> <observationRange> <text>135-148</text> </observationRange> </ referenceRange> </observation> </component> <component> <observation moodCode="EVN" classCode="OBS"> <templateId root= "16.840.1.037910.10..22.4.2" /> <id nullFlavor="NA" /> < code codeSystem="local" code="CL" displayName="CHLORIDE" /> < statusCode code="completed" /> <effectiveTime value="" /> <value unit="mmol/L" xsi:type="PQ" value="111" /> < interpretationCode codeSystem="local" code="*" /> <referenceRange> <observationRange> <text>98-110</text> </ observationRange> </referenceRange> </observation> </ component> <component> <observation moodCode="EVN" classCode="OBS"> <templateId root="08.14.840.1.661528...4.2" /> <id nullFlavor="NA" /> <code codeSystem="local" code="CO2" displayName= "CARBON DIOXIDE" /> <statusCode code="completed" /> < effectiveTime value="" /> <value unit="mmol/L" xsi:type="PQ " value="26" /> <referenceRange> <observationRange> <text>21-32</text> </observationRange> </ referenceRange> </observation> </component> <component> <observation moodCode="EVN" classCode="OBS"> <templateId root= "08.14.840.1.958925.10..22.4.2" /> <id nullFlavor="NA" /> < code codeSystem="local" code="ALB" displayName="ALBUMIN" /> < statusCode code="completed" /> <effectiveTime value="" /> <value unit="gm/dL" xsi:type="PQ" value="3.2" /> < interpretationCode codeSystem="local" code="*" /> <referenceRange> <observationRange> <text>3.4-5.0</text> </ observationRange> </referenceRange> </observation> </ component> <component> <observation moodCode="EVN" classCode="OBS"> <templateId root="08.14.840.1.746315.10.20.22.4.2" /> <id nullFlavor="NA" /> <code codeSystem="local" code="PHOS" displayName= "PHOSPHORUS" /> <statusCode code="completed" /> < effectiveTime value="993305242979" /> <value unit="mg/dL" xsi:type="PQ " value="2.9" /> <referenceRange> <observationRange> <text>2.5-4.9</text> </observationRange> </ referenceRange> </observation> </component> </organizer> </entry > <entry> <organizer moodCode="EVN" classCode="BATTERY"> <templateId root="08.14.840.1.800986.10..22.4.1" /> <id nullFlavor="NA" /> <code codeSystem="local" code="HDLPRO" displayName="LIPID PANEL" /> <statusCode code="completed" /> <component> <observation moodCode="EVN" classCode="OBS"> <templateId root="08.14.840.1.556902.10..22.4.2" /> <id nullFlavor="NA" /> <code codeSystem="local" code="CHOL/HDL " displayName="CHOLESTEROL/HDL RATIO" /> <statusCode code="completed" / > <effectiveTime value="039779056456" /> <value unit="" xsi: type="PQ" value="4.3" /> <referenceRange> <observationRange > <text> < 5.0</text> </observationRange> </ referenceRange> </observation> </component> <component> <observation moodCode="EVN" classCode="OBS"> <templateId root= "216.840.1.538150.10.4.2" /> <id nullFlavor="NA" /> < code codeSystem="local" code="LDLX" displayName="LDL CHOLESTEROL" /> < statusCode code="completed" /> <effectiveTime value="" /> <value unit="mg/dL" xsi:type="PQ" value="96" /> < referenceRange> <observationRange> <text>< 100</text > </observationRange> </referenceRange> </observation > </component> <component> <observation moodCode="EVN" classCode="OBS"> <templateId root="08.14.840.1.656812.04.17.22.4.2" /> <id nullFlavor="NA" /> <code codeSystem="local" code="VLDL" displayName="VLDL CHOLESTEROL" /> <statusCode code="completed" /> <effectiveTime value="" /> <value unit="mg/dL" xsi: type="PQ" value="34" /> <interpretationCode codeSystem="local" code="* " /> <referenceRange> <observationRange> <text> < 30</text> </observationRange> </referenceRange> </observation> </component> <component> <observation moodCode= "EVN" classCode="OBS"> <templateId root="16.840.1.299999.04.17.22.4.2 " /> <id nullFlavor="NA" /> <code codeSystem="local" code= "TRIG" displayName="TRIGLYCERIDES" /> <statusCode code="completed" /> <effectiveTime value="" /> <value unit="mg/dL" xsi :type="PQ" value="171" /> <interpretationCode codeSystem="local" code= "*" /> <referenceRange> <observationRange> < text>< 150</text> </observationRange> </referenceRange> </observation> </component> <component> <observation moodCode="EVN" classCode="OBS"> <templateId root= "216.840.1.631785.10..4.2" /> <id nullFlavor="NA" /> < code codeSystem="local" code="CHOL" displayName="CHOLESTEROL" /> < statusCode code="completed" /> <effectiveTime value="190611414707" /> <value unit="mg/dL" xsi:type="PQ" value="170" /> < referenceRange> <observationRange> <text>< 200</text > </observationRange> </referenceRange> </observation > </component> <component> <observation moodCode="EVN" classCode="OBS"> <templateId root="216.840.1.381158.10...4.2" /> <id nullFlavor="NA" /> <code codeSystem="local" code="HDL" displayName="HDL CHOLESTEROL" /> <statusCode code="completed" /> <effectiveTime value="510989251168" /> <value unit="mg/dL" xsi:type ="PQ" value="40" /> <referenceRange> <observationRange> <text>> 39</text> </observationRange> </ referenceRange> </observation> </component> </organizer> </entry > <entry> <organizer moodCode="EVN" classCode="BATTERY"> <templateId root="216.840.1.447425.10...4.1" /> <id nullFlavor="NA" /> <code codeSystem="local" code="MAG" displayName="MAGNESIUM" /> <statusCode code= "completed" /> <component> <observation moodCode="EVN" classCode= "OBS"> <templateId root="08.14.840.1.068805.1022.4.2" /> < id nullFlavor="NA" /> <code codeSystem="local" code="MAG" displayName= "MAGNESIUM" /> <statusCode code="completed" /> <effectiveTime value="090715300486" /> <value unit="mg/dL" xsi:type="PQ" value="1.9" / > <referenceRange> <observationRange> <text>1.8 -2.4</text> </observationRange> </referenceRange> </ observation> </component> </organizer> </entry> <entry> <organizer moodCode="EVN" classCode="BATTERY"> <templateId root= "840.1.789586.04.17.22.4.1" /> <id nullFlavor="NA" /> <code codeSystem="local" code="GLUMON" displayName="GLUCOSE (POC)" /> < statusCode code="completed" /> <component> <observation moodCode= "EVN" classCode="OBS"> <templateId root="840.1.828810.04.17.22.4.2 " /> <id nullFlavor="NA" /> <code codeSystem="local" code= "GLUMON" displayName="GLUCOSE (POC)" /> <statusCode code="completed" / > <effectiveTime value="817696220364" /> <value unit="mg/dL" xsi:type="PQ" value="219" /> <interpretationCode codeSystem="local" code="*" /> <referenceRange> <observationRange> <text>70-</text> </observationRange> </referenceRange> </observation> </component> </organizer> </entry> <entry> < organizer moodCode="EVN" classCode="BATTERY"> <templateId root= "08.14.840.1.479597.10..22.4.1" /> <id nullFlavor="NA" /> <code codeSystem="local" code="GLUMON" displayName="GLUCOSE (POC)" /> < statusCode code="completed" /> <component> <observation moodCode= "EVN" classCode="OBS"> <templateId root="840.1.319529...4.2 " /> <id nullFlavor="NA" /> <code codeSystem="local" code= "GLUMON" displayName="GLUCOSE (POC)" /> <statusCode code="completed" / > <effectiveTime value="613677631710" /> <value unit="mg/dL" xsi:type="PQ" value="241" /> <interpretationCode codeSystem="local" code="*" /> <referenceRange> <observationRange> <text>70-99</text> </observationRange> </referenceRange> </observation> </component> </organizer> </entry> <entry> < organizer moodCode="EVN" classCode="BATTERY"> <templateId root= "08.14.840.1.161594.10.4.1" /> <id nullFlavor="NA" /> <code codeSystem="local" code="GLUMON" displayName="GLUCOSE (POC)" /> < statusCode code="completed" /> <component> <observation moodCode= "EVN" classCode="OBS"> <templateId root="08.14.840.1.088983.10...4.2 " /> <id nullFlavor="NA" /> <code codeSystem="local" code= "GLUMON" displayName="GLUCOSE (POC)" /> <statusCode code="completed" / > <effectiveTime value="546296567313" /> <value unit="mg/dL" xsi:type="PQ" value="274" /> <interpretationCode codeSystem="local" code="*" /> <referenceRange> <observationRange> <text>70-99</text> </observationRange> </referenceRange> </observation> </component> </organizer> </entry> <entry> < organizer moodCode="EVN" classCode="BATTERY"> <templateId root= "216.840.1.207663.10..22.4.1" /> <id nullFlavor="NA" /> <code codeSystem="local" code="GLUMON" displayName="GLUCOSE (POC)" /> < statusCode code="completed" /> <component> <observation moodCode= "EVN" classCode="OBS"> <templateId root="216.840.1.930492.10..22.4.2 " /> <id nullFlavor="NA" /> <code codeSystem="local" code= "GLUMON" displayName="GLUCOSE (POC)" /> <statusCode code="completed" / > <effectiveTime value="474579959669" /> <value unit="mg/dL" xsi:type="PQ" value="225" /> <interpretationCode codeSystem="local" code="*" /> <referenceRange> <observationRange> <text>70-99</text> </observationRange> </referenceRange> </observation> </component> </organizer> </entry> <entry> < organizer moodCode="EVN" classCode="BATTERY"> <templateId root= "216.840.1.801692.10..4.1" /> <id nullFlavor="NA" /> <code codeSystem="local" code="RENAL" displayName="RENAL FUNCTION PANEL" /> < statusCode code="completed" /> <component> <observation moodCode= "EVN" classCode="OBS"> <templateId root="08.14.840.1.668268.10.4.2 " /> <id nullFlavor="NA" /> <code codeSystem="local" code="K" displayName="POTASSIUM" /> <statusCode code="completed" /> < effectiveTime value="628866574198" /> <value unit="mmol/L" xsi:type="PQ " value="4.4" /> <referenceRange> <observationRange> <text>3.5-5.3</text> </observationRange> </ referenceRange> </observation> </component> <component> <observation moodCode="EVN" classCode="OBS"> <templateId root= "840.1.100521.04.17.22.4.2" /> <id nullFlavor="NA" /> < code codeSystem="local" code="eGFR" displayName="EST GFR (MDRD)" /> < statusCode code="completed" /> <effectiveTime value="[id number]" /> <value unit="mL/min" xsi:type="PQ" value="> 60" /> < referenceRange> <observationRange> <text>> 59</text> </observationRange> </referenceRange> </observation > </component> <component> <observation moodCode="EVN" classCode="OBS"> <templateId root="08.14.840.1.540123.04.17.22.4.2" /> <id nullFlavor="NA" /> <code codeSystem="local" code="GAP" displayName="ANION GAP" /> <statusCode code="completed" /> < effectiveTime value="" /> <value unit="mmol/L" xsi:type="PQ " value="6" /> <referenceRange> <observationRange> <text>5-15</text> </observationRange> </referenceRange > </observation> </component> <component> <observation moodCode="EVN" classCode="OBS"> <templateId root= "08.14.840.1.608539.10.4.2" /> <id nullFlavor="NA" /> < code codeSystem="local" code="eCrCl" displayName="EST CrCl (CG)" /> < statusCode code="completed" /> <effectiveTime value="867550464996" /> <value unit="mL/min" xsi:type="PQ" value="48" /> < interpretationCode codeSystem="local" code="*" /> <referenceRange> <observationRange> <text>> 59</text> </ observationRange> </referenceRange> </observation> </ component> <component> <observation moodCode="EVN" classCode="OBS"> <templateId root="08.14.840.1.920396.10...4.2" /> <id nullFlavor="NA" /> <code codeSystem="local" code="GLU" displayName= "GLUCOSE" /> <statusCode code="completed" /> <effectiveTime value="" /> <value unit="mg/dL" xsi:type="PQ" value="234" / > <interpretationCode codeSystem="local" code="*" /> < referenceRange> <observationRange> <text>70-99</text> </observationRange> </referenceRange> </observation> </component> <component> <observation moodCode="EVN" classCode= "OBS"> <templateId root="840.1.066478.04.17.22.4.2" /> < id nullFlavor="NA" /> <code codeSystem="local" code="CA" displayName= "CALCIUM" /> <statusCode code="completed" /> <effectiveTime value="" /> <value unit="mg/dL" xsi:type="PQ" value="9.0" / > <referenceRange> <observationRange> <text>8.5 -10.1</text> </observationRange> </referenceRange> </ observation> </component> <component> <observation moodCode= "EVN" classCode="OBS"> <templateId root="216.840.1.885290.04.17.22.4.2 " /> <id nullFlavor="NA" /> <code codeSystem="local" code="BUN " displayName="BLOOD UREA NITROGEN" /> <statusCode code="completed" /> <effectiveTime value="" /> <value unit="mg/dL" xsi:type="PQ" value="15" /> <referenceRange> < observationRange> <text>7-20</text> </observationRange> </referenceRange> </observation> </component> < component> <observation moodCode="EVN" classCode="OBS"> < templateId root="216.840.1.881921.22.4.2" /> <id nullFlavor="NA " /> <code codeSystem="local" code="CREAT" displayName="CREATININE" /> <statusCode code="completed" /> <effectiveTime value= "" /> <value unit="mg/dL" xsi:type="PQ" value="1.0" /> <referenceRange> <observationRange> <text>0.6-1.0< /text> </observationRange> </referenceRange> </ observation> </component> <component> <observation moodCode= "EVN" classCode="OBS"> <templateId root="216.840.1.848704.10..22.4.2 " /> <id nullFlavor="NA" /> <code codeSystem="local" code="NA " displayName="SODIUM" /> <statusCode code="completed" /> < effectiveTime value="" /> <value unit="mmol/L" xsi:type="PQ " value="141" /> <referenceRange> <observationRange> <text>135-148</text> </observationRange> </ referenceRange> </observation> </component> <component> <observation moodCode="EVN" classCode="OBS"> <templateId root= "216.840.1.815423.10...4.2" /> <id nullFlavor="NA" /> < code codeSystem="local" code="CL" displayName="CHLORIDE" /> < statusCode code="completed" /> <effectiveTime value="" /> <value unit="mmol/L" xsi:type="PQ" value="107" /> < referenceRange> <observationRange> <text>98-110</text> </observationRange> </referenceRange> </observation> </component> <component> <observation moodCode="EVN" classCode ="OBS"> <templateId root="216.840.1.503695.10..22.4.2" /> < id nullFlavor="NA" /> <code codeSystem="local" code="CO2" displayName= "CARBON DIOXIDE" /> <statusCode code="completed" /> < effectiveTime value="" /> <value unit="mmol/L" xsi:type="PQ " value="28" /> <referenceRange> <observationRange> <text>21-32</text> </observationRange> </ referenceRange> </observation> </component> <component> <observation moodCode="EVN" classCode="OBS"> <templateId root= "16.840.1.230973.10.22.4.2" /> <id nullFlavor="NA" /> < code codeSystem="local" code="ALB" displayName="ALBUMIN" /> < statusCode code="completed" /> <effectiveTime value="" /> <value unit="gm/dL" xsi:type="PQ" value="3.3" /> < interpretationCode codeSystem="local" code="*" /> <referenceRange> <observationRange> <text>3.4-5.0</text> </ observationRange> </referenceRange> </observation> </ component> <component> <observation moodCode="EVN" classCode="OBS"> <templateId root="08.14.840.1.037524.04.17.22.4.2" /> <id nullFlavor="NA" /> <code codeSystem="local" code="PHOS" displayName= "PHOSPHORUS" /> <statusCode code="completed" /> < effectiveTime value="" /> <value unit="mg/dL" xsi:type="PQ " value="3.6" /> <referenceRange> <observationRange> <text>2.5-4.9</text> </observationRange> </ referenceRange> </observation> </component> </organizer> </entry > <entry> <organizer moodCode="EVN" classCode="BATTERY"> <templateId root="08.14.840.1.747408.10..22.4.1" /> <id nullFlavor="NA" /> <code codeSystem="local" code="MAG" displayName="MAGNESIUM" /> <statusCode code= "completed" /> <component> <observation moodCode="EVN" classCode= "OBS"> <templateId root="08.14.840.1.896132.04.17.22.4.2" /> < id nullFlavor="NA" /> <code codeSystem="local" code="MAG" displayName= "MAGNESIUM" /> <statusCode code="completed" /> <effectiveTime value="697848194585" /> <value unit="mg/dL" xsi:type="PQ" value="1.8" / > <referenceRange> <observationRange> <text>1.8 -2.4</text> </observationRange> </referenceRange> </ observation> </component> </organizer> </entry> <entry> <organizer moodCode="EVN" classCode="BATTERY"> <templateId root= "08.14.840.1.316005.04.17.22.4.1" /> <id nullFlavor="NA" /> <code codeSystem="local" code="CBCD" displayName="CBC W/DIFF" /> <statusCode code ="completed" /> <component> <observation moodCode="EVN" classCode= "OBS"> <templateId root="216.840.1.921628.10..22.4.2" /> < id nullFlavor="NA" /> <code codeSystem="local" code="CBCCOM" displayName="COMMENT" /> <statusCode code="completed" /> < effectiveTime value="781898009110" /> <value unit="" xsi:type="PQ" value="REVIEWED" /> <referenceRange> <observationRange> <text /> </observationRange> </referenceRange> </observation> </component> <component> <observation moodCode="EVN" classCode="OBS"> <templateId root= "08.14.840.1.195031.04.17.22.4.2" /> <id nullFlavor="NA" /> < code codeSystem="local" code="GR#" displayName="GRANULOCYTE #" /> < statusCode code="completed" /> <effectiveTime value="" /> <value unit="k/cumm" xsi:type="PQ" value="4.0" /> < referenceRange> <observationRange> <text>2.0-9.0</text> </observationRange> </referenceRange> </observation > </component> <component> <observation moodCode="EVN" classCode="OBS"> <templateId root="16.840.1.668550.04.17.224.2" /> <id nullFlavor="NA" /> <code codeSystem="local" code="GR% " displayName="GRANULOCYTE %" /> <statusCode code="completed" /> <effectiveTime value="" /> <value unit="%" xsi: type="PQ" value="80" /> <interpretationCode codeSystem="local" code="* " /> <referenceRange> <observationRange> <text> 50-75</text> </observationRange> </referenceRange> </ observation> </component> <component> <observation moodCode= "EVN" classCode="OBS"> <templateId root="08.14.840.1.615598.04.17.22.4.2 " /> <id nullFlavor="NA" /> <code codeSystem="local" code="LY# " displayName="LYMPHOCYTE #" /> <statusCode code="completed" /> <effectiveTime value="" /> <value unit="k/cumm" xsi:type ="PQ" value="0.7" /> <interpretationCode codeSystem="local" code="*" / > <referenceRange> <observationRange> <text>1.0 -4.0</text> </observationRange> </referenceRange> </ observation> </component> <component> <observation moodCode= "EVN" classCode="OBS"> <templateId root="216.840.1.446131.10.20.22.4.2 " /> <id nullFlavor="NA" /> <code codeSystem="local" code="LY& #37;" displayName="LYMPHOCYTE %" /> <statusCode code="completed" / > <effectiveTime value="841375137182" /> <value unit="%" xsi:type="PQ" value="14" /> <interpretationCode codeSystem="local" code ="*" /> <referenceRange> <observationRange> < text>20-30</text> </observationRange> </referenceRange> </observation> </component> <component> <observation moodCode="EVN" classCode="OBS"> <templateId root= "840.1.036056.10.2022.4.2" /> <id nullFlavor="NA" /> < code codeSystem="local" code="MCH" displayName="MEAN CELL HGB" /> < statusCode code="completed" /> <effectiveTime value="" /> <value unit="pg" xsi:type="PQ" value="31.2" /> <referenceRange > <observationRange> <text>27.0-33.0</text> < /observationRange> </referenceRange> </observation> </ component> <component> <observation moodCode="EVN" classCode="OBS"> <templateId root="08.14.840.1.990697.10.20.22.4.2" /> <id nullFlavor="NA" /> <code codeSystem="local" code="MCHC" displayName= "MEAN CELL HGB CONCENTRATION" /> <statusCode code="completed" /> <effectiveTime value="" /> <value unit="g/dL" xsi:type= "PQ" value="31.6" /> <interpretationCode codeSystem="local" code="*" / > <referenceRange> <observationRange> <text> 32.0-37.0</text> </observationRange> </referenceRange> </observation> </component> <component> <observation moodCode="EVN" classCode="OBS"> <templateId root= "216.840.1.085754.10.20.22.4.2" /> <id nullFlavor="NA" /> < code codeSystem="local" code="MCV" displayName="MEAN CELL VOLUME" /> < statusCode code="completed" /> <effectiveTime value="" /> <value unit="fl" xsi:type="PQ" value="98.9" /> <referenceRange > <observationRange> <text>80.0-100.0</text> </observationRange> </referenceRange> </observation> </ component> <component> <observation moodCode="EVN" classCode="OBS"> <templateId root="16.840.1.974567.10.20.22.4.2" /> <id nullFlavor="NA" /> <code codeSystem="local" code="MO#" displayName= "MONOCYTE #" /> <statusCode code="completed" /> < effectiveTime value="" /> <value unit="k/cumm" xsi:type="PQ " value="0.3" /> <referenceRange> <observationRange> <text>0.1-1.0</text> </observationRange> </ referenceRange> </observation> </component> <component> <observation moodCode="EVN" classCode="OBS"> <templateId root= "16.840.1.353035.10.20.22.4.2" /> <id nullFlavor="NA" /> < code codeSystem="local" code="MO%" displayName="MONOCYTE %" /> <statusCode code="completed" /> <effectiveTime value="082911155364" /> <value unit="%" xsi:type="PQ" value="5" /> < referenceRange> <observationRange> <text>4-6</text> </observationRange> </referenceRange> </observation> </component> <component> <observation moodCode="EVN" classCode= "OBS"> <templateId root="08.14.840.1.370138.10.2022.4.2" /> < id nullFlavor="NA" /> <code codeSystem="local" code="RBC" displayName= "RED BLOOD CELL" /> <statusCode code="completed" /> < effectiveTime value="450301850003" /> <value unit="m/cumm" xsi:type="PQ " value="3.49" /> <interpretationCode codeSystem="local" code="*" /> <referenceRange> <observationRange> <text>4.00- 6.00</text> </observationRange> </referenceRange> </ observation> </component> <component> <observation moodCode= "EVN" classCode="OBS"> <templateId root="08.14.840.1.566413.10.20.22.4.2 " /> <id nullFlavor="NA" /> <code codeSystem="local" code="RDW " displayName="RED CELL DISTRIBUTION WIDTH" /> <statusCode code= "completed" /> <effectiveTime value="219552499336" /> <value unit="%" xsi:type="PQ" value="16.1" /> <interpretationCode codeSystem="local" code="*" /> <referenceRange> < observationRange> <text>11.0-15.6</text> </ observationRange> </referenceRange> </observation> </ component> <component> <observation moodCode="EVN" classCode="OBS"> <templateId root="216.840.1.586332.1022.4.2" /> <id nullFlavor="NA" /> <code codeSystem="local" code="WBC" displayName= "WHITE BLOOD CELL" /> <statusCode code="completed" /> < effectiveTime value="" /> <value unit="k/cumm" xsi:type="PQ " value="5.0" /> <referenceRange> <observationRange> <text>5.0-10.0</text> </observationRange> </ referenceRange> </observation> </component> <component> <observation moodCode="EVN" classCode="OBS"> <templateId root= "08.14.840.1.077120.04.17.22.4.2" /> <id nullFlavor="NA" /> < code codeSystem="local" code="HGBT" displayName="HEMOGLOBIN" /> < statusCode code="completed" /> <effectiveTime value="176212762227" /> <value unit="gm/dL" xsi:type="PQ" value="10.9" /> < interpretationCode codeSystem="local" code="*" /> <referenceRange> <observationRange> <text>12.0-16.0</text> </ observationRange> </referenceRange> </observation> </ component> <component> <observation moodCode="EVN" classCode="OBS"> <templateId root="16.840.1.735313.22.4.2" /> <id nullFlavor="NA" /> <code codeSystem="local" code="HCTT" displayName= "HEMATOCRIT" /> <statusCode code="completed" /> < effectiveTime value="" /> <value unit="%" xsi:type="PQ " value="34.5" /> <interpretationCode codeSystem="local" code="*" /> <referenceRange> <observationRange> <text>37.0- 47.0</text> </observationRange> </referenceRange> </ observation> </component> <component> <observation moodCode= "EVN" classCode="OBS"> <templateId root="08.14.840.1.852237.04.17.22.4.2 " /> <id nullFlavor="NA" /> <code codeSystem="local" code="PLT " displayName="PLATELET COUNT" /> <statusCode code="completed" /> <effectiveTime value="" /> <value unit="k/cumm" xsi: type="PQ" value="70" /> <interpretationCode codeSystem="local" code="* " /> <referenceRange> <observationRange> <text> 150-400</text> </observationRange> </referenceRange> </observation> </component> </organizer> </entry> <entry> < organizer moodCode="EVN" classCode="BATTERY"> <templateId root= "840.1.556136.22.4.1" /> <id nullFlavor="NA" /> <code codeSystem="local" code="GLUMON" displayName="GLUCOSE (POC)" /> < statusCode code="completed" /> <component> <observation moodCode= "EVN" classCode="OBS"> <templateId root="08.14.840.1.756370.22.4.2 " /> <id nullFlavor="NA" /> <code codeSystem="local" code= "GLUMON" displayName="GLUCOSE (POC)" /> <statusCode code="completed" / > <effectiveTime value="042201111739" /> <value unit="mg/dL" xsi:type="PQ" value="221" /> <interpretationCode codeSystem="local" code="*" /> <referenceRange> <observationRange> <text>70-99</text> </observationRange> </referenceRange> </observation> </component> </organizer> </entry> <entry> < organizer moodCode="EVN" classCode="BATTERY"> <templateId root= "216.840.1.050568.10..22.4.1" /> <id nullFlavor="NA" /> <code codeSystem="local" code="GLUMON" displayName="GLUCOSE (POC)" /> < statusCode code="completed" /> <component> <observation moodCode= "EVN" classCode="OBS"> <templateId root="2.16.840.1.588940.10..22.4.2 " /> <id nullFlavor="NA" /> <code codeSystem="local" code= "GLUMON" displayName="GLUCOSE (POC)" /> <statusCode code="completed" / > <effectiveTime value="105935138899" /> <value unit="mg/dL" xsi:type="PQ" value="350" /> <interpretationCode codeSystem="local" code="*" /> <referenceRange> <observationRange> <text>70-99</text> </observationRange> </referenceRange> </observation> </component> </organizer> </entry> <entry> < organizer moodCode="EVN" classCode="BATTERY"> <templateId root= "216.840.1.897406.104.1" /> <id nullFlavor="NA" /> <code codeSystem="local" code="GLUMON" displayName="GLUCOSE (POC)" /> < statusCode code="completed" /> <component> <observation moodCode= "EVN" classCode="OBS"> <templateId root="840.1.204553.04.17.224.2 " /> <id nullFlavor="NA" /> <code codeSystem="local" code= "GLUMON" displayName="GLUCOSE (POC)" /> <statusCode code="completed" / > <effectiveTime value="047750175796" /> <value unit="mg/dL" xsi:type="PQ" value="334" /> <interpretationCode codeSystem="local" code="*" /> <referenceRange> <observationRange> <text>70-99</text> </observationRange> </referenceRange> </observation> </component> </organizer> </entry> <entry> < organizer moodCode="EVN" classCode="BATTERY"> <templateId root= "840.1.167426.04.17.224.1" /> <id nullFlavor="NA" /> <code codeSystem="local" code="CBCD" displayName="CBC W/DIFF" /> <statusCode code ="completed" /> <component> <observation moodCode="EVN" classCode= "OBS"> <templateId root="840.1.952111.10.4.2" /> < id nullFlavor="NA" /> <code codeSystem="local" code="GR#" displayName= "GRANULOCYTE #" /> <statusCode code="completed" /> < effectiveTime value="145550642965" /> <value unit="k/cumm" xsi:type="PQ " value="3.1" /> <referenceRange> <observationRange> <text>2.0-9.0</text> </observationRange> </ referenceRange> </observation> </component> <component> <observation moodCode="EVN" classCode="OBS"> <templateId root= "216.840.1.285429.10.20.22.4.2" /> <id nullFlavor="NA" /> < code codeSystem="local" code="GR%" displayName="GRANULOCYTE %" /> <statusCode code="completed" /> <effectiveTime value="353362011160 " /> <value unit="%" xsi:type="PQ" value="75" /> < referenceRange> <observationRange> <text>50-75</text> </observationRange> </referenceRange> </observation> </component> <component> <observation moodCode="EVN" classCode= "OBS"> <templateId root="08.14.840.1.046762.10..4.2" /> < id nullFlavor="NA" /> <code codeSystem="local" code="LY#" displayName= "LYMPHOCYTE #" /> <statusCode code="completed" /> < effectiveTime value="031760620068" /> <value unit="k/cumm" xsi:type="PQ " value="0.7" /> <interpretationCode codeSystem="local" code="*" /> <referenceRange> <observationRange> <text>1.0-4.0 </text> </observationRange> </referenceRange> </ observation> </component> <component> <observation moodCode= "EVN" classCode="OBS"> <templateId root="16.840.1.374056.10.20.22.4.2 " /> <id nullFlavor="NA" /> <code codeSystem="local" code="LY& #37;" displayName="LYMPHOCYTE %" /> <statusCode code="completed" / > <effectiveTime value="163400909287" /> <value unit="%" xsi:type="PQ" value="17" /> <interpretationCode codeSystem="local" code ="*" /> <referenceRange> <observationRange> < text>20-30</text> </observationRange> </referenceRange> </observation> </component> <component> <observation moodCode="EVN" classCode="OBS"> <templateId root= "2.16.840.1.377563.10...4.2" /> <id nullFlavor="NA" /> < code codeSystem="local" code="MCH" displayName="MEAN CELL HGB" /> < statusCode code="completed" /> <effectiveTime value="952912855113" /> <value unit="pg" xsi:type="PQ" value="31.3" /> <referenceRange > <observationRange> <text>27.0-33.0</text> < /observationRange> </referenceRange> </observation> </ component> <component> <observation moodCode="EVN" classCode="OBS"> <templateId root="216.840.1.675245.10.20.22.4.2" /> <id nullFlavor="NA" /> <code codeSystem="local" code="MCHC" displayName= "MEAN CELL HGB CONCENTRATION" /> <statusCode code="completed" /> <effectiveTime value="355951677664" /> <value unit="g/dL" xsi:type= "PQ" value="31.9" /> <interpretationCode codeSystem="local" code="*" / > <referenceRange> <observationRange> <text> 32.0-37.0</text> </observationRange> </referenceRange> </observation> </component> <component> <observation moodCode="EVN" classCode="OBS"> <templateId root= "08.14.840.1.111269.04.17.22.4.2" /> <id nullFlavor="NA" /> < code codeSystem="local" code="MCV" displayName="MEAN CELL VOLUME" /> < statusCode code="completed" /> <effectiveTime value="773405051624" /> <value unit="fl" xsi:type="PQ" value="98.1" /> <referenceRange > <observationRange> <text>80.0-100.0</text> </observationRange> </referenceRange> </observation> </ component> <component> <observation moodCode="EVN" classCode="OBS"> <templateId root="08.14.840.1.168509.04.17.22.4.2" /> <id nullFlavor="NA" /> <code codeSystem="local" code="MO#" displayName= "MONOCYTE #" /> <statusCode code="completed" /> < effectiveTime value="773941269090" /> <value unit="k/cumm" xsi:type="PQ " value="0.3" /> <referenceRange> <observationRange> <text>0.1-1.0</text> </observationRange> </ referenceRange> </observation> </component> <component> <observation moodCode="EVN" classCode="OBS"> <templateId root= "08.14.840.1.733297.10.4.2" /> <id nullFlavor="NA" /> < code codeSystem="local" code="MO%" displayName="MONOCYTE %" /> <statusCode code="completed" /> <effectiveTime value="650029747680" /> <value unit="%" xsi:type="PQ" value="7" /> < interpretationCode codeSystem="local" code="*" /> <referenceRange> <observationRange> <text>4-6</text> </ observationRange> </referenceRange> </observation> </ component> <component> <observation moodCode="EVN" classCode="OBS"> <templateId root="08.14.840.1.366574.22.4.2" /> <id nullFlavor="NA" /> <code codeSystem="local" code="RBC" displayName=" RED BLOOD CELL" /> <statusCode code="completed" /> < effectiveTime value="293740712260" /> <value unit="m/cumm" xsi:type="PQ " value="3.68" /> <interpretationCode codeSystem="local" code="*" /> <referenceRange> <observationRange> <text>4.00- 6.00</text> </observationRange> </referenceRange> </ observation> </component> <component> <observation moodCode= "EVN" classCode="OBS"> <templateId root="08.14.840.1.258243....4.2 " /> <id nullFlavor="NA" /> <code codeSystem="local" code="RDW " displayName="RED CELL DISTRIBUTION WIDTH" /> <statusCode code= "completed" /> <effectiveTime value="808835498839" /> <value unit="%" xsi:type="PQ" value="15.9" /> <interpretationCode codeSystem="local" code="*" /> <referenceRange> < observationRange> <text>11.0-15.6</text> </ observationRange> </referenceRange> </observation> </ component> <component> <observation moodCode="EVN" classCode="OBS"> <templateId root="08.14.830.1.611379.10.20.22.4.2" /> <id nullFlavor="NA" /> <code codeSystem="local" code="WBC" displayName= "WHITE BLOOD CELL" /> <statusCode code="completed" /> < effectiveTime value="331877271537" /> <value unit="k/cumm" xsi:type="PQ " value="4.1" /> <interpretationCode codeSystem="local" code="*" /> <referenceRange> <observationRange> <text>5.0- 10.0</text> </observationRange> </referenceRange> </ observation> </component> <component> <observation moodCode= "EVN" classCode="OBS"> <templateId root="840.1.846325.04.17.22.4.2 " /> <id nullFlavor="NA" /> <code codeSystem="local" code= "HGBT" displayName="HEMOGLOBIN" /> <statusCode code="completed" /> <effectiveTime value="554732832355" /> <value unit="gm/dL" xsi: type="PQ" value="11.5" /> <interpretationCode codeSystem="local" code= "*" /> <referenceRange> <observationRange> < text>12.0-16.0</text> </observationRange> </referenceRange> </observation> </component> <component> <observation moodCode="EVN" classCode="OBS"> <templateId root= "840.1.748935.10.2022.4.2" /> <id nullFlavor="NA" /> < code codeSystem="local" code="HCTT" displayName="HEMATOCRIT" /> < statusCode code="completed" /> <effectiveTime value="897763093762" /> <value unit="%" xsi:type="PQ" value="36.1" /> < interpretationCode codeSystem="local" code="*" /> <referenceRange> <observationRange> <text>37.0-47.0</text> </ observationRange> </referenceRange> </observation> </ component> <component> <observation moodCode="EVN" classCode="OBS"> <templateId root="840.1.981480.04.17.22.4.2" /> <id nullFlavor="NA" /> <code codeSystem="local" code="PLT" displayName= "PLATELET COUNT" /> <statusCode code="completed" /> < effectiveTime value="822870883909" /> <value unit="k/cumm" xsi:type="PQ " value="78" /> <interpretationCode codeSystem="local" code="*" /> <referenceRange> <observationRange> <text>150-400< /text> </observationRange> </referenceRange> </ observation> </component> </organizer> </entry> <entry> <organizer moodCode="EVN" classCode="BATTERY"> <templateId root= "840.1.731096.04.17.22.4.1" /> <id nullFlavor="NA" /> <code codeSystem="local" code="RENAL" displayName="RENAL FUNCTION PANEL" /> < statusCode code="completed" /> <component> <observation moodCode= "EVN" classCode="OBS"> <templateId root="840.1.290831.22.4.2 " /> <id nullFlavor="NA" /> <code codeSystem="local" code="K" displayName="POTASSIUM" /> <statusCode code="completed" /> < effectiveTime value="914932274304" /> <value unit="mmol/L" xsi:type="PQ " value="4.5" /> <referenceRange> <observationRange> <text>3.5-5.3</text> </observationRange> </ referenceRange> </observation> </component> <component> <observation moodCode="EVN" classCode="OBS"> <templateId root= "08.14.840.1.957465.10..22.4.2" /> <id nullFlavor="NA" /> < code codeSystem="local" code="eGFR" displayName="EST GFR (MDRD)" /> < statusCode code="completed" /> <effectiveTime value="980225511516" /> <value unit="mL/min" xsi:type="PQ" value="45" /> < interpretationCode codeSystem="local" code="*" /> <referenceRange> <observationRange> <text>> 59</text> </ observationRange> </referenceRange> </observation> </ component> <component> <observation moodCode="EVN" classCode="OBS"> <templateId root="840.1.432751.04.17.22.4.2" /> <id nullFlavor="NA" /> <code codeSystem="local" code="GAP" displayName= "ANION GAP" /> <statusCode code="completed" /> <effectiveTime value="088165976893" /> <value unit="mmol/L" xsi:type="PQ" value="5" / > <referenceRange> <observationRange> <text>5- 15</text> </observationRange> </referenceRange> </ observation> </component> <component> <observation moodCode= "EVN" classCode="OBS"> <templateId root="08.14.840.1.602094.10.20.22.4.2 " /> <id nullFlavor="NA" /> <code codeSystem="local" code= "eCrCl" displayName="EST CrCl (CG)" /> <statusCode code="completed" /> <effectiveTime value="804688420399" /> <value unit="mL/min" xsi:type="PQ" value="37" /> <interpretationCode codeSystem="local" code ="*" /> <referenceRange> <observationRange> < text>> 59</text> </observationRange> </referenceRange> </observation> </component> <component> <observation moodCode="EVN" classCode="OBS"> <templateId root= "216.840.1.267129.10.20.22.4.2" /> <id nullFlavor="NA" /> < code codeSystem="local" code="GLU" displayName="GLUCOSE" /> < statusCode code="completed" /> <effectiveTime value="389830331204" /> <value unit="mg/dL" xsi:type="PQ" value="302" /> < interpretationCode codeSystem="local" code="*" /> <referenceRange> <observationRange> <text>70-99</text> </ observationRange> </referenceRange> </observation> </ component> <component> <observation moodCode="EVN" classCode="OBS"> <templateId root="216.840.1.258255.10.20.22.4.2" /> <id nullFlavor="NA" /> <code codeSystem="local" code="CA" displayName= "CALCIUM" /> <statusCode code="completed" /> <effectiveTime value="470740712369" /> <value unit="mg/dL" xsi:type="PQ" value="9.2" / > <referenceRange> <observationRange> <text>8.5 -10.1</text> </observationRange> </referenceRange> </ observation> </component> <component> <observation moodCode= "EVN" classCode="OBS"> <templateId root="16.840.1.867835.10..22.4.2 " /> <id nullFlavor="NA" /> <code codeSystem="local" code="BUN " displayName="BLOOD UREA NITROGEN" /> <statusCode code="completed" /> <effectiveTime value="455215727864" /> <value unit="mg/dL" xsi:type="PQ" value="23" /> <interpretationCode codeSystem="local" code ="*" /> <referenceRange> <observationRange> < text>7-20</text> </observationRange> </referenceRange> </observation> </component> <component> <observation moodCode="EVN" classCode="OBS"> <templateId root= "08.14.840.1.897234.04.17.22.4.2" /> <id nullFlavor="NA" /> < code codeSystem="local" code="CREAT" displayName="CREATININE" /> < statusCode code="completed" /> <effectiveTime value="690350388636" /> <value unit="mg/dL" xsi:type="PQ" value="1.3" /> < interpretationCode codeSystem="local" code="*" /> <referenceRange> <observationRange> <text>0.6-1.0</text> </ observationRange> </referenceRange> </observation> </ component> <component> <observation moodCode="EVN" classCode="OBS"> <templateId root="16.840.1.210004...4.2" /> <id nullFlavor="NA" /> <code codeSystem="local" code="NA" displayName= "SODIUM" /> <statusCode code="completed" /> <effectiveTime value="497299942250" /> <value unit="mmol/L" xsi:type="PQ" value="137" /> <referenceRange> <observationRange> <text> 135-148</text> </observationRange> </referenceRange> </observation> </component> <component> <observation moodCode= "EVN" classCode="OBS"> <templateId root="16.840.1.813251.10..22.4.2 " /> <id nullFlavor="NA" /> <code codeSystem="local" code="CL " displayName="CHLORIDE" /> <statusCode code="completed" /> < effectiveTime value="647473921170" /> <value unit="mmol/L" xsi:type="PQ " value="101" /> <referenceRange> <observationRange> <text>98-110</text> </observationRange> </ referenceRange> </observation> </component> <component> <observation moodCode="EVN" classCode="OBS"> <templateId root= "08.14.840.1.854280.10..4.2" /> <id nullFlavor="NA" /> < code codeSystem="local" code="CO2" displayName="CARBON DIOXIDE" /> < statusCode code="completed" /> <effectiveTime value="045403392565" /> <value unit="mmol/L" xsi:type="PQ" value="31" /> < referenceRange> <observationRange> <text>21-32</text> </observationRange> </referenceRange> </observation> </component> <component> <observation moodCode="EVN" classCode= "OBS"> <templateId root="08.14.840.1.209692.10.2022.4.2" /> < id nullFlavor="NA" /> <code codeSystem="local" code="ALB" displayName= "ALBUMIN" /> <statusCode code="completed" /> <effectiveTime value="013007298844" /> <value unit="gm/dL" xsi:type="PQ" value="3.7" / > <referenceRange> <observationRange> <text>3.4 -5.0</text> </observationRange> </referenceRange> </ observation> </component> <component> <observation moodCode= "EVN" classCode="OBS"> <templateId root="840.1.289406.22.4.2 " /> <id nullFlavor="NA" /> <code codeSystem="local" code= "PHOS" displayName="PHOSPHORUS" /> <statusCode code="completed" /> <effectiveTime value="860078852843" /> <value unit="mg/dL" xsi: type="PQ" value="4.1" /> <referenceRange> <observationRange > <text>2.5-4.9</text> </observationRange> </ referenceRange> </observation> </component> </organizer> </entry > <entry> <organizer moodCode="EVN" classCode="BATTERY"> <templateId root="840.1.291864.22.4.1" /> <id nullFlavor="NA" /> <code codeSystem="local" code="MAG" displayName="MAGNESIUM" /> <statusCode code= "completed" /> <component> <observation moodCode="EVN" classCode= "OBS"> <templateId root="840.1.754465.22.4.2" /> < id nullFlavor="NA" /> <code codeSystem="local" code="MAG" displayName= "MAGNESIUM" /> <statusCode code="completed" /> <effectiveTime value="369703775497" /> <value unit="mg/dL" xsi:type="PQ" value="1.6" / > <interpretationCode codeSystem="local" code="*" /> < referenceRange> <observationRange> <text>1.8-2.4</text> </observationRange> </referenceRange> </observation > </component> </organizer> </entry> <entry> <organizer moodCode= "EVN" classCode="BATTERY"> <templateId root="08.14.840.1.042153.10..22.4.1 " /> <id nullFlavor="NA" /> <code codeSystem="local" code="GLUMON" displayName="GLUCOSE (POC)" /> <statusCode code="completed" /> < component> <observation moodCode="EVN" classCode="OBS"> < templateId root="16.840.1.629108.10..22.4.2" /> <id nullFlavor="NA " /> <code codeSystem="local" code="GLUMON" displayName="GLUCOSE (POC) " /> <statusCode code="completed" /> <effectiveTime value= "752225508098" /> <value unit="mg/dL" xsi:type="PQ" value="276" /> <interpretationCode codeSystem="local" code="*" /> < referenceRange> <observationRange> <text>70-99</text> </observationRange> </referenceRange> </observation> </component> </organizer> </entry> <entry> <organizer moodCode="EVN " classCode="BATTERY"> <templateId root="08.14.840.1.052709.10...4.1" / > <id nullFlavor="NA" /> <code codeSystem="local" code="GLUMON" displayName="GLUCOSE (POC)" /> <statusCode code="completed" /> < component> <observation moodCode="EVN" classCode="OBS"> < templateId root="2.16.840.1.688049.10.20.22.4.2" /> <id nullFlavor="NA " /> <code codeSystem="local" code="GLUMON" displayName="GLUCOSE (POC) " /> <statusCode code="completed" /> <effectiveTime value= "650299285693" /> <value unit="mg/dL" xsi:type="PQ" value="163" /> <interpretationCode codeSystem="local" code="*" /> < referenceRange> <observationRange> <text>70-99</text> </observationRange> </referenceRange> </observation> </component> </organizer> </entry> <entry> <organizer moodCode="EVN " classCode="BATTERY"> <templateId root="2.16.840.1.816297.10.20.22.4.1" / > <id nullFlavor="NA" /> <code codeSystem="local" code="GLUMON" displayName="GLUCOSE (POC)" /> <statusCode code="completed" /> < component> <observation moodCode="EVN" classCode="OBS"> < templateId root="2.16.840.1.259217.10.20.22.4.2" /> <id nullFlavor="NA " /> <code codeSystem="local" code="GLUMON" displayName="GLUCOSE (POC) " /> <statusCode code="completed" /> <effectiveTime value= "325276769536" /> <value unit="mg/dL" xsi:type="PQ" value="223" /> <interpretationCode codeSystem="local" code="*" /> < referenceRange> <observationRange> <text>70-99</text> </observationRange> </referenceRange> </observation> </component> </organizer> </entry> <entry> <organizer moodCode="EVN " classCode="BATTERY"> <templateId root="840.1.389005.04.17.22.4.1" / > <id nullFlavor="NA" /> <code codeSystem="local" code="GLUMON" displayName="GLUCOSE (POC)" /> <statusCode code="completed" /> < component> <observation moodCode="EVN" classCode="OBS"> < templateId root="840.1.390008.04.17.22.4.2" /> <id nullFlavor="NA " /> <code codeSystem="local" code="GLUMON" displayName="GLUCOSE (POC) " /> <statusCode code="completed" /> <effectiveTime value= "071890128619" /> <value unit="mg/dL" xsi:type="PQ" value="261" /> <interpretationCode codeSystem="local" code="*" /> < referenceRange> <observationRange> <text>70-99</text> </observationRange> </referenceRange> </observation> </component> </organizer> </entry> <entry> <organizer moodCode="EVN " classCode="BATTERY"> <templateId root="840.1.620265.04.17.22.4.1" / > <id nullFlavor="NA" /> <code codeSystem="local" code="GLUMON" displayName="GLUCOSE (POC)" /> <statusCode code="completed" /> < component> <observation moodCode="EVN" classCode="OBS"> < templateId root="840.1.982757.04.17.22.4.2" /> <id nullFlavor="NA " /> <code codeSystem="local" code="GLUMON" displayName="GLUCOSE (POC) " /> <statusCode code="completed" /> <effectiveTime value= "404632316203" /> <value unit="mg/dL" xsi:type="PQ" value="238" /> <interpretationCode codeSystem="local" code="*" /> < referenceRange> <observationRange> <text>70-99</text> </observationRange> </referenceRange> </observation> </component> </organizer> </entry> <entry> <organizer moodCode="EVN " classCode="BATTERY"> <templateId root="216.840.1.904278.10..4.1" / > <id nullFlavor="NA" /> <code codeSystem="local" code="CBCD" displayName="CBC W/DIFF" /> <statusCode code="completed" /> <component > <observation moodCode="EVN" classCode="OBS"> <templateId root= "216.840.1.657600.04.17.22.4.2" /> <id nullFlavor="NA" /> < code codeSystem="local" code="EO#" displayName="EOSINOPHIL #" /> < statusCode code="completed" /> <effectiveTime value="862937746699" /> <value unit="k/cumm" xsi:type="PQ" value="0.0" /> < interpretationCode codeSystem="local" code="*" /> <referenceRange> <observationRange> <text>0.1-0.5</text> </ observationRange> </referenceRange> </observation> </ component> <component> <observation moodCode="EVN" classCode="OBS"> <templateId root="216.840.1.046613.10.4.2" /> <id nullFlavor="NA" /> <code codeSystem="local" code="EO%" displayName= "EOSINOPHIL %" /> <statusCode code="completed" /> < effectiveTime value="492926175986" /> <value unit="%" xsi:type="PQ " value="1" /> <interpretationCode codeSystem="local" code="*" /> <referenceRange> <observationRange> <text>2-4</text > </observationRange> </referenceRange> </observation > </component> <component> <observation moodCode="EVN" classCode="OBS"> <templateId root="08.14.840.1.038622.10..22.4.2" /> <id nullFlavor="NA" /> <code codeSystem="local" code="GR#" displayName="GRANULOCYTE #" /> <statusCode code="completed" /> <effectiveTime value="347912400804" /> <value unit="k/cumm" xsi:type= "PQ" value="3.2" /> <referenceRange> <observationRange> <text>2.0-9.0</text> </observationRange> </ referenceRange> </observation> </component> <component> <observation moodCode="EVN" classCode="OBS"> <templateId root= "08.14.840.1.601779.10..22.4.2" /> <id nullFlavor="NA" /> < code codeSystem="local" code="GR%" displayName="GRANULOCYTE %" /> <statusCode code="completed" /> <effectiveTime value="155165470639 " /> <value unit="%" xsi:type="PQ" value="74" /> < referenceRange> <observationRange> <text>50-75</text> </observationRange> </referenceRange> </observation> </component> <component> <observation moodCode="EVN" classCode= "OBS"> <templateId root="08.14.840.1.066431.10..4.2" /> < id nullFlavor="NA" /> <code codeSystem="local" code="LY#" displayName= "LYMPHOCYTE #" /> <statusCode code="completed" /> < effectiveTime value="329708536070" /> <value unit="k/cumm" xsi:type="PQ " value="0.8" /> <interpretationCode codeSystem="local" code="*" /> <referenceRange> <observationRange> <text>1.0-4.0 </text> </observationRange> </referenceRange> </ observation> </component> <component> <observation moodCode= "EVN" classCode="OBS"> <templateId root="08.14.840.1.335453.04.17.224.2 " /> <id nullFlavor="NA" /> <code codeSystem="local" code="LY& #37;" displayName="LYMPHOCYTE %" /> <statusCode code="completed" / > <effectiveTime value="853392685250" /> <value unit="%" xsi:type="PQ" value="18" /> <interpretationCode codeSystem="local" code ="*" /> <referenceRange> <observationRange> < text>20-30</text> </observationRange> </referenceRange> </observation> </component> <component> <observation moodCode="EVN" classCode="OBS"> <templateId root= "08.14.840.1.891615.10..4.2" /> <id nullFlavor="NA" /> < code codeSystem="local" code="MCH" displayName="MEAN CELL HGB" /> < statusCode code="completed" /> <effectiveTime value="992042286944" /> <value unit="pg" xsi:type="PQ" value="31.6" /> <referenceRange > <observationRange> <text>27.0-33.0</text> < /observationRange> </referenceRange> </observation> </ component> <component> <observation moodCode="EVN" classCode="OBS"> <templateId root="08.14.840.1.380063.10.2022.4.2" /> <id nullFlavor="NA" /> <code codeSystem="local" code="MCHC" displayName= "MEAN CELL HGB CONCENTRATION" /> <statusCode code="completed" /> <effectiveTime value="093625488023" /> <value unit="g/dL" xsi:type= "PQ" value="32.4" /> <referenceRange> <observationRange> <text>32.0-37.0</text> </observationRange> </ referenceRange> </observation> </component> <component> <observation moodCode="EVN" classCode="OBS"> <templateId root= "840.1.373595.1022.4.2" /> <id nullFlavor="NA" /> < code codeSystem="local" code="MCV" displayName="MEAN CELL VOLUME" /> < statusCode code="completed" /> <effectiveTime value="116893557443" /> <value unit="fl" xsi:type="PQ" value="97.4" /> <referenceRange > <observationRange> <text>80.0-100.0</text> </observationRange> </referenceRange> </observation> </ component> <component> <observation moodCode="EVN" classCode="OBS"> <templateId root="08.14.840.1.470100.102022.4.2" /> <id nullFlavor="NA" /> <code codeSystem="local" code="MO#" displayName= "MONOCYTE #" /> <statusCode code="completed" /> < effectiveTime value="602497916385" /> <value unit="k/cumm" xsi:type="PQ " value="0.3" /> <referenceRange> <observationRange> <text>0.1-1.0</text> </observationRange> </ referenceRange> </observation> </component> <component> <observation moodCode="EVN" classCode="OBS"> <templateId root= "2.16.840.1.527779.10.22.4.2" /> <id nullFlavor="NA" /> < code codeSystem="local" code="MO%" displayName="MONOCYTE %" /> <statusCode code="completed" /> <effectiveTime value="218883095465" /> <value unit="%" xsi:type="PQ" value="7" /> < interpretationCode codeSystem="local" code="*" /> <referenceRange> <observationRange> <text>4-6</text> </ observationRange> </referenceRange> </observation> </ component> <component> <observation moodCode="EVN" classCode="OBS"> <templateId root="2.16.840.1.798417.10..22.4.2" /> <id nullFlavor="NA" /> <code codeSystem="local" code="RBC" displayName=" RED BLOOD CELL" /> <statusCode code="completed" /> < effectiveTime value="314664409550" /> <value unit="m/cumm" xsi:type="PQ " value="3.80" /> <interpretationCode codeSystem="local" code="*" /> <referenceRange> <observationRange> <text>4.00- 6.00</text> </observationRange> </referenceRange> </ observation> </component> <component> <observation moodCode= "EVN" classCode="OBS"> <templateId root="08.14.840.1.473536.10.20.22.4.2 " /> <id nullFlavor="NA" /> <code codeSystem="local" code="RDW " displayName="RED CELL DISTRIBUTION WIDTH" /> <statusCode code= "completed" /> <effectiveTime value="015071131909" /> <value unit="%" xsi:type="PQ" value="15.6" /> <referenceRange> <observationRange> <text>11.0-15.6</text> </ observationRange> </referenceRange> </observation> </ component> <component> <observation moodCode="EVN" classCode="OBS"> <templateId root="08.14.840.1.575388.10.2022.4.2" /> <id nullFlavor="NA" /> <code codeSystem="local" code="WBC" displayName= "WHITE BLOOD CELL" /> <statusCode code="completed" /> < effectiveTime value="348536757020" /> <value unit="k/cumm" xsi:type="PQ " value="4.3" /> <interpretationCode codeSystem="local" code="*" /> <referenceRange> <observationRange> <text>5.0- 10.0</text> </observationRange> </referenceRange> </ observation> </component> <component> <observation moodCode= "EVN" classCode="OBS"> <templateId root="08.14.840.1.094465.10.20.22.4.2 " /> <id nullFlavor="NA" /> <code codeSystem="local" code= "HGBT" displayName="HEMOGLOBIN" /> <statusCode code="completed" /> <effectiveTime value="232869306123" /> <value unit="gm/dL" xsi: type="PQ" value="12.0" /> <referenceRange> <observationRange > <text>12.0-16.0</text> </observationRange> </ referenceRange> </observation> </component> <component> <observation moodCode="EVN" classCode="OBS"> <templateId root= "216.840.1.005773.10.20.22.4.2" /> <id nullFlavor="NA" /> < code codeSystem="local" code="HCTT" displayName="HEMATOCRIT" /> < statusCode code="completed" /> <effectiveTime value="444237671115" /> <value unit="%" xsi:type="PQ" value="37.0" /> < referenceRange> <observationRange> <text>37.0-47.0</text > </observationRange> </referenceRange> </observation > </component> <component> <observation moodCode="EVN" classCode="OBS"> <templateId root="16.840.1.087209.10...4.2" /> <id nullFlavor="NA" /> <code codeSystem="local" code="PLT" displayName="PLATELET COUNT" /> <statusCode code="completed" /> <effectiveTime value="905475801787" /> <value unit="k/cumm" xsi:type ="PQ" value="84" /> <interpretationCode codeSystem="local" code="*" /> <referenceRange> <observationRange> <text>150- 400</text> </observationRange> </referenceRange> </ observation> </component> </organizer> </entry> <entry> <organizer moodCode="EVN" classCode="BATTERY"> <templateId root= "16.840.1.506043.10..22.4.1" /> <id nullFlavor="NA" /> <code codeSystem="local" code="RENAL" displayName="RENAL FUNCTION PANEL" /> < statusCode code="completed" /> <component> <observation moodCode= "EVN" classCode="OBS"> <templateId root="16.840.1.914174.04.17.22.4.2 " /> <id nullFlavor="NA" /> <code codeSystem="local" code="K" displayName="POTASSIUM" /> <statusCode code="completed" /> < effectiveTime value="201758679726" /> <value unit="mmol/L" xsi:type="PQ " value="4.5" /> <referenceRange> <observationRange> <text>3.5-5.3</text> </observationRange> </ referenceRange> </observation> </component> <component> <observation moodCode="EVN" classCode="OBS"> <templateId root= "840.1.240416.04.17.22.4.2" /> <id nullFlavor="NA" /> < code codeSystem="local" code="eGFR" displayName="EST GFR (MDRD)" /> < statusCode code="completed" /> <effectiveTime value="458357130726" /> <value unit="mL/min" xsi:type="PQ" value="> 60" /> < referenceRange> <observationRange> <text>> 59</text> </observationRange> </referenceRange> </observation > </component> <component> <observation moodCode="EVN" classCode="OBS"> <templateId root="08.14.840.1.161925.04.17.22.4.2" /> <id nullFlavor="NA" /> <code codeSystem="local" code="GAP" displayName="ANION GAP" /> <statusCode code="completed" /> < effectiveTime value="750063622392" /> <value unit="mmol/L" xsi:type="PQ " value="8" /> <referenceRange> <observationRange> <text>5-15</text> </observationRange> </referenceRange > </observation> </component> <component> <observation moodCode="EVN" classCode="OBS"> <templateId root= "16.840.1.623179.10.22.4.2" /> <id nullFlavor="NA" /> < code codeSystem="local" code="eCrCl" displayName="EST CrCl (CG)" /> < statusCode code="completed" /> <effectiveTime value="596497974722" /> <value unit="mL/min" xsi:type="PQ" value="48" /> < interpretationCode codeSystem="local" code="*" /> <referenceRange> <observationRange> <text>> 59</text> </ observationRange> </referenceRange> </observation> </ component> <component> <observation moodCode="EVN" classCode="OBS"> <templateId root="08.14.840.1.677466.04.17.22.4.2" /> <id nullFlavor="NA" /> <code codeSystem="local" code="GLU" displayName= "GLUCOSE" /> <statusCode code="completed" /> <effectiveTime value="648187483503" /> <value unit="mg/dL" xsi:type="PQ" value="239" / > <interpretationCode codeSystem="local" code="*" /> < referenceRange> <observationRange> <text>70-99</text> </observationRange> </referenceRange> </observation> </component> <component> <observation moodCode="EVN" classCode= "OBS"> <templateId root="08.14.840.1.221890..22.4.2" /> < id nullFlavor="NA" /> <code codeSystem="local" code="CA" displayName= "CALCIUM" /> <statusCode code="completed" /> <effectiveTime value="590271562882" /> <value unit="mg/dL" xsi:type="PQ" value="9.5" / > <referenceRange> <observationRange> <text>8.5 -10.1</text> </observationRange> </referenceRange> </ observation> </component> <component> <observation moodCode= "EVN" classCode="OBS"> <templateId root="2.16.840.1.996859.10..22.4.2 " /> <id nullFlavor="NA" /> <code codeSystem="local" code="BUN " displayName="BLOOD UREA NITROGEN" /> <statusCode code="completed" /> <effectiveTime value="308773571669" /> <value unit="mg/dL" xsi:type="PQ" value="25" /> <interpretationCode codeSystem="local" code ="*" /> <referenceRange> <observationRange> < text>7-20</text> </observationRange> </referenceRange> </observation> </component> <component> <observation moodCode="EVN" classCode="OBS"> <templateId root= "2.16.840.1.472063.10..22.4.2" /> <id nullFlavor="NA" /> < code codeSystem="local" code="CREAT" displayName="CREATININE" /> < statusCode code="completed" /> <effectiveTime value="546863736062" /> <value unit="mg/dL" xsi:type="PQ" value="1.0" /> < referenceRange> <observationRange> <text>0.6-1.0</text> </observationRange> </referenceRange> </observation > </component> <component> <observation moodCode="EVN" classCode="OBS"> <templateId root="216.840.1.000506.10..22.4.2" /> <id nullFlavor="NA" /> <code codeSystem="local" code="NA" displayName="SODIUM" /> <statusCode code="completed" /> < effectiveTime value="056037907038" /> <value unit="mmol/L" xsi:type="PQ " value="139" /> <referenceRange> <observationRange> <text>135-148</text> </observationRange> </ referenceRange> </observation> </component> <component> <observation moodCode="EVN" classCode="OBS"> <templateId root= "216.840.1.959567.10...4.2" /> <id nullFlavor="NA" /> < code codeSystem="local" code="CL" displayName="CHLORIDE" /> < statusCode code="completed" /> <effectiveTime value="590326593936" /> <value unit="mmol/L" xsi:type="PQ" value="103" /> < referenceRange> <observationRange> <text>98-110</text> </observationRange> </referenceRange> </observation> </component> <component> <observation moodCode="EVN" classCode ="OBS"> <templateId root="16.840.1.115762.10..22.4.2" /> < id nullFlavor="NA" /> <code codeSystem="local" code="CO2" displayName= "CARBON DIOXIDE" /> <statusCode code="completed" /> < effectiveTime value="467161208498" /> <value unit="mmol/L" xsi:type="PQ " value="28" /> <referenceRange> <observationRange> <text>21-32</text> </observationRange> </ referenceRange> </observation> </component> <component> <observation moodCode="EVN" classCode="OBS"> <templateId root= "216.840.1.009447.10.4.2" /> <id nullFlavor="NA" /> < code codeSystem="local" code="ALB" displayName="ALBUMIN" /> < statusCode code="completed" /> <effectiveTime value="036475441910" /> <value unit="gm/dL" xsi:type="PQ" value="3.6" /> < referenceRange> <observationRange> <text>3.4-5.0</text> </observationRange> </referenceRange> </observation > </component> <component> <observation moodCode="EVN" classCode="OBS"> <templateId root="16.840.1.420097.04.17.22.4.2" /> <id nullFlavor="NA" /> <code codeSystem="local" code="PHOS" displayName="PHOSPHORUS" /> <statusCode code="completed" /> < effectiveTime value="096095722700" /> <value unit="mg/dL" xsi:type="PQ " value="4.4" /> <referenceRange> <observationRange> <text>2.5-4.9</text> </observationRange> </ referenceRange> </observation> </component> </organizer> </entry > <entry> <organizer moodCode="EVN" classCode="BATTERY"> <templateId root="2.16.840.1.524163.10..22.4.1" /> <id nullFlavor="NA" /> <code codeSystem="local" code="MAG" displayName="MAGNESIUM" /> <statusCode code= "completed" /> <component> <observation moodCode="EVN" classCode= "OBS"> <templateId root="216.840.1.916839.10.20.22.4.2" /> < id nullFlavor="NA" /> <code codeSystem="local" code="MAG" displayName= "MAGNESIUM" /> <statusCode code="completed" /> <effectiveTime value="830401797361" /> <value unit="mg/dL" xsi:type="PQ" value="2.0" / > <referenceRange> <observationRange> <text>1.8 -2.4</text> </observationRange> </referenceRange> </ observation> </component> </organizer> </entry> <entry> <organizer moodCode="EVN" classCode="BATTERY"> <templateId root= "216.840.1.435178.10.20.22.4.1" /> <id nullFlavor="NA" /> <code codeSystem="local" code="GLUMON" displayName="GLUCOSE (POC)" /> < statusCode code="completed" /> <component> <observation moodCode= "EVN" classCode="OBS"> <templateId root="216.840.1.042319.10.20.22.4.2 " /> <id nullFlavor="NA" /> <code codeSystem="local" code= "GLUMON" displayName="GLUCOSE (POC)" /> <statusCode code="completed" / > <effectiveTime value="162298649702" /> <value unit="mg/dL" xsi:type="PQ" value="178" /> <interpretationCode codeSystem="local" code="*" /> <referenceRange> <observationRange> <text>70-99</text> </observationRange> </referenceRange> </observation> </component> </organizer> </entry> <entry> < organizer moodCode="EVN" classCode="BATTERY"> <templateId root= "08.14.840.1.898179.10.4.1" /> <id nullFlavor="NA" /> <code codeSystem="local" code="GLUMON" displayName="GLUCOSE (POC)" /> < statusCode code="completed" /> <component> <observation moodCode= "EVN" classCode="OBS"> <templateId root="840.1.480200.04.17.22.4.2 " /> <id nullFlavor="NA" /> <code codeSystem="local" code= "GLUMON" displayName="GLUCOSE (POC)" /> <statusCode code="completed" / > <effectiveTime value="409025290817" /> <value unit="mg/dL" xsi:type="PQ" value="235" /> <interpretationCode codeSystem="local" code="*" /> <referenceRange> <observationRange> <text>70-99</text> </observationRange> </referenceRange> </observation> </component> </organizer> </entry> <entry> < organizer moodCode="EVN" classCode="BATTERY"> <templateId root= "840.1.923568.04.17.22.4.1" /> <id nullFlavor="NA" /> <code codeSystem="local" code="GLUMON" displayName="GLUCOSE (POC)" /> < statusCode code="completed" /> <component> <observation moodCode= "EVN" classCode="OBS"> <templateId root="840.1.290474.04.17.22.4.2 " /> <id nullFlavor="NA" /> <code codeSystem="local" code= "GLUMON" displayName="GLUCOSE (POC)" /> <statusCode code="completed" / > <effectiveTime value="479683975394" /> <value unit="mg/dL" xsi:type="PQ" value="272" /> <interpretationCode codeSystem="local" code="*" /> <referenceRange> <observationRange> <text>70-99</text> </observationRange> </referenceRange> </observation> </component> </organizer> </entry> <entry> < organizer moodCode="EVN" classCode="BATTERY"> <templateId root= "216.840.1.070442.10..22.4.1" /> <id nullFlavor="NA" /> <code codeSystem="local" code="GLUMON" displayName="GLUCOSE (POC)" /> < statusCode code="completed" /> <component> <observation moodCode= "EVN" classCode="OBS"> <templateId root="216.840.1.068391.10..22.4.2 " /> <id nullFlavor="NA" /> <code codeSystem="local" code= "GLUMON" displayName="GLUCOSE (POC)" /> <statusCode code="completed" / > <effectiveTime value="170037342901" /> <value unit="mg/dL" xsi:type="PQ" value="227" /> <interpretationCode codeSystem="local" code="*" /> <referenceRange> <observationRange> <text>70-99</text> </observationRange> </referenceRange> </observation> </component> </organizer> </entry> <entry> < organizer moodCode="EVN" classCode="BATTERY"> <templateId root= "216.840.1.943124.10..22.4.1" /> <id nullFlavor="NA" /> <code codeSystem="local" code="CBCD" displayName="CBC W/DIFF" /> <statusCode code ="completed" /> <component> <observation moodCode="EVN" classCode= "OBS"> <templateId root="08.14.840.1.306841.10.20.22.4.2" /> < id nullFlavor="NA" /> <code codeSystem="local" code="GR#" displayName= "GRANULOCYTE #" /> <statusCode code="completed" /> < effectiveTime value="610222531307" /> <value unit="k/cumm" xsi:type="PQ " value="5.7" /> <referenceRange> <observationRange> <text>2.0-9.0</text> </observationRange> </ referenceRange> </observation> </component> <component> <observation moodCode="EVN" classCode="OBS"> <templateId root= "840.1.618646.10.4.2" /> <id nullFlavor="NA" /> < code codeSystem="local" code="GR%" displayName="GRANULOCYTE %" /> <statusCode code="completed" /> <effectiveTime value=" " /> <value unit="%" xsi:type="PQ" value="77" /> < interpretationCode codeSystem="local" code="*" /> <referenceRange> <observationRange> <text>50-75</text> </ observationRange> </referenceRange> </observation> </ component> <component> <observation moodCode="EVN" classCode="OBS"> <templateId root="08.14.840.1.563683.10.2022.4.2" /> <id nullFlavor="NA" /> <code codeSystem="local" code="LY#" displayName= "LYMPHOCYTE #" /> <statusCode code="completed" /> < effectiveTime value="887191928486" /> <value unit="k/cumm" xsi:type="PQ " value="1.2" /> <referenceRange> <observationRange> <text>1.0-4.0</text> </observationRange> </ referenceRange> </observation> </component> <component> <observation moodCode="EVN" classCode="OBS"> <templateId root= "216.840.1.741105.10.20.22.4.2" /> <id nullFlavor="NA" /> < code codeSystem="local" code="LY%" displayName="LYMPHOCYTE %" /> <statusCode code="completed" /> <effectiveTime value="003034724584" /> <value unit="%" xsi:type="PQ" value="16" /> < interpretationCode codeSystem="local" code="*" /> <referenceRange> <observationRange> <text>20-30</text> </ observationRange> </referenceRange> </observation> </ component> <component> <observation moodCode="EVN" classCode="OBS"> <templateId root="08.14.840.1.789938.1022.4.2" /> <id nullFlavor="NA" /> <code codeSystem="local" code="MCH" displayName= "MEAN CELL HGB" /> <statusCode code="completed" /> < effectiveTime value="725139555553" /> <value unit="pg" xsi:type="PQ" value="31.9" /> <referenceRange> <observationRange> <text>27.0-33.0</text> </observationRange> </ referenceRange> </observation> </component> <component> <observation moodCode="EVN" classCode="OBS"> <templateId root= "08.14.840.1.333837.10.20.22.4.2" /> <id nullFlavor="NA" /> < code codeSystem="local" code="MCHC" displayName="MEAN CELL HGB CONCENTRATION" / > <statusCode code="completed" /> <effectiveTime value= "105564108597" /> <value unit="g/dL" xsi:type="PQ" value="33.0" /> <referenceRange> <observationRange> <text>32.0- 37.0</text> </observationRange> </referenceRange> </ observation> </component> <component> <observation moodCode= "EVN" classCode="OBS"> <templateId root="216.840.1.379069.10..22.4.2 " /> <id nullFlavor="NA" /> <code codeSystem="local" code="MCV " displayName="MEAN CELL VOLUME" /> <statusCode code="completed" /> <effectiveTime value="" /> <value unit="fl" xsi:type ="PQ" value="96.6" /> <referenceRange> <observationRange> <text>80.0-100.0</text> </observationRange> </ referenceRange> </observation> </component> <component> <observation moodCode="EVN" classCode="OBS"> <templateId root= "16.840.1.591549.10..22.4.2" /> <id nullFlavor="NA" /> < code codeSystem="local" code="MO#" displayName="MONOCYTE #" /> < statusCode code="completed" /> <effectiveTime value="145374715413" /> <value unit="k/cumm" xsi:type="PQ" value="0.4" /> < referenceRange> <observationRange> <text>0.1-1.0</text> </observationRange> </referenceRange> </observation > </component> <component> <observation moodCode="EVN" classCode="OBS"> <templateId root="216.840.1.807974.10.20.22.4.2" /> <id nullFlavor="NA" /> <code codeSystem="local" code="MO% " displayName="MONOCYTE %" /> <statusCode code="completed" /> <effectiveTime value="309585286622" /> <value unit="%" xsi: type="PQ" value="5" /> <referenceRange> <observationRange> <text>4-6</text> </observationRange> </ referenceRange> </observation> </component> <component> <observation moodCode="EVN" classCode="OBS"> <templateId root= "16.840.1.957940.10.22.4.2" /> <id nullFlavor="NA" /> < code codeSystem="local" code="RBC" displayName="RED BLOOD CELL" /> < statusCode code="completed" /> <effectiveTime value="" /> <value unit="m/cumm" xsi:type="PQ" value="4.36" /> < referenceRange> <observationRange> <text>4.00-6.00</text > </observationRange> </referenceRange> </observation > </component> <component> <observation moodCode="EVN" classCode="OBS"> <templateId root="16.840.1.372826.10.20.22.4.2" /> <id nullFlavor="NA" /> <code codeSystem="local" code="RDW" displayName="RED CELL DISTRIBUTION WIDTH" /> <statusCode code= "completed" /> <effectiveTime value="288965116667" /> <value unit="%" xsi:type="PQ" value="15.5" /> <referenceRange> <observationRange> <text>11.0-15.6</text> </ observationRange> </referenceRange> </observation> </ component> <component> <observation moodCode="EVN" classCode="OBS"> <templateId root="16.840.1.593061.10..4.2" /> <id nullFlavor="NA" /> <code codeSystem="local" code="WBC" displayName= "WHITE BLOOD CELL" /> <statusCode code="completed" /> < effectiveTime value="723245170228" /> <value unit="k/cumm" xsi:type="PQ " value="7.4" /> <referenceRange> <observationRange> <text>5.0-10.0</text> </observationRange> </ referenceRange> </observation> </component> <component> <observation moodCode="EVN" classCode="OBS"> <templateId root= "08.14.840.1.457623.04.17.22.4.2" /> <id nullFlavor="NA" /> < code codeSystem="local" code="HGBT" displayName="HEMOGLOBIN" /> < statusCode code="completed" /> <effectiveTime value="724386687145" /> <value unit="gm/dL" xsi:type="PQ" value="13.9" /> < referenceRange> <observationRange> <text>12.0-16.0</text > </observationRange> </referenceRange> </observation > </component> <component> <observation moodCode="EVN" classCode="OBS"> <templateId root="08.14.840.1.398039...4.2" /> <id nullFlavor="NA" /> <code codeSystem="local" code="HCTT" displayName="HEMATOCRIT" /> <statusCode code="completed" /> < effectiveTime value="933988825913" /> <value unit="%" xsi:type="PQ " value="42.1" /> <referenceRange> <observationRange> <text>37.0-47.0</text> </observationRange> </ referenceRange> </observation> </component> <component> <observation moodCode="EVN" classCode="OBS"> <templateId root= "08.14.840.1.981027.04.17.22.4.2" /> <id nullFlavor="NA" /> < code codeSystem="local" code="PLT" displayName="PLATELET COUNT" /> < statusCode code="completed" /> <effectiveTime value="898284232156" /> <value unit="k/cumm" xsi:type="PQ" value="104" /> < interpretationCode codeSystem="local" code="*" /> <referenceRange> <observationRange> <text>150-400</text> </ observationRange> </referenceRange> </observation> </ component> </organizer> </entry> <entry> <organizer moodCode="EVN" classCode="BATTERY"> <templateId root="08.14.840.1.650913.04.17.22.4.1" /> <id nullFlavor="NA" /> <code codeSystem="local" code="RENAL" displayName="RENAL FUNCTION PANEL" /> <statusCode code="completed" /> <component> <observation moodCode="EVN" classCode="OBS"> < templateId root="08.14.840.1.474873.04.17.22.4.2" /> <id nullFlavor="NA " /> <code codeSystem="local" code="K" displayName="POTASSIUM" /> <statusCode code="completed" /> <effectiveTime value="582777177481 " /> <value unit="mmol/L" xsi:type="PQ" value="4.3" /> < referenceRange> <observationRange> <text>3.5-5.3</text> </observationRange> </referenceRange> </observation > </component> <component> <observation moodCode="EVN" classCode="OBS"> <templateId root="16.840.1.553735.1022.4.2" /> <id nullFlavor="NA" /> <code codeSystem="local" code="eGFR" displayName="EST GFR (MDRD)" /> <statusCode code="completed" /> <effectiveTime value="097238044511" /> <value unit="mL/min" xsi:type ="PQ" value="55" /> <interpretationCode codeSystem="local" code="*" /> <referenceRange> <observationRange> <text>&gt ; 59</text> </observationRange> </referenceRange> </ observation> </component> <component> <observation moodCode= "EVN" classCode="OBS"> <templateId root="08.14.840.1.699493.04.17.22.4.2 " /> <id nullFlavor="NA" /> <code codeSystem="local" code="GAP " displayName="ANION GAP" /> <statusCode code="completed" /> < effectiveTime value="842503672670" /> <value unit="mmol/L" xsi:type="PQ " value="9" /> <referenceRange> <observationRange> <text>5-15</text> </observationRange> </referenceRange > </observation> </component> <component> <observation moodCode="EVN" classCode="OBS"> <templateId root= "08.14.840.1.524407.10..22.4.2" /> <id nullFlavor="NA" /> < code codeSystem="local" code="eCrCl" displayName="EST CrCl (CG)" /> < statusCode code="completed" /> <effectiveTime value="032119348234" /> <value unit="mL/min" xsi:type="PQ" value="43" /> < interpretationCode codeSystem="local" code="*" /> <referenceRange> <observationRange> <text>> 59</text> </ observationRange> </referenceRange> </observation> </ component> <component> <observation moodCode="EVN" classCode="OBS"> <templateId root="2.16.840.1.611455.10...4.2" /> <id nullFlavor="NA" /> <code codeSystem="local" code="GLU" displayName= "GLUCOSE" /> <statusCode code="completed" /> <effectiveTime value="182288751359" /> <value unit="mg/dL" xsi:type="PQ" value="266" / > <interpretationCode codeSystem="local" code="*" /> < referenceRange> <observationRange> <text>70-99</text> </observationRange> </referenceRange> </observation> </component> <component> <observation moodCode="EVN" classCode= "OBS"> <templateId root="216.840.1.022946.10..22.4.2" /> < id nullFlavor="NA" /> <code codeSystem="local" code="CA" displayName= "CALCIUM" /> <statusCode code="completed" /> <effectiveTime value="317942348052" /> <value unit="mg/dL" xsi:type="PQ" value="9.6" / > <referenceRange> <observationRange> <text>8.5 -10.1</text> </observationRange> </referenceRange> </ observation> </component> <component> <observation moodCode= "EVN" classCode="OBS"> <templateId root="216.840.1.747349.10..4.2 " /> <id nullFlavor="NA" /> <code codeSystem="local" code="BUN " displayName="BLOOD UREA NITROGEN" /> <statusCode code="completed" /> <effectiveTime value="004711981180" /> <value unit="mg/dL" xsi:type="PQ" value="25" /> <interpretationCode codeSystem="local" code ="*" /> <referenceRange> <observationRange> < text>7-20</text> </observationRange> </referenceRange> </observation> </component> <component> <observation moodCode="EVN" classCode="OBS"> <templateId root= "216.840.1.157771.04.17.224.2" /> <id nullFlavor="NA" /> < code codeSystem="local" code="CREAT" displayName="CREATININE" /> < statusCode code="completed" /> <effectiveTime value="014183022566" /> <value unit="mg/dL" xsi:type="PQ" value="1.1" /> < interpretationCode codeSystem="local" code="*" /> <referenceRange> <observationRange> <text>0.6-1.0</text> </ observationRange> </referenceRange> </observation> </ component> <component> <observation moodCode="EVN" classCode="OBS"> <templateId root="216.840.1.892321.04.17.22.4.2" /> <id nullFlavor="NA" /> <code codeSystem="local" code="NA" displayName= "SODIUM" /> <statusCode code="completed" /> <effectiveTime value="073171413883" /> <value unit="mmol/L" xsi:type="PQ" value="139" /> <referenceRange> <observationRange> <text> 135-148</text> </observationRange> </referenceRange> </observation> </component> <component> <observation moodCode= "EVN" classCode="OBS"> <templateId root="216.840.1.045183.10...4.2 " /> <id nullFlavor="NA" /> <code codeSystem="local" code="CL " displayName="CHLORIDE" /> <statusCode code="completed" /> < effectiveTime value="393646125830" /> <value unit="mmol/L" xsi:type="PQ " value="103" /> <referenceRange> <observationRange> <text>98-110</text> </observationRange> </ referenceRange> </observation> </component> <component> <observation moodCode="EVN" classCode="OBS"> <templateId root= "16.840.1.755543.10..4.2" /> <id nullFlavor="NA" /> < code codeSystem="local" code="CO2" displayName="CARBON DIOXIDE" /> < statusCode code="completed" /> <effectiveTime value="653666859929" /> <value unit="mmol/L" xsi:type="PQ" value="27" /> < referenceRange> <observationRange> <text>21-32</text> </observationRange> </referenceRange> </observation> </component> <component> <observation moodCode="EVN" classCode= "OBS"> <templateId root="16.840.1.233714.10..22.4.2" /> < id nullFlavor="NA" /> <code codeSystem="local" code="ALB" displayName= "ALBUMIN" /> <statusCode code="completed" /> <effectiveTime value="961156181469" /> <value unit="gm/dL" xsi:type="PQ" value="4.0" / > <referenceRange> <observationRange> <text>3.4 -5.0</text> </observationRange> </referenceRange> </ observation> </component> <component> <observation moodCode= "EVN" classCode="OBS"> <templateId root="08.14.840.1.352910.04.17.22.4.2 " /> <id nullFlavor="NA" /> <code codeSystem="local" code= "PHOS" displayName="PHOSPHORUS" /> <statusCode code="completed" /> <effectiveTime value="274736133397" /> <value unit="mg/dL" xsi: type="PQ" value="4.0" /> <referenceRange> <observationRange > <text>2.5-4.9</text> </observationRange> </ referenceRange> </observation> </component> </organizer> </entry > <entry> <organizer moodCode="EVN" classCode="BATTERY"> <templateId root="08.14.840.1.274016.04.17.22.4.1" /> <id nullFlavor="NA" /> <code codeSystem="local" code="MAG" displayName="MAGNESIUM" /> <statusCode code= "completed" /> <component> <observation moodCode="EVN" classCode= "OBS"> <templateId root="08.14.840.1.696662.04.17.22.4.2" /> < id nullFlavor="NA" /> <code codeSystem="local" code="MAG" displayName= "MAGNESIUM" /> <statusCode code="completed" /> <effectiveTime value="498027730302" /> <value unit="mg/dL" xsi:type="PQ" value="1.9" / > <referenceRange> <observationRange> <text>1.8 -2.4</text> </observationRange> </referenceRange> </ observation> </component> </organizer> </entry> <entry> <organizer moodCode="EVN" classCode="BATTERY"> <templateId root= "2.16.840.1.578445.10.20.22.4.1" /> <id nullFlavor="NA" /> <code codeSystem="local" code="GLUMON" displayName="GLUCOSE (POC)" /> < statusCode code="completed" /> <component> <observation moodCode= "EVN" classCode="OBS"> <templateId root="2.16.840.1.411788.10.20.22.4.2 " /> <id nullFlavor="NA" /> <code codeSystem="local" code= "GLUMON" displayName="GLUCOSE (POC)" /> <statusCode code="completed" / > <effectiveTime value="487318071871" /> <value unit="mg/dL" xsi:type="PQ" value="218" /> <interpretationCode codeSystem="local" code="*" /> <referenceRange> <observationRange> <text>70-99</text> </observationRange> </referenceRange> </observation> </component> </organizer> </entry></section> Encounters ACCT No. Visit Date/Time Discharge Status Pt. Type Provider Facility Loc./Unit Complaint [id number] 04/19/2014 01:43:00 04/24/2014 17:08:00 DIS Inpatient Ananda JIM, Mike Richter [facility] [id number] 10/02/2016 11:14:03 ACT Unknown [id number] 06/03/2017 11:46:26 06/03/2017 23:59:59 CLS Outpatient Alena Huertas [id number] 05/12/2017 16:21:52 05/12/2017 23:59:59 CLS Outpatient Ahsan Cobb [id number] 05/04/2017 10:23:36 05/04/2017 23:59:59 CLS Outpatient Alena Huertas Rosmery [id number] 04/27/2017 13:13:02 04/27/2017 23:59:59 CLS Outpatient HuertasAlena matthew Rosmery [id number] 04/22/2017 09:47:35 04/22/2017 23:59:59 CLS Outpatient HuertasAlena matthew Rosmery [id number] 04/10/2017 15:40:20 04/10/2017 23:59:59 CLS Outpatient HuertasAlena matthew Rosmery [id number] 04/02/2017 12:53:04 04/02/2017 23:59:59 CLS Outpatient HuertasAlena matthew Rosmery [id number] 03/26/2017 12:27:42 03/26/2017 23:59:59 CLS Outpatient HuertasAlena matthew Rosmery [id number] 03/13/2017 13:53:43 03/13/2017 23:59:59 CLS Outpatient Alena Huertas Rosmery [id number] 03/12/2017 10:58:19 03/12/2017 23:59:59 CLS Outpatient Ahsan Cobb [id number] 02/23/2017 11:19:21 02/23/2017 23:59:59 CLS Outpatient Alena Huertas Rosmery [id number] 02/19/2017 08:56:52 02/19/2017 23:59:59 CLS Outpatient Ahsan Cobb [id number] 02/16/2017 11:58:01 02/16/2017 23:59:59 CLS Outpatient Alena Huertas Rosmery [id number] 02/05/2017 11:36:39 02/05/2017 23:59:59 CLS Outpatient HuertasAlena matthew Rosmery [id number] 01/23/2017 14:47:07 01/23/2017 23:59:59 CLS Outpatient Radha Lomas [id number] 01/19/2017 10:22:54 01/19/2017 23:59:59 CLS Outpatient HuertasCarenAlena J [id number] 01/13/2017 14:19:02 01/13/2017 23:59:59 CLS Outpatient Alena Huertas [id number] 01/09/2017 15:11:44 01/09/2017 23:59:59 CLS Outpatient Radha Lomas [id number] 01/02/2017 11:30:40 01/02/2017 23:59:59 CLS Outpatient Alena Huertas [id number] 01/01/2017 15:19:33 01/01/2017 23:59:59 CLS Outpatient Bridger Sarkar [id number] 12/24/2016 10:03:08 12/24/2016 23:59:59 CLS Outpatient Alena Huertas [id number] 12/22/2016 16:06:48 12/22/2016 23:59:59 CLS Outpatient Alena Huertas [id number] 12/22/2016 09:20:29 12/22/2016 23:59:59 CLS Outpatient Alena Huertas [id number] 12/17/2016 12:04:02 12/17/2016 23:59:59 CLS Outpatient Alena Huertas [id number] 12/16/2016 12:36:12 12/16/2016 23:59:59 CLS Outpatient Alena Huertas [id number] 12/16/2016 11:14:25 12/16/2016 23:59:59 CLS Outpatient Alena Huertas [id number] 12/15/2016 15:35:28 12/15/2016 23:59:59 CLS Outpatient Jeremie Cody [id number] 12/09/2016 12:52:54 12/09/2016 23:59:59 CLS Outpatient Alena Huertas [id number] 12/03/2016 15:12:22 12/03/2016 23:59:59 CLS Outpatient Mariana Cummins [id number] 12/02/2016 15:44:28 12/02/2016 23:59:59 CLS Outpatient Cody Chao [id number] 12/01/2016 15:25:31 12/01/2016 23:59:59 CLS Outpatient Antonina Bridger [id number] 11/25/2016 18:12:21 11/25/2016 23:59:59 CLS Outpatient HuertasAlena matthew Rosmery [id number] 11/21/2016 16:10:52 11/21/2016 23:59:59 CLS Outpatient Mariana Cummins [id number] 11/12/2016 11:45:47 11/12/2016 23:59:59 CLS Outpatient Mariana Cummins [id number] 11/11/2016 11:05:03 11/11/2016 23:59:59 CLS Outpatient Alena Huertas [id number] 10/31/2016 10:54:06 10/31/2016 23:59:59 CLS Outpatient Alena Huertas [id number] 10/24/2016 14:28:07 10/24/2016 23:59:59 CLS Outpatient Alena Huertas [id number] 10/20/2016 15:47:09 10/20/2016 23:59:59 CLS Outpatient Alena Huertas [id number] 10/08/2016 14:12:46 10/08/2016 23:59:59 CLS Outpatient Alena Huertas [id number] 10/06/2016 10:12:42 10/06/2016 23:59:59 CLS Outpatient Suad Roger [id number] 10/03/2016 11:08:30 10/03/2016 23:59:59 CLS Outpatient Alena Huertas [id number] 09/23/2016 09:22:23 09/23/2016 23:59:59 CLS Outpatient Alena Huertas [id number] 09/19/2016 10:19:06 09/19/2016 23:59:59 CLS Outpatient Mariana Cummins [id number] 09/12/2016 18:23:11 09/12/2016 23:59:59 CLS Outpatient Suad Roger [id number] 08/29/2016 10:00:48 08/29/2016 23:59:59 CLS Outpatient Placido Mariana [id number] 08/28/2016 16:26:59 08/28/2016 23:59:59 [facility] Outpatient Bridger Sarkar [id number] 08/22/2016 12:07:41 08/22/2016 23:59:59 [facility] Outpatient Suad Roger [id number] 08/19/2016 10:51:39 08/19/2016 23:59:59 [facility] Outpatient Placido Mariana [id number] 08/15/2016 11:22:13 08/15/2016 23:59:59 [facility] Outpatient Bridger Sarkar [id number] 08/11/2016 11:54:29 08/11/2016 23:59:59 [facility] Outpatient Mariana Cummins [id number] 07/30/2016 10:20:06 07/30/2016 23:59:59 [facility] Outpatient Mariana Cummins [id number] 07/23/2016 19:26:37 07/23/2016 23:59:59 [facility] Outpatient Suad Roger [id number] 01/05/2016 11:47:56 01/05/2016 23:59:59 [facility] Outpatient Mariana Cummins
--- OUTSIDE RECORDS SUMMARY | 2017-07-06 02:16 | XMS REPORT ---
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
[2017-07-06 02:42] LABS: BASOPHILS % (AUTO) 0 % (0-10); EOSINOPHILS % (AUTO) 1 % (0-10); HEMATOCRIT 31 % (35-52); HEMOGLOBIN 11.9 G/DL (11.5-16.0); LYMPHOCYTES # (AUTO) 0.4 X 10^3 (1.0-4.0); LYMPHOCYTES % (AUTO) 14 % (12-44); MEAN CORPUSCULAR HEMOGLOBIN 28 PG (25-34); MEAN CORPUSCULAR HGB CONC 38 G/DL (32-36); MEAN PLATELET VOLUME 9.4 FL (7.4-10.4); MONOCYTES # (AUTO) 0.2 X 10^3 (0.0-1.0); MONOCYTES % (AUTO) 7 % (0-12); NEUTROPHILS # (AUTO) 2.3 X 10^3 (1.8-7.8); NEUTROPHILS % (AUTO) 77 % (42-75); PLATELET COUNT 100 10^3/uL (130-400); RED BLOOD COUNT 4.19 10^6/uL (4.35-5.85); RED CELL DISTRIBUTION WIDTH 16.3 % (10.0-14.5)
[2017-07-06] MEDS ORDERED: ARIP5TAB20 PO (03:05)
[2017-07-06] MEDS ORDERED: RT-ALBUINH (03:05)
[2017-07-06] MEDS ORDERED: ALBU18HF2 INH (03:05)
[2017-07-06] MEDS ORDERED: CETI10TA17 PO (03:05)
[2017-07-06] MEDS ORDERED: LEVO500T80 PO (03:05)
[2017-07-06] MEDS ORDERED: LIRA0.6P SC (03:05)
[2017-07-06] MEDS ORDERED: DAPA5TAB PO (03:32)
[2017-07-06] MEDS ORDERED: AMIT25TA9 PO (03:32)
[2017-07-06] MEDS ORDERED: INSU100I32 SQ (03:32)
[2017-07-06] MEDS ORDERED: PREG25CA PO (03:32)
[2017-07-06] MEDS ORDERED: LEVO137T32 PO (03:32)
[2017-07-06] MEDS ORDERED: PREG50CA2 PO (03:32)
[2017-07-06] MEDS ORDERED: BUSP5TAB59 PO (03:32)
[2017-07-06] MEDS ORDERED: FURO20TA4 PO (03:32)
[2017-07-06] MEDS ORDERED: INSU100V16 SQ (03:32)
[2017-07-06] MEDS ORDERED: DULO30CA3 PO (03:32)
[2017-07-06] MEDS ORDERED: POTA-51 PO (03:32)
[2017-07-06] MEDS ORDERED: RT-ALBUTEROL SULF 2.5 MG/3 ML PRE-MIX VIAL INH PRN (04:30)
[2017-07-06 05:26] LABS: HEMOGLOBIN 11.4 G/DL (11.5-16.0); MEAN CORPUSCULAR HEMOGLOBIN 29 PG (25-34); PLATELET COUNT 95 10^3/uL (130-400); RED BLOOD COUNT 3.98 10^6/uL (4.35-5.85); RED CELL DISTRIBUTION WIDTH 16.4 % (10.0-14.5); WHITE BLOOD COUNT 3.3 10^3/uL (4.3-11.0)
[2017-07-06 05:27] LABS: BASOPHILS % (AUTO) 0 % (0-10); EOSINOPHILS # (AUTO) 0.1 10^3/uL (0.0-0.3); EOSINOPHILS % (AUTO) 2 % (0-10); LYMPHOCYTES # (AUTO) 0.5 X 10^3 (1.0-4.0); LYMPHOCYTES % (AUTO) 14 % (12-44); MEAN PLATELET VOLUME 9.3 FL (7.4-10.4); MONOCYTES # (AUTO) 0.3 X 10^3 (0.0-1.0); MONOCYTES % (AUTO) 10 % (0-12); NEUTROPHILS # (AUTO) 2.5 X 10^3 (1.8-7.8); NEUTROPHILS % (AUTO) 74 % (42-75)
[2017-07-06 05:56] LABS: BUN/CREATININE RATIO 10; CALCIUM 8.4 MG/DL (8.5-10.1); CARBON DIOXIDE 27 MMOL/L (21-32); CHLORIDE 105 MMOL/L (98-107); CREATININE SERUM 0.79 MG/DL (0.60-1.30); GFR ESTIMATED > 60; GLUCOSE 151 MG/DL (70-105); MAGNESIUM 1.7 MG/DL (1.8-2.4); SODIUM 144 MMOL/L (135-145)
[2017-07-06] MEDS: POTASSIUM CL 10MEQ/50ML IVPB 50 ML IV SCH (05:57)
[2017-07-06] MEDS: KCL 20 MEQ TAB (K-DUR) PO SCH (05:57)
[2017-07-06] MEDS: MAGNESIUM 1 GM/100 ML IVPB 100 ML IV SCH ×3 (05:59→06:25)
[2017-07-06 06:17] LABS: INR 1.4 (0.8-1.4)
--- NOTE | 2017-07-06 07:33 | Diagnostic Imaging Report ---
INDICATION: Severe sepsis, shortness of air. TECHNIQUE: Single view chest 4:48 AM. CORRELATION STUDY: None FINDINGS: Cardiac enlargement. Vasculature is slightly prominent. No evidence for failure. The lungs are clear with no consolidating infiltrate. There is no significant effusion or pneumothorax. IMPRESSION: 1. Cardiac enlargement with borderline vasculature. No significant pulmonary infiltrate. Dictated by: Dictated on workstation # [id number]
[2017-07-06 10:02] LABS: MEAN CORPUSCULAR VOLUME 100 FL (80-99)
[2017-07-06 10:10] LABS: HEMATOCRIT 40 % (35-52); MEAN CORPUSCULAR HGB CONC 28 G/DL (32-36); MEAN CORPUSCULAR VOLUME 99 FL (80-99)
[2017-07-06] MEDS ORDERED: FLUT1AER IH (10:36)
[2017-07-06] MEDS ORDERED: AMIT50TA3 PO (10:36)
[2017-07-06] MEDS ORDERED: DULO60CA58 PO (10:36)
[2017-07-06] MEDS ORDERED: DAPA10TA PO (10:36)
[2017-07-06] MEDS ORDERED: PREG75CA PO ×2 (10:36)
[2017-07-06] MEDS ORDERED: BUSP15TA60 PO (10:36)
[2017-07-06] MEDS ORDERED: SUCR1TAB PO (10:36)
[2017-07-06] MEDS ORDERED: OMEP20CA12 PO (10:36)
[2017-07-06] MEDS ORDERED: MULT-35 PO (10:41)
[2017-07-06] MEDS ORDERED: CALC-927 PO (10:41)
[2017-07-06] MEDS ORDERED: BIOT10TA PO (10:41)
[2017-07-06] MEDS ORDERED: POTA10TA36 PO (10:52)
--- NOTE | 2017-07-06 11:25 | History & Physical-Hospitalist ---
HPI History of Present Illness: HPI/Chief Complaint Pt is a 57yoCF with a PMH of ITP, recurrent DVTs, COPD, IDDMII, Bipolar Disorder , HTN, and hypothyroidism who was admitted for hypoxia as a transfer from [facility]. She presented to their stand alone ER with complaints of SOB and dry cough. She has seen last week at that ER and tested positive for Flu A and was treated with tamiflu without significant improvement. On Arrival to their ER she was found to be hypoxic and CTA of her chest was down that per verbal report did not reveal any central PE or acute pathologies but could no rule out peripheral pulmonary embolus. She reports that she is feeling better this morning but still is dyspneic on exertion. She has a history of COPD (her diagnosis for her disability) and was previously on oxygen at baseline but was taken off and is unsure why she was. She also recently took herself off of her CPAP. She has a history of recurrent DVTs but has been taken off of anticoagulation with her history of ITP and previous episodes of severe thrombocytopenia induced bleeding. Source: patient Exam Limitations: no limitations Date Seen 07/06/17 Time Seen by Provider: 10:30 Attending Physician Kira Bowens MD PCP No,Local Physician Referring Physician Date of Admission Jul 06, 2017 at 00:41 Home Medications & Allergies Home Medications Reviewed patient Home Medication Reconciliation Form Allergies Allergies Coded Allergies iloperidone (Verified Allergy, Severe, 07/06/17) Poultry (Verified Allergy, Mild, 07/06/17) shellfish derived (Verified Allergy, Mild, 07/06/17) Sulfa (Sulfonamide Antibiotics) (Verified Allergy, Unknown, 07/06/17) risperidone (Verified Allergy, Unknown, 07/06/17) Uncoded Allergies HYPERTENSIVE MEDICATIONS ( Allergy, Intermediate, 07/06/17) PATIENT STATES THAT SHE HAS AN ALLERGY TO "ALL HYPERTENSIVE MEDICATIONS" Past Vuhgmce-Hddlal-Msgoum Hx Patient Social History Alcohol Use: Denies Use Recreational Drug Use: No Smoking Status: Former Smoker Former Smoker, Quit: Jul 06, 2011 Type Used: Cigarettes Physical Abuse Screen: No Sexual Abuse: No Recent Foreign Travel: No Contact w/other who traveled: No Recent Hopitalizations: Yes Recent Infectious Disease Expo: No Immunizations Up To Date Date of Pneumonia Vaccine: Apr 12, 2017 Date of Influenza Vaccine: Mar 29, 2017 Seasonal Allergies Seasonal Allergies: Yes Surgeries Yes Respiratory Yes Currently Using CPAP: No Currently Using BIPAP: No Cardiovascular No Neurological No Reproductive System : No Genitourinary No Gastrointestinal No (ENLARGED LIVER) Musculoskeletal Yes Fractures Endocrine History of Endocrine Disorders: Yes Are Your Blood Sugars Over 250: No HEENT History of HEENT Disorders: No Cancer No Psychosocial History of Psychiatric Problem: Yes Behavioral Health Disorders: Anxiety, Bipolar, Schizophrenia, Depression Integumentary History of Skin or Integumenta: No Blood Transfusions History of Blood Disorders: Yes (LOW PLATELETS) Adverse Reaction to a Blood Tr: No Family Medical History Family Hx: Colon cancer G8 BROTHER Review of Systems Constitutional: No chills, No fever EENTM: No blurred vision, No double vision, No nose congestion, No throat pain Respiratory: see HPI, cough, dyspnea on exertion, No phlegm, short of breath, wheezing Cardiovascular: No chest pain, No edema, No palpitations Gastrointestinal: No abdominal pain, No constipation, No diarrhea, No nausea, No vomiting Genitourinary: No dysuria, No frequency Musculoskeletal: No joint pain, No muscle pain Skin: No lesions, No rash Psychiatric/Neurological: Anxiety, Denies Headache, Denies Numbness, Denies Tingling Physical Exam Physical Exam Vital Signs Vital Sign - Last 12Hours 07/06/17 01:00 Temp 97.9 Capillary Refill : Less Than 3 Seconds General Appearance: No Apparent Distress, WD/WN HEENT: PERRL/EOMI, Moist Mucous Membranes Neck: Non Tender, Supple Respiratory: No Respiratory Distress, Wheezing (diffuse expiratory) Cardiovascular: Regular Rate, Rhythm, No Murmur Gastrointestinal: Normal Bowel Sounds, Non Tender, Soft Extremity: Normal Capillary Refill, No Calf Tenderness Neurologic/Psychiatric: Alert, Oriented x3, Normal Mood/Affect Skin: Normal Color, Warm/Dry Results Results/Procedures Lab Laboratory Tests 07/06/17 01:35 07/06/17 05:10 07/07/17 04:30 Assessment/Plan Admission Diagnosis COPD Exacerbation Diagnosis/Problems Diagnosis/Problems (1) COPD exacerbation Status: Acute Assessment & Plan: Diffuse wheezes Likely brought on by recent influenza infection Start Steroids Duonebs scheduled and prn MAT Protocol Does have leukopenia but no signs of infection, not sepsis (2) H/O idiopathic thrombocytopenic purpura Status: Chronic Assessment & Plan: Reports baseline thrombocytopenia but unsure of baseline Reports has been told she can never be on anticoagulation due to this (3) HTN (hypertension) Status: Chronic Assessment & Plan: Chronic, but refused blood pressure medicines as passed out after being on it once BP within goal, trend Qualifiers: Qualified Codes: I10 - Essential (primary) hypertension (4) Bipolar disorder Status: Chronic Assessment & Plan: Resume home psych meds Qualifiers: Qualified Codes: F31.9 - Bipolar disorder, unspecified (5) Hypothyroidism Status: Chronic Assessment & Plan: Continue synthroid Qualifiers: Qualified Codes: E03.9 - Hypothyroidism, unspecified (6) Hypomagnesemia Status: Resolved Assessment & Plan: Will replace (7) H/O deep venous thrombosis Status: Chronic Assessment & Plan: H/o recurrent DVT but anticoagulation precluded by ITP D-dimer elevated and CTA could not exclude perpiheral emboli Discussed this with patient and option for V/Q but she declined given she cannot be on anticoagulation Clinical Quality Measures DVT/VTE Risk/Contraindication: Risk Factor Score Per Nursin RFS Level Per Nursing on Admit: 4+=Very High KIRA BOWENS MD Jul 06, 2017 11:25
[2017-07-06] MEDS ORDERED: RT-ALBUTEROL/IPRATROPIUM 3 ML (DUONEB) VIAL INH SCH (11:30)
[2017-07-06] MEDS ORDERED: RT-ALBUTEROL/IPRATROPIUM 3 ML (DUONEB) VIAL INH PRN (11:30)
[2017-07-06] MEDS: RT-ALBUTEROL/IPRATROPIUM 3 ML (DUONEB) VIAL INH SCH ×2 (14:47→21:15)
[2017-07-06] MEDS: inSUlin ASPART (NovoLOG) 1 UNIT/0.01 ML (CHARGE PER UNIT) SC SCH ×2 (17:47→21:38)
[2017-07-06] MEDS ORDERED: AMITRIPTYLINE 50 MG (ELAVIL) TAB PO SCH (22:00)
[2017-07-06] MEDS ORDERED: PREGABALIN 100 MG (LYRICA) CAPSULE PO SCH (22:00)
[2017-07-06] MEDS ORDERED: busPIRone 15 MG (BUSPAR) TABLET PO SCH (22:00)
[2017-07-07] VITALS (7 sets, daily range): BP systolic 122–161; BP diastolic 67–91
[2017-07-07] MEDS: RT-ALBUTEROL/IPRATROPIUM 3 ML (DUONEB) VIAL INH SCH ×4 (02:08→22:18)
[2017-07-07 05:02] LABS: BASOPHILS % (AUTO) 0 % (0-10); EOSINOPHILS # (AUTO) 0.1 10^3/uL (0.0-0.3); EOSINOPHILS % (AUTO) 3 % (0-10); HEMATOCRIT 38 % (35-52); LYMPHOCYTES # (AUTO) 0.5 X 10^3 (1.0-4.0); LYMPHOCYTES % (AUTO) 17 % (12-44); MEAN CORPUSCULAR HEMOGLOBIN 29 PG (25-34); MEAN CORPUSCULAR HGB CONC 32 G/DL (32-36); MEAN CORPUSCULAR VOLUME 92 FL (80-99); MEAN PLATELET VOLUME 10.6 FL (7.4-10.4); MONOCYTES # (AUTO) 0.2 X 10^3 (0.0-1.0); MONOCYTES % (AUTO) 8 % (0-12); NEUTROPHILS # (AUTO) 2.2 X 10^3 (1.8-7.8); NEUTROPHILS % (AUTO) 72 % (42-75); PLATELET COUNT 98 10^3/uL (130-400); RED BLOOD COUNT 4.11 10^6/uL (4.35-5.85); RED CELL DISTRIBUTION WIDTH 16.1 % (10.0-14.5); WHITE BLOOD COUNT 3.1 10^3/uL (4.3-11.0)
[2017-07-07 05:23] LABS: INR 1.3 (0.8-1.4); PROTHROMBIN TIME PATIENT 16.2 SEC (12.2-14.7)
[2017-07-07 05:48] LABS: BUN/CREATININE RATIO 14; CALCIUM 8.7 MG/DL (8.5-10.1); CARBON DIOXIDE 26 MMOL/L (21-32); CHLORIDE 105 MMOL/L (98-107); CREATININE SERUM 0.74 MG/DL (0.60-1.30); GFR ESTIMATED > 60; GLUCOSE 210 MG/DL (70-105); MAGNESIUM 2.1 MG/DL (1.8-2.4); POTASSIUM 4.2 MMOL/L (3.6-5.0); SODIUM 143 MMOL/L (135-145)
[2017-07-07] MEDS: POTASSIUM CL 10MEQ/50ML IVPB 50 ML IV SCH (06:00)
[2017-07-07] MEDS: MAGNESIUM 1 GM/100 ML IVPB 100 ML IV SCH (06:00)
[2017-07-07] MEDS: KCL 20 MEQ TAB (K-DUR) PO SCH (06:00)
--- NOTE | 2017-07-07 06:29 | Pulmonary Consultation ---
History of Present Illness History of Present Illness Date of Consultation 07/07/17 06:24 Time Seen by Provider: 06:24 Date of Admission History of Present Illness 57yo with hx of ITP, recurrent DVTs, TERI, COPD transferred here from [place] secondary to progressive SOB and hypoxia. She was recently seen in ED and tested positive for Influ A and was treated with Tamiflu however failed out patient treatment. Upon ED admission she was hypoxic. Ct scan was done in [place] and did not show any PE per report. I am consulted for pulmonary management. Allergies and Home Medications Allergies Coded Allergies: iloperidone (Verified Allergy, Severe, 07/06/17) Poultry (Verified Allergy, Mild, 07/06/17) shellfish derived (Verified Allergy, Mild, 07/06/17) Sulfa (Sulfonamide Antibiotics) (Verified Allergy, Unknown, 07/06/17) risperidone (Verified Allergy, Unknown, 07/06/17) Uncoded Allergies: HYPERTENSIVE MEDICATIONS (Allergy, Intermediate, 07/06/17) PATIENT STATES THAT SHE HAS AN ALLERGY TO "ALL HYPERTENSIVE MEDICATIONS" Home Medications Albuterol Sulfate 18 Gm Hfa.aer.ad, 1-2 PUFF INH Q6H PRN for SHORTNESS OF BREATH , (Reported) Amitriptyline HCl 50 Mg Tablet, 50 MG PO HS, (Reported) Aripiprazole 5 Mg Tablet, 5 MG PO DAILY, (Reported) Biotin 10 Mg Tablet, 10 MG PO DAILY, (Reported) Buspirone HCl 15 Mg Tablet, 15 MG PO QID, (Reported) Calcium Carb/Mag Ox/Zinc Sulf 1 Each Tablet, 1 TAB PO DAILY, (Reported) Cetirizine HCl 10 Mg Tablet, 10 MG PO HS, (Reported) Dapagliflozin Propanediol 10 Mg Tablet, 10 MG PO DAILY, (Reported) Duloxetine HCl 60 Mg Capsule.dr, 60 MG PO DAILY, (Reported) Fluticasone/Vilanterol 1 Each Blst.w.dev, 1 PUFF IH HS, (Reported) Furosemide 20 Mg Tablet, 20 MG PO DAILY, (Reported) Insulin Aspart 100 Unit/1 Ml Susp, SQ TIDWM, (Reported) USES 40 UNITS PLUS SLIDING SCALE Insulin Degludec 100 Unit/1 Ml Insuln.pen, 100 UNIT SQ BID, (Reported) Levofloxacin 500 Mg Tablet, 500 MG PO DAILY for 7 Days, (Reported) 7 DAY SUPPLY FILLED 07-03-17 Levothyroxine Sodium 137 Mcg Tablet, 137 MCG PO DAILY, (Reported) Liraglutide 0.6 Mg/0.1 Ml Pen.injctr, 1.8 MG SC DAILY, (Reported) Multivitamin 1 Each Tablet, 1 TAB PO DAILY, (Reported) Omeprazole 20 Mg Capsule.dr, 20 MG PO HS, (Reported) Potassium Chloride 10 Meq Tab.er.prt, 10 MEQ PO DAILY, (Reported) Pregabalin 75 Mg Capsule, 75 MG PO DAILY, (Reported) Pregabalin 75 Mg Capsule, 150 MG PO HS, (Reported) TAKES 2 (75MG) CAPSULES Sucralfate 1 Gm Tablet, 1 GM PO BID, (Reported) Past Tzaeoat-Spqsit-Boszkd Hx Patient Social History Alcohol Use: Denies Use Recreational Drug Use: No Smoking Status: Former Smoker Type Used: Cigarettes Former Smoker, Quit: Jul 06, 2011 Recent Foreign Travel: No Contact w/Someone Who Travel: No Recent Infectious Disease Expo: No Recent Hopitalizations: Yes Immunizations Up To Date Date of Pneumonia Vaccine: Apr 12, 2017 Date of Influenza Vaccine: Mar 29, 2017 Seasonal Allergies Seasonal Allergies: Yes Surgeries History of Surgeries: Yes Respiratory History of Respiratory Disorde: Yes Respiratory Disorders: Asthma, Pulmonary Embolism, COPD Currently Using CPAP: No Currently Using BIPAP: No Cardiovascular History of Cardiac Disorders: No Neurological History of Neurological Disord: No Reproductive System : No Genitourinary History of Genitourinary Disor: No Gastrointestinal History of Gastrointestinal Di: No (ENLARGED LIVER) Musculoskeletal History of Musculoskeletal Dis: Yes Musculoskeletal Disorders: Fractures Endocrine History of Endocrine Disorders: Yes Are Your Blood Sugars Over 250: No HEENT History of HEENT Disorders: No Cancer History of Cancer: No Psychosocial History of Psychiatric Problem: Yes Behavioral Health Disorders: Anxiety, Bipolar, Schizophrenia, Depression Integumentary History of Skin or Integumenta: No Blood Transfusions History of Blood Disorders: Yes (LOW PLATELETS) Adverse Reaction to a Blood Tr: No Family Medical History Family Medial History: Colon cancer G8 BROTHER Review of Systems Time Seen by Provider: 06:38 Constitutional: Weakness, Malaise, No: Fever, Chills, Sweats, Other Eyes: No: Pain, Vision change, Conjunctivae inflammation, Eyelid inflammation, Other, Redness Respiratory: Shortness of breath, SOB with excertion, Wheezing Cardiovascular: Palpitations, Paroxysmal Noc. Dyspnea Gastrointestinal: No: Nausea, Vomiting Genitourinary: No Dysuria Musculoskeletal: neck pain, back pain, No: other Neurological: Weakness Exam Exam Vital Signs Date Time Temp Pulse Resp B/P (MAP) Pulse Ox O2 Delivery O2 Flow Rate FiO2 07/07/17 04:00 97 Nasal Cannula 2.00 07/07/17 04:00 97.3 80 16 122/75 (91) 97 Nasal Cannula 2.00 07/07/17 02:09 Nasal Cannula 2.00 07/07/17 01:00 80 07/07/17 00:00 96.8 81 17 140/77 (98) 99 Nasal Cannula 2.00 07/07/17 00:00 99 Nasal Cannula 2.00 07/06/17 21:15 Nasal Cannula 2.00 07/06/17 21:00 98 Nasal Cannula 2.00 07/06/17 20:00 96.8 86 20 132/60 (84) 98 Nasal Cannula 2.00 07/06/17 20:00 98 Nasal Cannula 2.00 07/06/17 19:00 78 07/06/17 18:00 77 18 126/57 (80) 99 Nasal Cannula 2.00 07/06/17 17:00 76 20 123/58 (79) 97 Nasal Cannula 2.00 07/06/17 16:04 97.0 07/06/17 16:00 96 Nasal Cannula 2.00 07/06/17 16:00 88 11 147/65 (92) 98 Nasal Cannula 2.00 07/06/17 15:00 79 19 102/54 (70) 98 Nasal Cannula 2.00 07/06/17 14:50 Nasal Cannula 2.00 07/06/17 14:00 79 17 116/63 (80) 95 Nasal Cannula 2.00 07/06/17 13:00 78 16 109/47 (67) 98 Nasal Cannula 2.00 07/06/17 13:00 77 07/06/17 12:00 96 Nasal Cannula 2.00 07/06/17 12:00 88 13 133/60 (84) 99 Nasal Cannula 2.00 07/06/17 11:00 77 18 138/73 (94) 97 Nasal Cannula 2.00 07/06/17 10:00 81 17 116/41 (66) 98 Nasal Cannula 2.00 07/06/17 09:10 97 Nasal Cannula 2.00 07/06/17 09:03 Nasal Cannula 2.00 07/06/17 09:00 80 16 155/85 (108) 97 Nasal Cannula 2.00 07/06/17 08:39 97.3 07/06/17 08:00 85 19 139/60 (86) 96 Nasal Cannula 2.00 07/06/17 08:00 97 Nasal Cannula 2.00 07/06/17 07:00 96 20 148/69 (95) 96 Nasal Cannula 2.00 07/06/17 07:00 99 I & O 07/07/17 07:00 Intake Total 890 ml Output Total 1225 ml Balance -335 ml General Appearance: No Apparent Distress, WD/WN HEENT: PERRL/EOMI, Moist Mucous Membranes Neck: Non Tender, Supple Respiratory: Chest Non Tender, No Accessory Muscle Use, No Respiratory Distress , Wheezing Cardiovascular: Regular Rate, Rhythm, No Murmur Gastrointestinal: non tender, soft, no organomegaly, no pulsatile mass Extremity: Normal Capillary Refill, No Calf Tenderness Neurologic/Psychiatric: Alert, Oriented x3, Normal Mood/Affect Skin: Normal Color, Warm/Dry Lymphatic: No Adenopathy Results Lab Laboratory Tests 07/06/17 01:35 07/06/17 05:10 07/07/17 04:30 Assessment/Plan Assessment/Plan COPDAE -SVNs -Continue Prednisone taper -Oxygen -- TERI -CPAP therapy education hx of BiPolar HTN HX of ITP hx of DVT -pt is not on anticoagulation secondary to ITP Transfer pt to 4th floor. 254 Clinical Quality Measures DVT/VTE Risk/Contraindication: Risk Factor Score Per Nursin RFS Level Per Nursing on Admit: 4+=Very High CHERRIE ZELAYA DO Jul 07, 2017 06:29
[2017-07-07] MEDS: inSUlin ASPART (NovoLOG) 1 UNIT/0.01 ML (CHARGE PER UNIT) SC SCH ×4 (07:02→21:12)
--- NOTE | 2017-07-07 11:52 | Progress Note-Hospitalist ---
Subjective HPI/CC On Admission Date Seen by Provider: Jul 07, 2017 Time Seen by Provider: 07:30 Pt is a 57yoCF with a PMH of ITP, recurrent DVTs, COPD, IDDMII, Bipolar Disorder , HTN, and hypothyroidism who was admitted for hypoxia as a transfer from [facility]. She presented to their stand alone ER with complaints of SOB and dry cough. She has seen last week at that ER and tested positive for Flu A and was treated with tamiflu without significant improvement. On Arrival to their ER she was found to be hypoxic and CTA of her chest was down that per verbal report did not reveal any central PE or acute pathologies but could no rule out peripheral pulmonary embolus. She reports that she is feeling better this morning but still is dyspneic on exertion. She has a history of COPD (her diagnosis for her disability) and was previously on oxygen at baseline but was taken off and is unsure why she was. She also recently took herself off of her CPAP. She has a history of recurrent DVTs but has been taken off of anticoagulation with her history of ITP and previous episodes of severe thrombocytopenia induced bleeding. Subjective/Events-last exam Pt reports feeling better from a respiratory standpoint but was very anxious overnight. Preoccupied with recent of her dog. Objective Exam Vital Signs Vital Sign - Last 12Hours 07/06/17 01:00 Temp 97.9 Capillary Refill : Less Than 3 Seconds General Appearance: No Apparent Distress, WD/WN HEENT: Other (dysconjugate gaze) Respiratory: No Accessory Muscle Use, No Respiratory Distress, Wheezing Cardiovascular: Regular Rate, Rhythm, No Murmur Gastrointestinal: Non Tender, Soft Neurologic/Psychiatric: Alert, Oriented x3 Results/Procedures Lab Laboratory Tests 07/07/17 04:30 Assessment/Plan Assessment and Plan Assess & Plan/Chief Complaint COPD Exacerbation Diagnosis/Problems Diagnosis/Problems (1) COPD exacerbation Status: Acute Assessment & Plan: Likely brought on by recent influenza infection Continue Prednisone catrina Joe scheduled and prn MAT Protocol Does have leukopenia but no signs of infection, not sepsis Will transfer to floor today Home oxygen qualification (2) H/O idiopathic thrombocytopenic purpura Status: Chronic Assessment & Plan: Reports baseline thrombocytopenia but unsure of baseline Reports has been told she can never be on anticoagulation due to this plts stable (3) HTN (hypertension) Status: Chronic Assessment & Plan: Chronic, but refused blood pressure medicines as passed out after being on it once BP within goal, trend Qualifiers: Qualified Codes: I10 - Essential (primary) hypertension (4) Bipolar disorder Status: Chronic Assessment & Plan: Resume home psych meds Qualifiers: Qualified Codes: F31.9 - Bipolar disorder, unspecified (5) Hypothyroidism Status: Chronic Assessment & Plan: Continue synthroid Qualifiers: Qualified Codes: E03.9 - Hypothyroidism, unspecified (6) Hypomagnesemia Status: Resolved (7) H/O deep venous thrombosis Status: Chronic Assessment & Plan: H/o recurrent DVT but anticoagulation precluded by ITP D-dimer elevated and CTA could not exclude peripheral emboli Discussed this with patient and option for V/Q but she declined given she cannot be on anticoagulation KIRA MOE MD Jul 07, 2017 11:52 am
[2017-07-07] MEDS: predniSONE 10 MG TAB PO SCH (11:59)
[2017-07-07] MEDS: busPIRone 15 MG (BUSPAR) TABLET PO SCH ×3 (12:07→20:54)
[2017-07-07] MEDS: SUCRALFATE 1 GM (CARAFATE) TAB PO SCH (20:54)
[2017-07-07] MEDS ORDERED: PREGABALIN 75 MG (LYRICA) CAP PO SCH (21:00)
[2017-07-07] MEDS ORDERED: inSUlin DETERMIR 1 UNIT/0.01 ML (LEVEMIR) CHARGE PER UNIT SQ SCH (21:00)
[2017-07-07] MEDS ORDERED: PANTOPRAZOLE 20 MG TABLET (PROTONIX) PO SCH (21:00)
[2017-07-07] MEDS ORDERED: AMITRIPTYLINE 50 MG (ELAVIL) TAB PO SCH (21:00)
[2017-07-08] VITALS: BP 139/65
[2017-07-08] MEDS: RT-ALBUTEROL/IPRATROPIUM 3 ML (DUONEB) VIAL INH SCH ×3 (03:00→14:28)
[2017-07-08] MEDS: RT-ADVAIR HFA 115/21 MCG PER PUFF IH SCH ×2 (03:37→10:20)
[2017-07-08 04:00] VITALS: BP 137/66
[2017-07-08] MEDS: inSUlin ASPART (NovoLOG) 1 UNIT/0.01 ML (CHARGE PER UNIT) SC SCH ×2 (06:05→12:18)
[2017-07-08] MEDS ORDERED: LEVOTHYROXINE 25 MCG (LEVOTHROID) TAB PO SCH (06:30)
[2017-07-08] MEDS ORDERED: LEVOTHYROXINE 112 MCG (LEVOTHROID) TAB PO SCH (06:30)
[2017-07-08] MEDS ORDERED: KCL 10 MEQ TAB (MICRO K) PO SCH (07:00)
[2017-07-08 07:31] LABS: BUN/CREATININE RATIO 16; CALCIUM 9.4 MG/DL (8.5-10.1); CARBON DIOXIDE 27 MMOL/L (21-32); CHLORIDE 102 MMOL/L (98-107); CREATININE SERUM 0.75 MG/DL (0.60-1.30); GFR ESTIMATED > 60; GLUCOSE 257 MG/DL (70-105); POTASSIUM 4.7 MMOL/L (3.6-5.0); SODIUM 139 MMOL/L (135-145)
[2017-07-08 08:00] VITALS: BP 112/73
[2017-07-08] MEDS ORDERED: DULoxetine 30 MG (CYMBALTA) CAP PO SCH (09:00)
[2017-07-08] MEDS ORDERED: ARIPIPRAZOLE 10 MG (ABILIFY) TAB PO SCH (09:00)
[2017-07-08] MEDS ORDERED: PREGABALIN 75 MG (LYRICA) CAP PO SCH (09:00)
[2017-07-08] MEDS ORDERED: FUROSEMIDE 20 MG (LASIX) TAB PO SCH (09:00)
[2017-07-08] MEDS: busPIRone 15 MG (BUSPAR) TABLET PO SCH ×2 (09:11→13:25)
[2017-07-08] MEDS: predniSONE 10 MG TAB PO SCH (09:11)
[2017-07-08] MEDS: SUCRALFATE 1 GM (CARAFATE) TAB PO SCH (09:12)
[2017-07-08] MEDS ORDERED: PRED10TA22 PO (09:32)
[2017-07-08 12:00] VITALS: BP 133/60
--- NOTE | 2017-07-08 14:31 | Discharge Summary-Hospitalist ---
Diagnosis/Chief Complaint Date of Admission Jul 06, 2017 at 12:41 am Date of Discharge Discharge Date: Jul 08, 2017 Admission Diagnosis COPD Exacerbation Discharge Diagnosis COPD Exacerbation (1) COPD exacerbation Status: Acute Assessment & Plan: Likely brought on by recent influenza infection Continue Prednisone catrina Joe scheduled and prn MAT Protocol Does have leukopenia but no signs of infection, not sepsis Qualified for 2lpm on exertion (2) H/O idiopathic thrombocytopenic purpura Status: Chronic Assessment & Plan: Reports baseline thrombocytopenia but unsure of baseline Reports has been told she can never be on anticoagulation due to this plts stable (3) HTN (hypertension) Status: Chronic Assessment & Plan: Chronic, but refused blood pressure medicines as passed out after being on it once BP within goal, trend (4) Bipolar disorder Status: Chronic Assessment & Plan: Resume home psych meds (5) Hypothyroidism Status: Chronic Assessment & Plan: Continue synthroid (6) H/O deep venous thrombosis Status: Chronic Assessment & Plan: H/o recurrent DVT but anticoagulation precluded by ITP D-dimer elevated and CTA could not exclude peripheral emboli Discussed this with patient and option for V/Q but she declined given she cannot be on anticoagulation (7) Hypomagnesemia Status: Resolved Discharge Summary Consultations Dr Cook- Table Inspector Discharge Physical Examination Allergies: Coded Allergies: iloperidone (Verified Allergy, Severe, 07/06/17) Poultry (Verified Allergy, Mild, 07/06/17) shellfish derived (Verified Allergy, Mild, 07/06/17) Sulfa (Sulfonamide Antibiotics) (Verified Allergy, Unknown, 07/06/17) risperidone (Verified Allergy, Unknown, 07/06/17) Uncoded Allergies: HYPERTENSIVE MEDICATIONS (Allergy, Intermediate, 07/06/17) PATIENT STATES THAT SHE HAS AN ALLERGY TO "ALL HYPERTENSIVE MEDICATIONS" Vitals & I&Os Vital Signs Date Time Temp Pulse Resp B/P (MAP) Pulse Ox O2 Delivery O2 Flow Rate FiO2 07/08/17 14:28 92 Room Air 07/08/17 12:00 96.0 105 20 133/60 (84) 2.00 Hospital Course Pt is a 57yoCF with a PMH of COPD who transferred from [place], [place] due to hypoxia and COPD exacerbation. She was admitted her and Pulmnology was consulted. She was treated with steroids and SVNs and responded well. She did qualify for oxygen during this stay and was set up with home health for oxygen. She follows with a Table Inspector in [place] and will schedule follow up with them in 1 week. Labs (last 24 hrs) Microbiology 07/06/17 MRSA Screen - Final, Complete MRSA not isolated Pending Labs Discharge Home Medications: Active Scripts Active Prednisone 10 Mg Tab.ds.pk 10 Mg PO DAILY Take 5 tabs(50mg)the first day, then decrease by 1 tab(10mg)every other day. Reported Potassium Chloride 10 Meq Tab.er.prt 10 Meq PO DAILY Daily Multiple Vitamin (Multivitamin) 1 Each Tablet 1 Tab PO DAILY Cdaupph-Nllouyziu-Tkcs Tablet (Calcium Carb/Mag Ox/Zinc Sulf) 1 Each Tablet 1 Tab PO DAILY Biotin 10 Mg Tablet 10 Mg PO DAILY Breo Ellipta 100-25 Mcg INH (Fluticasone/Vilanterol) 1 Each Blst.w.dev 1 Puff IH HS Omeprazole 20 Mg Capsule.dr 20 Mg PO HS Sucralfate 1 Gm Tablet 1 Gm PO BID Amitriptyline HCl 50 Mg Tablet 50 Mg PO HS Buspirone HCl 15 Mg Tablet 15 Mg PO QID Duloxetine HCl 60 Mg Capsule.dr 60 Mg PO DAILY Farxiga (Dapagliflozin Propanediol) 10 Mg Tablet 10 Mg PO DAILY Lyrica (Pregabalin) 75 Mg Capsule 150 Mg PO HS TAKES 2 (75MG) CAPSULES Lyrica (Pregabalin) 75 Mg Capsule 75 Mg PO DAILY Tresiba Flextouch U-100 (Insulin Degludec) 100 Unit/1 Ml Insuln.pen 100 Unit SQ BID Novolog (Insulin Aspart) 100 Unit/1 Ml Susp SQ TIDWM USES 40 UNITS PLUS SLIDING SCALE Synthroid (Levothyroxine Sodium) 137 Mcg Tablet 137 Mcg PO DAILY Furosemide 20 Mg Tablet 20 Mg PO DAILY Cetirizine HCl 10 Mg Tablet 10 Mg PO HS Aripiprazole 5 Mg Tablet 5 Mg PO DAILY Ventolin Hfa (Albuterol Sulfate) 18 Gm Hfa.aer.ad 1-2 Puff INH Q6H PRN Victoza 2-Froylan (Liraglutide) 0.6 Mg/0.1 Ml Pen.injctr 1.8 Mg SC DAILY Instructions to patient/family Please see electronic discharge instructions given to patient. Clinical Quality Measures DVT/VTE Risk/Contraindication: Risk Factor Score Per Nursin RFS Level Per Nursing on Admit: 4+=Very High Problem Qualifiers (1) HTN (hypertension): Hypertension type: essential hypertension Qualified Codes: I10 - Essential ( primary) hypertension (2) Bipolar disorder: Active/Remission status: remission status unspecified Qualified Codes: F31.9 - Bipolar disorder, unspecified (3) Hypothyroidism: Hypothyroidism type: unspecified Qualified Codes: E03.9 - Hypothyroidism, unspecified KIRA MOE MD Jul 08, 2017 14:31
[2017-07-08] MEDS ORDERED: LORATADINE (CLARITIN) 10 MG TAB PO SCH (21:00)
[2017-07-09] MEDS ORDERED: RT-ADVAIR HFA 115/21 MCG PER PUFF IH SCH (08:00)
== END 2017-07-08 15:15 | disposition home or self-care (01) | DRG 153 ==
LOC: ICU 07-06 00:41 → 4TH 07-07 14:24
PROVIDERS: ADMIT Family Medicine; ATTEND Family Medicine
DX: J11.1 Influenza due to unidentified influenza virus with other respiratory manifestations (principal); J44.1 Chronic obstructive pulmonary disease with (acute) exacerbation; D69.3 Immune thrombocytopenic purpura; E11.9 Type 2 diabetes mellitus without complications; I10 Essential (primary) hypertension; E03.9 Hypothyroidism, unspecified; E83.42 Hypomagnesemia; J30.2 Other seasonal allergic rhinitis; F41.9 Anxiety disorder, unspecified; F31.9 Bipolar disorder, unspecified; F20.9 Schizophrenia, unspecified; G47.33 Obstructive sleep apnea (adult) (pediatric); Z86.711 Personal history of pulmonary embolism; Z86.718 Personal history of other venous thrombosis and embolism; Z86.2 Personal history of diseases of the blood and blood-forming organs and certain disorders involving the immune mechanism; Z87.891 Personal history of nicotine dependence; Z79.4 Long term (current) use of insulin
CPT/HCPCS: 36415; 71045; 80048; 82962; 83605; 83735; 83880; 85025; 85610; 87081; 94640; 94760; 94761